=== PATIENT | female | born 1985 | race Caucasian/White ===

== ENCOUNTER 2017-10-30 13:36 | Emergency (ER) | payer OTHER ==
[2017-10-30 13:57] VITALS: BP 107/80
--- NOTE | 2017-10-30 14:57 | RAD ---
HISTORY: Right-sided rib and scapular pain COMPARISONS: February 10, 2017 VIEWS: 4, Frontal internal rotation, external rotation, outlet, and axillary views of the right shoulder FINDINGS: BONE DENSITY: Normal. BONES: There is no displaced fracture. JOINTS: There is no arthropathy. ALIGNMENT: There is no dislocation. SOFT TISSUES: Unremarkable. OTHER FINDINGS: None. IMPRESSION: NO ACUTE OSSEOUS INJURY. IF SYMPTOMS PERSIST, RECOMMEND REPEAT IMAGING.
--- NOTE | 2017-10-30 14:57 | RAD ---
HISTORY: Right-sided rib and scapular pain COMPARISONS: Chest x-ray dated December 30, 2014 VIEWS: 8, Frontal view of the chest with frontal and oblique views of the right hemithorax. FINDINGS: There is no displaced rib fracture or pneumothorax. The visualized lungs are clear. IMPRESSION: NO DISPLACED RIB FRACTURE OR PNEUMOTHORAX
--- NOTE | 2017-10-30 16:04 | UC ---
Shoulder Pain HPI - HPI Summary HPI Summary: PATIENT WITH KNOWN RIGHT ROTATOR CUFF TENDINOPATHY AND A LONG-STANDING HISTORY OF WHAT SOUNDS LIKE RECURRENT RIGHT SHOULDER SUBLUXATION PRESENTS WITH WORSENING PAIN IN HER RIGHT SHOULDER AND RIB CAGE. SHE DENIES ANY TRAUMA BUT STATES THAT SINCE LAST NIGHT AFTER DOING THE LAUNDRY HER PAIN IS WORSE THAN NORMAL. SHE REPORTS THAT SHE HAS BEEN SEEN BY ORTHOPEDICS FOR THIS ISSUE ABOUT 2 YEARS AGO AND WAS ADVISED TO DO PHYSICAL THERAPY TO HELP STRENGTHEN THE MUSCLES AND LIGAMENTS THAT SUPPORT THE SHOULDER BUT SHE HAS NOT DONE THIS. - History of Current Complaint Chief Complaint: UCUpperExtremity Stated Complaint: SHOULDER PAIN Time Seen by Provider: 10/30/17 14:42 Hx Obtained From: Patient Hx Last Menstrual Period: 10/09/17 Onset/Duration: Gradual Onset, Still Present Timing: Constant Severity Initially: Moderate Severity Currently: Moderate Location Of Pain: Is Discrete @ Pain Intensity: 5 Pain Scale Used: 0-10 Numeric Character: Sharp, Aching Aggravating Factor(s): Movement Alleviating Factor(s): Rest Associated Signs And Symptoms: Positive: Negative Related History: Dominant Hand Right - Allergies/Home Medications Allergies/Adverse Reactions: Allergies Allergy/AdvReac Type Severity Reaction Status Date / Time No Known Allergies Allergy Verified 05/20/16 17:03 PMH/Surg Hx/FS Hx/Imm Hx Other GI/ History: ALCOHOLIC HEPATITIS - Surgical History Surgical History: None - Family History Known Family History: Positive: None Negative: Cardiac Disease, Diabetes - Social History Alcohol Use: Daily Alcohol Amount: Pt has had no alcohol since incarceration Substance Use Type: None Substance Use Comment - Amount & Last Used: Drank 6 beers on 05/18/16 prior to arrest Smoking Status (MU): Current Every Day Smoker Type: Cigarettes Amount Used/How Often: 3-4 CIG/DAY Household Exposure Type: Cigarettes - Immunization History Most Recent Influenza Vaccination: unknown Most Recent Tetanus Shot: 2016 Most Recent Pneumonia Vaccination: never Review of Systems Constitutional: Negative Skin: Negative Respiratory: Negative Cardiovascular: Negative Gastrointestinal: Negative Musculoskeletal: Arthralgia, Myalgia All Other Systems Reviewed And Are Negative: Yes Physical Exam Triage Information Reviewed: Yes Appearance: Well-Appearing, No Pain Distress, Well-Nourished Vital Signs: Initial Vital Signs Temp 96.7 F 10/30/17 13:54 Pulse 83 10/30/17 13:54 Resp 15 10/30/17 13:54 BP 107/80 10/30/17 13:54 Pulse Ox 100 10/30/17 13:54 Vital Signs Reviewed: Yes Eyes: Positive: Conjunctiva Clear ENT: Positive: Hearing grossly normal Neck: Positive: Supple Respiratory: Positive: No respiratory distress, No accessory muscle use Cardiovascular: Positive: Pulses Normal Abdomen Description: Positive: Soft Musculoskeletal: Positive: ROM Intact, No Edema, Other: - NEG CHATMAN, POS EMPTY CAN. MILDLY TENDER PROXIMAL RIB CAGE MID AXILLARY LINE Neurological: Positive: Alert Psychological: Positive: Age Appropriate Behavior Skin: Negative: rashes Diagnostics - Radiology RIGHT SHOULDER/RIB XRAYS Xray Interpretation: No Acute Changes Radiology Interpretation Completed By: Radiologist Shoulder Course/Dx - Differential Dx/Diagnosis Provider Diagnoses: RIGHT SHOULDER PAIN/JOINT LAXITY Discharge - Sign-Out/Discharge Documenting (check all that apply): Discharge/Admit/Transfer - Discharge Plan Condition: Stable Disposition: HOME Patient Education Materials: Shoulder Separation Exercises (GEN), Shoulder Dislocation (ED) Referrals: Rebecca Ferreira MD [Primary Care Provider] - If Needed Blade Amezcua MD [Medical Doctor] - 1 Week Additional Instructions: USE THE SLING YOU HAVE AT HOME FOR SUPPORT AND STABILITY. GET ESTABLISHED WITH PT CANDACE. CALL [facility]TH[facility] FOR AN APPT TO DISCUSS TREATMENT OPTIONS FOR YOUR SHOULDER LAXITY. - Billing Disposition and Condition Condition: STABLE Disposition: HOME
== END 2017-10-30 15:55 | disposition home or self-care (01) ==
LOC: UCEAST 13:36
DX: M25.511 Pain in right shoulder (principal); M25.211 Flail joint, right shoulder; F17.210 Nicotine dependence, cigarettes, uncomplicated
CPT/HCPCS: 84702; 99211; G0463

== ENCOUNTER 2018-03-17 01:52 | Emergency (ER) | payer OTHER ==
--- NOTE | 2018-03-17 02:41 | ED ---
Neurological HPI - History of Current Complaint Chief Complaint: EDGeneral Stated Complaint: POSSIBLE SEIZURES Hx Last Menstrual Period: 10/09/17 Pain Intensity: 0 - Additional Pertinent History Primary Care Physician: KITTY - Allergy/Home Medications Allergies/Adverse Reactions: Allergies Allergy/AdvReac Type Severity Reaction Status Date / Time No Known Allergies Allergy Verified 03/17/18 01:59 PMH/Surg Hx/FS Hx/Imm Hx Endocrine/Hematology History: Denies: Hx Diabetes, Hx Thyroid Disease Cardiovascular History: Denies: Hx Hypertension, Other Cardiovascular Problems/Disorders Respiratory History: Denies: Hx Asthma, Hx Chronic Obstructive Pulmonary Disease (COPD) GI History: Reports: Hx Jaundice, Other GI Disorders - alcoholic liver disease Denies: Hx Ulcer Sensory History: Reports: Hx Contacts or Glasses Opthamlomology History: Reports: Hx Contacts or Glasses Neurological History: Reports: Hx Seizures Psychiatric History: Reports: Hx Anxiety, Hx Depression, Hx Substance Abuse - alcohol abuse since she was teenager Denies: Hx Eating Disorder, Hx of Violent Episodes Against Others - Immunization History Date of Tetanus Vaccine: Unknown Date of Influenza Vaccine: UNKNOWN Infectious Disease History: No Infectious Disease History: Denies: Hx Clostridium Difficile, Hx Hepatitis, Hx Human Immunodeficiency Virus (HIV), Hx of Known/Suspected MRSA, Hx Shingles, Hx Tuberculosis, Hx Known/ Suspected VRSA, History Other Infectious Disease, Traveled Outside the [place] in Last 30 Days - Family History Known Family History: Positive: None Negative: Cardiac Disease, Diabetes - Social History Alcohol Use: Daily Alcohol Amount: Pt has had no alcohol since incarceration Hx Substance Use: No Substance Use Type: Reports: None Substance Use Comment - Amount & Last Used: Drank 6 beers on 05/18/16 prior to arrest Hx Tobacco Use: Yes Smoking Status (MU): Current Every Day Smoker Type: Cigarettes Amount Used/How Often: 3-4 CIG/DAY Physical Exam Vital Signs On Initial Exam: Initial Vitals Temp Pulse Resp BP Pulse Ox 97.4 F 123 16 144/88 97 03/17/18 01:55 03/17/18 01:55 03/17/18 01:55 03/17/18 01:55 03/17/18 01:55 Diagnostics - Vital Signs Vital Signs Temp Pulse Resp BP Pulse Ox 03/17/18 01:55 97.4 F 123 16 144/88 97 - Laboratory Lab Statement: Any lab studies that have been ordered have been reviewed, and results considered in the medical decision making process. Discharge - Discharge Plan Referrals: Rebecca Ferreira MD [Primary Care Provider] - - Attestation Statements Document Initiated by Scribe: Yes
[2018-03-17] MEDS ORDERED: levETIRAcetam IV* 1,000 MG in NS 0.9% 100 ML* 100 ML IVPB ONE (02:42)
[2018-03-17] MEDS ORDERED: LORazepam INJ* 2 MG/ML 1 ML VIAL IV ONE (02:42)
[2018-03-17] MEDS ORDERED: NS 0.9% 1000 ML* 1,000 ML IV ONE (02:42)
[2018-03-17] MEDS ORDERED: Thiamine IV* 100 MG, Folic Acid IV* 1 MG, Multiple Vitamin IV ADULT* 10 ML in NS 0.9% 1... IV ONE (02:43)
[2018-03-17] MEDS ORDERED: Thiamine IV* 100 MG/ML 2 ML VIAL ONE (03:04)
--- NOTE | 2018-03-17 03:11 | ED ---
Altered Mental Status - HPI Summary HPI Summary: Level 5 caveat: Unable to obtain a complete HPI due to AMS The pt is a 32 y/o female is brought in by the [place] [employer] to [facility] c/o a suspected seizure at 01:30 today. The officer states he brought her to the station at approximately 0130 tonight and was informed of the seizure. Pt reports not taking her seizure medications tonight but cannot recall names of medications. She was ambulatory at the scene. Pt is under pollice custody - History Of Current Complaint Chief Complaint: EDGeneral Stated Complaint: POSSIBLE SEIZURES Time Seen by Provider: 03/17/18 02:40 Hx Obtained From: Patient, Other: - Accompanying police aide Hx From Patient Unobtainable Due To: Altered Mental Status Hx Last Menstrual Period: 10/09/17 Onset/Duration: Unknown Aggravating Factor(s): Unknown - Allergies/Home Medications Allergies/Adverse Reactions: Allergies Allergy/AdvReac Type Severity Reaction Status Date / Time No Known Allergies Allergy Verified 03/17/18 01:59 PMH/Surg Hx/FS Hx/Imm Hx Previously Healthy: No Endocrine/Hematology History: Denies: Hx Diabetes, Hx Thyroid Disease Cardiovascular History: Denies: Hx Hypertension, Other Cardiovascular Problems/Disorders Respiratory History: Denies: Hx Asthma, Hx Chronic Obstructive Pulmonary Disease (COPD) GI History: Reports: Hx Jaundice, Other GI Disorders - alcoholic liver disease Denies: Hx Ulcer Sensory History: Reports: Hx Contacts or Glasses Opthamlomology History: Reports: Hx Contacts or Glasses Neurological History: Reports: Hx Seizures Psychiatric History: Reports: Hx Anxiety, Hx Depression, Hx Substance Abuse - alcohol abuse since she was teenager Denies: Hx Eating Disorder, Hx of Violent Episodes Against Others - Immunization History Date of Tetanus Vaccine: Unknown Date of Influenza Vaccine: UNKNOWN Infectious Disease History: No Infectious Disease History: Denies: Hx Clostridium Difficile, Hx Hepatitis, Hx Human Immunodeficiency Virus (HIV), Hx of Known/Suspected MRSA, Hx Shingles, Hx Tuberculosis, Hx Known/ Suspected VRSA, History Other Infectious Disease, Traveled Outside the [place] in Last 30 Days - Family History Known Family History: Positive: None Negative: Cardiac Disease, Diabetes - Social History Alcohol Use: Daily Alcohol Amount: Pt has had no alcohol since incarceration Hx Substance Use: No Substance Use Type: Reports: None Substance Use Comment - Amount & Last Used: Drank 6 beers on 05/18/16 prior to arrest Hx Tobacco Use: Yes Smoking Status (MU): Current Every Day Smoker Type: Cigarettes Amount Used/How Often: 3-4 CIG/DAY - Additional Comments History Additional Comments: Level 5 caveat: Unable to obtain a complete PMHx and PSHx due to AMS Review of Systems - ROS Summary Review of Systems Summary: Level 5 caveat: Unable to obtain a complete ROS due to AMS Neurological: Other - Positive: suspected seizure All Other Systems Reviewed And Are Negative: No Physical Exam - Summary Physical Exam Summary: Level 5 caveat: Unable to obtain a complete PE due to AMS VITAL SIGNS: Reviewed. GENERAL: Patient is a well-developed and nourished female who is lying comfortable in the stretcher. Initially the pt was unresponsive to verbal stimuli. However after mild pain stimuli , she woke up and was able to engage verbally. Her breath smells of ETOH. Patient is not in any acute respiratory distress. HEAD AND FACE: No signs of trauma. No ecchymosis, hematomas or skull depressions. No sinus tenderness. EYES: PERRLA, EOMI x 2, No injected conjunctiva, no nystagmus. EARS: Hearing grossly intact. Ear canals and tympanic membranes are within normal limits. MOUTH: Oropharynx within normal limits. NECK: Supple, trachea is midline, no adenopathy, no JVD, no carotid bruit, no c- spine tenderness, neck with full ROM. CHEST: Symmetric, no tenderness at palpation LUNGS: Clear to auscultation bilaterally. No wheezing or crackles. CVS: Tachycardic , S1 and S2 present, no murmurs or gallops appreciated. ABDOMEN: Soft, non-tender. No signs of distention. No rebound no guarding, and no masses palpated. Bowel sounds are normal. EXTREMITIES: FROM in all major joints, no edema, no cyanosis or clubbing. NEURO: Alert and oriented x 3. No acute neurological deficits. Speech is normal and follows commands. SKIN: Dry and warm Triage Information Reviewed: Yes Vital Signs On Initial Exam: Initial Vitals Temp Pulse Resp BP Pulse Ox 97.4 F 123 16 144/88 97 03/17/18 01:55 03/17/18 01:55 03/17/18 01:55 03/17/18 01:55 03/17/18 01:55 Vital Signs Reviewed: Yes Completion Of Physical Exam Limited Due To: Altered Mental Status Diagnostics - Vital Signs Vital Signs Temp Pulse Resp BP Pulse Ox 03/17/18 01:55 97.4 F 123 16 144/88 97 - Laboratory Result Diagrams: 03/17/18 02:54 03/17/18 02:54 Lab Statement: Any lab studies that have been ordered have been reviewed, and results considered in the medical decision making process. Altered Mental Statu Course/Dx - Course Course Of Treatment: A 32 year-old F presents to the ED with a CC of a suspected seizure at 01:30 today. The accompanying police aide states he brought her to the station at approximately 0130 tonight and was informed of the seizure. Pt reports not taking her seizure medications tonight but cannot recall names of medications. She was ambulatory at the scene. Initially the pt was unresponsive to verbal stimuli. However after mild pain stimuli, she woke up and was able to engage verbally. A physical exam revealed tachycardia and EtOH in the breath. In the ED course, pt was given Thiamine 100mg IV, N.s 0.9% 1000 ml, Levetiracet 1000mg in 100ml N.s 0.9% and Lorazepam 1mg IV which improved the symptoms. Patient will be discharged with a final Dx of EtOH intoxication and seizure. The pt is under police custody. Pt is agreeable with this plan. Allergies noted. - Diagnoses Provider Diagnoses: Alcohol intoxication, Seizure Discharge - Sign-Out/Discharge Documenting (check all that apply): Patient Departure - DC - Discharge Plan Condition: Stable Disposition: LAW ENFORCEMENT/COURT Patient Education Materials: Nonepileptic Seizures (ED), Alcohol Intoxication ( ED) Referrals: Rebecca Ferreira MD [Primary Care Provider] - 2 Days Additional Instructions: RETURN TO THE EMERGENCY DEPARTMENT FOR CHANGING OR WORSENING SYMPTOMS. FOLLOW UP WITH PCP IN 1-2 DAYS. - Attestation Statements Document Initiated by Scribe: Yes Documenting Scribe: Suzy Perez Provider For Whom Scribe is Documenting (Include Credential): Terra Kruse MD Scribe Attestation: Suzy Bender, scribed for Terra Kruse MD on 03/17/18 at 0441.
[2018-03-17 03:15] LABS: INR 0.99 (0.77-1.02)
[2018-03-17 03:36] LABS: ABS Basophils 0 10^3/ul (0-0.2); ABS Eosinophils 0 10^3/ul (0-0.6); ABS Lymphocytes 0.6 10^3/ul (1.0-4.8); ABS Monocytes 0.3 10^3/ul (0-0.8); ABS Neutrophils 1.4 10^3/ul (1.5-7.7); ABS Nucleated RBC 0 10^3/ul; Eosinophil % 0 % (0-6); Hematocrit 42 % (35-47); Hemoglobin 14.1 g/dl (12.0-16.0); Lymphocyte % 27.8 % (25-47); Mean Corpuscular HGB Conc 34 g/dl (31-36); Mean Corpuscular Hemoglobin 31 pg (27-31); Mean Corpuscular Volume 93 fL (80-97); Nucleated Red Blood Cells % 0; Platelet Count 41 10^3/ul (150-450); Red Blood Count 4.53 10^6/ul (4.00-5.40); Red Cell Distribution Width 16 % (10.5-15); White Blood Count 2.3 10^3/ul (3.5-10.8)
[2018-03-17 05:22] VITALS: BP 97/63
== END 2018-03-17 05:25 ==
LOC: ED 01:52
DX: F10.129 Alcohol abuse with intoxication, unspecified (principal); R56.9 Unspecified convulsions; R41.82 Altered mental status, unspecified; F17.210 Nicotine dependence, cigarettes, uncomplicated
CPT/HCPCS: 36415; 80053; 80320; 82550; 83605; 83735; 84702; 85025; 85610; 85730; 96365; 96366; 96375; 99284; G0480; J2060; J3411

== ENCOUNTER 2018-03-17 16:38 | Inpatient (IN) | payer OTHER ==
[2018-03-17] MEDS ORDERED: Thiamine IV* 100 MG, Folic Acid IV* 1 MG, Multiple Vitamin IV ADULT* 10 ML in NS 0.9% 1... IV ONE (17:57)
[2018-03-17 18:44] LABS: ABS Basophils 0 10^3/ul (0-0.2); ABS Eosinophils 0 10^3/ul (0-0.6); ABS Lymphocytes 0.6 10^3/ul (1.0-4.8); ABS Monocytes 0.3 10^3/ul (0-0.8); ABS Neutrophils 1.1 10^3/ul (1.5-7.7); ABS Nucleated RBC 0 10^3/ul; Eosinophil % 0.3 % (0-6); Hematocrit 38 % (35-47); Hemoglobin 12.6 g/dl (12.0-16.0); Lymphocyte % 28.4 % (25-47); Mean Corpuscular HGB Conc 34 g/dl (31-36); Mean Corpuscular Hemoglobin 31 pg (27-31); Mean Corpuscular Volume 93 fL (80-97); Mean Platelet Volume 9.7 um3 (7.4-10.4); Nucleated Red Blood Cells % 0.4; Platelet Count 35 10^3/ul (150-450); Red Blood Count 4.04 10^6/ul (4.00-5.40); Red Cell Distribution Width 16 % (10.5-15)
[2018-03-17] MEDS ORDERED: LORazepam INJ* 2 MG/ML 1 ML VIAL IV PUSH ONE ×2 (18:53→23:05)
[2018-03-17 19:01] LABS: EGFR Non-African American 138.9 (>60)
--- NOTE | 2018-03-17 19:20 | ED ---
Substance Abuse/Use - HPI Summary HPI Summary: Pt. is a 32 y.o female who presents to the ER from the [facility] for evaluation of possible ETOH withdrawal. Pt. was brought into the ER last night by PD for seizure. She reportedly has a seizure history as well as alcoholism. Pt. received ativan and keppra and was dc to shelter. Pt. was brought back to ED by executive vice president and chief financial officer for withdrawal sxs. History is limited due to pt. being confused and noncooperative for exam. Pt. c/o tremors. She states she drinks "a lot" every day. She states she has gone through alcohol withdrawal and withdrawal seizure in the past. Symptoms are moderate in severity. No current modifying factors. - History Of Current Complaint Chief Complaint: EDDetoxRequest Stated Complaint: WITHDRAWL Time Seen by Provider: 03/17/18 17:33 Hx Obtained From: Patient, Other: - environmental compliance officer Hx Last Menstrual Period: 10/09/17 - Allergies/Home Medications Allergies/Adverse Reactions: Allergies Allergy/AdvReac Type Severity Reaction Status Date / Time No Known Allergies Allergy Verified 03/17/18 01:59 PMH/Surg Hx/FS Hx/Imm Hx Previously Healthy: Yes Endocrine/Hematology History: Denies: Hx Diabetes, Hx Thyroid Disease Cardiovascular History: Denies: Hx Hypertension, Other Cardiovascular Problems/Disorders Respiratory History: Denies: Hx Asthma, Hx Chronic Obstructive Pulmonary Disease (COPD) GI History: Reports: Hx Jaundice, Other GI Disorders - alcoholic liver disease Denies: Hx Ulcer Sensory History: Reports: Hx Contacts or Glasses Opthamlomology History: Reports: Hx Contacts or Glasses Neurological History: Reports: Hx Seizures Psychiatric History: Reports: Hx Anxiety, Hx Depression, Hx Substance Abuse - alcohol abuse since she was teenager Denies: Hx Eating Disorder, Hx of Violent Episodes Against Others - Immunization History Date of Tetanus Vaccine: Unknown Date of Influenza Vaccine: UNKNOWN Infectious Disease History: No Infectious Disease History: Denies: Hx Clostridium Difficile, Hx Hepatitis, Hx Human Immunodeficiency Virus (HIV), Hx of Known/Suspected MRSA, Hx Shingles, Hx Tuberculosis, Hx Known/ Suspected VRSA, History Other Infectious Disease, Traveled Outside the [place] in Last 30 Days - Family History Known Family History: Positive: None Negative: Cardiac Disease, Diabetes - Social History Occupation: Unemployed Lives: Dormitory/Roommates - shelter Alcohol Use: Daily Alcohol [facility] Hx Substance Use: No Substance Use Type: Reports: None Substance Use Comment - Amount & Last Used: Drank 6 beers on 05/18/16 prior to arrest Hx Tobacco Use: Yes Smoking Status (MU): Current Every Day Smoker Type: Cigarettes Amount Used/How Often: 3-4 CIG/DAY Review of Systems Constitutional: Negative Cardiovascular: Negative Respiratory: Negative Gastrointestinal: Negative Neurological: Other - tremor Positive: Anxious All Other Systems Reviewed And Are Negative: Yes Physical Exam Triage Information Reviewed: Yes Vital Signs On Initial Exam: Initial Vitals Pulse Resp BP Pulse Ox 93 19 115/74 97 03/17/18 16:46 03/17/18 16:46 03/17/18 16:46 03/17/18 16:46 Vital Signs Reviewed: Yes Completion Of Physical Exam Limited Due To: Altered Mental Status Appearance: Positive: Pain Distress - Pt lying in bed with eyes closed. Follows commands. environmental compliance officer present. Skin: Positive: Warm, Dry Head/Face: Positive: Temporal Artery Tenderness Eyes: Positive: Normal, EOMI, ENEDELIA Neck: Positive: Supple Respiratory/Lung Sounds: Positive: Clear to Auscultation, Breath Sounds Present Cardiovascular: Positive: Normal, Tachycardia Abdomen Description: Positive: Nontender, No Organomegaly Musculoskeletal: Positive: Normal, Strength/ROM Intact. Negative: Edema Left, Edema Right Neurological: Positive: Other - Oriented to place but not time. Psychiatric: Positive: Anxious - Bobby Coma Scale Best Eye Response: 4 - Spontaneous Best Motor Response: 6 - Obeys Commands Best Verbal Response: 4 - Confused Coma Scale Total: 14 Diagnostics - Vital Signs Vital Signs Temp Pulse Resp BP Pulse Ox 03/17/18 19:00 105 15 99 03/17/18 18:46 90 27 110/83 97 03/17/18 18:16 96 15 113/78 99 03/17/18 18:00 89 15 98 03/17/18 17:46 16 117/74 03/17/18 17:16 101 19 110/77 98 03/17/18 17:00 92 21 98 03/17/18 16:47 99.2 F 100 21 115/74 98 03/17/18 16:46 93 19 115/74 97 - Laboratory Lab Results: Lab Results 03/17/18 03/17/18 Range/Units 18:28 18:28 WBC 2.0 L (3.5-10.8) 10^3/ul RBC 4.04 (4.00-5.40) 10^6/ul Hgb 12.6 (12.0-16.0) g/dl Hct 38 (35-47) % MCV 93 (80-97) fL MCH 31 (27-31) pg MCHC 34 (31-36) g/dl RDW 16 H (10.5-15) % Plt Count 35 L (150-450) 10^3/ul MPV 9.7 (7.4-10.4) um3 Neut % (Auto) 56.3 (38-83) % Lymph % (Auto) 28.4 (25-47) % [place] % (Auto) 14.1 H (0-7) % Eos % (Auto) 0.3 (0-6) % Baso % (Auto) 0.9 (0-2) % Absolute Neuts (auto) 1.1 L (1.5-7.7) 10^3/ul Absolute Lymphs (auto) 0.6 L (1.0-4.8) 10^3/ul Absolute Monos (auto) 0.3 (0-0.8) 10^3/ul Absolute Eos (auto) 0 (0-0.6) 10^3/ul Absolute Basos (auto) 0 (0-0.2) 10^3/ul Absolute Nucleated RBC 0 10^3/ul Nucleated RBC % 0.4 Sodium 136 (135-145) mmol/L Potassium 3.8 (3.5-5.0) mmol/L Chloride 106 (101-111) mmol/L Carbon Dioxide 24 (22-32) mmol/L Anion Gap 6 (2-11) mmol/L BUN 5 L (6-24) mg/dL Creatinine 0.51 (0.51-0.95) mg/dL Est GFR ( Amer) 168.0 (>60) Est GFR (Non-Af Amer) 138.9 (>60) BUN/Creatinine Ratio 9.8 (8-20) Glucose 97 (70-100) mg/dL Calcium 8.1 L (8.6-10.3) mg/dL Magnesium 1.6 L (1.9-2.7) mg/dL Total Bilirubin 1.00 (0.2-1.0) mg/dL AST 151 H (13-39) U/L ALT 97 H (7-52) U/L Alkaline Phosphatase 74 (34-104) U/L Total Protein 6.2 L (6.4-8.9) g/dL Albumin 3.7 (3.2-5.2) g/dL Globulin 2.5 (2-4) g/dL Albumin/Globulin Ratio 1.5 (1-3) Lipase 55 (11.0-82.0) U/L Beta HCG, Quant < 0.60 mIU/mL Serum Alcohol Pending Result Diagrams: 03/17/18 18:28 03/17/18 18:28 Lab Statement: Any lab studies that have been ordered have been reviewed, and results considered in the medical decision making process. Course/Dx - Course Course Of Treatment: Pt. presenting for ETOH withdrawal. She has a hx of withdrawal seizures. Afebrile. Mildly tachycardic. On initial exam pt. has obvious tremors, nausea, h/a, confusion, and tachy. Labs ordered. Banana bag and ativan ordered. CBC shows WBC of 2 and platelet count of 35, have been low in past. Given pt.'s confusion and low platelet count, CT brain ordered to r/o bleed. CT scan is negative per radiology. CMP shows ca of 8.1, mag 1.6, mildly elevated LFTs. Will admit pt. for alcohol withdrawal. I spoke with hospitalist, Dr. Chapman, and pt. has been accepted to his service. - Diagnoses Differential Diagnosis/HQI/PQRI: Positive: Alcohol Abuse, Alcohol Withdrawal, Anxiety, Drug Withdrawal, Metabolic Disorder Provider Diagnoses: Alcohol withdrawal Discharge - Sign-Out/Discharge Documenting (check all that apply): Patient Departure - Discharge Plan Condition: Stable Disposition: ADMITTED TO [facility] - Billing Disposition and Condition Condition: STABLE Disposition: Admitted to [facility]
[2018-03-17] MEDS ORDERED: Folic Acid IV* 50 MG/10 ML VIAL ONE (19:23)
[2018-03-17] MEDS ORDERED: Thiamine IV* 100 MG/ML 2 ML VIAL ONE (19:23)
[2018-03-17 20:59] LABS: INR 1.09 (0.77-1.02)
[2018-03-17] MEDS ORDERED: Acetaminophen TAB* 325 MG PO ONE (21:01)
[2018-03-17] MEDS ORDERED: Ondansetron ODT TAB* 4 MG PO ONE (21:50)
--- NOTE | 2018-03-17 21:54 | RAD ---
EXAM: CT Head Without Intravenous Contrast CLINICAL HISTORY: 32 years old, female; Signs and symptoms; Altered mental status/memory loss; Confusion or disorientation TECHNIQUE: Axial computed tomography images of the head/brain without intravenous contrast. All CT scans at this facility use at least one of these dose optimization techniques: automated exposure control; mA and/or kV adjustment per patient size (includes targeted exams where dose is matched to clinical indication); or iterative reconstruction. COMPARISON: BRAIN WO CT BRAIN WO 07/30/2014 9:29 AM FINDINGS: Brain: No intracranial hemorrhage or mass effect. No significant white matter disease. Ventricles: Unremarkable. No ventriculomegaly. Bones/joints: Unremarkable. No acute fracture. Soft tissues: Unremarkable. Sinuses: Paranasal sinuses are normal. Mastoid air cells: Unremarkable as visualized. No mastoid effusion. IMPRESSION: No acute intracranial abnormality. No interval change. To contact [facility] with a general question: [facility] - [phone] For direct physician to physician contact: Physician Hotline - [phone] [facility] ([facility] ID #[id number])
[2018-03-17] MEDS ORDERED: NS 0.9% 1000 ML* 1,000 ML IV ONE (23:05)
[2018-03-17] MEDS ORDERED: Thiamine IV* 100 MG/ML 2 ML VIAL IM ONE (23:18)
[2018-03-18] MEDS ORDERED: LORazepam TAB(*) 1 MG ONE (01:10)
[2018-03-18] MEDS ORDERED: Magnesium Sulfate 2 GM IV* 2 GM/50 ML BAG ONE (01:10)
[2018-03-18] MEDS: LORazepam TAB(*) 1 MG PO SCH ×8 (01:18→23:33)
[2018-03-18] MEDS: Magnesium Sulfate 2 GM IV* 2 GM/50 ML BAG IVPB SCH ×2 (01:18→05:40)
[2018-03-18 01:52] LABS: Urine Appearance Clear; Urine Blood 1+ (Negative); Urine Color Yellow; Urine Ketones Negative (Negative); Urine Protein Negative (Negative); Urine Red Blood Cell Trace(0-2/hpf) (Absent); Urine Specific Gravity 1.008 (1.010-1.030); Urine Urobilinogen Negative (Negative); Urine White Blood Cell Trace(0-5/hpf) (Absent)
[2018-03-18] MEDS ORDERED: Thiamine IV* 100 MG/ML 2 ML VIAL IM ONE (02:00)
[2018-03-18] MEDS: Acetaminophen TAB* 325 MG PO PRN ×2 (05:39→17:29)
[2018-03-18 06:37] LABS: EGFR Non-African American 145.4 (>60)
[2018-03-18] MEDS: Multivitamins/Minerals TAB PO SCH (07:57)
[2018-03-18] MEDS: Folic Acid TAB* 1 MG PO SCH (07:57)
[2018-03-18] MEDS: Thiamine TAB* 100 MG TAB PO SCH (07:57)
[2018-03-18] MEDS: KCL 20 MEQ/100 ML IVPREMIX* 20 MEQ/100 ML BAG IV SCH ×2 (10:46→13:25)
--- NOTE | 2018-03-18 15:35 | PN ---
Subjective Date of Service: 03/18/18 Interval History: Patient appears tired resting in bed. awake to verbal stimuli, patient reports generalized body aches. Denies chest pain or shortness of breath. Denies abd pain. reports nausea. Patient reports that she want help for her alcohol abuse. Patient is currently in custody of the [facility] department. patient c/o tremor. Family History: Unchanged from Admission Social History: Unchanged from Admission Past Medical History: Unchanged from Admission Objective Active Medications: Acetaminophen (Tylenol Tab*) 650 mg PO Q4H PRN PRN Reason: PAIN Last Admin: 03/18/18 05:39 Dose: 650 mg Folic Acid (Folvite Tab*) 1 mg PO DAILY [facility] Last Admin: 03/18/18 07:57 Dose: 1 mg Lorazepam (Ativan Tab(*)) 2 mg PO Q8H [facility]; Taper Stop: 03/20/18 19:44 Last Admin: 03/18/18 07:55 Dose: 2 mg Lorazepam (Ativan Tab(*)) 0 - [address] [facility] PROTOCOL [facility]; Protocol Last Admin: 03/18/18 05:39 Dose: 2 mg Multivitamins/Minerals (Theragran/Minerals Tab*) 1 tab PO DAILY [facility] Last Admin: 03/18/18 07:57 Dose: 1 tab Thiamine HCl (Vitamin B-1 Tab*) 100 mg PO DAILY [facility] Last Admin: 03/18/18 07:57 Dose: 100 mg Vital Signs - 8 hr 03/18/18 03/18/18 03/18/18 07:39 07:55 08:00 Temperature Pulse Rate Respiratory 16 16 16 Rate Blood Pressure (mmHg) O2 Sat by Pulse Oximetry 03/18/18 03/18/18 03/18/18 09:04 11:08 12:59 Temperature 98.7 F 98.9 F 98.4 F Pulse Rate 84 83 83 Respiratory 18 19 21 Rate Blood Pressure 109/71 118/81 98/63 (mmHg) O2 Sat by Pulse 100 99 99 Oximetry 03/18/18 13:00 Temperature Pulse Rate Respiratory 21 Rate Blood Pressure (mmHg) O2 Sat by Pulse Oximetry Oxygen Devices in Use Now: None Appearance: appears fatigued, awake to verbal oriented x3 , patient with upper ext tremors Eyes: No Scleral Icterus Ears/Nose/Mouth/Throat: Clear Oropharnyx, Mucous Membranes Moist Neck: NL Appearance and Movements; NL JVP, Trachea Midline Respiratory: Symmetrical Chest Expansion and Respiratory Effort, Clear to Auscultation Cardiovascular: NL Sounds; No Murmurs; No JVD, No Edema Abdominal: NL Sounds; No Tenderness; No Distention Extremities: No Clubbing, Cyanosis Skin: No Rash or Ulcers Neurological: Alert and Oriented x 3 Nutrition: Taking PO's Result Diagrams: 03/17/18 18:28 03/18/18 06:03 Additional Lab and Data: Lab Results 03/17/18 03/17/18 Range/Units 18:28 18:28 WBC 2.0 L (3.5-10.8) 10^3/ul RBC 4.04 (4.00-5.40) 10^6/ul Hgb 12.6 (12.0-16.0) g/dl Hct 38 (35-47) % MCV 93 (80-97) fL MCH 31 (27-31) pg MCHC 34 (31-36) g/dl RDW 16 H (10.5-15) % Plt Count 35 L (150-450) 10^3/ul MPV 9.7 (7.4-10.4) um3 Neut % (Auto) 56.3 (38-83) % Lymph % (Auto) 28.4 (25-47) % Day % (Auto) 14.1 H (0-7) % Eos % (Auto) 0.3 (0-6) % Baso % (Auto) 0.9 (0-2) % Absolute Neuts (auto) 1.1 L (1.5-7.7) 10^3/ul Absolute Lymphs (auto) 0.6 L (1.0-4.8) 10^3/ul Absolute Monos (auto) 0.3 (0-0.8) 10^3/ul Absolute Eos (auto) 0 (0-0.6) 10^3/ul Absolute Basos (auto) 0 (0-0.2) 10^3/ul Absolute Nucleated RBC 0 10^3/ul Nucleated RBC % 0.4 Sodium 136 (135-145) mmol/L Potassium 3.8 (3.5-5.0) mmol/L Chloride 106 (101-111) mmol/L Carbon Dioxide 24 (22-32) mmol/L Anion Gap 6 (2-11) mmol/L BUN 5 L (6-24) mg/dL Creatinine 0.51 (0.51-0.95) mg/dL Est GFR ( Amer) 168.0 (>60) Est GFR (Non-Af Amer) 138.9 (>60) BUN/Creatinine Ratio 9.8 (8-20) Glucose 97 (70-100) mg/dL Calcium 8.1 L (8.6-10.3) mg/dL Magnesium 1.6 L (1.9-2.7) mg/dL Total Bilirubin 1.00 (0.2-1.0) mg/dL AST 151 H (13-39) U/L ALT 97 H (7-52) U/L Alkaline Phosphatase 74 (34-104) U/L Total Protein 6.2 L (6.4-8.9) g/dL Albumin 3.7 (3.2-5.2) g/dL Globulin 2.5 (2-4) g/dL Albumin/Globulin Ratio 1.5 (1-3) Lipase 55 (11.0-82.0) U/L Beta HCG, Quant < 0.60 mIU/mL Serum Alcohol Pending Assess/Plan/Problems-Billing Assessment: Ms. Huynh is a 32 y.o female that was brought to the ER by the electric motor winders assembler department for evaluation of withdrawal symptoms. She has significant history of ETOH of abuse. - Patient Problems (1) Alcoholism Current Visit: No Status: Chronic Priority: High Code(s): F10.20 - ALCOHOL DEPENDENCE, UNCOMPLICATED SNOMED Code(s): 8185287 Comment: - Continue [place] protocol - Continue scheduled ativan for Seizure prevention- with hold for sedation - will continue thiamine, folate, MV (2) Hypokalemia Current Visit: Yes Status: Acute Code(s): E87.6 - HYPOKALEMIA SNOMED Code( s): 53623224 Comment: Potassium level 3.2 will give 40 MEQ KCL IV today and repeat level in the AM (3) DVT prophylaxis Current Visit: No Status: Acute Code(s): QXM8042 - SNOMED Code(s): 738334692 Comment: ambulation (4) Full code status Current Visit: No Status: Acute Code(s): Z78.9 - OTHER SPECIFIED HEALTH STATUS SNOMED Code(s): 596401384 Status and Disposition: inpatient
--- NOTE | 2018-03-18 16:24 | HP ---
CC: Dr. Rebecca Ferreira HISTORY AND PHYSICAL: DATE OF ADMISSION: 03/17/18 CHIEF COMPLAINT: Detox. HISTORY OF PRESENT ILLNESS: Ms. Huynh is a 32-year-old woman who is in the custody of the [facility] since about 10 p.m., about 24 hours prior to admission. The patient was brought to this emergency room in the early hours of this morning due to concern about seizures, withdrawal from alcohol. The patient has a reported history of seizure disorder and was not taking her seizure medicines. The patient was given intravenous Keppra and lorazepam and discharged back to the custody of the [facility]. Later on this afternoon at the senior living, the patient was assessed by the nurse practitioner there and felt that she was having severe withdrawal syndrome from alcohol and was referred back to the emergency department. The patient cannot give any history at this time. Source of history includes the old chart and correction lieutenant. In review of the chart shows that she was admitted to this hospital in May of 2016. During that hospitalization, it was clearly reported that she has a history of delirium tremens and seizures due to the alcohol withdrawal as well as possible seizure disorder separately. However, an EEG at that time was negative. PAST MEDICAL HISTORY: Includes alcohol abuse and seizure disorder. PAST SURGICAL HISTORY: Unknown. MEDICATIONS ON ADMISSION: Medication list obtained in 2016 shows: 1. Keppra 750 mg twice a day. 2. Clonidine 0.1 mg p.o. t.i.d. 3. Multivitamins and minerals. It is unclear what the patient has been taking for the last several days and I do not have any records from the senior living to see what medications they are trying to give her there. ALLERGIES: None. FAMILY HISTORY: Family history from her previous chart shows a great aunt with pancreatic cancer. SOCIAL HISTORY: She is incarcerated. She is unmarried. She has 2 children that the correction lieutenant knows of. She smoked in the past, drinks alcohol heavily up until about 24 hours prior to admission and unknown drug use. REVIEW OF SYSTEMS: The patient is unable to participate in a review of systems. PHYSICAL EXAMINATION GENERAL: She is a middle-aged woman, lying in bed, tremulous all over, not answering questions. She has sweat on her brows and upper lip. VITAL SIGNS: Temperature is 37.3, pulse 86, respirations 21, blood pressure is 114/81, oxygen saturation 98%. HEENT: Oropharynx, no lesions. NECK: No JVD, no carotid bruits, no thyromegaly. LUNGS: Clear to auscultation and percussion. HEART: Regular rate and rhythm. No murmurs or gallops. ABDOMEN: Soft, nontender. Positive bowel sounds. No masses. EXTREMITIES: No peripheral edema. NEUROLOGIC: She is tremulous in her whole body. She opens eyes to voice and to painful stimuli. She withdraws sluggishly to pain. She is not following commands. She does not cooperate with the full neuro exam. She does have intact gag reflex. SKIN: Notable for bruises all over her body on the bony prominences. No open areas. DIAGNOSTIC STUDIES/LAB DATA: Sodium 136, potassium 3.8, chloride 106, bicarb 24, BUN 5, creatinine 0.51, glucose is 97, calcium 8.1, magnesium 1.6. AST 151 , ALT 97. Lipase 55. HCG is negative. White count 2.0, hemoglobin 12.6, hematocrit 38%, platelets are 35. INR 1.09. Alcohol less than 10. Alcohol level on admission earlier today in the emergency room was 255. EKG: Normal sinus rhythm, normal axis, no ischemic, ST or T-wave changes. Head CT was negative for infarct or bleed. ASSESSMENT AND PLAN: A 32-year-old woman presenting with alcohol withdrawal and possible seizures versus non-epileptic seizures. The patient will be admitted and placed on the [facility] protocol for the seizures. At this time, I do not think she is having status epilepticus as she does open her eyes to some stimuli and does localize pain to some extent. The patient will be detoxed with Ativan and offered rehabilitation services at the end of her stay. The patient also has likely cirrhosis given her low platelets and low white count and elevated liver enzymes. The patient will have an ultrasound of her liver while she is in the hospital to assess this further. Cessation of alcohol will be primary achievement. The patient has low magnesium due to alcohol abuse and poor nutrition. This is going to be supplemented intravenously, which may reduce her risk of arrhythmias. The patient's code status is full. DVT prophylaxis will be with sequential compression devices until she is ambulatory. [id number]/[facility] #: [id number] [facility]
[2018-03-18] MEDS: levETIRAcetam TAB* 500 MG PO SCH (21:50)
[2018-03-19] MEDS: LORazepam TAB(*) 1 MG PO SCH ×5 (01:53→15:33)
[2018-03-19] MEDS: Omeprazole CAP* 20 MG PO SCH (07:46)
[2018-03-19] MEDS: levETIRAcetam TAB* 500 MG PO SCH ×2 (07:47→21:23)
[2018-03-19] MEDS: Multivitamins/Minerals TAB PO SCH (07:47)
[2018-03-19] MEDS: Thiamine TAB* 100 MG TAB PO SCH (07:49)
[2018-03-19] MEDS: Folic Acid TAB* 1 MG PO SCH (07:49)
[2018-03-19] MEDS: Acetaminophen TAB* 325 MG PO PRN (07:58)
[2018-03-19] MEDS ORDERED: LORazepam TAB(*) 1 MG PO SCH (16:46)
--- NOTE | 2018-03-19 16:53 | PN ---
Subjective Date of Service: 03/19/18 Interval History: awake to verbal, denies any complaints. c/o hot and cold sweats. denies chest pain or shortness of breath. no seizures reported overnight. Family History: Unchanged from Admission Social History: Unchanged from Admission Past Medical History: Unchanged from Admission Objective Active Medications: Acetaminophen (Tylenol Tab*) 650 mg PO Q4H PRN PRN Reason: PAIN Last Admin: 03/19/18 07:58 Dose: 650 mg Folic Acid (Folvite Tab*) 1 mg PO DAILY [facility] Last Admin: 03/19/18 07:49 Dose: 1 mg Levetiracetam (Keppra Tab*) 750 mg PO BID [facility] Last Admin: 03/19/18 07:47 Dose: 750 mg Lorazepam (Ativan Tab(*)) 0 - 6 mg PO .PER [facility] PROTOCOL [facility]; Protocol Last Admin: 03/19/18 11:14 Dose: 4 mg Lorazepam (Ativan Tab(*)) 2 mg PO Q12H [facility]; Taper Stop: 03/20/18 19:44 Multivitamins/Minerals (Theragran/Minerals Tab*) 1 tab PO DAILY [facility] Last Admin: 03/19/18 07:47 Dose: 1 tab Omeprazole (Prilosec Cap*) 20 mg PO DAILY [facility] Last Admin: 03/19/18 07:46 Dose: 20 mg Thiamine HCl (Vitamin B-1 Tab*) 100 mg PO DAILY [facility] Last Admin: 03/19/18 07:49 Dose: 100 mg Vital Signs - 8 hr 03/19/18 03/19/18 03/19/18 08:58 09:00 11:00 Temperature 98.5 F 98.3 F Pulse Rate 91 109 Respiratory 15 15 16 Rate Blood Pressure 99/65 97/60 (mmHg) O2 Sat by Pulse 100 100 Oximetry 03/19/18 03/19/18 03/19/18 11:14 13:00 13:13 Temperature 98.7 F Pulse Rate 96 Respiratory 16 17 17 Rate Blood Pressure 101/56 (mmHg) O2 Sat by Pulse 100 Oximetry 03/19/18 03/19/18 14:53 15:00 Temperature 98.0 F Pulse Rate 91 Respiratory 16 16 Rate Blood Pressure 103/62 (mmHg) O2 Sat by Pulse 99 Oximetry Oxygen Devices in Use Now: None Appearance: appears sedated, awake to verbal, no acute distress Eyes: No Scleral Icterus Ears/Nose/Mouth/Throat: Clear Oropharnyx, Mucous Membranes Moist Neck: NL Appearance and Movements; NL JVP, Trachea Midline Respiratory: Symmetrical Chest Expansion and Respiratory Effort, Clear to Auscultation Cardiovascular: NL Sounds; No Murmurs; No JVD, No Edema Abdominal: NL Sounds; No Tenderness; No Distention Extremities: No Edema, No Clubbing, Cyanosis Skin: No Rash or Ulcers Neurological: Alert and Oriented x 3 Nutrition: Taking PO's Result Diagrams: 03/17/18 18:28 03/19/18 17:25 Additional Lab and Data: Lab Results 03/17/18 03/17/18 Range/Units 18:28 18:28 WBC 2.0 L (3.5-10.8) 10^3/ul RBC 4.04 (4.00-5.40) 10^6/ul Hgb 12.6 (12.0-16.0) g/dl Hct 38 (35-47) % MCV 93 (80-97) fL MCH 31 (27-31) pg MCHC 34 (31-36) g/dl RDW 16 H (10.5-15) % Plt Count 35 L (150-450) 10^3/ul MPV 9.7 (7.4-10.4) um3 Neut % (Auto) 56.3 (38-83) % Lymph % (Auto) 28.4 (25-47) % [place] % (Auto) 14.1 H (0-7) % Eos % (Auto) 0.3 (0-6) % Baso % (Auto) 0.9 (0-2) % Absolute Neuts (auto) 1.1 L (1.5-7.7) 10^3/ul Absolute Lymphs (auto) 0.6 L (1.0-4.8) 10^3/ul Absolute Monos (auto) 0.3 (0-0.8) 10^3/ul Absolute Eos (auto) 0 (0-0.6) 10^3/ul Absolute Basos (auto) 0 (0-0.2) 10^3/ul Absolute Nucleated RBC 0 10^3/ul Nucleated RBC % 0.4 Sodium 136 (135-145) mmol/L Potassium 3.8 (3.5-5.0) mmol/L Chloride 106 (101-111) mmol/L Carbon Dioxide 24 (22-32) mmol/L Anion Gap 6 (2-11) mmol/L BUN 5 L (6-24) mg/dL Creatinine 0.51 (0.51-0.95) mg/dL Est GFR ( Amer) 168.0 (>60) Est GFR (Non-Af Amer) 138.9 (>60) BUN/Creatinine Ratio 9.8 (8-20) Glucose 97 (70-100) mg/dL Calcium 8.1 L (8.6-10.3) mg/dL Magnesium 1.6 L (1.9-2.7) mg/dL Total Bilirubin 1.00 (0.2-1.0) mg/dL AST 151 H (13-39) U/L ALT 97 H (7-52) U/L Alkaline Phosphatase 74 (34-104) U/L Total Protein 6.2 L (6.4-8.9) g/dL Albumin 3.7 (3.2-5.2) g/dL Globulin 2.5 (2-4) g/dL Albumin/Globulin Ratio 1.5 (1-3) Lipase 55 (11.0-82.0) U/L Beta HCG, Quant < 0.60 mIU/mL Serum Alcohol Pending Microbiology and Other Data: Microbiology 03/18/18 01:35 Urine Culture - Preliminary Urine Escherichia Coli Assess/Plan/Problems-Billing Assessment: Ms. Huynh is a 32 y.o female that was brought to the ER by the analytics consultant department for evaluation of withdrawal symptoms. She has significant history of ETOH of abuse. - Patient Problems (1) Alcoholism Current Visit: No Status: Chronic Priority: High Code(s): F10.20 - ALCOHOL DEPENDENCE, UNCOMPLICATED SNOMED Code(s): 0098377 Comment: - Continue WAM protocol- continues to score between 2-11- continue prn ativan - will stop scheduled ativan for Seizure prevention d/t sedation - will continue thiamine, folate, MV (2) Hypokalemia Current Visit: Yes Status: Acute Code(s): E87.6 - HYPOKALEMIA SNOMED Code( s): 88854025 Comment: Potassium level 4.1 today (3) Seizure Current Visit: No Status: Acute Priority: High Comment: - will continue on keppra for now as the patient did have reported seizure in 2016 and was taking keppra 750 mg BID and most recently had it filled 01/2018 (4) Thrombocytopenia Current Visit: No Status: Acute Priority: High Onset Date: 07/29/14 Code (s): D69.6 - THROMBOCYTOPENIA, UNSPECIFIED SNOMED Code(s): 421348581 Comment: Likely due to ETOH - plt count 35 today - will continue to monitor - may need to consider heme/onc consult if continues to trend down - no asa or heparin d/t plt count (5) Elevated liver function tests Current Visit: Yes Status: Acute Code(s): R94.5 - ABNORMAL RESULTS OF LIVER FUNCTION STUDIES SNOMED Code(s): 065103670 Comment: will get liver ultrasound suspect this is likely r/t cirrhosis of the liver as the patient has chronic alcohol abuse (6) DVT prophylaxis Current Visit: No Status: Acute Code(s): FTD0321 - SNOMED Code(s): 698024701 Comment: ambulation / scd's NO heparin d/t plt count of 35 (7) Full code status Current Visit: No Status: Acute Code(s): Z78.9 - OTHER SPECIFIED HEALTH STATUS SNOMED Code(s): 304881699 Status and Disposition: inpatient
[2018-03-19 17:47] LABS: EGFR Non-African American 138.9 (>60)
--- NOTE | 2018-03-19 23:38 | RAD ---
EXAM: US Abdomen Limited, Right Upper Quadrant CLINICAL HISTORY: 32 years old, female; Abnormal findings; Abnormal lab test; Elevated liver enzymes; Additional info: ETOH abuse elevated liver functions TECHNIQUE: Real-time ultrasound of the right upper quadrant with image documentation. COMPARISON: ABD [facility] US ABDOMEN LIMITED 11/02/2013 8:23 AM FINDINGS: Liver: Diffusely hyperechoic liver parenchyma with reduced sonographic penetration. Borderline enlarged measuring 18 cm. Normal hepato-pedal portal vein flow. No intrahepatic bile duct dilation. Gallbladder: No gallstones, wall thickening, pericholecystic fluid, or sonographic Villareal's sign. Common bile duct: CBD measures 0.4 cm. Pancreas: Pancreatic head through proximal tail are well visualized showing no focal lesions or main ductal dilation. Distal tail is shadowed by overlying bowel gas. Right kidney: Right kidney measures 11.5 x 6.0 x 4.3 cm (155 cc). No solid cortical lesions, calculi, or pelvocaliectasis. Aorta: Non-atherosclerotic normal caliber aorta measuring 1.2 cm proximally. Inferior vena cava: Patent IVC. IMPRESSION: Hepatic steatosis and borderline hepatomegaly. No evidence of cirrhosis. To contact [employer] with a general question: Operations Center - [phone] For direct physician to physician contact: Physician Hotline - [phone] [facility] ([facility] Facility ID #[id number])
[2018-03-20] MEDS: Acetaminophen TAB* 325 MG PO PRN ×3 (00:13→20:34)
[2018-03-20] MEDS: LORazepam TAB(*) 1 MG PO SCH ×4 (03:29→21:46)
[2018-03-20 06:48] LABS: ABS Basophils 0 10^3/ul (0-0.2); ABS Eosinophils 0 10^3/ul (0-0.6); ABS Lymphocytes 1.1 10^3/ul (1.0-4.8); ABS Monocytes 0.4 10^3/ul (0-0.8); ABS Nucleated RBC 0 10^3/ul; Eosinophil % 1.3 % (0-6); Hematocrit 39 % (35-47); Hemoglobin 13.1 g/dl (12.0-16.0); Lymphocyte % 30.4 % (25-47); Mean Corpuscular HGB Conc 33 g/dl (31-36); Mean Corpuscular Hemoglobin 32 pg (27-31); Mean Corpuscular Volume 95 fL (80-97); Mean Platelet Volume 10.8 um3 (7.4-10.4); Nucleated Red Blood Cells % 0.1; Platelet Count 37 10^3/ul (150-450); Red Blood Count 4.14 10^6/ul (4.00-5.40); Red Cell Distribution Width 16 % (10.5-15); White Blood Count 3.6 10^3/ul (3.5-10.8)
[2018-03-20 07:08] LABS: EGFR Non-African American 101.4 (>60)
[2018-03-20] MEDS: Omeprazole CAP* 20 MG PO SCH (09:52)
[2018-03-20] MEDS: levETIRAcetam TAB* 500 MG PO SCH ×2 (09:52→20:34)
[2018-03-20] MEDS: Thiamine TAB* 100 MG TAB PO SCH (09:52)
[2018-03-20] MEDS: Folic Acid TAB* 1 MG PO SCH (09:52)
[2018-03-20] MEDS: Multivitamins/Minerals TAB PO SCH (09:53)
--- NOTE | 2018-03-20 10:10 | PN ---
Subjective Date of Service: 03/20/18 Interval History: Ms. Huynh reports feeling "okay" this morning. She reports generalized pain which she describes as aching. She reports mild tremors and some hallucinations which she is not able to describe. No longer having nightmares. Has been [place] to [place] [facility] but has not been ambulating d/t weakness. Reports decreased appetite. Nursing reports she has been difficult to arouse, though she is awake and moderately conversational on exam. hazard mitigation officer is at bedside. Family History: Unchanged from Admission Social History: Unchanged from Admission Past Medical History: Unchanged from Admission Objective Active Medications: Acetaminophen (Tylenol Tab*) 650 mg PO Q4H PRN Folic Acid (Folvite Tab*) 1 mg PO DAILY [facility] Levetiracetam (Keppra Tab*) 750 mg PO BID [facility] Lorazepam (Ativan Tab(*)) 0 - 6 mg PO .PER [facility] PROTOCOL [facility]; Protocol Multivitamins/Minerals (Theragran/Minerals Tab*) 1 tab PO DAILY [facility] Omeprazole (Prilosec Cap*) 20 mg PO DAILY [facility] Thiamine HCl (Vitamin B-1 Tab*) 100 mg PO DAILY [facility] Vital Signs - 8 hr 03/20/18 03/20/18 03/20/18 03:11 03:29 05:03 Temperature 98.9 F 97.9 F Pulse Rate 93 110 Respiratory 22 16 20 Rate Blood Pressure 114/73 113/73 (mmHg) O2 Sat by Pulse 100 100 Oximetry 03/20/18 03/20/18 03/20/18 05:17 06:05 07:00 Temperature 97.2 F Pulse Rate 110 Respiratory 20 15 16 Rate Blood Pressure 118/85 (mmHg) O2 Sat by Pulse 99 Oximetry 03/20/18 03/20/18 03/20/18 07:31 08:59 09:00 Temperature 97.8 F 97.7 F Pulse Rate 84 92 Respiratory 16 18 16 Rate Blood Pressure 101/58 102/62 (mmHg) O2 Sat by Pulse 100 99 Oximetry Oxygen Devices in Use Now: None Appearance: Middle-aged female laying in bed in no acute distress. Somber. Eyes: No Scleral Icterus, PERRLA Ears/Nose/Mouth/Throat: NL Teeth, Lips, Gums, Mucous Membranes Moist Neck: NL Appearance and Movements; NL JVP, Trachea Midline Respiratory: Symmetrical Chest Expansion and Respiratory Effort, Clear to Auscultation Cardiovascular: NL Sounds; No Murmurs; No JVD, RRR, No Edema Abdominal: No Hepatosplenomegaly, - - Nondistended, bowel sounds normoactive, tenderness to palpation of RUQ and RLQ Extremities: No Edema Skin: No Rash or Ulcers Neurological: Alert and Oriented x 3 Lines/Tubes/Other Access: Clean, Dry and Intact Peripheral IV Result Diagrams: 03/20/18 06:31 03/20/18 06:31 Assess/Plan/Problems-Billing Assessment: Ms. Huynh is a 32 y.o female that was brought to the ER by the explosion welder department for evaluation of withdrawal symptoms. She has significant history of ETOH of abuse. - Patient Problems (1) Alcoholism Current Visit: Yes Status: Acute Priority: High Code(s): F10.20 - ALCOHOL DEPENDENCE, UNCOMPLICATED SNOMED Code(s): 7447680 Comment: - Continue decreased WAM protocol - Continue thiamine, folate, MV (2) Elevated liver function tests Current Visit: Yes Status: Acute Priority: High Code(s): R94.5 - ABNORMAL RESULTS OF LIVER FUNCTION STUDIES SNOMED Code(s): 876226386 Comment: - Likely 2/2 alcohol abuse - Liver US shows hepatic steatosis and hepatomegaly, but no cirrhosis - Check acetaminphen level and hepatitis panel (3) Thrombocytopenia Current Visit: Yes Status: Acute Priority: High Onset Date: 07/29/14 Code(s): D69.6 - THROMBOCYTOPENIA, UNSPECIFIED SNOMED Code(s): 936608461 Comment: - Likely 2/2 to ETOH abuse - Stable, will continue to monitor - May need to consider hematology consult if trending down (4) Seizure Current Visit: Yes Status: Chronic Priority: High Comment: - Reported seizure in 2016 - Continue keppra 750 mg BID (5) Full code status Current Visit: Yes Status: Acute Priority: High Code(s): Z78.9 - OTHER SPECIFIED HEALTH STATUS SNOMED Code(s): 204657179 (6) DVT prophylaxis Current Visit: Yes Status: Acute Priority: High Code(s): ZPV7842 - SNOMED Code(s): 782804666 Comment: - No heparin d/t thrombocytopenia - SCDs and encourage ambulation Status and Disposition: Inpatient for alcohol withdrawal. Possible d/c in the AM.
[2018-03-21] MEDS: Acetaminophen TAB* 325 MG PO PRN ×2 (03:40→10:00)
[2018-03-21] MEDS: LORazepam TAB(*) 1 MG PO SCH (03:40)
[2018-03-21 05:55] LABS: ABS Basophils 0 10^3/ul (0-0.2); ABS Eosinophils 0 10^3/ul (0-0.6); ABS Lymphocytes 0.9 10^3/ul (1.0-4.8); ABS Monocytes 0.5 10^3/ul (0-0.8); ABS Neutrophils 2.2 10^3/ul (1.5-7.7); ABS Nucleated RBC 0 10^3/ul; Eosinophil % 1.1 % (0-6); Hematocrit 40 % (35-47); Hemoglobin 13.2 g/dl (12.0-16.0); Mean Corpuscular HGB Conc 33 g/dl (31-36); Mean Corpuscular Hemoglobin 32 pg (27-31); Mean Corpuscular Volume 96 fL (80-97); Mean Platelet Volume 10.6 um3 (7.4-10.4); Nucleated Red Blood Cells % 0; Platelet Count 48 10^3/ul (150-450); Red Blood Count 4.16 10^6/ul (4.00-5.40); Red Cell Distribution Width 16 % (10.5-15); White Blood Count 3.7 10^3/ul (3.5-10.8)
[2018-03-21 06:05] LABS: EGFR Non-African American 132.9 (>60)
[2018-03-21] MEDS: levETIRAcetam TAB* 500 MG PO SCH (08:52)
[2018-03-21] MEDS: Omeprazole CAP* 20 MG PO SCH (08:52)
[2018-03-21] MEDS: Multivitamins/Minerals TAB PO SCH (08:53)
[2018-03-21] MEDS: Folic Acid TAB* 1 MG PO SCH (08:53)
[2018-03-21] MEDS: Thiamine TAB* 100 MG TAB PO SCH (08:53)
[2018-03-21] MEDS: hydrOXYzine HCL TAB* 25 MG PO PRN ×2 (10:01→15:36)
[2018-03-21 11:53] VITALS: BP 96/62
--- NOTE | 2018-03-22 04:04 | DS ---
CC: Dr. Rebecca Ferreira * DISCHARGE SUMMARY: DATE OF ADMISSION: 03/18/18 DATE OF DISCHARGE: 03/21/18 PRIMARY CARE PROVIDER: Dr. Rebecca Ferreira. ATTENDING PHYSICIAN: Dr. Kinjal Patino * (dictated by Karyn Jeter NP). PRIMARY DIAGNOSES: 1. Alcohol withdrawal. 2. Elevated liver function tests. 3. Thrombocytopenia. SECONDARY DIAGNOSES: 1. Seizures. 2. Alcohol abuse. STUDIES WHILE IN THE HOSPITAL: 1. Brain CT on 03/17/18 reads as no acute intracranial abnormalities, no interval change. 2. Liver ultrasound on 03/19/18 reads as hepatic steatosis and borderline hepatomegaly, no evidence of cirrhosis. DISCHARGE MEDICATIONS: New Medications: None. Continued home medications: 1. Keppra 750 mg p.o. b.i.d. 2. Omeprazole 20 mg p.o. daily. 3. Folic acid 1 mg p.o. daily. 4. Multivitamin 1 tab daily. 5. Thiamine 100 mg p.o. daily. HISTORY OF PRESENT ILLNESS AND HOSPITAL COURSE: Ms. Huynh is a 32-year-old female with past medical history of alcohol abuse and seizure disorder, who presented to the emergency room on 03/17/18 with concern for possible seizure activity and alcohol withdrawal. Please see the history and physical by Dr. Chuck Chapman for complete for complete summary of the events leading up to his hospitalization; but in short, the patient has been incarcerated at the [facility]. She was noted by the nurse practitioner there to be having withdrawal symptoms and there was a concern about seizure activity. The patient had been off of her Keppra for an unknown length of time. The patient was not able to give any history at the time of admission. It is noted that the patient was hospitalized here in 2016 for alcohol withdrawal. While in the emergency room, the patient was noted to have low white blood count of 2 and low platelet count of 35. Additionally, her AST and ALT were elevated at 151 and 97 respectively. Her toxicology screen was unremarkable. She was placed on a WAM protocol here in the hospital where she received lorazepam for withdrawal symptoms up until the night prior to discharge. She was on thiamine , folic and multivitamin for Wernicke's prophylaxis. Because of her elevated LFTs and thrombocytopenia, a liver ultrasound was done, which was remarkable for hepatic steatosis. Liver enzymes trended down and as of 03/20/18 AST was 82 , ALT 73. Her thrombocytopenia is also attributable to alcohol abuse and hepatic steatosis. As of the day of discharge, the platelet count increased to 48, and there were no bleeding concerns during this hospitalization. It is unclear if she actually had a seizure prior to admission, although there is no seizure activity while here in the hospital. She has been maintained on her usual dose of Keppra. Last known seizure was in 2015. Keppra level was pending as of the time of this dictation. As of the day of discharge, the patient is not displaying any further withdrawal symptoms. She did complain of anxiety this morning for which she was given 1 dose of hydroxyzine 25 mg, which she responded to well. She was noted to be weak at the time of discharge and is requiring some degree of assistance with ambulation. Acute hepatitis panel was negative. Ms. Huynh is stable for discharge back to [facility] today. Vital signs are as follows: Temp 98.6, heart rate 81, respiratory rate 16, oxygen saturation 100% on room air, blood pressure 96/62. DISCHARGE PLAN: Ms. Huynh will be discharged back to the group home in police custody. Activity will be as tolerated. Diet will be regular as tolerated. I have not started her on any new medications, although I am recommending that the psychiatrist at the group home consider placing the patient on a p.r.n. dose of hydroxyzine as she responded well to that while here in the hospital. She should follow up with her PCP or see a nurse practitioner at the group home. I have recommended that she abstain from alcohol. The patient has been instructed to return to the emergency room or nearest hospital for any worsening or symptoms, shortness of breath, lightheadedness, dizziness, chest discomfort, high fevers, chills, night sweats, loss of consciousness, or any other worrisome signs or symptoms. This is a summarized report of a complex medical history and hospital stay. For further details, please see the entire medical record. TIME SPENT: Approximately 45 minutes were spent on this discharge, greater than half of that time was spent [id number] with the patient discussing discharge plans and instructions. KARYN JETER PH[employer] GRAPH[employer] LIBRARIAN [id number]/[facility] #: [id number] [facility]ALS[facility]
== END 2018-03-21 16:15 | DRG 775 ==
LOC: ED 16:38 → MED 23:15
PROVIDERS: ADMIT Internal Medicine; ATTEND Internal Medicine
DX: F10.239 Alcohol dependence with withdrawal, unspecified (principal); G40.909 Epilepsy, unspecified, not intractable, without status epilepticus; K70.9 Alcoholic liver disease, unspecified; F41.9 Anxiety disorder, unspecified; F32.9 Major depressive disorder, single episode, unspecified; F17.210 Nicotine dependence, cigarettes, uncomplicated; R40.2142 Coma scale, eyes open, spontaneous, at arrival to emergency department; R40.2362 Coma scale, best motor response, obeys commands, at arrival to emergency department; R40.2242 Coma scale, best verbal response, confused conversation, at arrival to emergency department; Y90.8 Blood alcohol level of 240 mg/100 ml or more; D69.6 Thrombocytopenia, unspecified; K76.0 Fatty (change of) liver, not elsewhere classified; R16.0 Hepatomegaly, not elsewhere classified; E87.6 Hypokalemia; Z80.0 Family history of malignant neoplasm of digestive organs
CPT/HCPCS: 36415; 70450; 76705; 80048; 80053; 80074; 80177; 80307; 80320; 80329; 81003; 81015; 83690; 83735; 84702; 85025; 85610; 87077; 87086; 87186; 93005; 99284; A9270-GY; G0480; J2060; J3411; J3475; J3480

== ENCOUNTER 2019-08-17 15:07 | Emergency (ER) | payer OTHER ==
--- OUTSIDE RECORDS SUMMARY | 2019-08-17 15:31 | XMS REPORT | Continuity of Care Document ---
:1985 External Reference #:[id number] Author Name Gay CrowbhartMATT Address [address] [address] Care Team Providers Name Role Phone Key Meyers M.D. - Family Care Team Information Cleat Feeder [facility] - Diagnostic Care Team Information Cleat Feeder [phone] [facility] - Care Team Information Cleat Feeder [phone] Gastroenterology Sophie Miller MD - Dermatology Care Team Information Cleat Feeder [phone] Jenny Gerber OD - Green Prize Packer Care Team Information Cleat Feeder [phone] Rebecca Ferreira M.D. - Family Medicine Care Team Information Cleat Feeder Unavailable Brandon Osman - Gastroenterology Care Team Information Cleat Feeder [phone] strap folding machine operator - Obstetrics & Gynecology Care Team Information Cleat Feeder [phone] [facility] [place] [facility] - Emergency Care Care Team Information Cleat Feeder [phone] Problems Active Problems Provider Date Alcoholic cirrhosis Jeremias Vega M.D. Onset: 12/10/2013 Chronic obstructive lung disease Marvin Real Onset: 07/01/2015 Localization-related epilepsy Rebecca Ferreira M.D. Onset: 07/03/2015 Alcohol dependence Rebecca Ferreira M.D. Onset: 03/17/2016 Anxiety state Rebecca Ferreira M.D. Onset: 08/04/2016 Social History Type Date Description Comments Sex Unknown Tobacco Use Start: Unknown Light tobacco smoker (10 or 2 cig a day fewer cigarettes/day) ETOH Use Alcoholism ETOH Use Has consumed alcohol in the since 05/2016 past Recreational Drug Use Denies Drug Use Tobacco Use Start: Unknown Patient is a current smoker, smokes every day Smoking Status Reviewed: 05/07/19 Patient is a current smoker, smokes every day Allergies, Adverse Reactions, Alerts Description No Known Drug Allergies Medications Active Medications SIG Qnty Indications Ordering Date Provider Sertraline HCL 1 by mouth every 90tabs F41.9 Gay 07/03/2019 25mg day Annmarie, ASSESSMENT DIRECTOR Tablets B2 4 by mouth daily 120tabs R51 Gay 06/19/2019 100mg Tablets Annmarie, ASSESSMENT DIRECTOR Magnesium Gluconate 1 by mouth three 90tabs R51 Gay 06/19/2019 times a day Annmarie, ASSESSMENT DIRECTOR 250mg Tablets Naproxen 1 by mouth twice 60tabs R51 Gay 06/19/2019 500mg Tablets a day with food Annmarie, ASSESSMENT DIRECTOR Fluoxetine HCL 1 by mouth every 90caps F41.9 Gay 04/20/2019 40mg day Annmarie, ASSESSMENT DIRECTOR Capsules Miralax 17 grams every 24units Gay 04/20/2019 3350NF Packet day with large Annmarie, ASSESSMENT DIRECTOR glass water Trazodone HCL 2 by mouth every 60tabs Gay 04/20/2019 100mg night at bedtime Annmarie, ASSESSMENT DIRECTOR Tablets Multi +Dha 1 by mouth every 90caps Gay 04/20/2019 day Annmarie, ASSESSMENT DIRECTOR 27-0.8-250mg Capsules Levetiracetam take one tablet 90tabs Gay 11/23/2016 750mg by mouth daily Annmarie, ASSESSMENT DIRECTOR Tablets Ibuprofen Take One Tablet 100tabs Gay 10/01/2014 400mg Tablets By Mouth Four Annmarie, ASSESSMENT DIRECTOR Times A Day as Needed For Menstrual Cramps Maximum Daily Dose = 4 Depakote 2 by mouth bid 180tabs Gay 500mg Tablets Annmarie, ASSESSMENT DIRECTOR DR Lee on Im injection Unknown 380mg once a Suspension Rec month/administere d at Cars History Medications Buspirone HCL take 1 tablet 180tabs F41.9 Gay 05/18/2019 - 10mg by mouth twice Annmarie, ASSESSMENT DIRECTOR 07/03/2019 Tablets a day Buspirone HCL take one tablet 60tabs F41.9 Vani Purcell 05/07/2019 - 5mg by mouth twice ROCKY Bentley 05/18/2019 Tablets a day as needed for anxiety Tessalon Perles 1-2 tab by 60caps Rebecca Ferreira 04/26/2019 - 100mg mouth every 6 M.D. 05/18/2019 Capsules hours as needed Fluticasone 1 puff each 16units Rebecca Ferreira 04/26/2019 - Propionate nostril twice a M.D. 05/18/2019 50mcg/Act day Suspension Guaifenesin ER 1 by mouth 30tabs J01.90 Vani Purcell 04/24/2019 - 1200mg twice a day ROCKY Bentley 04/26/2019 Tablets ER 12HR Medications Administered in Office Medication SIG Qnty Indications Ordering Provider Date Injection Subcutaneous Or Rebecca Ferreira M.D. 01/19/2018 Intramuscular Injection Injection Subcutaneous Or Rebecca Ferreira M.D. 10/19/2017 Intramuscular Injection Injection Medroxyprogesterone MATT Vides 07/22/2017 Acetate 1 ML (Depo-Provera) Injection Injection Subcutaneous Or MATT Vides 07/22/2017 Intramuscular Injection Injection Medroxyprogesterone Rebecca Ferreira M.D. 05/04/2017 Acetate 1 ML (Depo-Provera) Injection Injection Subcutaneous Or Rebecca Ferreira M.D. 05/04/2017 Intramuscular Injection Injection Medroxyprogesterone Rebecca Ferreira M.D. 02/03/2017 Acetate 1 ML (Depo-Provera) Injection Injection Subcutaneous Or Rebecca Ferreira M.D. 02/03/2017 Intramuscular Injection Injection Medroxyprogesterone Rebecca Ferreira M.D. 11/02/2016 Acetate 1 ML (Depo-Provera) Injection Injection Subcutaneous Or Rebecca Ferreira M.D. 11/02/2016 Intramuscular Injection Immunizations CPT Code Status Date Vaccine Lot # [id number] Given 02/08/1997 Hepatitis B Immunization, High Risk Pediatric Vital Signs Date Vital Result Comment 07/03/2019 3:03pm BP Systolic 110 mmHg BP Diastolic 80 mmHg Heart Rate 115 /min Body Temperature 97.7 F Respiratory Rate 16 /min 06/19/2019 12:15pm BP Systolic 116 mmHg BP Diastolic 64 mmHg Heart Rate 80 /min Body Temperature 97.9 F Respiratory Rate 16 /min Results Test Acquired Date Facility Test Result H/L Range Note Laboratory test 06/19/2019 [facility]) Vitamin B-12 660 pg/mL 230-1050 finding CBC Electronic 06/19/2019 [facility]ma) WBC 9.0 4.0-10.0 Fma x10^3/UL RBC 3.98 x10^6/UL 3.93-6.00 HGB 12.7 g/dL 12.0-17.0 HCT 38 % 35-50 MCV 95.2 fL High 80.0-95.0 MCH 31.9 pg 25.6-32.2 MCHC 33.5 g/dL 32.2-36.0 RDW-CV 13.3 % 11.6-14.4 PLT 133 x10^3/UL Low 163-400 MPV 11.4 fL 9.4-12.4 Kendy# 6.03 x10^3/UL 1.56-6.13 Lymph# 2.14 x10^3/UL 1.18-3.74 Dickson# 0.57 x10^3/UL 0.24-0.82 Eos # 0.2 x10^3/UL 0.0-0.5 Baso # 0.02 x10^3/UL 0.01-0.08 Kendy% 67.3 % 34.0-70.0 Lymph % 23.8 % 20.0-52.0 Dickson% 6.3 % 5.0-12.0 Eos% 2.3 % 0.7-7.0 Baso% 0.2 % 0.1-1.2 Laboratory test finding 06/19/2019 [facility] , Serum negative (607)- - Urine (Fma) 04/24/2019 [facility] medicine SP Grav 1.015 (607)- - Urine, (Fma/CMC/CTX) Negative Procedures Date Code Description Status 04/20/2019 97811 Brief Emotional/Behav Assessment W/ Scoring Doc Per Completed Standard Inst Medical Devices Description No Information Available Encounters Type Date Location Provider Dx Diagnosis Office Visit 06/19/2019 Main Office Gay Anguiano, F41.9 Anxiety disorder, 12:00p ASSESSMENT DIRECTOR unspecified F42.2 Mixed obsessional thoughts and acts R51 Headache F10.21 Alcohol dependence, in remission R43.0 Anosmia N92.6 Irregular menstruation, unspecified Office Visit 05/18/2019 10:30a Main Office Gay F41.9 Anxiety disorder, Annmarie, ASSESSMENT DIRECTOR unspecified F10.21 Alcohol dependence, in remission F42.2 Mixed obsessional thoughts and acts Office Visit 05/07/2019 2:30p Main Office Vani Purcell F41.9 Anxiety disorder, Bentley, AGRICULTURAL MECHANIC unspecified Office Visit 04/24/2019 3:30p Main Office Vani Jazzy N92.6 Irregular Bentley, AGRICULTURAL MECHANIC menstruation, unspecified R11.0 Nausea J01.90 Acute sinusitis, unspecified Office Visit 04/20/2019 10:30a Main Office Gay F10.21 Alcohol Annmarie, ASSESSMENT DIRECTOR dependence, in remission G40.A09 Absence epileptic syndrome, not intractable, w/o stat epi F34.1 Dysthymic disorder Assessments Date Code Description Provider 07/03/2019 F41.9 Anxiety disorder, unspecified Gay Annmarie, [facility] 07/03/2019 F42.2 Mixed obsessional thoughts and acts Gay Annmarie, [facility] 07/03/2019 F34.1 Dysthymic disorder Gay Annmarie, [facility] 07/03/2019 F10.21 Alcohol dependence, in remission Gay Annmarie, [facility] 06/19/2019 F41.9 Anxiety disorder, unspecified Gay Annmarie, [facility] 06/19/2019 F42.2 Mixed obsessional thoughts and acts Gay Annmarie, [facility] 06/19/2019 R51 Headache Gay Annmarie, [facility] 06/19/2019 F10.21 Alcohol dependence, in remission Gay Annmarie, [facility] 06/19/2019 R43.0 Anosmia Gay Annmarie, [facility] 06/19/2019 N92.6 Irregular menstruation, unspecified Gay Annmarie, [facility] 05/18/2019 F41.9 Anxiety disorder, unspecified Gay Annmarie, ASSESSMENT DIRECTOR 05/18/2019 F10.21 Alcohol dependence, in remission Gay Annmarie, [facility] 05/18/2019 F42.2 Mixed obsessional thoughts and acts Gay Annmarie, ASSESSMENT DIRECTOR 05/07/2019 F41.9 Anxiety disorder, unspecified Vani Bentley, AGRICULTURAL MECHANIC 04/24/2019 N92.6 Irregular menstruation, unspecified Vani Bentley, AGRICULTURAL MECHANIC 04/24/2019 R11.0 Nausea Vani Bentley, AGRICULTURAL MECHANIC 04/24/2019 J01.90 Acute sinusitis, unspecified Vani Bentley, AGRICULTURAL MECHANIC 04/20/2019 F10.21 Alcohol dependence, in remission MATT Campuzano 04/20/2019 G40.A09 Absence epileptic syndrome, not MATT Campuzano intractable, without status epilepticus 04/20/2019 F34.1 Dysthymic disorder MATT Campuzano Plan of Treatment Future Appointment(s):08/30/2019 10:20 am - Rebecca Ferreira M.D. at [id number] - MATT CampuzanoF41.9 Anxiety disorder, unspecifiedNew Medication:Sertraline HCL 25 mg - 1 by mouth every dayComments:medication adjustment [id number] Mixed obsessional thoughts and actsF34.1 Dysthymic disorderFollow up:4-6 bkcajX71.21 Alcohol dependence, in remission Functional Status Description No Information Available Mental Status Description No Information Available Referrals Refer to Reason for Referral Status Appt Date [facility] consult and treat-irreg menstruation jw Created [address] [facility] [id number] [phone]
[2019-08-17 16:55] LABS: INR 1.29 (0.82-1.09)
[2019-08-17 16:57] LABS: ABS Lymphocytes 1.3 10^3/ul (1.0-4.8); ABS Monocytes 0.6 10^3/ul (0-0.8); ABS Neutrophils 4.6 10^3/ul (1.5-7.7); Eosinophil % 0.4 %; Hematocrit 37 % (35-47); Hemoglobin 12.9 g/dL (12.0-16.0); Mean Corpuscular HGB Conc 35 g/dL (31-36); Mean Corpuscular Hemoglobin 31 pg (27-31); Mean Corpuscular Volume 90 fL (80-97); Mean Platelet Volume 10.8 fL (7.4-10.4); Platelet Count 89 10^3/uL (150-450); Red Blood Count 4.16 10^6 /uL (3.70-4.87); Red Cell Distribution Width 13 % (10-15); White Blood Count 6.6 10^3/uL (3.5-10.8)
[2019-08-17 17:04] LABS: ALT 9 U/L (7-52); AST 16 U/L (13-39); Albumin 4.4 g/dL (3.2-5.2); Albumin/Globulin Ratio 1.7 (1-3); Alkaline Phosphatase 45 U/L (34-104); Anion Gap 10 mmol/L (2-11); BUN/Creatinine Ratio 11.6 (8-20); Blood Urea Nitrogen 8 mg/dL (6-24); CO2 Carbon Dioxide 16 mmol/L (22-32); Calcium 8.8 mg/dL (8.6-10.3); Chloride 111 mmol/L (101-111); EGFR African American 117.2 (>60); EGFR Non-African American 96.8 (>60); Globulin 2.6 g/dL (2-4); Glucose 93 mg/dL (70-100); Magnesium 1.8 mg/dL (1.9-2.7); Potassium 3.3 mmol/L (3.5-5.0); Sodium 137 mmol/L (135-145)
--- NOTE | 2019-08-17 17:50 | ED ---
Psychiatric Complaint - HPI Summary HPI Summary: 34 year old female with a significant past medical history of epilepsy presents to the emergency department today complaining of episodes of rapid heart rate, rash, disorganized thoughts with associated memory loss and confusion which lasted approximately 15-45 minutes. Patient states she isn't having these episodes for the last month which include visual hallucination of bugs and stop signs. Patient states she keeps trying to explain to people that they need to "press the button by the stop sign" however she does not know why. Patient states she is also been seeing"water bugs on my son's hands that don't exist" patient denies past personal history or family history of psychosis or mental health disorders. Patient denies recent recreational drug use or alcohol use. Patient states she has been taking her Keppra as prescribed with no infarction. Patient is otherwise well and denies any symptoms at this time including fever , chest pain, abdominal pain, cough, nausea, vomiting diarrhea, rash. Patient believes she has not had an epileptic episode recently. Patient denies suicidal or homicidal ideation - History Of Current Complaint Chief Complaint: EDSeizure Time Seen by Provider: 08/17/19 16:31 Hx Obtained From: Patient Hx Last Menstrual Period: 10/09/17 Onset/Duration: Gradual Onset Timing: Constant Severity Initially: Moderate Severity Currently: Moderate Character: Anxious, Lethargic Aggravating Factor(s): Recent Stress Associated Signs And Symptoms: Positive: Hallucinating, Paranoid Behavior, Sleep Disturbance Has Suicidal: Denies: Thoughts Has Homicidal: Denies: Thoughts - Allergies/Home Medications Allergies/Adverse Reactions: Allergies Allergy/AdvReac Type Severity Reaction Status Date / Time No Known Allergies Allergy Verified 08/17/19 15:24 Home Medications: Home Medications Divalproex DR TAB(*) [Depakote DR(*)] 1,000 mg PO DAILY 08/17/19 [History Confirmed 08/17/19] Fluoxetine (Nf) Cap [Fluoxetine HCl] 40 mg PO DAILY 08/17/19 [History Confirmed 08/17/19] Magnesium Gluconate 250 mg PO TID 08/17/19 [History Confirmed 08/17/19] Pantoprazole TAB * [Protonix TAB*] 40 mg PO DAILY 08/17/19 [History Confirmed ] Vit 93/Iron Fum/Folic [ Formula A-Free] 1 tab PO DAILY [History Confirmed 08/17/19] busPIRone TAB* [Buspar TAB*] 10 mg PO BID 08/17/19 [History Confirmed 08/17/19] guaiFENesin [Mucus ER] 600 mg PO Q12HR PRN 08/17/19 [History Confirmed 08/17/19] PMH/Surg Hx/FS Hx/Imm Hx Endocrine/Hematology History: Denies: Hx Diabetes, Hx Thyroid Disease Cardiovascular History: Denies: Hx Hypertension, Other Cardiovascular Problems/Disorders Respiratory History: Denies: Hx Asthma, Hx Chronic Obstructive Pulmonary Disease (COPD) GI History: Reports: Hx Jaundice, Other GI Disorders - alcoholic liver disease Denies: Hx Ulcer Sensory History: Denies: Hx Contacts or Glasses, Hx Hearing Aid Opthamlomology History: Denies: Hx Contacts or Glasses Neurological History: Reports: Hx Seizures Psychiatric History: Reports: Hx Anxiety, Hx Depression, Hx Substance Abuse - alcohol abuse since she was teenager Denies: Hx Eating Disorder, Hx of Violent Episodes Against Others - Immunization History Date of Tetanus Vaccine: Unknown Date of Influenza Vaccine: UNKNOWN Infectious Disease History: No Infectious Disease History: Denies: Hx Clostridium Difficile, Hx Hepatitis, Hx Human Immunodeficiency Virus (HIV), Hx of Known/Suspected MRSA, Hx Shingles, Hx Tuberculosis, Hx Known/ Suspected VRSA, History Other Infectious Disease, Traveled Outside the [place] in Last 30 Days - Family History Known Family History: Positive: None Negative: Cardiac Disease, Diabetes - Social History Alcohol Use: Daily Alcohol Amount: pt into [facility] custodial around 199903/16/2018 Hx Substance Use: No Substance Use Type: Reports: None Substance Use Comment - Amount & Last Used: Drank 6 beers on 05/18/16 prior to arrest Hx Tobacco Use: Yes Smoking Status (MU): Current Every Day Smoker Type: Cigarettes Amount Used/How Often: 3-4 CIG/DAY Review of Systems Positive: Fatigue. Negative: Fever, Chills Eyes: Negative ENT: Negative Cardiovascular: Negative Respiratory: Negative Gastrointestinal: Negative Genitourinary: Negative Musculoskeletal: Negative Skin: Negative Neurological/Mental Status: Negative Positive: Anxious All Other Systems Reviewed And Are Negative: Yes Physical Exam Triage Information Reviewed: Yes Vital Signs On Initial Exam: Initial Vitals Temp Pulse Resp BP Pulse Ox 98.2 F 81 16 119/89 100 08/17/19 15:18 08/17/19 15:18 08/17/19 15:18 08/17/19 15:18 08/17/19 15:18 Vital Signs Reviewed: Yes Appearance: Positive: Well-Appearing, No Pain Distress, Well-Nourished Skin: Positive: Warm, Skin Color Reflects Adequate Perfusion Eyes: Positive: EOMI, ENEDELIA ENT: Positive: Hearing grossly normal Respiratory/Lung Sounds: Positive: Clear to Auscultation, Breath Sounds Present Cardiovascular: Positive: RRR, S1, S2 Abdomen Description: Positive: Nontender, Soft Bowel Sounds: Positive: Present Musculoskeletal: Positive: Strength/ROM Intact Neurological: Positive: Sensory/Motor Intact, Alert, Oriented to Person Place, Time, Normal Gait, Facial Symmetry, Speech Normal Psychiatric: Positive: Anxious, Other - Patient or eye contact and is quite disorganized in conversation and endorses hallucinations. AVPU Assessment: Alert Procedures - Sedation Patient Received Moderate/Deep Sedation with Procedure: No Diagnostics - Vital Signs Vital Signs Temp Pulse Resp BP Pulse Ox 08/17/19 15:18 98.2 F 81 16 119/89 100 - Laboratory Lab Results: Lab Results 08/17/19 08/17/19 08/17/19 Range/Units 16:41 16:41 16:41 WBC 6.6 (3.5-10.8) 10^3/uL RBC 4.16 (3.70-4.87) 10^6 /uL Hgb 12.9 (12.0-16.0) g/dL Hct 37 (35-47) % MCV 90 (80-97) fL MCH 31 (27-31) pg MCHC 35 (31-36) g/dL RDW 13 (10-15) % Plt Count 89 L (150-450) 10^3/uL MPV 10.8 H (7.4-10.4) fL Neut % (Auto) 70.5 % Lymph % (Auto) 20.0 % Lipscomb % (Auto) 8.7 % Eos % (Auto) 0.4 % Baso % (Auto) 0.4 % Absolute Neuts (auto) 4.6 (1.5-7.7) 10^3/ul Absolute Lymphs (auto) 1.3 (1.0-4.8) 10^3/ul Absolute Monos (auto) 0.6 (0-0.8) 10^3/ul Absolute Eos (auto) 0.0 (0-0.6) 10^3/ul Absolute Basos (auto) 0.0 (0-0.2) 10^3/ul Absolute Nucleated RBC 0.0 10^3/ul Nucleated RBC % 0.0 INR (Anticoag Therapy) 1.29 H (0.82-1.09) Sodium 137 (135-145) mmol/L Potassium 3.3 L (3.5-5.0) mmol/L Chloride 111 (101-111) mmol/L Carbon Dioxide 16 L (22-32) mmol/L Anion Gap 10 (2-11) mmol/L BUN 8 (6-24) mg/dL Creatinine 0.69 (0.51-0.95) mg/dL Est GFR ( Amer) 117.2 (>60) Est GFR (Non-Af Amer) 96.8 (>60) BUN/Creatinine Ratio 11.6 (8-20) Glucose 93 (70-100) mg/dL Lactic Acid (0.5-2.0) mmol/L Calcium 8.8 (8.6-10.3) mg/dL Magnesium 1.8 L (1.9-2.7) mg/dL Total Bilirubin 0.50 (0.2-1.0) mg/dL AST 16 (13-39) U/L ALT 9 (7-52) U/L Alkaline Phosphatase 45 (34-104) U/L Total Protein 7.0 (6.4-8.9) g/dL Albumin 4.4 (3.2-5.2) g/dL Globulin 2.6 (2-4) g/dL Albumin/Globulin Ratio 1.7 (1-3) 08/17/19 Range/Units 16:41 WBC (3.5-10.8) 10^3/uL RBC (3.70-4.87) 10^6 /uL Hgb (12.0-16.0) g/dL Hct (35-47) % MCV (80-97) fL MCH (27-31) pg MCHC (31-36) g/dL RDW (10-15) % Plt Count (150-450) 10^3/uL MPV (7.4-10.4) fL Neut % (Auto) % Lymph % (Auto) % Lipscomb % (Auto) % Eos % (Auto) % Baso % (Auto) % Absolute Neuts (auto) (1.5-7.7) 10^3/ul Absolute Lymphs (auto) (1.0-4.8) 10^3/ul Absolute Monos (auto) (0-0.8) 10^3/ul Absolute Eos (auto) (0-0.6) 10^3/ul Absolute Basos (auto) (0-0.2) 10^3/ul Absolute Nucleated RBC 10^3/ul Nucleated RBC % INR (Anticoag Therapy) (0.82-1.09) Sodium (135-145) mmol/L Potassium (3.5-5.0) mmol/L Chloride (101-111) mmol/L Carbon Dioxide (22-32) mmol/L Anion Gap (2-11) mmol/L BUN (6-24) mg/dL Creatinine (0.51-0.95) mg/dL Est GFR ( Amer) (>60) Est GFR (Non-Af Amer) (>60) BUN/Creatinine Ratio (8-20) Glucose (70-100) mg/dL Lactic Acid 0.8 (0.5-2.0) mmol/L Calcium (8.6-10.3) mg/dL Magnesium (1.9-2.7) mg/dL Total Bilirubin (0.2-1.0) mg/dL AST (13-39) U/L ALT (7-52) U/L Alkaline Phosphatase (34-104) U/L Total Protein (6.4-8.9) g/dL Albumin (3.2-5.2) g/dL Globulin (2-4) g/dL Albumin/Globulin Ratio (1-3) Result Diagrams: 08/17/19 16:41 08/17/19 16:41 Lab Statement: Any lab studies that have been ordered have been reviewed, and results considered in the medical decision making process. Course/Dx - Course Course Of Treatment: Patient was evaluated in the emergency department today for possible psychosis. Vitals noted and stable. EKG was done promptly which shows no evidence of STEMI. Sinus rhythm at a rate of 71 bpm. There are no T- wave inversions or suggestions of ischemia. Normal MI, QT interval. Normal axis. Laboratory studies returned with no significant abnormalities with no leukocytosis, anemia, electrolyte disturbance. Lactic acid within normal limits at 0.8. There is no evidence of epileptic episode recently. Patient was medically cleared and psychiatric services were consulted due to the patient 's hallucinations and disorganized thought. Psychiatrist, Dr. Rees did not believe the patient was suffering from acute psychosis. Patient had no evidence of acute medical problem requiring intervention at this time. Patient discharged with outpatient follow-up. - Differential Dx/Clinical Impression Differential Diagnosis/HQI/PQRI: Positive: Acute Psychosis, Anxiety, Bipolar Disorder, Drug Overdose/Intentional, Drug Overdose/Unintentional, Schizophrenia Provider Diagnosis: Fatigue Discharge ED - Sign-Out/Discharge Documenting (check all that apply): Patient Departure - Discharge Plan Condition: Stable Disposition: HOME Patient Education Materials: Fatigue (ED) Referrals: Rebecca Ferreira MD [Primary Care Provider] - 3 Days Additional Instructions: Per completion of a mental health evaluation, you are cleared for release and do not require inpatient psychiatric hospitalization at this time. Please go to nearest emergency room or call 911 if safety concerns arise or condition worsens. Important Phone Numbers: [facility] ph:[phone] Suicide Prevention and Crisis Services ph:[phone] National Suicide Prevention Lifeline ph:[phone] ([id number]) [facility] ph:[phone] Alcoholics Anonymous ph:[phone] [facility] ph:[phone] [place] [employer] ph:[phone] RECOMMENDATIONS: Continue treatment with [facility]. Contact [facility] Tuesday morning ([phone]. There appeared to be no medical problems requiring intervention at this time. Please return to the emergency department immediately if you develop any new or worsening symptoms including seizure. - Billing Disposition and Condition Condition: STABLE Disposition: Home
[2019-08-17 19:27] LABS: Alcohol < 10 mg/dL (<10)
[2019-08-17 21:57] LABS: Urine Appearance Clear; Urine Bilirubin Negative (Negative); Urine Blood Negative (Negative); Urine Color Yellow; Urine Glucose Negative (Negative); Urine Ketones Negative (Negative); Urine Nitrite Negative (Negative); Urine Protein Negative (Negative); Urine Specific Gravity 1.019 (1.010-1.030); Urine Urobilinogen Negative (Negative)
[2019-08-17 22:09] LABS: Urine Benzodiazepine Screen None Detected (None Detect); Urine Opiates Screen None Detected (None Detect)
[2019-08-17 22:54] VITALS: BP 98/59
== END 2019-08-17 22:53 | disposition home or self-care (01) ==
LOC: ED 15:07
DX: R53.83 Other fatigue (principal); R44.3 Hallucinations, unspecified; F60.0 Paranoid personality disorder; G47.9 Sleep disorder, unspecified; R41.9 Unspecified symptoms and signs involving cognitive functions and awareness; F17.210 Nicotine dependence, cigarettes, uncomplicated
CPT/HCPCS: 36415; 80053; 80307; 80320; 81003; 83605; 83735; 85025; 85610; 93005; 99284; G0480

== ENCOUNTER 2020-06-02 12:24 | Inpatient (IN) ==
[2020-06-02] MEDS ORDERED: Naloxone 4 mg VIAL 0.4 MG/ML 10 ml VIAL (4 mg) ONE (12:29)
[2020-06-02] MEDS ORDERED: NS 0.9% 1000 ml BAG 1,000 ML IV.FLUID IV ONE (12:40)
[2020-06-02] MEDS ORDERED: Naloxone 0.4 mg VIAL 0.4 mg/ml 1 ml VIAL IV PUSH ONE (12:55)
[2020-06-02 13:00] LABS: ABS Lymphocytes 0.6 10^3/ul (1.0-4.8); ABS Monocytes 1.3 10^3/ul (0-0.8); ABS Neutrophils 17.2 10^3/ul (1.5-7.7); Eosinophil % 0.1 %; Hematocrit 38 % (35-47); Hemoglobin 12.8 g/dL (12.0-16.0); Lymphocyte % 2.9 %; Mean Corpuscular HGB Conc 33 g/dL (31-36); Mean Corpuscular Hemoglobin 32 pg (27-31); Mean Corpuscular Volume 96 fL (80-97); Mean Platelet Volume 9.6 fL (7.4-10.4); Platelet Count 224 10^3/uL (150-450); Red Blood Count 4.02 10^6 /uL (3.70-4.87); Red Cell Distribution Width 16 % (10-15); White Blood Count 19.1 10^3/uL (3.5-10.8)
[2020-06-02 13:14] LABS: ALT 12 U/L (7-52); AST 48 U/L (13-39); Albumin 3.7 g/dL (3.2-5.2); Albumin/Globulin Ratio 1.2 (1-3); Alkaline Phosphatase 112 U/L (34-104); BUN/Creatinine Ratio 17.9 (8-20); Blood Urea Nitrogen 10 mg/dL (6-24); Calcium 8.2 mg/dL (8.6-10.3); Chloride 107 mmol/L (101-111); EGFR African American 149.1 (>60); EGFR Non-African American 123.2 (>60); Globulin 3.2 g/dL (2-4); Glucose 72 mg/dL (70-100); Potassium 3.7 mmol/L (3.5-5.0); Sodium 127 mmol/L (135-145); Total Protein 6.9 g/dL (6.4-8.9)
[2020-06-02] MEDS ORDERED: Dexamethasone IV 4 MG/ML VIAL 1 ml VIAL IV SLOW PU ONE (13:20)
[2020-06-02] MEDS ORDERED: Azithromycin 500 mg/250 ml NS 500 MG/250 ML BAG IVPB ONE (13:20)
[2020-06-02] MEDS ORDERED: cefTRIAXone 1 gm/50 mL NS BAG 1 GM/50 ML BAG IV ONE (13:20)
[2020-06-02 13:29] LABS: CO2 Carbon Dioxide < 7 mmol/L (22-32); Troponin I 0.03 ng/mL (<0.03)
[2020-06-02 13:33] LABS: Influenza A Molecular Negative (Negative); Influenza B Molecular Negative (Negative)
[2020-06-02] MEDS ORDERED: Iohexol 350 (CONTRAST) 500 ML MDV IV ONE (13:42)
[2020-06-02] MEDS ORDERED: Iodixanol (CONTRAST) 320 MG/ML 100 ML SDV IV ONE (13:45)
[2020-06-02] MEDS ORDERED: DOXYcycline 100 MG in NS 0.9% 250 ml 250 ML IVPB ONE ×2 (13:59→14:04)
[2020-06-02] MEDS ORDERED: Lactated Ringers 1000 ml BAG 1,000 ML IV ONE (14:05)
[2020-06-02] MEDS ORDERED: cefTRIAXone 1 gm/50 mL NS BAG 1 GM/50 ML BAG IVPB SCH (14:27)
[2020-06-02] MEDS ORDERED: Sodium Bicarbonate 8.4% SYR 50 ml SYRINGE ONE ×2 (16:19→17:53)
[2020-06-02] MEDS ORDERED: Sodium Bicarbonate 8.4% SYR 50 ml SYRINGE IV ONE (16:53)
[2020-06-02] MEDS: Enoxaparin 40 MG/0.4 ML SYR SUBCUT SCH ×2 (17:03→17:53)
[2020-06-02] MEDS ORDERED: Thiamine 100 MG/ML 2 ml VIAL 100 MG, Folic Acid 1 MG, Multiple Vitamin IV ADULT 10 ML i... IV ONE (18:00)
[2020-06-02] MEDS ORDERED: Sodium Bicarb 8.4% Vial 50 ML 100 MEQ in D5W 1000 ml BAG 1,000 ML IV SCH (18:00)
[2020-06-02 18:06] LABS: Urine Appearance Clear; Urine Bilirubin Negative (Negative); Urine Blood Negative (Negative); Urine Color Colorless; Urine Glucose Negative (Negative); Urine Ketones Trace (Negative); Urine Nitrite Negative (Negative); Urine Protein Negative (Negative); Urine Specific Gravity 1.016 (1.010-1.030); Urine Urobilinogen Negative (Negative)
[2020-06-02] MEDS: KCL 10 MEQ/50 ML IVPREMIX 10 MEQ/50 ML BAG IV SCH ×2 (18:20→22:00)
[2020-06-02 18:29] LABS: Urine Potassium Concentration 34.2 mmol/L
[2020-06-02 19:16] LABS: Urine Benzodiazepine Screen None Detected (None Detect); Urine Cannabinoids Screen None Detected (None Detect); Urine Opiates Screen None Detected (None Detect)
[2020-06-02] MEDS ORDERED: Sodium Bicarbonate 8.4% VIAL 1 MEQ/ML 50 ml VIAL (50 meq) ONE (19:21)
[2020-06-02] MEDS: Sodium Bicarbonate 8.4% IV 150 MEQ in D5W 1000 ML BAG 850 ML IV SCH (20:02)
[2020-06-02] MEDS ORDERED: Lorazepam PYXIS KEY ONE (20:53)
[2020-06-02] MEDS ORDERED: LORazepam 2 mg VIAL 1 ml ONE (20:54)
[2020-06-02] MEDS ORDERED: LORazepam 2 mg VIAL 1 ml IV PUSH ONE (20:55)
[2020-06-02] MEDS ORDERED: Lorazepam PYXIS KEY PRN (20:55)
[2020-06-02] MEDS ORDERED: Heparin 5000 UNITS/ML 1 mL VIAL SUBCUT SCH (21:00)
[2020-06-02] MEDS ORDERED: Vancomycin 1,250 MG in NS 0.9% 250 ml 250 ML IVPB ONE (22:00)
[2020-06-02] MEDS ORDERED: Succinylcholine 200 mg VIAL 20 mg/ml 10 ml VIAL (200 mg) ONE (22:38)
[2020-06-02] MEDS ORDERED: Rocuronium 50 mg VIAL 10 mg/ml 5 ml VIAL (50 mg) ONE (22:38)
[2020-06-02 22:44] LABS: BUN/Creatinine Ratio 19.5 (8-20); EGFR African American 213.6 (>60); EGFR Non-African American 176.5 (>60); Magnesium 1.6 mg/dL (1.9-2.7); Phosphorus 1.3 mg/dL (2.5-5.0)
[2020-06-02 22:46] LABS: Potassium 2.7 mmol/L (3.5-5.0)
[2020-06-02] MEDS ORDERED: KCL 20 MEQ/100 ML IVPREMIX 20 MEQ/100 ML BAG ONE (22:49)
[2020-06-02] MEDS ORDERED: Etomidate 40 mg/20 ml (2 MG/ML) 20 ml VIAL (40 mg) ONE (22:52)
[2020-06-02] MEDS ORDERED: Midazolam 10 mg/10 ml VIAL 1 mg/ml 10 ml VIAL (10 mg) ONE (22:52)
[2020-06-02] MEDS ORDERED: Midazolam 50 MG VIAL IV DRIP 50 ML IV SCH (23:00)
[2020-06-02] MEDS ORDERED: Potassium Phosphate IV 15 MMOLE in NS 0.9% 250 ml 250 ML IVPB ONE (23:07)
[2020-06-02] MEDS: KCL 20 MEQ/100 ML IVPREMIX 20 MEQ/100 ML BAG IV SCH (23:27)
[2020-06-02] MEDS: Cefepime 1 GM in Dextrose 1 GM/50 ML BAG IV SCH (23:30)
[2020-06-02] MEDS ORDERED: fentaNYL INFUSION 50 MCG/ML 2,500 MCG/50 ML BAG IV SCH (23:45)
[2020-06-02] MEDS ORDERED: fentaNYL 100 mcg/2 ml 50 MCG/ML VIAL IV SLOW PU ONE (23:46)
[2020-06-02] MEDS ORDERED: fentaNYL 100 mcg/2 ml 50 MCG/ML VIAL ONE (23:46)
[2020-06-03] MEDS ORDERED: Magnesium Sulfate IV 3 GM in NS 0.9% 100 ml BAG 100 ML IVPB ONE (00:30)
[2020-06-03] MEDS: KCL 20 MEQ/100 ML IVPREMIX 20 MEQ/100 ML BAG IV SCH ×7 (01:25→21:48)
[2020-06-03] MEDS: Pantoprazole VIAL 40 MG VIAL IV SCH ×2 (02:39→23:58)
[2020-06-03] MEDS: Lactulose 30 ml UDC NG TUBE SCH ×4 (02:39→19:28)
[2020-06-03] MEDS: Chlorhexidine MOUTHWASH 0.12% 15 ML UDC TOPICAL SCH ×7 (02:39→23:54)
[2020-06-03] MEDS: Midazolam 50 MG VIAL IV DRIP 50 ML IV SCH ×4 (02:55→22:09)
[2020-06-03] MEDS ORDERED: cefTRIAXone 1 gm/50 mL NS BAG 1 GM/50 ML BAG IVPB SCH (03:00)
[2020-06-03 03:04] LABS: BUN/Creatinine Ratio 18.9 (8-20); Calcium 6.9 mg/dL (8.6-10.3); EGFR African American 240.5 (>60); EGFR Non-African American 198.7 (>60); Potassium 3.4 mmol/L (3.5-5.0)
[2020-06-03] MEDS: Norepinephrine 16MCG/ML IVPREMIX 4,000 MCG/250 ML BAG IV SCH ×2 (03:19→22:08)
[2020-06-03] MEDS: Cefepime 1 GM in Dextrose 1 GM/50 ML BAG IV SCH ×3 (05:12→23:49)
[2020-06-03] MEDS ORDERED: KCL 20 MEQ/100 ML IVPREMIX 20 MEQ/100 ML BAG IV ONE ×2 (05:51→23:30)
[2020-06-03 05:54] LABS: Hematocrit 33 % (35-47); Hemoglobin 10.8 g/dL (12.0-16.0); Mean Corpuscular HGB Conc 33 g/dL (31-36); Mean Corpuscular Hemoglobin 31 pg (27-31); Mean Corpuscular Volume 95 fL (80-97); Mean Platelet Volume 9.8 fL (7.4-10.4); Platelet Count 197 10^3/uL (150-450); Red Blood Count 3.43 10^6 /uL (3.70-4.87); Red Cell Distribution Width 16 % (10-15); White Blood Count 24.9 10^3/uL (3.5-10.8)
[2020-06-03 06:12] LABS: Albumin 2.6 g/dL (3.2-5.2); Albumin/Globulin Ratio 1.1 (1-3); BUN/Creatinine Ratio 19.5 (8-20); Calcium 6.9 mg/dL (8.6-10.3); EGFR African American 213.6 (>60); EGFR Non-African American 176.5 (>60); Globulin 2.3 g/dL (2-4); Magnesium 2.5 mg/dL (1.9-2.7); Phosphorus 1.4 mg/dL (2.5-5.0); Total Bilirubin 0.2 mg/dL (0.2-1.0); Total Protein 4.9 g/dL (6.4-8.9)
[2020-06-03] MEDS: DOXYcycline 100 MG in NS 0.9% 250 ml 250 ML IVPB SCH ×2 (06:12→18:06)
[2020-06-03 06:24] LABS: ABS Basophils 0.1 10^3/ul (0-0.2); ABS Lymphocytes 0.6 10^3/ul (1.0-4.8); ABS Neutrophils 23.2 10^3/ul (1.5-7.7); Lymphocyte % 2.5 %
[2020-06-03] MEDS ORDERED: Vancomycin 750 MG in NS 0.9% 250 ML IVPB SCH (08:00)
[2020-06-03] MEDS ORDERED: Potassium Phosphate IV 15 MMOLE in NS 0.9% 250 ml 250 ML IVPB ONE (08:35)
[2020-06-03] MEDS: Thiamine 100 MG/ML 2 ml VIAL 250 MG in NS 0.9% 100 ml BAG 100 ML IV SCH (08:51)
[2020-06-03] MEDS: Sodium Bicarbonate 8.4% IV 150 MEQ in D5W 1000 ML BAG 850 ML IV SCH (10:06)
[2020-06-03 10:46] LABS: BUN/Creatinine Ratio 19.5 (8-20); Calcium 6.8 mg/dL (8.6-10.3); EGFR African American 213.6 (>60); EGFR Non-African American 176.5 (>60)
[2020-06-03 10:49] LABS: Potassium 2.7 mmol/L (3.5-5.0)
[2020-06-03] MEDS ORDERED: Magnesium Sulfate 2 gm BAG 2 GM/50 ML BAG IVPB ONE (10:51)
[2020-06-03] MEDS: Sodium Bicarb 8.4% Vial 50 ML 150 MEQ in D5W 1000 ml BAG 850 ML IV SCH (11:05)
[2020-06-03 16:25] LABS: BUN/Creatinine Ratio 18.9 (8-20); Calcium 7.2 mg/dL (8.6-10.3); EGFR African American 240.5 (>60); EGFR Non-African American 198.7 (>60); Potassium 3.5 mmol/L (3.5-5.0)
[2020-06-03] MEDS: Enoxaparin 40 MG/0.4 ML SYR SUBCUT SCH (18:05)
[2020-06-03 18:57] LABS: BUN/Creatinine Ratio 19.4 (8-20); Calcium 7.2 mg/dL (8.6-10.3); EGFR African American 248.2 (>60); EGFR Non-African American 205.1 (>60); Potassium 3.6 mmol/L (3.5-5.0)
[2020-06-03 22:19] LABS: BUN/Creatinine Ratio 17.6 (8-20); EGFR African American 265.1 (>60); EGFR Non-African American 219.1 (>60); Potassium 3.7 mmol/L (3.5-5.0)
[2020-06-03] MEDS ORDERED: Potassium Chloride LIQUID 20 MEQ/15 ML LIQUID PO ONE (23:00)
[2020-06-04] MEDS: Sodium Bicarb 8.4% Vial 50 ML 150 MEQ in D5W 1000 ml BAG 850 ML IV SCH ×2 (00:31→06:30)
[2020-06-04 01:56] LABS: BUN/Creatinine Ratio 17.6 (8-20); Calcium 7.1 mg/dL (8.6-10.3); EGFR African American 265.1 (>60); EGFR Non-African American 219.1 (>60); Potassium 4.3 mmol/L (3.5-5.0)
[2020-06-04] MEDS: fentaNYL INFUSION 50 MCG/ML 2,500 MCG/50 ML BAG IV SCH (02:32)
[2020-06-04] MEDS: Midazolam 50 MG VIAL IV DRIP 50 ML IV SCH ×4 (03:13→19:16)
[2020-06-04] MEDS: Chlorhexidine MOUTHWASH 0.12% 15 ML UDC TOPICAL SCH ×5 (03:47→20:58)
[2020-06-04] MEDS: Norepinephrine 16MCG/ML IVPREMIX 4,000 MCG/250 ML BAG IV SCH ×3 (03:48→15:00)
[2020-06-04 04:29] LABS: ABS Eosinophils 0.2 10^3/ul (0-0.6); ABS Lymphocytes 1.1 10^3/ul (1.0-4.8); ABS Monocytes 0.8 10^3/ul (0-0.8); ABS Neutrophils 19.3 10^3/ul (1.5-7.7); Hematocrit 30 % (35-47); Mean Corpuscular HGB Conc 33 g/dL (31-36); Mean Corpuscular Hemoglobin 31 pg (27-31); Mean Corpuscular Volume 94 fL (80-97); Mean Platelet Volume 9.7 fL (7.4-10.4); Platelet Count 122 10^3/uL (150-450); Red Blood Count 3.19 10^6 /uL (3.70-4.87); Red Cell Distribution Width 16 % (10-15); White Blood Count 21.4 10^3/uL (3.5-10.8)
[2020-06-04 04:49] LABS: BUN/Creatinine Ratio 17.6 (8-20); Blood Urea Nitrogen 6 mg/dL (6-24); CO2 Carbon Dioxide 18 mmol/L (22-32); Calcium 7.2 mg/dL (8.6-10.3); EGFR African American 265.1 (>60); EGFR Non-African American 219.1 (>60); Glucose 118 mg/dL (70-100); Magnesium 1.7 mg/dL (1.9-2.7); Potassium 4.3 mmol/L (3.5-5.0); Sodium 139 mmol/L (135-145)
[2020-06-04 04:51] LABS: Anion Gap 3 mmol/L (2-11); Chloride 118 mmol/L (101-111)
[2020-06-04 04:52] LABS: Phosphorus < 1.0 mg/dL (2.5-5.0)
[2020-06-04] MEDS ORDERED: Magnesium Sulfate 2 gm BAG 2 GM/50 ML BAG IVPB ONE (05:03)
[2020-06-04] MEDS ORDERED: Potassium Phosphate IV 15 MMOLE in NS 0.9% 250 ml 250 ML IVPB ONE ×2 (05:03→17:30)
[2020-06-04] MEDS: Cefepime 1 GM in Dextrose 1 GM/50 ML BAG IV SCH ×3 (06:32→22:44)
[2020-06-04] MEDS: DOXYcycline 100 MG in NS 0.9% 250 ml 250 ML IVPB SCH ×2 (06:33→17:49)
[2020-06-04] MEDS ORDERED: Vancomycin Trough Check NOTE FOLLOW UP ONE (07:30)
[2020-06-04] MEDS ORDERED: Rocuronium 50 mg VIAL 10 mg/ml 5 ml VIAL (50 mg) ONE (08:54)
[2020-06-04] MEDS ORDERED: fentaNYL 100 mcg/2 ml 50 MCG/ML VIAL ONE (08:58)
[2020-06-04] MEDS: fentaNYL 100 mcg/2 ml 50 MCG/ML VIAL IV SLOW PU PRN (09:00)
[2020-06-04] MEDS ORDERED: Rocuronium 50 mg VIAL 10 mg/ml 5 ml VIAL (50 mg) IV ONE (09:04)
[2020-06-04] MEDS: Sodium Bicarb 650 mg (ANTACID) TAB PO SCH ×4 (09:04→18:05)
[2020-06-04] MEDS: Thiamine 100 MG/ML 2 ml VIAL 250 MG in NS 0.9% 100 ml BAG 100 ML IV SCH (09:17)
[2020-06-04 10:30] LABS: BUN/Creatinine Ratio 16.7 (8-20); Calcium 7.2 mg/dL (8.6-10.3); EGFR African American 306.3 (>60); EGFR Non-African American 253.2 (>60); Potassium 3.7 mmol/L (3.5-5.0)
[2020-06-04] MEDS: Cisatracurium 100 MG in NS 0.9% 250 ml 200 ML IV SCH ×3 (12:20→18:58)
[2020-06-04] MEDS ORDERED: Acetylcysteine INH SOL (RT) 200 MG/ML 4 ML VIAL INH ONE (12:55)
[2020-06-04] MEDS ORDERED: Furosemide 20 mg/2 ml IV VIAL IV ONE (14:24)
[2020-06-04] MEDS ORDERED: Hydrocortisone INJ 250 MG VIAL IV ONE (14:30)
[2020-06-04 15:47] LABS: Adenovirus Negative (Negative); Bordetella parapertussis Negative (Negative); Bordetella pertussis Negative (Negative); Chlamydophila pneumoniae Negative (Negative); Coronavirus 229E Negative (Negative); Coronavirus HKU1 Negative (Negative); Coronavirus NL63 Negative (Negative); Coronavirus OC43 Negative (Negative); Human Metapneumovirus Negative (Negative); Human Rhinovirus/ Enterovirus Negative (Negative); Influenza A Negative (Negative); Influenza B Negative (Negative); Mycoplasmoides pneumoniae Negative (Negative); Parainfluenza Virus 1 Negative (Negative); Parainfluenza Virus 2 Negative (Negative); Parainfluenza Virus 3 Negative (Negative); Parainfluenza Virus 4 Negative (Negative); Respiratory Syncytial Virus Negative (Negative); Specimen Source NASOPHARYNGEAL SWAB
[2020-06-04 16:42] LABS: BUN/Creatinine Ratio 19.4 (8-20); Calcium 7.2 mg/dL (8.6-10.3); EGFR Non-African American 243.8 (>60); Phosphorus 1.5 mg/dL (2.5-5.0); Potassium 3.1 mmol/L (3.5-5.0)
[2020-06-04] MEDS ORDERED: KCL 20 MEQ/100 ML IVPREMIX 20 MEQ/100 ML BAG IV ONE (17:18)
[2020-06-04] MEDS ORDERED: Potassium Chloride LIQUID 20 MEQ/15 ML LIQUID PO ONE (17:18)
[2020-06-04] MEDS: Enoxaparin 40 MG/0.4 ML SYR SUBCUT SCH (18:05)
[2020-06-04 22:31] LABS: Blood Urea Nitrogen 8 mg/dL (6-24); CO2 Carbon Dioxide 21 mmol/L (22-32); Calcium 7.2 mg/dL (8.6-10.3); EGFR African American 306.3 (>60); EGFR Non-African American 253.2 (>60); Glucose 118 mg/dL (70-100); Magnesium 1.6 mg/dL (1.9-2.7); Phosphorus 2.7 mg/dL (2.5-5.0); Potassium 4.6 mmol/L (3.5-5.0); Sodium 139 mmol/L (135-145)
[2020-06-04 22:36] LABS: Anion Gap 4 mmol/L (2-11); Chloride 114 mmol/L (101-111)
[2020-06-04] MEDS: Hydrocortisone INJ 100 MG/2ML 2 ML VIAL IV SCH (22:44)
[2020-06-05] MEDS ORDERED: Magnesium Sulfate IV 3 GM in NS 0.9% 100 ml BAG 100 ML IVPB ONE (00:40)
[2020-06-05] MEDS: Chlorhexidine MOUTHWASH 0.12% 15 ML UDC TOPICAL SCH ×7 (00:53→23:53)
[2020-06-05] MEDS: Pantoprazole VIAL 40 MG VIAL IV SCH ×2 (00:53→23:53)
[2020-06-05] MEDS: Sodium Bicarb 650 mg (ANTACID) TAB PO SCH ×5 (00:53→23:53)
[2020-06-05] MEDS: Artificial Tear OPHTH.OINT 3.5 GM BOTH EYES PRN ×3 (04:55→22:17)
[2020-06-05 05:02] LABS: ALT 8 U/L (7-52); AST 31 U/L (13-39); Albumin 2.3 g/dL (3.2-5.2); Albumin/Globulin Ratio 1.2 (1-3); Alkaline Phosphatase 121 U/L (34-104); Blood Urea Nitrogen 9 mg/dL (6-24); CO2 Carbon Dioxide 20 mmol/L (22-32); Calcium 7.2 mg/dL (8.6-10.3); EGFR African American 306.3 (>60); EGFR Non-African American 253.2 (>60); Globulin 1.9 g/dL (2-4); Glucose 112 mg/dL (70-100); Magnesium 2.5 mg/dL (1.9-2.7); Phosphorus 2.6 mg/dL (2.5-5.0); Potassium 4.3 mmol/L (3.5-5.0); Sodium 140 mmol/L (135-145); Total Protein 4.2 g/dL (6.4-8.9)
[2020-06-05 05:03] LABS: Anion Gap 5 mmol/L (2-11); Chloride 115 mmol/L (101-111)
[2020-06-05 05:04] LABS: ABS Lymphocytes 0.4 10^3/ul (1.0-4.8); ABS Monocytes 0.2 10^3/ul (0-0.8); ABS Neutrophils 6.2 10^3/ul (1.5-7.7); Eosinophil % 0.1 %; Hematocrit 29 % (35-47); Hemoglobin 9.8 g/dL (12.0-16.0); Lymphocyte % 5.5 %; Mean Corpuscular HGB Conc 34 g/dL (31-36); Mean Corpuscular Hemoglobin 32 pg (27-31); Mean Corpuscular Volume 95 fL (80-97); Red Blood Count 3.08 10^6 /uL (3.70-4.87); Red Cell Distribution Width 16 % (10-15); White Blood Count 6.8 10^3/uL (3.5-10.8)
[2020-06-05] MEDS: Cefepime 1 GM in Dextrose 1 GM/50 ML BAG IV SCH ×3 (05:32→21:56)
[2020-06-05] MEDS: DOXYcycline 100 MG in NS 0.9% 250 ml 250 ML IVPB SCH ×2 (05:33→17:45)
[2020-06-05] MEDS: Hydrocortisone INJ 100 MG/2ML 2 ML VIAL IV SCH ×3 (05:35→21:56)
[2020-06-05 05:36] LABS: Platelet Count 51 10^3/uL (150-450)
[2020-06-05] MEDS: Cisatracurium 100 MG in NS 0.9% 250 ml 200 ML IV SCH ×4 (05:48→22:27)
[2020-06-05] MEDS: Midazolam 50 MG VIAL IV DRIP 50 ML IV SCH ×3 (07:00→18:53)
[2020-06-05] MEDS ORDERED: Furosemide 20 mg/2 ml IV VIAL IV ONE (07:49)
[2020-06-05] MEDS ORDERED: Furosemide 20 mg/2 ml IV VIAL IV SLOW PU ONE (07:51)
[2020-06-05] MEDS: diPHENhydraMINE IV 50 MG/ML 1 ml VIAL (BENADRYL) IV SCH ×2 (08:53→17:43)
[2020-06-05 08:55] LABS: ABS Lymphocytes 0.4 10^3/ul (1.0-4.8); ABS Monocytes 0.4 10^3/ul (0-0.8); ABS Neutrophils 8.6 10^3/ul (1.5-7.7); Hematocrit 28 % (35-47); Hemoglobin 9.4 g/dL (12.0-16.0); Lymphocyte % 4.2 %; Mean Corpuscular HGB Conc 34 g/dL (31-36); Mean Corpuscular Hemoglobin 32 pg (27-31); Mean Corpuscular Volume 94 fL (80-97); Mean Platelet Volume 9.8 fL (7.4-10.4); Platelet Count 47 10^3/uL (150-450); Red Blood Count 2.99 10^6 /uL (3.70-4.87); Red Cell Distribution Width 16 % (10-15); White Blood Count 9.5 10^3/uL (3.5-10.8)
[2020-06-05 09:02] LABS: Activated Partial Thrombo Time 33.4 seconds (26.0-38.0); Fibrinogen 271.9 mg/dL (110.8-404.3); INR 1.56 (0.82-1.09)
[2020-06-05] MEDS: fentaNYL INFUSION 50 MCG/ML 2,500 MCG/50 ML BAG IV SCH (14:32)
[2020-06-05 20:34] LABS: BUN/Creatinine Ratio 36.6 (8-20); Calcium 7.3 mg/dL (8.6-10.3); EGFR African American 213.6 (>60); EGFR Non-African American 176.5 (>60); Phosphorus 2.9 mg/dL (2.5-5.0); Potassium 3.8 mmol/L (3.5-5.0)
[2020-06-06] MEDS: Midazolam 50 MG VIAL IV DRIP 50 ML IV SCH ×4 (00:30→23:04)
[2020-06-06] MEDS: diPHENhydraMINE IV 50 MG/ML 1 ml VIAL (BENADRYL) IV SCH ×3 (01:47→16:05)
[2020-06-06] MEDS: Cisatracurium 100 MG in NS 0.9% 250 ml 200 ML IV SCH ×2 (04:00→09:36)
[2020-06-06] MEDS: Chlorhexidine MOUTHWASH 0.12% 15 ML UDC TOPICAL SCH ×6 (04:49→23:36)
[2020-06-06 05:05] LABS: ABS Lymphocytes 0.6 10^3/ul (1.0-4.8); ABS Monocytes 0.5 10^3/ul (0-0.8); Hematocrit 28 % (35-47); Hemoglobin 9.3 g/dL (12.0-16.0); Lymphocyte % 9.8 %; Mean Corpuscular HGB Conc 34 g/dL (31-36); Mean Corpuscular Hemoglobin 32 pg (27-31); Mean Corpuscular Volume 94 fL (80-97); Mean Platelet Volume 10.2 fL (7.4-10.4); Platelet Count 39 10^3/uL (150-450); Red Blood Count 2.94 10^6 /uL (3.70-4.87); Red Cell Distribution Width 16 % (10-15); White Blood Count 6.1 10^3/uL (3.5-10.8)
[2020-06-06] MEDS: Artificial Tear OPHTH.OINT 3.5 GM BOTH EYES PRN ×2 (05:11→21:35)
[2020-06-06 05:21] LABS: ALT 9 U/L (7-52); AST 29 U/L (13-39); Albumin 2.4 g/dL (3.2-5.2); Albumin/Globulin Ratio 1.1 (1-3); Alkaline Phosphatase 105 U/L (34-104); BUN/Creatinine Ratio 43.2 (8-20); Blood Urea Nitrogen 16 mg/dL (6-24); CO2 Carbon Dioxide 22 mmol/L (22-32); Calcium 7.4 mg/dL (8.6-10.3); EGFR African American 240.5 (>60); EGFR Non-African American 198.7 (>60); Globulin 2.2 g/dL (2-4); Glucose 111 mg/dL (70-100); Potassium 3.9 mmol/L (3.5-5.0); Sodium 141 mmol/L (135-145); Total Protein 4.6 g/dL (6.4-8.9)
[2020-06-06 05:22] LABS: Anion Gap 6 mmol/L (2-11); Chloride 113 mmol/L (101-111)
[2020-06-06] MEDS: DOXYcycline 100 MG in NS 0.9% 250 ml 250 ML IVPB SCH ×2 (06:09→17:28)
[2020-06-06] MEDS: Cefepime 1 GM in Dextrose 1 GM/50 ML BAG IV SCH ×3 (06:09→21:15)
[2020-06-06] MEDS: Hydrocortisone INJ 100 MG/2ML 2 ML VIAL IV SCH ×3 (06:09→21:17)
[2020-06-06] MEDS: Sodium Bicarb 650 mg (ANTACID) TAB PO SCH ×4 (06:09→23:36)
[2020-06-06] MEDS ORDERED: KCL 20 MEQ/100 ML IVPREMIX 0 MEQ/0 ML BAG ONE (07:57)
[2020-06-06] MEDS ORDERED: Furosemide 20 mg/2 ml IV VIAL IV ONE ×2 (08:06→14:46)
[2020-06-06] MEDS: fentaNYL INFUSION 50 MCG/ML 2,500 MCG/50 ML BAG IV SCH (23:04)
[2020-06-06] MEDS: Pantoprazole VIAL 40 MG VIAL IV SCH (23:36)
[2020-06-07] MEDS: diPHENhydraMINE IV 50 MG/ML 1 ml VIAL (BENADRYL) IV SCH (00:11)
[2020-06-07] MEDS: Midazolam 50 MG VIAL IV DRIP 50 ML IV SCH ×4 (04:13→19:39)
[2020-06-07] MEDS: Chlorhexidine MOUTHWASH 0.12% 15 ML UDC TOPICAL SCH ×6 (04:50→23:41)
[2020-06-07] MEDS: Artificial Tear OPHTH.OINT 3.5 GM BOTH EYES PRN ×2 (04:58→21:57)
[2020-06-07] MEDS: Hydrocortisone INJ 100 MG/2ML 2 ML VIAL IV SCH ×3 (05:02→21:18)
[2020-06-07] MEDS: Cefepime 1 GM in Dextrose 1 GM/50 ML BAG IV SCH ×3 (05:02→21:18)
[2020-06-07] MEDS: Sodium Bicarb 650 mg (ANTACID) TAB PO SCH ×3 (05:02→18:09)
[2020-06-07] MEDS: DOXYcycline 100 MG in NS 0.9% 250 ml 250 ML IVPB SCH ×2 (05:02→18:09)
[2020-06-07 05:19] LABS: ABS Lymphocytes 0.6 10^3/ul (1.0-4.8); ABS Monocytes 0.9 10^3/ul (0-0.8); ABS Neutrophils 4.1 10^3/ul (1.5-7.7); Eosinophil % 0.1 %; Hematocrit 29 % (35-47); Hemoglobin 9.4 g/dL (12.0-16.0); Lymphocyte % 11.5 %; Mean Corpuscular HGB Conc 33 g/dL (31-36); Mean Corpuscular Hemoglobin 31 pg (27-31); Mean Corpuscular Volume 96 fL (80-97); Mean Platelet Volume 9.3 fL (7.4-10.4); Platelet Count 53 10^3/uL (150-450); Red Blood Count 3.02 10^6 /uL (3.70-4.87); Red Cell Distribution Width 16 % (10-15); White Blood Count 5.6 10^3/uL (3.5-10.8)
[2020-06-07 05:22] LABS: Albumin 2.3 g/dL (3.2-5.2); BUN/Creatinine Ratio 60.5 (8-20); Calcium 7.3 mg/dL (8.6-10.3); EGFR African American 233.2 (>60); EGFR Non-African American 192.7 (>60); Globulin 2.2 g/dL (2-4); Magnesium 1.9 mg/dL (1.9-2.7); Phosphorus 3.2 mg/dL (2.5-5.0); Potassium 3.5 mmol/L (3.5-5.0); Total Bilirubin 0.3 mg/dL (0.2-1.0); Total Protein 4.5 g/dL (6.4-8.9)
[2020-06-07] MEDS: KCL 20 MEQ/100 ML IVPREMIX 20 MEQ/100 ML BAG IV SCH ×6 (08:18→18:09)
[2020-06-07] MEDS ORDERED: Bumetanide IV 0.25 MG/ML 4 ml VIAL (1 mg) SLOW PUSH SCH (09:00)
[2020-06-07] MEDS ORDERED: Senna TAB 8.6 mg TAB PO PRN (09:32)
[2020-06-07] MEDS ORDERED: Polyethylene Glycol 3350 17 GM PACKET PO PRN (09:32)
[2020-06-07] MEDS ORDERED: Furosemide 20 mg/2 ml IV VIAL ONE (09:54)
[2020-06-07] MEDS: Furosemide 100 mg/10 ml IV 100 MG in NS 0.9% 100 ml BAG 90 ML IV SCH ×2 (09:55→18:16)
[2020-06-07] MEDS: fentaNYL 100 mcg/2 ml 50 MCG/ML VIAL IV SLOW PU PRN ×2 (11:42→21:04)
[2020-06-07] MEDS: [UNRECOGNIZED DRUG - OTHER] PO SCH ×2 (11:50→21:18)
[2020-06-07] MEDS ORDERED: Potassium Chlor 20 meq TAB.ER PO ONE (12:00)
[2020-06-07] MEDS: Senna TAB 8.6 mg TAB PO SCH (12:11)
[2020-06-07] MEDS ORDERED: fentaNYL INFUSION 50 MCG/ML 2,500 MCG/50 ML BAG IV SCH ×2 (13:19→23:03)
[2020-06-07 15:41] LABS: Calcium 7.4 mg/dL (8.6-10.3); EGFR African American 248.2 (>60); EGFR Non-African American 205.1 (>60)
[2020-06-07 15:44] LABS: Potassium 2.7 mmol/L (3.5-5.0)
[2020-06-07] MEDS ORDERED: Lorazepam PYXIS KEY PRN (15:44)
[2020-06-07] MEDS ORDERED: Potassium Chloride LIQUID 20 MEQ/15 ML LIQUID PO ONE (15:47)
[2020-06-07] MEDS ORDERED: Lorazepam PYXIS KEY ONE (15:48)
[2020-06-07] MEDS ORDERED: LORazepam 2 mg VIAL 1 ml ONE (15:48)
[2020-06-07] MEDS: LORazepam 2 mg VIAL 1 ml IV PUSH PRN ×2 (15:51→23:49)
[2020-06-07] MEDS ORDERED: KCL 20 MEQ/100 ML IVPREMIX 20 MEQ/100 ML BAG ONE (15:57)
[2020-06-07] MEDS ORDERED: KCL 20 MEQ/100 ML IVPREMIX 20 MEQ/100 ML BAG IV SCH (16:00)
[2020-06-07] MEDS ORDERED: Atropine 0.1 MG/ML 10 ml SYR (1 mg) IV PUSH PRN (21:32)
[2020-06-07 22:21] LABS: Calcium 7.6 mg/dL (8.6-10.3); Potassium 3.8 mmol/L (3.5-5.0)
[2020-06-07 22:27] LABS: BUN/Creatinine Ratio 54.3 (8-20); EGFR African American 256.4 (>60); EGFR Non-African American 211.9 (>60)
[2020-06-07] MEDS: Pantoprazole VIAL 40 MG VIAL IV SCH (23:41)
[2020-06-08] MEDS: Midazolam 50 MG VIAL IV DRIP 50 ML IV SCH ×4 (01:09→22:03)
[2020-06-08] MEDS: Chlorhexidine MOUTHWASH 0.12% 15 ML UDC TOPICAL SCH ×6 (04:03→23:43)
[2020-06-08] MEDS: Artificial Tear OPHTH.OINT 3.5 GM BOTH EYES PRN (04:08)
[2020-06-08 04:17] LABS: ABS Lymphocytes 0.7 10^3/ul (1.0-4.8); ABS Monocytes 0.5 10^3/ul (0-0.8); ABS Neutrophils 2.4 10^3/ul (1.5-7.7); Eosinophil % 0.4 %; Hematocrit 29 % (35-47); Hemoglobin 9.3 g/dL (12.0-16.0); Lymphocyte % 19.6 %; Mean Corpuscular HGB Conc 32 g/dL (31-36); Mean Corpuscular Hemoglobin 31 pg (27-31); Mean Corpuscular Volume 97 fL (80-97); Mean Platelet Volume 9.2 fL (7.4-10.4); Nucleated Red Blood Cells % 0.1; Platelet Count 83 10^3/uL (150-450); Red Blood Count 2.95 10^6 /uL (3.70-4.87); Red Cell Distribution Width 16 % (10-15); White Blood Count 3.7 10^3/uL (3.5-10.8)
[2020-06-08 04:27] LABS: Albumin 2.3 g/dL (3.2-5.2); BUN/Creatinine Ratio 65.6 (8-20); Calcium 7.6 mg/dL (8.6-10.3); EGFR African American 284.3 (>60); Globulin 2.2 g/dL (2-4); Magnesium 1.8 mg/dL (1.9-2.7); Phosphorus 2.9 mg/dL (2.5-5.0); Potassium 3.8 mmol/L (3.5-5.0); Total Bilirubin 0.3 mg/dL (0.2-1.0); Total Protein 4.5 g/dL (6.4-8.9)
[2020-06-08] MEDS ORDERED: Norepinephrine 16MCG/ML IVPRE 4,000 MCG/250 ML BAG IV ONE (04:35)
[2020-06-08] MEDS: DOXYcycline 100 MG in NS 0.9% 250 ml 250 ML IVPB SCH ×2 (05:12→18:24)
[2020-06-08] MEDS: Cefepime 1 GM in Dextrose 1 GM/50 ML BAG IV SCH ×3 (05:12→22:08)
[2020-06-08] MEDS: fentaNYL 100 mcg/2 ml 50 MCG/ML VIAL IV SLOW PU PRN (06:46)
[2020-06-08] MEDS ORDERED: Magnesium Sulfate 2 gm BAG 2 GM/50 ML BAG IVPB ONE (07:47)
[2020-06-08] MEDS: LORazepam 2 mg VIAL 1 ml IV PUSH PRN ×3 (08:00→23:44)
[2020-06-08] MEDS: Hydrocortisone INJ 100 MG/2ML 2 ML VIAL IV SCH ×2 (08:27→20:19)
[2020-06-08] MEDS: [UNRECOGNIZED DRUG - OTHER] PO SCH ×2 (08:27→20:48)
[2020-06-08] MEDS ORDERED: Furosemide 20 mg/2 ml IV VIAL IV ONE (09:43)
[2020-06-08] MEDS ORDERED: Potassium Chloride LIQUID 20 MEQ/15 ML LIQUID PO ONE ×2 (09:44→19:19)
[2020-06-08] MEDS ORDERED: diPHENhydraMINE IV 50 MG/ML 1 ml VIAL (BENADRYL) IV ONE (19:46)
[2020-06-08] MEDS: Senna TAB 8.6 mg TAB PO SCH (20:41)
[2020-06-08] MEDS: Pantoprazole VIAL 40 MG VIAL IV SCH (23:43)
[2020-06-09] MEDS: fentaNYL 100 mcg/2 ml 50 MCG/ML VIAL IV SLOW PU PRN (02:59)
[2020-06-09] MEDS: Midazolam 50 MG VIAL IV DRIP 50 ML IV SCH ×3 (03:41→17:21)
[2020-06-09] MEDS ORDERED: Propofol 10 mg/ml 100 ML BTL 100 ML ONE (04:00)
[2020-06-09] MEDS: Propofol 10 mg/ml 100 ML BTL 100 ML IV SCH (04:10)
[2020-06-09] MEDS: Chlorhexidine MOUTHWASH 0.12% 15 ML UDC TOPICAL SCH ×5 (04:13→21:08)
[2020-06-09 04:53] LABS: ABS Lymphocytes 1.2 10^3/ul (1.0-4.8); ABS Neutrophils 4.2 10^3/ul (1.5-7.7); Eosinophil % 0.6 %; Hematocrit 31 % (35-47); Hemoglobin 10.3 g/dL (12.0-16.0); Lymphocyte % 18.8 %; Mean Corpuscular HGB Conc 33 g/dL (31-36); Mean Corpuscular Hemoglobin 32 pg (27-31); Mean Corpuscular Volume 96 fL (80-97); Mean Platelet Volume 9.3 fL (7.4-10.4); Nucleated Red Blood Cells % 0.1; Platelet Count 143 10^3/uL (150-450); Red Blood Count 3.22 10^6 /uL (3.70-4.87); Red Cell Distribution Width 15 % (10-15); White Blood Count 6.5 10^3/uL (3.5-10.8)
[2020-06-09 05:04] LABS: Albumin 2.7 g/dL (3.2-5.2); Albumin/Globulin Ratio 1.3 (1-3); BUN/Creatinine Ratio 35.5 (8-20); Calcium 7.6 mg/dL (8.6-10.3); EGFR Non-African American 243.8 (>60); Globulin 2.1 g/dL (2-4); Magnesium 1.9 mg/dL (1.9-2.7); Phosphorus 2.2 mg/dL (2.5-5.0); Potassium 2.8 mmol/L (3.5-5.0); Total Bilirubin 0.4 mg/dL (0.2-1.0); Total Protein 4.8 g/dL (6.4-8.9)
[2020-06-09] MEDS: DOXYcycline 100 MG in NS 0.9% 250 ml 250 ML IVPB SCH ×2 (06:07→18:33)
[2020-06-09] MEDS: Cefepime 1 GM in Dextrose 1 GM/50 ML BAG IV SCH ×3 (06:08→22:24)
[2020-06-09] MEDS: Potassium Chloride LIQUID 20 MEQ/15 ML LIQUID PO SCH ×2 (06:10→11:12)
[2020-06-09] MEDS: Sodium Bicarb 650 mg (ANTACID) TAB PO SCH ×3 (06:10→18:34)
[2020-06-09] MEDS: Hydrocortisone INJ 100 MG/2ML 2 ML VIAL IV SCH (08:33)
[2020-06-09] MEDS: [UNRECOGNIZED DRUG - OTHER] PO SCH ×2 (08:33→20:57)
[2020-06-09] MEDS: fentaNYL INFUSION 50 MCG/ML 2,500 MCG/50 ML BAG IV SCH (10:21)
[2020-06-09] MEDS ORDERED: Magnesium Sulfate 2 gm BAG 2 GM/50 ML BAG IVPB ONE (17:41)
[2020-06-09] MEDS: KCL 20 MEQ/100 ML IVPREMIX 20 MEQ/100 ML BAG IV SCH ×2 (19:50→22:22)
[2020-06-09] MEDS: Senna TAB 8.6 mg TAB PO SCH (20:57)
[2020-06-09] MEDS: LORazepam 2 mg VIAL 1 ml IV PUSH PRN (21:38)
[2020-06-10] MEDS: Pantoprazole VIAL 40 MG VIAL IV SCH ×2 (00:15→23:50)
[2020-06-10] MEDS: Chlorhexidine MOUTHWASH 0.12% 15 ML UDC TOPICAL SCH ×5 (00:15→16:06)
[2020-06-10] MEDS: Sodium Bicarb 650 mg (ANTACID) TAB PO SCH ×4 (00:15→16:38)
[2020-06-10] MEDS: KCL 20 MEQ/100 ML IVPREMIX 20 MEQ/100 ML BAG IV SCH (00:37)
[2020-06-10] MEDS: Propofol 10 mg/ml 100 ML BTL 100 ML IV SCH ×2 (02:19→07:17)
[2020-06-10] MEDS: fentaNYL INFUSION 50 MCG/ML 2,500 MCG/50 ML BAG IV SCH (02:44)
[2020-06-10] MEDS: Cefepime 1 GM in Dextrose 1 GM/50 ML BAG IV SCH ×3 (05:28→22:34)
[2020-06-10] MEDS: LORazepam 2 mg VIAL 1 ml IV PUSH PRN (06:13)
[2020-06-10] MEDS: DOXYcycline 100 MG in NS 0.9% 250 ml 250 ML IVPB SCH ×2 (06:17→17:05)
[2020-06-10 07:14] LABS: BUN/Creatinine Ratio 25.7 (8-20); Calcium 7.5 mg/dL (8.6-10.3); EGFR African American 256.4 (>60); EGFR Non-African American 211.9 (>60); Magnesium 2.4 mg/dL (1.9-2.7); Phosphorus 4.3 mg/dL (2.5-5.0); Potassium 3.7 mmol/L (3.5-5.0)
[2020-06-10] MEDS: [UNRECOGNIZED DRUG - OTHER] PO SCH (07:16)
[2020-06-10] MEDS ORDERED: KCL 20 MEQ/100 ML IVPREMIX 20 MEQ/100 ML BAG IV ONE (08:47)
[2020-06-10 10:36] LABS: Procalcitonin, S 5.2 ng/mL (<=0.15)
[2020-06-10 11:36] LABS: Myeloperoxidase Antibody <0.2 U; Proteinase 3 <0.2 U
[2020-06-10] MEDS ORDERED: CMCS:Methylnaltrexone SQ (NF) 12 MG/0.6 ML VIAL SUBCUT ONE (13:00)
[2020-06-10 20:42] LABS: HIT ELISA < 0.075 OD (<0.400)
[2020-06-10] MEDS: Heparin 5000 UNITS/ML 1 mL VIAL SUBCUT SCH (22:43)
[2020-06-10] MEDS: Senna TAB 8.6 mg TAB PO SCH (22:47)
[2020-06-11] MEDS: Sodium Bicarb 650 mg (ANTACID) TAB PO SCH ×5 (00:47→23:54)
[2020-06-11 05:08] LABS: BUN/Creatinine Ratio 17.1 (8-20); Calcium 7.4 mg/dL (8.6-10.3); EGFR African American 256.4 (>60); EGFR Non-African American 211.9 (>60); Magnesium 1.9 mg/dL (1.9-2.7); Phosphorus 4.2 mg/dL (2.5-5.0); Potassium 3.4 mmol/L (3.5-5.0)
[2020-06-11] MEDS ORDERED: NS 0.9% 250 ml 250 ML ONE (05:38)
[2020-06-11] MEDS: DOXYcycline 100 MG in NS 0.9% 250 ml 250 ML IVPB SCH (05:45)
[2020-06-11] MEDS: Cefepime 1 GM in Dextrose 1 GM/50 ML BAG IV SCH (05:45)
[2020-06-11] MEDS ORDERED: Magnesium Sulfate 2 gm BAG 2 GM/50 ML BAG IVPB ONE (07:40)
[2020-06-11] MEDS: KCL 20 MEQ/100 ML IVPREMIX 20 MEQ/100 ML BAG IV SCH ×2 (08:37→10:50)
[2020-06-11 08:38] LABS: Hematocrit 30 % (35-47); Hemoglobin 9.7 g/dL (12.0-16.0); Mean Corpuscular HGB Conc 33 g/dL (31-36); Mean Corpuscular Hemoglobin 32 pg (27-31); Mean Corpuscular Volume 97 fL (80-97); Mean Platelet Volume 8.7 fL (7.4-10.4); Platelet Count 202 10^3/uL (150-450); Red Blood Count 3.05 10^6 /uL (3.70-4.87); Red Cell Distribution Width 16 % (10-15); White Blood Count 7.5 10^3/uL (3.5-10.8)
[2020-06-11] MEDS: Heparin 5000 UNITS/ML 1 mL VIAL SUBCUT SCH ×2 (10:54→21:30)
[2020-06-11] MEDS: Senna TAB 8.6 mg TAB PO SCH ×2 (10:58→21:31)
[2020-06-11] MEDS: Polyethylene Glycol 3350 17 GM PACKET PO SCH (11:11)
[2020-06-11] MEDS: Pantoprazole VIAL 40 MG VIAL IV SCH (23:53)
[2020-06-12] MEDS ORDERED: LORazepam 2 mg VIAL 1 ml IV PUSH PRN (01:07)
[2020-06-12] MEDS: Sodium Bicarb 650 mg (ANTACID) TAB PO SCH ×2 (05:42→13:59)
[2020-06-12 06:18] LABS: BUN/Creatinine Ratio 21.2 (8-20); Calcium 7.8 mg/dL (8.6-10.3); EGFR African American 274.4 (>60); EGFR Non-African American 226.8 (>60); Potassium 3.8 mmol/L (3.5-5.0)
[2020-06-12] MEDS ORDERED: Multivitamins/Minerals TAB PO SCH (09:00)
[2020-06-12] MEDS ORDERED: Potassium Chloride LIQUID 20 MEQ/15 ML LIQUID PO ONE (09:08)
[2020-06-12] MEDS: Heparin 5000 UNITS/ML 1 mL VIAL SUBCUT SCH (10:08)
[2020-06-12] MEDS: Polyethylene Glycol 3350 17 GM PACKET PO SCH (10:09)
[2020-06-12] MEDS: Magnesium Hydroxide LIQ 30 ML UDC PO SCH ×2 (10:09→13:56)
[2020-06-12] MEDS: Senna TAB 8.6 mg TAB PO SCH (10:09)
[2020-06-12 11:06] VITALS: BP 125/83
== END 2020-06-12 14:50 | disposition home or self-care (01) | DRG 720 ==
LOC: ED 12:24 → ICU 14:42
PROVIDERS: ADMIT Pediatrics; ATTEND Internal Medicine

== ENCOUNTER 2020-08-07 20:01 | Inpatient (IN) ==
[2020-08-07] MEDS ORDERED: NS 0.9% 1000 ml BAG 2,000 ML IV ONE (20:14)
[2020-08-07] MEDS ORDERED: Lorazepam PYXIS KEY PRN (20:14)
[2020-08-07] MEDS ORDERED: LORazepam 2 mg VIAL 1 ml IV PUSH ONE (20:14)
[2020-08-07] MEDS ORDERED: Thiamine 100 MG/ML 2 ml VIAL (200 mg) IM ONE (20:16)
[2020-08-07 20:59] LABS: Alcohol, S < 10 mg/dL (<10)
[2020-08-07 21:05] LABS: ALT 76 U/L (7-52); AST 232 U/L (13-39); Albumin 3.8 g/dL (3.2-5.2); Albumin/Globulin Ratio 1.3 (1-3); Alkaline Phosphatase 205 U/L (34-104); Anion Gap 13 mmol/L (2-11); BUN/Creatinine Ratio 5.5 (8-20); Blood Urea Nitrogen 3 mg/dL (6-24); CO2 Carbon Dioxide 24 mmol/L (22-32); Calcium 8.8 mg/dL (8.6-10.3); Chloride 98 mmol/L (101-111); Creatine Kinase 131 U/L (10-223); EGFR African American 151.3 (>60); EGFR Non-African American 125.1 (>60); Globulin 2.9 g/dL (2-4); Glucose 186 mg/dL (70-100); Magnesium 1.5 mg/dL (1.9-2.7); Potassium 3.7 mmol/L (3.5-5.0); Sodium 135 mmol/L (135-145); Total Protein 6.7 g/dL (6.4-8.9)
[2020-08-07 21:09] LABS: INR 1.07 (0.82-1.09)
[2020-08-07] MEDS ORDERED: Magnesium Sulfate 2 gm BAG 2 GM/50 ML BAG IVPB ONE (21:12)
[2020-08-07 21:36] LABS: Hematocrit 41 % (35-47); Hemoglobin 13.3 g/dL (12.0-16.0); Mean Corpuscular HGB Conc 33 g/dL (31-36); Mean Corpuscular Hemoglobin 32 pg (27-31); Mean Corpuscular Volume 98 fL (80-97); Red Blood Count 4.15 10^6 /uL (3.70-4.87); Red Cell Distribution Width 14 % (10-15); White Blood Count 2.9 10^3/uL (3.5-10.8)
[2020-08-07 21:52] LABS: ABS Lymphocytes 0.3 10^3/ul (1.0-4.8); ABS Monocytes 0.3 10^3/ul (0-0.8); ABS Neutrophils 2.3 10^3/ul (1.5-7.7); Eosinophil % 0.1 %
[2020-08-07 21:55] LABS: Mean Platelet Volume 9.3 fL (7.4-10.4); Platelet Count 18 10^3/uL (150-450)
[2020-08-07 22:11] LABS: Troponin I 0.01 ng/mL (<0.03)
[2020-08-07 22:13] LABS: Activated Partial Thrombo Time 31.1 seconds (26.0-38.0)
[2020-08-07 22:15] LABS: HCG Pregnancy < 0.60 mIU/mL
[2020-08-07 22:24] LABS: Lipase 111 U/L (11.0-82.0)
[2020-08-07] MEDS ORDERED: NS 0.9% 1000 ml BAG 1,000 ML IV SCH (23:00)
[2020-08-07] MEDS ORDERED: LORazepam 2 mg VIAL 1 ml IV PUSH SCH (23:00)
[2020-08-07 23:19] LABS: Urine Appearance Cloudy; Urine Bilirubin Negative (Negative); Urine Blood 1+ (Negative); Urine Color Yellow; Urine Glucose Negative (Negative); Urine Ketones Negative (Negative); Urine Nitrite Negative (Negative); Urine Protein Negative (Negative); Urine Specific Gravity 1.003 (1.010-1.030); Urine Urobilinogen Negative (Negative)
[2020-08-07 23:21] LABS: Urine Bacteria Absent (Absent); Urine Red Blood Cell Trace(0-2/hpf) (Absent); Urine Squamous Epithelial Cell Present (Absent); Urine White Blood Cell Absent (Absent)
[2020-08-08] MEDS ORDERED: NS 0.9% 1000 ml BAG 1,000 ML IV SCH (01:34)
[2020-08-08 02:56] LABS: Troponin I 0.03 ng/mL (<0.03)
[2020-08-08 06:32] LABS: INR 1.13 (0.82-1.09)
[2020-08-08 06:34] LABS: ABS Lymphocytes 0.8 10^3/ul (1.0-4.8); ABS Monocytes 0.3 10^3/ul (0-0.8); ABS Neutrophils 1.6 10^3/ul (1.5-7.7); Eosinophil % 0.5 %; Hematocrit 33 % (35-47); Hemoglobin 10.9 g/dL (12.0-16.0); Lymphocyte % 28.4 %; Mean Corpuscular HGB Conc 34 g/dL (31-36); Mean Corpuscular Hemoglobin 33 pg (27-31); Mean Corpuscular Volume 98 fL (80-97); Mean Platelet Volume 9.3 fL (7.4-10.4); Nucleated Red Blood Cells % 0.1; Platelet Count 12 10^3/uL (150-450); Red Blood Count 3.33 10^6 /uL (3.70-4.87); Red Cell Distribution Width 15 % (10-15); White Blood Count 2.7 10^3/uL (3.5-10.8)
[2020-08-08 06:50] LABS: Albumin 3.1 g/dL (3.2-5.2); Albumin/Globulin Ratio 1.3 (1-3); BUN/Creatinine Ratio 7.8 (8-20); Calcium 7.6 mg/dL (8.6-10.3); EGFR African American 165.1 (>60); EGFR Non-African American 136.5 (>60); Globulin 2.3 g/dL (2-4); Potassium 2.9 mmol/L (3.5-5.0); Total Protein 5.4 g/dL (6.4-8.9)
[2020-08-08] MEDS: Multivitamins/Minerals TAB PO SCH (07:04)
[2020-08-08] MEDS ORDERED: Potassium Chloride LIQUID 20 MEQ/15 ML LIQUID PO ONE (08:32)
[2020-08-08] MEDS ORDERED: Potassium Chlor 20 meq TAB.ER PO ONE (09:00)
[2020-08-08] MEDS: KCL 20 MEQ/100 ML IVPREMIX 20 MEQ/100 ML BAG IV SCH ×2 (09:20→14:04)
[2020-08-09 06:39] LABS: ALT 74 U/L (7-52); AST 221 U/L (13-39); Albumin 3.3 g/dL (3.2-5.2); Albumin/Globulin Ratio 1.4 (1-3); Alkaline Phosphatase 187 U/L (34-104); Anion Gap 6 mmol/L (2-11); BUN/Creatinine Ratio 9.3 (8-20); Blood Urea Nitrogen 5 mg/dL (6-24); CO2 Carbon Dioxide 24 mmol/L (22-32); Calcium 7.9 mg/dL (8.6-10.3); Chloride 104 mmol/L (101-111); EGFR African American 154.6 (>60); EGFR Non-African American 127.7 (>60); Globulin 2.4 g/dL (2-4); Glucose 92 mg/dL (70-100); Magnesium 1.6 mg/dL (1.9-2.7); Potassium 3.7 mmol/L (3.5-5.0); Sodium 134 mmol/L (135-145); Total Protein 5.7 g/dL (6.4-8.9)
[2020-08-09 06:41] LABS: Hematocrit 34 % (35-47); Hemoglobin 11.4 g/dL (12.0-16.0); Mean Corpuscular HGB Conc 33 g/dL (31-36); Mean Corpuscular Hemoglobin 33 pg (27-31); Mean Corpuscular Volume 98 fL (80-97); Platelet Count 14 10^3/uL (150-450); Red Blood Count 3.48 10^6 /uL (3.70-4.87); Red Cell Distribution Width 14 % (10-15); White Blood Count 2.2 10^3/uL (3.5-10.8)
[2020-08-09 07:44] LABS: ABS Lymphocytes 0.9 10^3/ul (1.0-4.8); ABS Monocytes 0.2 10^3/ul (0-0.8); Eosinophil % 1.9 %; Lymphocyte % 40.1 %; Nucleated Red Blood Cells % 0.1
[2020-08-09] MEDS ORDERED: Magnesium Sulfate IV 3 GM in NS 0.9% 100 ml BAG 100 ML IVPB ONE (08:03)
[2020-08-09] MEDS: Multivitamins/Minerals TAB PO SCH (08:43)
[2020-08-09 12:58] LABS: Acetaminophen < 15 mcg/mL
[2020-08-10 06:01] VITALS: BP 128/88
== END 2020-08-10 06:40 | disposition left against medical advice (07) | DRG 770 ==
LOC: MED 20:01 → ED 20:01 → MED 08-08 01:45
PROVIDERS: ADMIT Internal Medicine; ATTEND Student in an Organized Health Care Education/Training Program

== ENCOUNTER 2020-08-29 19:36 | Inpatient (IN) ==
[2020-08-29 20:09] LABS: Urine Appearance Clear; Urine Bilirubin Negative (Negative); Urine Blood 2+ (Negative); Urine Color Straw; Urine Glucose Negative (Negative); Urine Ketones Negative (Negative); Urine Nitrite Negative (Negative); Urine Protein Negative (Negative); Urine Specific Gravity 1.001 (1.010-1.030); Urine Urobilinogen Negative (Negative)
[2020-08-29 20:17] LABS: Urine Bacteria Absent (Absent); Urine Red Blood Cell Absent (Absent); Urine White Blood Cell Absent (Absent)
[2020-08-29 20:23] LABS: Urine Benzodiazepine Screen None Detected (None Detect); Urine Cannabinoids Screen None Detected (None Detect); Urine Opiates Screen None Detected (None Detect)
[2020-08-29 20:52] LABS: ALT 143 U/L (7-52); AST 289 U/L (13-39); Albumin 3.6 g/dL (3.2-5.2); Albumin/Globulin Ratio 1.2 (1-3); Alkaline Phosphatase 162 U/L (34-104); Anion Gap 7 mmol/L (2-11); BUN/Creatinine Ratio 4.1 (8-20); Blood Urea Nitrogen 2 mg/dL (6-24); CO2 Carbon Dioxide 26 mmol/L (22-32); Calcium 7.3 mg/dL (8.6-10.3); Chloride 109 mmol/L (101-111); EGFR African American 172.9 (>60); EGFR Non-African American 142.9 (>60); Glucose 88 mg/dL (70-100); Potassium 3.4 mmol/L (3.5-5.0); Sodium 142 mmol/L (135-145); Total Protein 6.6 g/dL (6.4-8.9)
[2020-08-29 20:56] LABS: ABS Lymphocytes 0.7 10^3/ul (1.0-4.8); ABS Monocytes 0.3 10^3/ul (0-0.8); ABS Neutrophils 1.9 10^3/ul (1.5-7.7); Eosinophil % 0.7 %; Hematocrit 38 % (35-47); Hemoglobin 12.9 g/dL (12.0-16.0); Mean Corpuscular HGB Conc 34 g/dL (31-36); Mean Corpuscular Hemoglobin 33 pg (27-31); Mean Corpuscular Volume 96 fL (80-97); Mean Platelet Volume 7.3 fL (7.4-10.4); Nucleated Red Blood Cells % 0.1; Platelet Count 50 10^3/uL (150-450); Red Blood Count 3.96 10^6 /uL (3.70-4.87); Red Cell Distribution Width 14 % (10-15); White Blood Count 2.9 10^3/uL (3.5-10.8)
[2020-08-29 21:32] LABS: Acetaminophen < 15 mcg/mL; Alcohol, S 290 mg/dL (<10); Salicylate < 2.50 mg/dL (<30)
[2020-08-29 23:02] LABS: TSH Ultra Thyroid Stim Horm 1.43 mcIU/mL (0.34-5.60)
[2020-08-29] MEDS ORDERED: LORazepam 2 mg VIAL 1 ml IV PUSH ONE (23:24)
[2020-08-29] MEDS ORDERED: Lorazepam PYXIS KEY PRN (23:24)
[2020-08-29] MEDS ORDERED: Thiamine 100 MG/ML 2 ml VIAL (200 mg) IM ONE (23:28)
[2020-08-29] MEDS ORDERED: LORazepam 2 mg VIAL 1 ml IV PUSH SCH (23:45)
[2020-08-30] MEDS ORDERED: Enoxaparin 40 MG/0.4 ML SYR SUBCUT SCH
[2020-08-30] MEDS ORDERED: Lactated Ringers 1000 ml BAG 1,000 ML IV SCH (01:00)
[2020-08-30 07:20] LABS: Albumin/Globulin Ratio 1.3 (1-3); BUN/Creatinine Ratio 6.9 (8-20); Calcium 6.9 mg/dL (8.6-10.3); EGFR African American 142.3 (>60); EGFR Non-African American 117.6 (>60); Globulin 2.3 g/dL (2-4); Indirect Bilirubin 0.2 mg/dL (0.3-1.0); Total Bilirubin 0.3 mg/dL (0.2-1.0); Total Protein 5.3 g/dL (6.4-8.9)
[2020-08-30 07:24] LABS: ABS Lymphocytes 1.1 10^3/ul (1.0-4.8); ABS Monocytes 0.3 10^3/ul (0-0.8); ABS Neutrophils 1.2 10^3/ul (1.5-7.7); Eosinophil % 1.9 %; Hematocrit 32 % (35-47); Hemoglobin 10.7 g/dL (12.0-16.0); Lymphocyte % 40.8 %; Mean Corpuscular HGB Conc 33 g/dL (31-36); Mean Corpuscular Hemoglobin 32 pg (27-31); Mean Corpuscular Volume 97 fL (80-97); Mean Platelet Volume 8.3 fL (7.4-10.4); Platelet Count 44 10^3/uL (150-450); Red Blood Count 3.34 10^6 /uL (3.70-4.87); Red Cell Distribution Width 14 % (10-15); White Blood Count 2.6 10^3/uL (3.5-10.8)
[2020-08-30 07:36] LABS: Magnesium 1.3 mg/dL (1.9-2.7)
[2020-08-30] MEDS ORDERED: Potassium Chlor 20 meq TAB.ER PO ONE (07:56)
[2020-08-30] MEDS ORDERED: Magnesium Sulf 4 GM/100 ML IV 4,000 MG/100 ML BAG IVPB ONE (07:56)
[2020-08-30] MEDS ORDERED: LORazepam 2 mg VIAL 1 ml IV PUSH SCH (08:24)
[2020-08-30] MEDS: Multivitamins/Minerals TAB PO SCH (10:06)
[2020-08-30 11:49] LABS: Hepatitis B Surface Antigen Nonreactive (Nonreactive)
[2020-08-30 11:55] LABS: Hepatitis A Ab IgM Negative (Negative); Hepatitis B Core IgM Nonreactive (Nonreactive)
[2020-08-30 12:07] LABS: Hepatitis C Antibody Negative (Negative)
[2020-08-31] MEDS: Multivitamins/Minerals TAB PO SCH (08:56)
[2020-08-31] MEDS: LORazepam 2 mg VIAL 1 ml IV PUSH SCH ×2 (08:56→17:25)
[2020-08-31] MEDS ORDERED: diPHENhydraMINE 25 mg TAB PO PRN (10:03)
[2020-08-31 11:34] LABS: ABS Eosinophils 0.1 10^3/ul (0-0.6); ABS Lymphocytes 0.9 10^3/ul (1.0-4.8); ABS Monocytes 0.3 10^3/ul (0-0.8); ABS Neutrophils 1.2 10^3/ul (1.5-7.7); Eosinophil % 2.4 %; Hematocrit 32 % (35-47); Hemoglobin 10.6 g/dL (12.0-16.0); Lymphocyte % 34.9 %; Mean Corpuscular HGB Conc 33 g/dL (31-36); Mean Corpuscular Hemoglobin 32 pg (27-31); Mean Corpuscular Volume 97 fL (80-97); Mean Platelet Volume 8.9 fL (7.4-10.4); Nucleated Red Blood Cells % 0.1; Platelet Count 44 10^3/uL (150-450); Red Blood Count 3.34 10^6 /uL (3.70-4.87); Red Cell Distribution Width 14 % (10-15); White Blood Count 2.4 10^3/uL (3.5-10.8)
[2020-08-31 11:49] LABS: Albumin 2.8 g/dL (3.2-5.2); Albumin/Globulin Ratio 1.1 (1-3); BUN/Creatinine Ratio 15.2 (8-20); Calcium 8.1 mg/dL (8.6-10.3); EGFR Non-African American 153.7 (>60); Globulin 2.6 g/dL (2-4); INR 1.03 (0.82-1.09); Magnesium 1.7 mg/dL (1.9-2.7); Potassium 3.7 mmol/L (3.5-5.0); Total Bilirubin 0.3 mg/dL (0.2-1.0); Total Protein 5.4 g/dL (6.4-8.9)
[2020-08-31] MEDS ORDERED: Magnesium Sulfate IV 3 GM in NS 0.9% 100 ml BAG 100 ML IVPB ONE (12:13)
[2020-08-31] MEDS: Triamcinolone 0.5% OINT 1 TUBE TOPICAL SCH ×2 (13:51→21:27)
[2020-08-31] MEDS ORDERED: Thiamine 100 MG/ML 2 ml VIAL (200 mg) IM ONE (17:29)
[2020-09-01 07:43] LABS: ABS Eosinophils 0.1 10^3/ul (0-0.6); ABS Lymphocytes 1.1 10^3/ul (1.0-4.8); ABS Monocytes 0.4 10^3/ul (0-0.8); ABS Neutrophils 1.9 10^3/ul (1.5-7.7); Eosinophil % 2.5 %; Hematocrit 33 % (35-47); Hemoglobin 10.8 g/dL (12.0-16.0); Lymphocyte % 30.8 %; Mean Corpuscular HGB Conc 33 g/dL (31-36); Mean Corpuscular Hemoglobin 33 pg (27-31); Mean Corpuscular Volume 98 fL (80-97); Mean Platelet Volume 9.9 fL (7.4-10.4); Nucleated Red Blood Cells % 0.1; Platelet Count 50 10^3/uL (150-450); Red Blood Count 3.31 10^6 /uL (3.70-4.87); Red Cell Distribution Width 14 % (10-15); White Blood Count 3.5 10^3/uL (3.5-10.8)
[2020-09-01 07:44] LABS: BUN/Creatinine Ratio 15.7 (8-20); Calcium 7.9 mg/dL (8.6-10.3); EGFR African American 165.1 (>60); EGFR Non-African American 136.5 (>60); Magnesium 1.9 mg/dL (1.9-2.7); Potassium 3.9 mmol/L (3.5-5.0)
[2020-09-01] MEDS: Multivitamins/Minerals TAB PO SCH (08:36)
[2020-09-01] MEDS: Triamcinolone 0.5% OINT 1 TUBE TOPICAL SCH ×2 (08:38→22:03)
[2020-09-01] MEDS ORDERED: Senna TAB 8.6 mg TAB PO PRN (12:02)
[2020-09-01] MEDS: Magnesium Hydroxide LIQ 30 ML UDC PO PRN (14:11)
[2020-09-01] MEDS: Nicotine PATCH 21 MG/24 HR PATCH TRANSDERM SCH (23:05)
[2020-09-01] MEDS: Nicotine GUM 2MG FRUIT FLAVOR PO PRN (23:05)
[2020-09-02 07:06] LABS: ABS Eosinophils 0.1 10^3/ul (0-0.6); ABS Lymphocytes 1.1 10^3/ul (1.0-4.8); ABS Monocytes 0.7 10^3/ul (0-0.8); ABS Neutrophils 4.6 10^3/ul (1.5-7.7); Eosinophil % 0.8 %; Hematocrit 34 % (35-47); Hemoglobin 11.4 g/dL (12.0-16.0); Lymphocyte % 16.4 %; Mean Corpuscular HGB Conc 33 g/dL (31-36); Mean Corpuscular Hemoglobin 32 pg (27-31); Mean Corpuscular Volume 97 fL (80-97); Mean Platelet Volume 9.5 fL (7.4-10.4); Nucleated Red Blood Cells % 0.1; Platelet Count 75 10^3/uL (150-450); Red Blood Count 3.53 10^6 /uL (3.70-4.87); Red Cell Distribution Width 14 % (10-15); White Blood Count 6.4 10^3/uL (3.5-10.8)
[2020-09-02 08:33] LABS: ActiTest Interpretation significant activity; Alanine Aminotransferase (ALT) 120 U/L (7-45); Alpha-2-Macroglobulin, S 141 mg/dL (100 - 280); Bilirubin, Total, S 0.2 mg/dL (<=1.2); BioPredictive Serial Number 3316590; FibroTest Interpretation no fibrosis; Gamma Glutamyltransferase GGT 417 U/L (5 - 36)
[2020-09-02] MEDS: Multivitamins/Minerals TAB PO SCH (08:35)
[2020-09-02] MEDS: Magnesium Hydroxide LIQ 30 ML UDC PO PRN (08:36)
[2020-09-02] MEDS: Triamcinolone 0.5% OINT 1 TUBE TOPICAL SCH ×2 (08:36→20:58)
[2020-09-02] MEDS: Nicotine GUM 2MG FRUIT FLAVOR PO PRN (20:59)
[2020-09-03] MEDS: Nicotine PATCH 21 MG/24 HR PATCH TRANSDERM SCH (08:04)
[2020-09-03] MEDS: Multivitamins/Minerals TAB PO SCH (08:06)
[2020-09-03] MEDS: Triamcinolone 0.5% OINT 1 TUBE TOPICAL SCH (08:08)
[2020-09-03] MEDS: Nicotine GUM 2MG FRUIT FLAVOR PO PRN (08:11)
[2020-09-03] MEDS: Magnesium Hydroxide LIQ 30 ML UDC PO PRN (11:02)
[2020-09-03 12:12] VITALS: BP 125/84
[2020-09-03 16:49] LABS: HIV 4th Generation Nonreactive (Nonreactive)
== END 2020-09-03 12:55 | disposition home or self-care (01) | DRG 775 ==
LOC: ED 19:36 → MED 23:25
PROVIDERS: ADMIT Internal Medicine Interventional Cardiology; ATTEND Internal Medicine

== ENCOUNTER 2020-09-21 08:17 | Inpatient (IN) ==
[2020-09-21 08:50] LABS: ABS Monocytes 0.4 10^3/ul (0-0.8); ABS Neutrophils 2.1 10^3/ul (1.5-7.7); Eosinophil % 0.7 %; Hematocrit 43 % (35-47); Hemoglobin 13.9 g/dL (12.0-16.0); Lymphocyte % 27.4 %; Mean Corpuscular HGB Conc 33 g/dL (31-36); Mean Corpuscular Hemoglobin 32 pg (27-31); Mean Corpuscular Volume 97 fL (80-97); Mean Platelet Volume 7.7 fL (7.4-10.4); Platelet Count 84 10^3/uL (150-450); Red Cell Distribution Width 15 % (10-15); White Blood Count 3.5 10^3/uL (3.5-10.8)
[2020-09-21] MEDS ORDERED: NS 0.9% 1000 ml BAG 0 ML ONE (08:51)
[2020-09-21] MEDS ORDERED: Thiamine 100 MG/ML 2 ml VIAL (200 mg) ONE (08:51)
[2020-09-21] MEDS ORDERED: LORazepam 2 mg VIAL 1 ml IV PUSH ONE ×3 (08:51→21:23)
[2020-09-21] MEDS ORDERED: Lorazepam PYXIS KEY PRN ×3 (08:51→21:23)
[2020-09-21] MEDS ORDERED: Lorazepam PYXIS KEY ONE (08:59)
[2020-09-21 09:01] LABS: Albumin 4.6 g/dL (3.2-5.2); Albumin/Globulin Ratio 1.4 (1-3); BUN/Creatinine Ratio 8.3 (8-20); EGFR African American 177.1 (>60); EGFR Non-African American 146.3 (>60); Globulin 3.3 g/dL (2-4); Magnesium 2.2 mg/dL (1.9-2.7); Potassium 3.5 mmol/L (3.5-5.0); Total Bilirubin 0.4 mg/dL (0.2-1.0); Total Protein 7.9 g/dL (6.4-8.9)
[2020-09-21] MEDS ORDERED: Thiamine 100 MG/ML 2 ml VIAL 100 MG, Folic Acid IV 1 MG, Multiple Vitamin IV ADULT 10 M... IV ONE (09:30)
[2020-09-21] MEDS ORDERED: NS 0.9% 1000 ml BAG 1,000 ML IV ONE (16:04)
[2020-09-22] MEDS ORDERED: Lorazepam PYXIS KEY PRN (01:55)
[2020-09-22] MEDS ORDERED: LORazepam 2 mg VIAL 1 ml IV PUSH ONE (01:55)
[2020-09-22] MEDS: LORazepam 2 mg VIAL 1 ml IV SCH ×3 (02:03→18:24)
[2020-09-22] MEDS: LORazepam 2 mg VIAL 1 ml IV PUSH SCH ×5 (04:02→18:19)
[2020-09-22 07:10] LABS: BUN/Creatinine Ratio 7.7 (8-20); Calcium 7.7 mg/dL (8.6-10.3); EGFR African American 161.4 (>60); EGFR Non-African American 133.4 (>60); Potassium 3.2 mmol/L (3.5-5.0)
[2020-09-22 07:19] LABS: ABS Lymphocytes 0.8 10^3/ul (1.0-4.8); ABS Monocytes 0.5 10^3/ul (0-0.8); ABS Neutrophils 1.2 10^3/ul (1.5-7.7); Eosinophil % 0.6 %; Hematocrit 37 % (35-47); Hemoglobin 12.4 g/dL (12.0-16.0); Lymphocyte % 32.3 %; Mean Corpuscular HGB Conc 33 g/dL (31-36); Mean Corpuscular Hemoglobin 32 pg (27-31); Mean Corpuscular Volume 97 fL (80-97); Mean Platelet Volume 8.7 fL (7.4-10.4); Nucleated Red Blood Cells % 0.1; Platelet Count 53 10^3/uL (150-450); Red Blood Count 3.85 10^6 /uL (3.70-4.87); Red Cell Distribution Width 15 % (10-15); White Blood Count 2.5 10^3/uL (3.5-10.8)
[2020-09-22 08:14] LABS: Albumin 3.5 g/dL (3.2-5.2); Albumin/Globulin Ratio 1.4 (1-3); Globulin 2.5 g/dL (2-4); Indirect Bilirubin 0.5 mg/dL (0.3-1.0); Total Bilirubin 0.6 mg/dL (0.2-1.0)
[2020-09-22] MEDS ORDERED: Multivitamins/Minerals TAB PO SCH (09:00)
[2020-09-22] MEDS ORDERED: Potassium Chlor 20 meq TAB.ER PO ONE (09:24)
[2020-09-22 10:08] LABS: INR 1.12 (0.82-1.09)
[2020-09-22 18:09] VITALS: BP 133/93
== END 2020-09-22 19:00 | disposition left against medical advice (07) | DRG 770 ==
LOC: ED 08:17 → MED 09-22 02:30
PROVIDERS: ADMIT Internal Medicine; ATTEND Internal Medicine

== ENCOUNTER 2020-09-29 12:27 | Inpatient (IN) ==
[2020-09-29 13:03] LABS: ABS Monocytes 0.5 10^3/ul (0-0.8); ABS Neutrophils 6.5 10^3/ul (1.5-7.7); Hematocrit 44 % (35-47); Hemoglobin 14.9 g/dL (12.0-16.0); Lymphocyte % 12.7 %; Mean Corpuscular HGB Conc 34 g/dL (31-36); Mean Corpuscular Hemoglobin 32 pg (27-31); Mean Corpuscular Volume 96 fL (80-97); Mean Platelet Volume 9.2 fL (7.4-10.4); Platelet Count 98 10^3/uL (150-450); Red Cell Distribution Width 15 % (10-15)
[2020-09-29] MEDS ORDERED: Lorazepam PYXIS KEY PRN (13:11)
[2020-09-29] MEDS ORDERED: LORazepam 2 mg VIAL 1 ml IV ONE (13:11)
[2020-09-29] MEDS ORDERED: Lorazepam PYXIS KEY ONE (13:14)
[2020-09-29 13:20] LABS: HCG Pregnancy < 0.60 mIU/mL
[2020-09-29 13:21] LABS: ALT 76 U/L (7-52); Albumin 4.6 g/dL (3.2-5.2); Albumin/Globulin Ratio 1.3 (1-3); Alkaline Phosphatase 139 U/L (34-104); BUN/Creatinine Ratio 6.1 (8-20); Blood Urea Nitrogen 3 mg/dL (6-24); C Reactive Protein 16.49 mg/L (<8.01); CO2 Carbon Dioxide 26 mmol/L (22-32); Calcium 8.5 mg/dL (8.6-10.3); Chloride 97 mmol/L (101-111); EGFR African American 172.9 (>60); EGFR Non-African American 142.9 (>60); Globulin 3.6 g/dL (2-4); Glucose 113 mg/dL (70-100); Lipase 62 U/L (11.0-82.0); Sodium 134 mmol/L (135-145); Total Protein 8.2 g/dL (6.4-8.9)
[2020-09-29 13:23] LABS: Anion Gap 11 mmol/L (2-11)
[2020-09-29 13:32] LABS: Acetaminophen < 15 mcg/mL; Salicylate < 2.50 mg/dL (<30)
[2020-09-29 13:39] LABS: Alcohol, S 542 mg/dL (<10)
[2020-09-29 14:28] LABS: Magnesium 1.8 mg/dL (1.9-2.7); Potassium Redraw 3.8 mmol/L (3.5-5.0)
[2020-09-29 14:39] LABS: Urine Appearance Cloudy; Urine Bilirubin Negative (Negative); Urine Blood 2+ (Negative); Urine Color Yellow; Urine Glucose Negative (Negative); Urine Ketones Negative (Negative); Urine Nitrite Negative (Negative); Urine Protein 2+(100 mg/dL) (Negative); Urine Specific Gravity 1.003 (1.002-1.030); Urine Urobilinogen Negative (Negative)
[2020-09-29 14:43] LABS: Urine Bacteria 1+ (Absent); Urine Red Blood Cell Trace(0-2/hpf) (Absent); Urine Squamous Epithelial Cell Present (Absent); Urine White Blood Cell 2+(11-20/hpf) (Absent)
[2020-09-29] MEDS ORDERED: Thiamine 100 MG/ML 2 ml VIAL (200 mg) IM ONE (15:11)
[2020-09-29] MEDS ORDERED: NS 0.9% 1000 ml BAG 1,000 ML IV ONE (15:33)
[2020-09-29] MEDS ORDERED: NS 0.9% 1000 ml BAG 1,000 ML IV SCH (15:45)
[2020-09-29 15:50] LABS: Urine Benzodiazepine Screen None Detected (None Detect); Urine Cannabinoids Screen None Detected (None Detect); Urine Opiates Screen None Detected (None Detect)
[2020-09-29] MEDS: Multivitamins/Minerals TAB PO SCH (16:43)
[2020-09-29] MEDS: Pantoprazole VIAL 40 MG VIAL IV SCH (16:43)
[2020-09-29] MEDS ORDERED: Ondansetron 4 mg VIAL 2 MG/ML 2 ml VIAL IV PRN (20:26)
[2020-09-29] MEDS: LORazepam 2 mg VIAL 1 ml IV PUSH SCH (22:39)
[2020-09-30] MEDS: LORazepam 2 mg VIAL 1 ml IV PUSH SCH (04:27)
[2020-09-30 06:27] LABS: ABS Lymphocytes 0.8 10^3/ul (1.0-4.8); ABS Monocytes 0.5 10^3/ul (0-0.8); ABS Neutrophils 2.8 10^3/ul (1.5-7.7); Eosinophil % 0.8 %; Hematocrit 32 % (35-47); Hemoglobin 11.1 g/dL (12.0-16.0); Lymphocyte % 18.7 %; Mean Corpuscular HGB Conc 34 g/dL (31-36); Mean Corpuscular Hemoglobin 33 pg (27-31); Mean Corpuscular Volume 96 fL (80-97); Mean Platelet Volume 8.9 fL (7.4-10.4); Nucleated Red Blood Cells % 0.1; Platelet Count 49 10^3/uL (150-450); Red Blood Count 3.38 10^6 /uL (3.70-4.87); Red Cell Distribution Width 15 % (10-15); White Blood Count 4.1 10^3/uL (3.5-10.8)
[2020-09-30 06:37] LABS: INR 1.16 (0.82-1.09)
[2020-09-30 06:49] LABS: C Reactive Protein 9.56 mg/L (<8.01)
[2020-09-30 07:01] LABS: TSH Ultra Thyroid Stim Horm 6.33 mcIU/mL (0.34-5.60)
[2020-09-30] MEDS: Multivitamins/Minerals TAB PO SCH (10:38)
[2020-09-30] MEDS: Pantoprazole VIAL 40 MG VIAL IV SCH (10:40)
[2020-09-30] MEDS ORDERED: LORazepam 2 mg VIAL 1 ml IV PUSH ONE (11:22)
[2020-10-01 04:33] LABS: ABS Lymphocytes 0.4 10^3/ul (1.0-4.8); ABS Monocytes 0.3 10^3/ul (0-0.8); ABS Neutrophils 1.3 10^3/ul (1.5-7.7); Eosinophil % 0.4 %; Hematocrit 35 % (35-47); Hemoglobin 11.8 g/dL (12.0-16.0); Lymphocyte % 21.1 %; Mean Corpuscular HGB Conc 34 g/dL (31-36); Mean Corpuscular Hemoglobin 33 pg (27-31); Mean Corpuscular Volume 98 fL (80-97); Mean Platelet Volume 10.2 fL (7.4-10.4); Nucleated Red Blood Cells % 0.1; Platelet Count 37 10^3/uL (150-450); Red Blood Count 3.61 10^6 /uL (3.70-4.87); Red Cell Distribution Width 15 % (10-15); White Blood Count 2.1 10^3/uL (3.5-10.8)
[2020-10-01 04:47] LABS: Albumin 3.5 g/dL (3.2-5.2); Albumin/Globulin Ratio 1.3 (1-3); Calcium 8.6 mg/dL (8.6-10.3); EGFR Non-African American 153.7 (>60); Globulin 2.7 g/dL (2-4); Magnesium 1.7 mg/dL (1.9-2.7); Potassium 3.6 mmol/L (3.5-5.0); Total Protein 6.2 g/dL (6.4-8.9)
[2020-10-01] MEDS: Multivitamins/Minerals TAB PO SCH (08:53)
[2020-10-01 10:24] VITALS: BP 117/70
[2020-10-01] MEDS: Pantoprazole VIAL 40 MG VIAL IV SCH (12:29)
== END 2020-10-01 12:30 | disposition left against medical advice (07) | DRG 770 ==
LOC: ED 12:27 → MED 12:27
PROVIDERS: ADMIT Hospitalist; ATTEND Hospitalist

== ENCOUNTER 2020-10-02 10:46 | Inpatient (IN) ==
[2020-10-02 11:20] LABS: Hematocrit 42 % (35-47); Hemoglobin 13.8 g/dL (12.0-16.0); Mean Corpuscular HGB Conc 33 g/dL (31-36); Mean Corpuscular Hemoglobin 32 pg (27-31); Mean Corpuscular Volume 99 fL (80-97); Red Cell Distribution Width 15 % (10-15); White Blood Count 4.8 10^3/uL (3.5-10.8)
[2020-10-02 11:27] LABS: ALT 79 U/L (7-52); Albumin 4.3 g/dL (3.2-5.2); Albumin/Globulin Ratio 1.2 (1-3); Alkaline Phosphatase 164 U/L (34-104); Blood Urea Nitrogen 2 mg/dL (6-24); CO2 Carbon Dioxide 22 mmol/L (22-32); Calcium 8.9 mg/dL (8.6-10.3); Chloride 109 mmol/L (101-111); EGFR African American 142.3 (>60); EGFR Non-African American 117.6 (>60); Globulin 3.7 g/dL (2-4); Glucose 101 mg/dL (70-100); Sodium 142 mmol/L (135-145)
[2020-10-02 11:38] LABS: Anion Gap 11 mmol/L (2-11)
[2020-10-02 11:48] LABS: Alcohol, S 383 mg/dL (<10)
[2020-10-02 12:17] LABS: ABS Monocytes 0.5 10^3/ul (0-0.8); ABS Neutrophils 3.3 10^3/ul (1.5-7.7); Eosinophil % 0.2 %; Lymphocyte % 21.1 %; Mean Platelet Volume 9.3 fL (7.4-10.4); Platelet Count 69 10^3/uL (150-450)
[2020-10-02 13:03] LABS: Potassium Redraw 2.3 mmol/L (3.5-5.0)
[2020-10-02] MEDS ORDERED: Potassium Chlor 20 meq TAB.ER PO ONE ×3 (13:04→23:00)
[2020-10-02] MEDS ORDERED: LORazepam 2 mg VIAL 1 ml IV PUSH ONE (13:38)
[2020-10-02] MEDS ORDERED: Lorazepam PYXIS KEY PRN (13:38)
[2020-10-02] MEDS ORDERED: Lorazepam PYXIS KEY ONE (13:44)
[2020-10-02] MEDS ORDERED: Thiamine 100 MG/ML 2 ml VIAL (200 mg) IM ONE (13:58)
[2020-10-02] MEDS: KCL 20 MEQ/100 ML IVPREMIX 20 MEQ/100 ML BAG IV SCH ×2 (15:42→22:58)
[2020-10-03] MEDS ORDERED: Potassium Chlor 20 meq TAB.ER PO ONE (01:00)
[2020-10-03] MEDS ORDERED: Multivitamins/Minerals TAB PO SCH (09:00)
[2020-10-03 10:12] LABS: ABS Eosinophils 0.1 10^3/ul (0-0.6); ABS Lymphocytes 1.3 10^3/ul (1.0-4.8); ABS Monocytes 0.5 10^3/ul (0-0.8); ABS Neutrophils 3.6 10^3/ul (1.5-7.7); Eosinophil % 1.3 %; Hematocrit 37 % (35-47); Hemoglobin 12.1 g/dL (12.0-16.0); Lymphocyte % 23.5 %; Mean Corpuscular HGB Conc 33 g/dL (31-36); Mean Corpuscular Hemoglobin 32 pg (27-31); Mean Corpuscular Volume 98 fL (80-97); Mean Platelet Volume 9.1 fL (7.4-10.4); Nucleated Red Blood Cells % 0.1; Platelet Count 60 10^3/uL (150-450); Red Blood Count 3.75 10^6 /uL (3.70-4.87); Red Cell Distribution Width 15 % (10-15); White Blood Count 5.4 10^3/uL (3.5-10.8)
[2020-10-03 10:35] LABS: Albumin 3.3 g/dL (3.2-5.2); Albumin/Globulin Ratio 1.3 (1-3); Calcium 8.3 mg/dL (8.6-10.3); EGFR African American 165.1 (>60); EGFR Non-African American 136.5 (>60); Globulin 2.6 g/dL (2-4); Indirect Bilirubin 0.5 mg/dL (0.3-1.0); Potassium 4.4 mmol/L (3.5-5.0); Total Bilirubin 0.7 mg/dL (0.2-1.0); Total Protein 5.9 g/dL (6.4-8.9)
[2020-10-03 18:10] VITALS: BP 118/81
== END 2020-10-03 18:30 | disposition left against medical advice (07) | DRG 770 ==
LOC: ED 10:46 → MEDTELE 10:46
PROVIDERS: ADMIT Hospitalist; ATTEND Hospitalist

== ENCOUNTER 2021-02-24 00:44 | Inpatient (IN) ==
[2021-02-24] MEDS ORDERED: Ziprasidone IM 20 mg VIAL 1 ml VIAL IM ONE (00:57)
[2021-02-24] MEDS ORDERED: Lorazepam PYXIS KEY PRN ×4 (00:57→09:28)
[2021-02-24] MEDS ORDERED: LORazepam 2 mg VIAL 1 ml IV PUSH ONE ×3 (00:57→05:43)
[2021-02-24] MEDS ORDERED: Sterile Water for Inj 10 ML ONE (01:01)
[2021-02-24 05:51] LABS: Hematocrit 38 % (35-47); Mean Corpuscular HGB Conc 34 g/dL (31-36); Mean Corpuscular Hemoglobin 32 pg (27-31); Mean Corpuscular Volume 95 fL (80-97); Red Blood Count 4.05 10^6 /uL (3.70-4.87); Red Cell Distribution Width 16 % (10-15); White Blood Count 5.9 10^3/uL (3.5-10.8)
[2021-02-24 05:52] LABS: ABS Lymphocytes 0.7 10^3/ul (1.0-4.8); ABS Monocytes 0.5 10^3/ul (0-0.8); ABS Neutrophils 4.7 10^3/ul (1.5-7.7); Lymphocyte % 11.9 %; Nucleated Red Blood Cells % 0.1
[2021-02-24 06:00] LABS: ALT 114 U/L (7-52); Albumin 4.4 g/dL (3.2-5.2); Albumin/Globulin Ratio 1.3 (1-3); Alkaline Phosphatase 77 U/L (35-149); Blood Urea Nitrogen 8 mg/dL (6-24); CO2 Carbon Dioxide 27 mmol/L (22-32); Calcium 8.5 mg/dL (8.6-10.3); Chloride 82 mmol/L (101-111); EGFR African American 116.5 (>60); EGFR Non-African American 96.3 (>60); Globulin 3.5 g/dL (2-4); Glucose 99 mg/dL (70-100); Sodium 128 mmol/L (135-145); Total Protein 7.9 g/dL (6.4-8.9)
[2021-02-24 06:23] LABS: Acetaminophen < 15 mcg/mL; Alcohol, S < 13 mg/dL (<13); Mean Platelet Volume 9.8 fL (7.4-10.4); Platelet Count 30 10^3/uL (150-450); Salicylate < 2.50 mg/dL (<30)
[2021-02-24 06:34] LABS: TSH Ultra Thyroid Stim Horm 6.69 mcIU/mL (0.34-5.60)
[2021-02-24 06:41] LABS: Troponin I 0.06 ng/mL (<0.03)
[2021-02-24 06:42] LABS: Creatine Kinase 17545 U/L (10-223)
[2021-02-24 06:46] LABS: AST 280 U/L (13-39); Anion Gap 19 mmol/L (2-11); Potassium 2.7 mmol/L (3.5-5.0)
[2021-02-24] MEDS: NS 0.9% 1000 ml BAG 1,000 ML IV SCH ×2 (06:54→10:46)
[2021-02-24] MEDS ORDERED: Lactated Ringers 1000 ml BAG 1,000 ML IV ONE (07:01)
[2021-02-24] MEDS ORDERED: Thiamine 100 MG/ML 2 ml VIAL 100 MG, Folic Acid IV 1 MG, Multiple Vitamin IV ADULT 10 M... IV ONE (07:02)
[2021-02-24] MEDS ORDERED: Thiamine 100 MG/ML 2 ml VIAL (200 mg) IM ONE (07:20)
[2021-02-24 07:27] LABS: Magnesium 2.1 mg/dL (1.9-2.7)
[2021-02-24] MEDS ORDERED: Potassium Chloride LIQUID 20 MEQ/15 ML LIQUID PO ONE (08:11)
[2021-02-24 10:01] LABS: Rapid COVID-19 Molecular Undetected (Undetected)
[2021-02-24] MEDS: Multivitamins/Minerals TAB PO SCH ×2 (10:20→10:23)
[2021-02-24] MEDS: KCL 20 MEQ/100 ML IVPREMIX 20 MEQ/100 ML BAG IV SCH ×2 (10:20→12:17)
[2021-02-24] MEDS ORDERED: NS 0.9% w/ 40 Meq KCL 1000 ML 1,000 ML IV SCH (12:00)
[2021-02-24 14:05] LABS: Blood Urea Nitrogen 5 mg/dL (6-24); CO2 Carbon Dioxide 26 mmol/L (22-32); Calcium 7.6 mg/dL (8.6-10.3); Chloride 95 mmol/L (101-111); Glucose 68 mg/dL (70-100); Sodium 131 mmol/L (135-145)
[2021-02-24 14:21] LABS: Troponin I 0.04 ng/mL (<0.03)
[2021-02-24 14:23] LABS: EGFR African American 145.2 (>60)
[2021-02-24 14:57] LABS: Anion Gap 10 mmol/L (2-11)
[2021-02-24 15:21] LABS: ABS Lymphocytes 0.5 10^3/ul (1.0-4.8); ABS Monocytes 0.3 10^3/ul (0-0.8); ABS Neutrophils 3.3 10^3/ul (1.5-7.7); Eosinophil % 0.1 %; Hematocrit 35 % (35-47); Hemoglobin 11.9 g/dL (12.0-16.0); Lymphocyte % 12.3 %; Mean Corpuscular HGB Conc 34 g/dL (31-36); Mean Corpuscular Hemoglobin 32 pg (27-31); Mean Corpuscular Volume 95 fL (80-97); Mean Platelet Volume 9.8 fL (7.4-10.4); Red Blood Count 3.66 10^6 /uL (3.70-4.87); Red Cell Distribution Width 16 % (10-15)
[2021-02-24] MEDS ORDERED: Buffered Lidocaine 1% SYRIN 1 ml INTRADERM ONE (15:26)
[2021-02-24] MEDS ORDERED: Potassium Chloride LIQUID 20 MEQ/15 ML LIQUID PO SCH (15:58)
[2021-02-24 15:59] LABS: Potassium Redraw 4.4 mmol/L (3.5-5.0)
[2021-02-24 16:02] LABS: Phosphorus < 1.0 mg/dL (2.5-5.0)
[2021-02-24 16:24] LABS: Indirect Bilirubin 1.6 mg/dL (0.3-1.0)
[2021-02-24] MEDS ORDERED: Potassium Phosphate IV 15 MMOLE in NS 0.9% 250 ml 250 ML IVPB ONE (16:30)
[2021-02-24 16:52] LABS: LDH 937 U/L (140-271)
[2021-02-24 17:07] LABS: Ferritin 476.8 ng/mL (11-307)
[2021-02-24 18:19] LABS: Platelet Count 18 10^3/uL (150-450); White Blood Count 4.1 10^3/uL (3.5-10.8)
[2021-02-24 21:11] LABS: Creatine Kinase 16751 U/L (10-223)
[2021-02-24 21:19] LABS: Urine Appearance Clear; Urine Bilirubin Negative (Negative); Urine Blood Negative (Negative); Urine Color Straw; Urine Glucose Negative (Negative); Urine Ketones Negative (Negative); Urine Nitrite Negative (Negative); Urine Protein Negative (Negative); Urine Specific Gravity 1.001 (1.002-1.030); Urine Urobilinogen Negative (Negative)
[2021-02-24 21:55] LABS: Urine Benzodiazepine Screen None Detected (None Detect); Urine Cannabinoids Screen None Detected (None Detect); Urine Opiates Screen None Detected (None Detect)
[2021-02-25] MEDS: LORazepam 2 mg VIAL 1 ml IV PUSH SCH ×2 (00:45→20:11)
[2021-02-25 06:01] LABS: INR 1.17 (0.86-1.15)
[2021-02-25 06:04] LABS: Hematocrit 31 % (35-47); Hemoglobin 10.5 g/dL (12.0-16.0); Mean Corpuscular HGB Conc 35 g/dL (31-36); Mean Corpuscular Hemoglobin 33 pg (27-31); Mean Corpuscular Volume 96 fL (80-97); Mean Platelet Volume 9.4 fL (7.4-10.4); Platelet Count 17 10^3/uL (150-450); Red Blood Count 3.18 10^6 /uL (3.70-4.87); Red Cell Distribution Width 16 % (10-15); White Blood Count 3.3 10^3/uL (3.5-10.8)
[2021-02-25 06:22] LABS: Albumin 3.3 g/dL (3.2-5.2); Albumin/Globulin Ratio 1.3 (1-3); Direct Bilirubin 0.4 mg/dL (0.03-0.18); EGFR African American 139.6 (>60); EGFR Non-African American 115.3 (>60); Globulin 2.5 g/dL (2-4); Indirect Bilirubin 0.8 mg/dL (0.3-1.0); Magnesium 1.6 mg/dL (1.9-2.7); Potassium 3.3 mmol/L (3.5-5.0); Total Bilirubin 1.2 mg/dL (0.2-1.0); Total Protein 5.8 g/dL (6.4-8.9)
[2021-02-25] MEDS ORDERED: Potassium Chlor 20 meq TAB.ER PO ONE (07:10)
[2021-02-25] MEDS ORDERED: Magnesium Sulf 4 GM/100 ML IV 4,000 MG/100 ML BAG IVPB ONE (07:11)
[2021-02-25] MEDS: Multivitamins/Minerals TAB PO SCH (07:59)
[2021-02-25] MEDS ORDERED: Potassium Phosphate IV 15 MMOLE in NS 0.9% 250 ml 250 ML IVPB ONE (09:35)
[2021-02-25] MEDS: Zinc Oxide 16% PASTE (Butt Paste) 30 gm TUBE TOPICAL SCH ×2 (13:27→20:40)
[2021-02-26 06:40] LABS: Potassium 3.6 mmol/L (3.5-5.0)
[2021-02-26 06:41] LABS: Albumin 3.5 g/dL (3.2-5.2); Albumin/Globulin Ratio 1.3 (1-3); Calcium 8.5 mg/dL (8.6-10.3); EGFR African American 151.3 (>60); EGFR Non-African American 125.1 (>60); Globulin 2.8 g/dL (2-4); Magnesium 1.7 mg/dL (1.9-2.7); Phosphorus 2.5 mg/dL (2.5-5.0); Total Bilirubin 0.7 mg/dL (0.2-1.0); Total Protein 6.3 g/dL (6.4-8.9)
[2021-02-26 06:46] LABS: ABS Lymphocytes 0.9 10^3/ul (1.0-4.8); ABS Monocytes 0.4 10^3/ul (0-0.8); ABS Neutrophils 1.9 10^3/ul (1.5-7.7); Eosinophil % 1.3 %; Hematocrit 32 % (35-47); Hemoglobin 10.4 g/dL (12.0-16.0); Lymphocyte % 27.1 %; Mean Corpuscular HGB Conc 33 g/dL (31-36); Mean Corpuscular Hemoglobin 32 pg (27-31); Mean Corpuscular Volume 98 fL (80-97); Mean Platelet Volume 9.6 fL (7.4-10.4); Nucleated Red Blood Cells % 0.1; Platelet Count 42 10^3/uL (150-450); Red Blood Count 3.23 10^6 /uL (3.70-4.87); Red Cell Distribution Width 16 % (10-15); White Blood Count 3.2 10^3/uL (3.5-10.8)
[2021-02-26] MEDS ORDERED: Magnesium Sulfate IV 3 GM in NS 0.9% 100 ml BAG 100 ML IVPB ONE ×2 (06:47→08:30)
[2021-02-26] MEDS: Multivitamins/Minerals TAB PO SCH (08:07)
[2021-02-26] MEDS ORDERED: Potassium Phosphate IV 15 MMOLE in NS 0.9% 250 ml 250 ML IVPB ONE (08:30)
[2021-02-26] MEDS: Potassium Chlor 20 meq TAB.ER PO SCH (09:40)
[2021-02-26] MEDS: Zinc Oxide 16% PASTE (Butt Paste) 30 gm TUBE TOPICAL SCH ×3 (09:41→20:28)
[2021-02-26] MEDS ORDERED: Lorazepam PYXIS KEY PRN (13:58)
[2021-02-26] MEDS ORDERED: LORazepam 2 mg VIAL 1 ml IV PUSH PRN (13:58)
[2021-02-26] MEDS: Lactated Ringers 1000 ml BAG 1,000 ML IV SCH (20:38)
[2021-02-27] MEDS: Lactated Ringers 1000 ml BAG 1,000 ML IV SCH (03:09)
[2021-02-27 07:56] LABS: ABS Eosinophils 0.1 10^3/ul (0-0.6); ABS Lymphocytes 0.9 10^3/ul (1.0-4.8); ABS Monocytes 0.5 10^3/ul (0-0.8); ABS Neutrophils 1.4 10^3/ul (1.5-7.7); Eosinophil % 1.8 %; Hematocrit 29 % (35-47); Hemoglobin 9.9 g/dL (12.0-16.0); Lymphocyte % 32.8 %; Mean Corpuscular HGB Conc 34 g/dL (31-36); Mean Corpuscular Hemoglobin 33 pg (27-31); Mean Corpuscular Volume 98 fL (80-97); Mean Platelet Volume 8.8 fL (7.4-10.4); Nucleated Red Blood Cells % 0.1; Platelet Count 71 10^3/uL (150-450); Red Blood Count 3.01 10^6 /uL (3.70-4.87); Red Cell Distribution Width 17 % (10-15); White Blood Count 2.8 10^3/uL (3.5-10.8)
[2021-02-27 08:05] LABS: Albumin 3.2 g/dL (3.2-5.2); Albumin/Globulin Ratio 1.3 (1-3); Calcium 7.8 mg/dL (8.6-10.3); EGFR African American 177.1 (>60); EGFR Non-African American 146.3 (>60); Globulin 2.5 g/dL (2-4); Magnesium 1.7 mg/dL (1.9-2.7); Phosphorus 4.3 mg/dL (2.5-5.0); Potassium 3.6 mmol/L (3.5-5.0); Total Bilirubin 0.6 mg/dL (0.2-1.0); Total Protein 5.7 g/dL (6.4-8.9)
[2021-02-27] MEDS ORDERED: Magnesium Sulfate IV 3 GM in NS 0.9% 100 ml BAG 100 ML IVPB ONE (08:27)
[2021-02-27] MEDS: Potassium Chlor 20 meq TAB.ER PO SCH ×3 (08:49→22:46)
[2021-02-27] MEDS: Multivitamins/Minerals TAB PO SCH (08:50)
[2021-02-27] MEDS: Zinc Oxide 16% PASTE (Butt Paste) 30 gm TUBE TOPICAL SCH ×3 (08:53→22:53)
[2021-02-27 15:02] LABS: Urine Appearance Cloudy; Urine Bilirubin Negative (Negative); Urine Blood 2+ (Negative); Urine Color Yellow; Urine Glucose Negative (Negative); Urine Ketones Negative (Negative); Urine Nitrite Negative (Negative); Urine Protein Negative (Negative); Urine Specific Gravity 1.005 (1.002-1.030); Urine Urobilinogen Negative (Negative)
[2021-02-27 15:11] LABS: Urine Bacteria 1+ (Absent); Urine Red Blood Cell Trace(0-2/hpf) (Absent); Urine Squamous Epithelial Cell Present (Absent); Urine White Blood Cell Trace(0-5/hpf) (Absent)
[2021-02-28 07:24] LABS: Albumin 3.5 g/dL (3.2-5.2); Albumin/Globulin Ratio 1.3 (1-3); Calcium 8.5 mg/dL (8.6-10.3); EGFR African American 181.4 (>60); EGFR Non-African American 149.9 (>60); Globulin 2.7 g/dL (2-4); Magnesium 1.9 mg/dL (1.9-2.7); Phosphorus 4.8 mg/dL (2.5-5.0); Potassium 4.2 mmol/L (3.5-5.0); Total Bilirubin 0.5 mg/dL (0.2-1.0); Total Protein 6.2 g/dL (6.4-8.9)
[2021-02-28] MEDS: Multivitamins/Minerals TAB PO SCH (08:00)
[2021-02-28] MEDS: Potassium Chlor 20 meq TAB.ER PO SCH (08:01)
[2021-02-28] MEDS: Zinc Oxide 16% PASTE (Butt Paste) 30 gm TUBE TOPICAL SCH ×2 (08:06→12:58)
[2021-02-28 10:59] VITALS: BP 115/77
== END 2021-02-28 13:45 | disposition home or self-care (01) | DRG 775 ==
LOC: ED 00:44 → ICU 08:03 → SSU 02-25 15:30
PROVIDERS: ADMIT Internal Medicine; ATTEND Internal Medicine

== ENCOUNTER 2021-03-15 02:19 | Inpatient (IN) ==
[2021-03-15 04:03] LABS: Urine Appearance Clear; Urine Bilirubin Negative (Negative); Urine Blood 1+ (Negative); Urine Color Colorless; Urine Glucose Negative (Negative); Urine Ketones Negative (Negative); Urine Nitrite Negative (Negative); Urine Protein Negative (Negative); Urine Specific Gravity 1.001 (1.002-1.030); Urine Urobilinogen Negative (Negative)
[2021-03-15 04:09] LABS: Urine Bacteria Absent (Absent); Urine Red Blood Cell Absent (Absent); Urine White Blood Cell Absent (Absent)
[2021-03-15 04:25] LABS: Urine Benzodiazepine Screen None Detected (None Detect); Urine Cannabinoids Screen None Detected (None Detect); Urine Opiates Screen None Detected (None Detect)
[2021-03-15 04:31] LABS: ABS Lymphocytes 0.5 10^3/ul (1.0-4.8); ABS Monocytes 0.3 10^3/ul (0-0.8); ABS Neutrophils 2.2 10^3/ul (1.5-7.7); Eosinophil % 0.2 %; Hematocrit 40 % (35-47); Hemoglobin 13.6 g/dL (12.0-16.0); Lymphocyte % 18.1 %; Mean Corpuscular HGB Conc 34 g/dL (31-36); Mean Corpuscular Hemoglobin 32 pg (27-31); Mean Corpuscular Volume 94 fL (80-97); Nucleated Red Blood Cells % 0.1; Platelet Count 99 10^3/uL (150-450); Red Blood Count 4.26 10^6 /uL (3.70-4.87); Red Cell Distribution Width 15 % (10-15)
[2021-03-15] MEDS ORDERED: Lorazepam PYXIS KEY PRN ×2 (04:37→09:47)
[2021-03-15] MEDS ORDERED: LORazepam 2 mg VIAL 1 ml IV PUSH ONE ×2 (04:37→09:47)
[2021-03-15 04:44] LABS: Rapid COVID-19 Molecular Undetected (Undetected)
[2021-03-15 05:04] LABS: ALT 56 U/L (7-52); AST 90 U/L (13-39); Albumin 4.2 g/dL (3.2-5.2); Albumin/Globulin Ratio 1.3 (1-3); Alkaline Phosphatase 125 U/L (35-149); Anion Gap 13 mmol/L (2-11); Blood Urea Nitrogen 2 mg/dL (6-24); CO2 Carbon Dioxide 23 mmol/L (22-32); Calcium 8.5 mg/dL (8.6-10.3); Chloride 102 mmol/L (101-111); EGFR African American 172.9 (>60); EGFR Non-African American 142.9 (>60); Globulin 3.2 g/dL (2-4); Glucose 96 mg/dL (70-100); Potassium 3.2 mmol/L (3.5-5.0); Sodium 138 mmol/L (135-145); Total Protein 7.4 g/dL (6.4-8.9)
[2021-03-15 05:06] LABS: Acetaminophen < 15 mcg/mL; Alcohol, S 253 mg/dL (<13); Salicylate < 2.50 mg/dL (<30)
[2021-03-15 05:11] LABS: HCG Pregnancy < 0.60 mIU/mL
[2021-03-15 05:20] LABS: TSH Ultra Thyroid Stim Horm 2.78 mcIU/mL (0.34-5.60)
[2021-03-15] MEDS ORDERED: Potassium Chlor 20 meq TAB.ER PO ONE (07:26)
[2021-03-15] MEDS ORDERED: Lactated Ringers 1000 ml BAG 1,000 ML IV ONE (07:33)
[2021-03-15] MEDS ORDERED: Ondansetron 4 mg VIAL 2 MG/ML 2 ml VIAL IV ONE (07:34)
[2021-03-15 11:36] LABS: Magnesium 1.9 mg/dL (1.9-2.7)
[2021-03-15] MEDS ORDERED: Thiamine 100 MG/ML 2 ml VIAL (200 mg) IM ONE (12:50)
[2021-03-16] MEDS: Multivitamins/Minerals TAB PO SCH (07:38)
[2021-03-17 07:40] LABS: Hematocrit 35 % (35-47); Hemoglobin 11.8 g/dL (12.0-16.0); Mean Corpuscular HGB Conc 34 g/dL (31-36); Mean Corpuscular Hemoglobin 33 pg (27-31); Mean Corpuscular Volume 97 fL (80-97); Red Blood Count 3.62 10^6 /uL (3.70-4.87); Red Cell Distribution Width 16 % (10-15); White Blood Count 3.7 10^3/uL (3.5-10.8)
[2021-03-17 07:47] LABS: Calcium 8.7 mg/dL (8.6-10.3); Magnesium 1.7 mg/dL (1.9-2.7); Potassium 3.9 mmol/L (3.5-5.0)
[2021-03-17] MEDS: Multivitamins/Minerals TAB PO SCH (08:00)
[2021-03-17 10:04] LABS: ABS Eosinophils 0.1 10^3/ul (0-0.6); ABS Lymphocytes 1.1 10^3/ul (1.0-4.8); ABS Monocytes 0.4 10^3/ul (0-0.8); ABS Neutrophils 2.2 10^3/ul (1.5-7.7); Eosinophil % 1.4 %; Lymphocyte % 29.6 %; Mean Platelet Volume 9.6 fL (7.4-10.4); Platelet Count 59 10^3/uL (150-450)
[2021-03-18] MEDS ORDERED: Ondansetron 4 mg VIAL 2 MG/ML 2 ml VIAL IV ONE (05:42)
[2021-03-18 06:46] LABS: ABS Eosinophils 0.1 10^3/ul (0-0.6); ABS Lymphocytes 1.2 10^3/ul (1.0-4.8); ABS Monocytes 0.4 10^3/ul (0-0.8); ABS Neutrophils 3.2 10^3/ul (1.5-7.7); Eosinophil % 2.5 %; Hematocrit 37 % (35-47); Hemoglobin 12.6 g/dL (12.0-16.0); Lymphocyte % 24.7 %; Mean Corpuscular HGB Conc 34 g/dL (31-36); Mean Corpuscular Hemoglobin 33 pg (27-31); Mean Corpuscular Volume 97 fL (80-97); Mean Platelet Volume 9.6 fL (7.4-10.4); Nucleated Red Blood Cells % 0.1; Platelet Count 67 10^3/uL (150-450); Red Blood Count 3.78 10^6 /uL (3.70-4.87); Red Cell Distribution Width 16 % (10-15); White Blood Count 4.9 10^3/uL (3.5-10.8)
[2021-03-18 07:09] LABS: Calcium 9.2 mg/dL (8.6-10.3)
[2021-03-18] MEDS: Multivitamins/Minerals TAB PO SCH (09:07)
[2021-03-18] MEDS ORDERED: Al Hydrox/Mg Hydrox/Simet LIQ 30 ML UDC PO PRN (18:06)
[2021-03-19 06:39] LABS: ABS Eosinophils 0.2 10^3/ul (0-0.6); ABS Lymphocytes 1.2 10^3/ul (1.0-4.8); ABS Monocytes 0.5 10^3/ul (0-0.8); ABS Neutrophils 3.3 10^3/ul (1.5-7.7); Eosinophil % 3.1 %; Hematocrit 37 % (35-47); Hemoglobin 12.3 g/dL (12.0-16.0); Lymphocyte % 23.4 %; Mean Corpuscular HGB Conc 33 g/dL (31-36); Mean Corpuscular Hemoglobin 33 pg (27-31); Mean Corpuscular Volume 98 fL (80-97); Mean Platelet Volume 9.3 fL (7.4-10.4); Platelet Count 79 10^3/uL (150-450); Red Blood Count 3.77 10^6 /uL (3.70-4.87); Red Cell Distribution Width 16 % (10-15); White Blood Count 5.2 10^3/uL (3.5-10.8)
[2021-03-19 06:51] LABS: Albumin 3.6 g/dL (3.2-5.2); Albumin/Globulin Ratio 1.2 (1-3); Calcium 8.7 mg/dL (8.6-10.3); Magnesium 1.8 mg/dL (1.9-2.7); Potassium 4.2 mmol/L (3.5-5.0); Total Bilirubin 0.3 mg/dL (0.2-1.0); Total Protein 6.6 g/dL (6.4-8.9)
[2021-03-19] MEDS: Multivitamins/Minerals TAB PO SCH (08:42)
[2021-03-19] MEDS ORDERED: Ondansetron ODT 4 mg TAB 4 MG TAB SL PRN (09:30)
[2021-03-19 12:17] VITALS: BP 108/73
[2021-03-19 17:27] LABS: Folate 15.26 ng/mL (5.90-24.80)
== END 2021-03-19 16:26 | disposition home or self-care (01) | DRG 775 ==
LOC: ED 02:19 → MEDTELE 02:19 → EDHOLD 02:19 → SUATTDRO 11:14 → MEDTELE 22:36 → SUATTDRO 03-16 11:00
PROVIDERS: ADMIT Internal Medicine; ATTEND Internal Medicine

== ENCOUNTER 2021-04-01 09:53 | Inpatient (IN) ==
[2021-04-01] MEDS: Lactated Ringers 1000 ml BAG 1,000 ML IV SCH ×2 (10:55→14:35)
[2021-04-01 11:10] LABS: ABS Lymphocytes 0.6 10^3/ul (1.0-4.8); ABS Monocytes 0.2 10^3/ul (0-0.8); ABS Neutrophils 2.8 10^3/ul (1.5-7.7); Eosinophil % 0.2 %; Hematocrit 35 % (35-47); Hemoglobin 11.6 g/dL (12.0-16.0); Lymphocyte % 15.3 %; Mean Corpuscular HGB Conc 34 g/dL (31-36); Mean Corpuscular Hemoglobin 32 pg (27-31); Mean Corpuscular Volume 96 fL (80-97); Mean Platelet Volume 9.3 fL (7.4-10.4); Platelet Count 33 10^3/uL (150-450); Red Blood Count 3.61 10^6 /uL (3.70-4.87); Red Cell Distribution Width 15 % (10-15); White Blood Count 3.6 10^3/uL (3.5-10.8)
[2021-04-01 11:54] LABS: ALT 64 U/L (7-52); Albumin 3.8 g/dL (3.2-5.2); Albumin/Globulin Ratio 1.2 (1-3); Alkaline Phosphatase 107 U/L (35-149); Blood Urea Nitrogen 6 mg/dL (6-24); CO2 Carbon Dioxide 22 mmol/L (22-32); Chloride 98 mmol/L (101-111); Globulin 3.1 g/dL (2-4); Glucose 72 mg/dL (70-100); Sodium 131 mmol/L (135-145); Total Protein 6.9 g/dL (6.4-8.9)
[2021-04-01 11:56] LABS: Acetaminophen < 15 mcg/mL; Alcohol, S < 13 mg/dL (<13)
[2021-04-01 12:06] LABS: TSH Ultra Thyroid Stim Horm 2.49 mcIU/mL (0.34-5.60)
[2021-04-01 12:31] LABS: Anion Gap 11 mmol/L (2-11)
[2021-04-01] MEDS ORDERED: Thiamine 100 MG/ML 2 ml VIAL (200 mg) IM ONE (12:49)
[2021-04-01] MEDS ORDERED: Lorazepam PYXIS KEY PRN (12:52)
[2021-04-01] MEDS ORDERED: LORazepam 2 mg VIAL 1 ml IV PUSH ONE (12:52)
[2021-04-01] MEDS ORDERED: LORazepam 2 mg VIAL 1 ml IV PUSH SCH (13:00)
[2021-04-01 13:04] LABS: Rapid COVID-19 Molecular Undetected (Undetected)
[2021-04-01] MEDS ORDERED: Ondansetron 4 mg VIAL 2 MG/ML 2 ml VIAL IV PRN (13:23)
[2021-04-01 14:47] LABS: Potassium Redraw 3.4 mmol/L (3.5-5.0)
[2021-04-01 15:07] LABS: Urine Appearance Cloudy; Urine Bilirubin Negative (Negative); Urine Blood 2+ (Negative); Urine Color Yellow; Urine Glucose Negative (Negative); Urine Ketones 1+ (Negative); Urine Nitrite Negative (Negative); Urine Protein Negative (Negative); Urine Specific Gravity 1.009 (1.002-1.030); Urine Urobilinogen Negative (Negative)
[2021-04-01 15:23] LABS: Urine Bacteria 1+ (Absent); Urine Red Blood Cell 3+(>10/hpf) (Absent); Urine Squamous Epithelial Cell Present (Absent); Urine White Blood Cell 3+(>20/hpf) (Absent); Urine Yeast Present (Absent)
[2021-04-01 15:37] LABS: Urine Benzodiazepine Screen Presumptive Positive (None Detect); Urine Cannabinoids Screen None Detected (None Detect); Urine Opiates Screen None Detected (None Detect)
[2021-04-01] MEDS: LORazepam 2 mg VIAL 1 ml IV PUSH SCH ×2 (17:36→22:24)
[2021-04-01] MEDS: Morphine 2 MG/ML SYRINGE IV PRN ×2 (18:03→23:42)
[2021-04-02] MEDS: Morphine 2 MG/ML SYRINGE IV PRN ×2 (04:11→08:58)
[2021-04-02 06:10] LABS: Calcium 7.9 mg/dL (8.6-10.3); Potassium 3.7 mmol/L (3.5-5.0)
[2021-04-02 06:27] LABS: ABS Eosinophils 0.1 10^3/ul (0-0.6); ABS Lymphocytes 0.9 10^3/ul (1.0-4.8); ABS Monocytes 0.2 10^3/ul (0-0.8); Eosinophil % 3.4 %; Hematocrit 32 % (35-47); Hemoglobin 10.6 g/dL (12.0-16.0); Lymphocyte % 42.7 %; Mean Corpuscular HGB Conc 33 g/dL (31-36); Mean Corpuscular Hemoglobin 32 pg (27-31); Mean Corpuscular Volume 96 fL (80-97); Mean Platelet Volume 9.9 fL (7.4-10.4); Nucleated Red Blood Cells % 0.2; Platelet Count 28 10^3/uL (150-450); Red Blood Count 3.33 10^6 /uL (3.70-4.87); Red Cell Distribution Width 15 % (10-15); White Blood Count 2.2 10^3/uL (3.5-10.8)
[2021-04-02] MEDS: Multivitamins/Minerals TAB PO SCH (07:47)
[2021-04-02] MEDS: LORazepam 2 mg VIAL 1 ml IV PUSH SCH ×3 (10:42→22:43)
[2021-04-02] MEDS: oxyCODONE/Acetamin 5/325 mg TAB PO PRN ×2 (15:08→19:53)
[2021-04-03] MEDS: oxyCODONE/Acetamin 5/325 mg TAB PO PRN ×5 (00:52→21:00)
[2021-04-03 06:24] LABS: ABS Eosinophils 0.1 10^3/ul (0-0.6); ABS Lymphocytes 0.8 10^3/ul (1.0-4.8); ABS Monocytes 0.2 10^3/ul (0-0.8); Eosinophil % 4.7 %; Hematocrit 33 % (35-47); Hemoglobin 10.9 g/dL (12.0-16.0); Mean Corpuscular HGB Conc 33 g/dL (31-36); Mean Corpuscular Hemoglobin 32 pg (27-31); Mean Corpuscular Volume 96 fL (80-97); Nucleated Red Blood Cells % 0.1; Platelet Count 36 10^3/uL (150-450); Red Blood Count 3.44 10^6 /uL (3.70-4.87); Red Cell Distribution Width 14 % (10-15); White Blood Count 2.1 10^3/uL (3.5-10.8)
[2021-04-03 06:35] LABS: Albumin 3.2 g/dL (3.2-5.2); Albumin/Globulin Ratio 1.2 (1-3); Calcium 8.2 mg/dL (8.6-10.3); Globulin 2.7 g/dL (2-4); Potassium 3.7 mmol/L (3.5-5.0); Total Bilirubin 0.5 mg/dL (0.2-1.0); Total Protein 5.9 g/dL (6.4-8.9)
[2021-04-03] MEDS: Multivitamins/Minerals TAB PO SCH (09:24)
[2021-04-03] MEDS: LORazepam 2 mg VIAL 1 ml IV PUSH SCH (21:10)
[2021-04-04] MEDS: LORazepam 2 mg VIAL 1 ml IV PUSH SCH (00:26)
[2021-04-04] MEDS: oxyCODONE/Acetamin 5/325 mg TAB PO PRN ×5 (01:41→21:33)
[2021-04-04 07:12] LABS: ABS Eosinophils 0.1 10^3/ul (0-0.6); ABS Lymphocytes 0.9 10^3/ul (1.0-4.8); ABS Monocytes 0.3 10^3/ul (0-0.8); ABS Neutrophils 1.1 10^3/ul (1.5-7.7); Eosinophil % 4.5 %; Hematocrit 33 % (35-47); Hemoglobin 11.2 g/dL (12.0-16.0); Lymphocyte % 36.3 %; Mean Corpuscular HGB Conc 34 g/dL (31-36); Mean Corpuscular Hemoglobin 33 pg (27-31); Mean Corpuscular Volume 98 fL (80-97); Mean Platelet Volume 8.8 fL (7.4-10.4); Nucleated Red Blood Cells % 0.1; Platelet Count 52 10^3/uL (150-450); Red Blood Count 3.42 10^6 /uL (3.70-4.87); Red Cell Distribution Width 15 % (10-15); White Blood Count 2.4 10^3/uL (3.5-10.8)
[2021-04-04] MEDS: Multivitamins/Minerals TAB PO SCH (09:13)
[2021-04-04] MEDS ORDERED: Polyethylene Glycol 3350 17 GM PACKET PO PRN (18:04)
[2021-04-04] MEDS: Senna TAB 8.6 mg TAB PO PRN (19:34)
[2021-04-05] MEDS: oxyCODONE/Acetamin 5/325 mg TAB PO PRN ×4 (01:48→22:50)
[2021-04-05] MEDS: Senna TAB 8.6 mg TAB PO PRN (09:10)
[2021-04-05] MEDS: Multivitamins/Minerals TAB PO SCH (09:10)
[2021-04-05] MEDS: Magnesium Hydroxide LIQ 30 ML UDC PO PRN (09:20)
[2021-04-05 09:54] LABS: ABS Eosinophils 0.1 10^3/ul (0-0.6); ABS Lymphocytes 0.9 10^3/ul (1.0-4.8); ABS Monocytes 0.3 10^3/ul (0-0.8); ABS Neutrophils 1.8 10^3/ul (1.5-7.7); Eosinophil % 3.8 %; Hematocrit 35 % (35-47); Hemoglobin 11.6 g/dL (12.0-16.0); Lymphocyte % 29.3 %; Mean Corpuscular HGB Conc 34 g/dL (31-36); Mean Corpuscular Hemoglobin 32 pg (27-31); Mean Corpuscular Volume 96 fL (80-97); Platelet Count 77 10^3/uL (150-450); Red Blood Count 3.58 10^6 /uL (3.70-4.87); Red Cell Distribution Width 14 % (10-15); White Blood Count 3.2 10^3/uL (3.5-10.8)
[2021-04-05 10:05] LABS: Albumin 3.5 g/dL (3.2-5.2); Albumin/Globulin Ratio 1.1 (1-3); Calcium 8.8 mg/dL (8.6-10.3); Globulin 3.2 g/dL (2-4); Potassium 4.3 mmol/L (3.5-5.0); Total Bilirubin 0.4 mg/dL (0.2-1.0); Total Protein 6.7 g/dL (6.4-8.9)
[2021-04-05] MEDS: Nystatin TOP POWDER 15 GM BTL TOPICAL SCH (22:54)
[2021-04-06 06:19] LABS: Albumin 3.4 g/dL (3.2-5.2); Albumin/Globulin Ratio 1.1 (1-3); Calcium 8.7 mg/dL (8.6-10.3); Globulin 3.1 g/dL (2-4); Potassium 4.7 mmol/L (3.5-5.0); Total Bilirubin 0.4 mg/dL (0.2-1.0); Total Protein 6.5 g/dL (6.4-8.9)
[2021-04-06 06:35] LABS: ABS Eosinophils 0.1 10^3/ul (0-0.6); ABS Lymphocytes 1.2 10^3/ul (1.0-4.8); ABS Monocytes 0.7 10^3/ul (0-0.8); Eosinophil % 2.5 %; Hematocrit 35 % (35-47); Hemoglobin 11.6 g/dL (12.0-16.0); Lymphocyte % 30.1 %; Mean Corpuscular HGB Conc 33 g/dL (31-36); Mean Corpuscular Hemoglobin 33 pg (27-31); Mean Corpuscular Volume 98 fL (80-97); Mean Platelet Volume 8.9 fL (7.4-10.4); Nucleated Red Blood Cells % 0.2; Platelet Count 84 10^3/uL (150-450); Red Blood Count 3.57 10^6 /uL (3.70-4.87); Red Cell Distribution Width 15 % (10-15)
[2021-04-06] MEDS: Multivitamins/Minerals TAB PO SCH (08:14)
[2021-04-06] MEDS: oxyCODONE/Acetamin 5/325 mg TAB PO PRN ×3 (08:18→17:25)
[2021-04-06] MEDS: Nystatin TOP POWDER 15 GM BTL TOPICAL SCH ×3 (08:20→21:02)
[2021-04-07] MEDS: oxyCODONE/Acetamin 5/325 mg TAB PO PRN (07:35)
[2021-04-07] MEDS: Multivitamins/Minerals TAB PO SCH (07:37)
[2021-04-07] MEDS: Nystatin TOP POWDER 15 GM BTL TOPICAL SCH (07:41)
[2021-04-07] MEDS: Magnesium Hydroxide LIQ 30 ML UDC PO PRN (07:49)
[2021-04-07 11:47] VITALS: BP 100/73
== END 2021-04-07 14:00 | disposition home or self-care (01) | DRG 775 ==
LOC: ED 09:53 → SUATTDRO 13:23 → MED 13:23
PROVIDERS: ADMIT Hospitalist; ATTEND Internal Medicine

== ENCOUNTER 2021-05-22 15:08 | Inpatient (IN) ==
[2021-05-22] MEDS ORDERED: Lactated Ringers 1000 ml BAG 1,000 ML IV ONE ×2 (15:24→15:25)
[2021-05-22] MEDS ORDERED: Metoclopramide 5 MG/ML VIAL (10 mg) IV ONE (16:13)
[2021-05-22] MEDS ORDERED: diPHENhydraMINE IV 50 MG/ML 1 ml VIAL (BENADRYL) IV ONE (16:13)
[2021-05-22 17:25] LABS: ABS Lymphocytes 0.8 10^3/ul (1.0-4.8); ABS Monocytes 0.2 10^3/ul (0-0.8); ABS Neutrophils 3.2 10^3/ul (1.5-7.7); Hematocrit 44 % (35-47); Hemoglobin 14.8 g/dL (12.0-16.0); Lymphocyte % 18.7 %; Mean Corpuscular HGB Conc 34 g/dL (31-36); Mean Corpuscular Hemoglobin 31 pg (27-31); Mean Corpuscular Volume 92 fL (80-97); Mean Platelet Volume 9.5 fL (7.4-10.4); Nucleated Red Blood Cells % 0.1; Platelet Count 37 10^3/uL (150-450); Red Blood Count 4.78 10^6 /uL (3.70-4.87); Red Cell Distribution Width 14 % (10-15); White Blood Count 4.2 10^3/uL (3.5-10.8)
[2021-05-22 17:31] LABS: Urine Appearance Clear; Urine Bilirubin Negative (Negative); Urine Blood 1+ (Negative); Urine Color Straw; Urine Glucose Negative (Negative); Urine Ketones Negative (Negative); Urine Nitrite Negative (Negative); Urine Protein Negative (Negative); Urine Specific Gravity 1.002 (1.002-1.030); Urine Urobilinogen Negative (Negative)
[2021-05-22 17:38] LABS: Urine Benzodiazepine Screen None Detected (None Detect); Urine Cannabinoids Screen None Detected (None Detect); Urine Opiates Screen None Detected (None Detect)
[2021-05-22 17:42] LABS: Urine Bacteria Absent (Absent); Urine Red Blood Cell Absent (Absent); Urine Squamous Epithelial Cell Present (Absent); Urine White Blood Cell Absent (Absent)
[2021-05-22 17:44] LABS: INR 1.05 (0.86-1.15)
[2021-05-22 18:34] LABS: Albumin 4.6 g/dL (3.2-5.2); Albumin/Globulin Ratio 1.3 (1-3); Calcium 8.7 mg/dL (8.6-10.3); Globulin 3.6 g/dL (2-4); Magnesium 1.8 mg/dL (1.9-2.7); Potassium 3.8 mmol/L (3.5-5.0); Total Bilirubin 0.8 mg/dL (0.2-1.0); Total Protein 8.2 g/dL (6.4-8.9); eGFR CKD-EPI 122.8 (>60)
[2021-05-22] MEDS ORDERED: Magnesium Sulfate IV 1GM/100ML 1 GM/100 ML BAG IV ONE (18:40)
[2021-05-22] MEDS: Lactated Ringers 1000 ml BAG 1,000 ML IV SCH (21:43)
[2021-05-22] MEDS ORDERED: Thiamine 100 MG/ML 2 ml VIAL 100 MG, Folic Acid IV 1 MG, Multiple Vitamin IV ADULT 10 M... IV ONE (23:35)
[2021-05-22] MEDS ORDERED: Ondansetron 4 mg VIAL 2 MG/ML 2 ml VIAL IV PRN (23:35)
[2021-05-22] MEDS ORDERED: Magnesium Sulfate 2 gm BAG 2 GM/50 ML BAG IVPB ONE (23:50)
[2021-05-23] LABS: Rapid COVID-19 Molecular Undetected (Undetected)
[2021-05-23 06:20] LABS: ABS Lymphocytes 0.7 10^3/ul (1.0-4.8); ABS Monocytes 0.1 10^3/ul (0-0.8); ABS Neutrophils 1.1 10^3/ul (1.5-7.7); Eosinophil % 0.6 %; Hematocrit 32 % (35-47); Hemoglobin 10.8 g/dL (12.0-16.0); Lymphocyte % 34.7 %; Mean Corpuscular HGB Conc 34 g/dL (31-36); Mean Corpuscular Hemoglobin 31 pg (27-31); Mean Corpuscular Volume 92 fL (80-97); Mean Platelet Volume 8.1 fL (7.4-10.4); Nucleated Red Blood Cells % 0.1; Platelet Count 20 10^3/uL (150-450); Red Blood Count 3.45 10^6 /uL (3.70-4.87); Red Cell Distribution Width 14 % (10-15); White Blood Count 1.9 10^3/uL (3.5-10.8)
[2021-05-23 06:24] LABS: INR 1.18 (0.86-1.15)
[2021-05-23 06:33] LABS: Albumin 3.4 g/dL (3.2-5.2); Albumin/Globulin Ratio 1.4 (1-3); Calcium 7.5 mg/dL (8.6-10.3); Globulin 2.5 g/dL (2-4); Potassium 3.5 mmol/L (3.5-5.0); Total Bilirubin 1.1 mg/dL (0.2-1.0); Total Protein 5.9 g/dL (6.4-8.9); eGFR CKD-EPI 128.5 (>60)
[2021-05-23 08:32] LABS: Magnesium 1.6 mg/dL (1.9-2.7)
[2021-05-23] MEDS ORDERED: LORazepam 2 mg VIAL 1 ml IV PUSH ONE (09:15)
[2021-05-23] MEDS ORDERED: Lorazepam PYXIS KEY PRN (09:15)
[2021-05-23] MEDS: Multivitamins/Minerals TAB PO SCH (09:49)
[2021-05-23] MEDS ORDERED: Multivitamins/Minerals TAB PO SCH (13:00)
[2021-05-23] MEDS: LORazepam 2 mg VIAL 1 ml IV PUSH SCH ×2 (13:45→16:54)
[2021-05-23] MEDS ORDERED: Magnesium Sulf 4 GM/100 ML IV 4,000 MG/100 ML BAG IVPB ONE (17:44)
[2021-05-23] MEDS: Lactated Ringers 1000 ml BAG 1,000 ML IV SCH (17:56)
[2021-05-24 00:23] LABS: ABS Lymphocytes 0.9 10^3/ul (1.0-4.8); ABS Monocytes 0.2 10^3/ul (0-0.8); ABS Neutrophils 0.6 10^3/ul (1.5-7.7); Eosinophil % 1.1 %; Hematocrit 31 % (35-47); Hemoglobin 10.5 g/dL (12.0-16.0); Lymphocyte % 53.3 %; Mean Corpuscular HGB Conc 34 g/dL (31-36); Mean Corpuscular Hemoglobin 31 pg (27-31); Mean Corpuscular Volume 92 fL (80-97); Mean Platelet Volume 8.5 fL (7.4-10.4); Platelet Count 16 10^3/uL (150-450); Red Blood Count 3.35 10^6 /uL (3.70-4.87); Red Cell Distribution Width 14 % (10-15); White Blood Count 1.7 10^3/uL (3.5-10.8)
[2021-05-24] MEDS: Lactated Ringers 1000 ml BAG 1,000 ML IV SCH ×3 (04:31→17:36)
[2021-05-24 07:03] LABS: Albumin 3.3 g/dL (3.2-5.2); Albumin/Globulin Ratio 1.3 (1-3); Calcium 7.8 mg/dL (8.6-10.3); Globulin 2.5 g/dL (2-4); Phosphorus 3.1 mg/dL (2.5-5.0); Potassium 3.3 mmol/L (3.5-5.0); Total Protein 5.8 g/dL (6.4-8.9); eGFR CKD-EPI 128.5 (>60)
[2021-05-24 07:08] LABS: ABS Monocytes 0.1 10^3/ul (0-0.8); ABS Neutrophils 0.4 10^3/ul (1.5-7.7); Eosinophil % 2.3 %; Hematocrit 31 % (35-47); Hemoglobin 10.7 g/dL (12.0-16.0); Lymphocyte % 63.1 %; Mean Corpuscular HGB Conc 34 g/dL (31-36); Mean Corpuscular Hemoglobin 32 pg (27-31); Mean Corpuscular Volume 93 fL (80-97); Mean Platelet Volume 9.3 fL (7.4-10.4); Nucleated Red Blood Cells % 0.1; Platelet Count 15 10^3/uL (150-450); Red Blood Count 3.37 10^6 /uL (3.70-4.87); Red Cell Distribution Width 14 % (10-15); White Blood Count 1.6 10^3/uL (3.5-10.8)
[2021-05-24] MEDS ORDERED: LORazepam 2 mg VIAL 1 ml IV PUSH SCH (09:11)
[2021-05-24] MEDS: LORazepam 2 mg VIAL 1 ml IV PUSH SCH ×5 (09:43→21:25)
[2021-05-24] MEDS: Multivitamins/Minerals TAB PO SCH (09:44)
[2021-05-25] MEDS: LORazepam 2 mg VIAL 1 ml IV PUSH SCH ×3 (00:13→05:46)
[2021-05-25] MEDS: Lactated Ringers 1000 ml BAG 1,000 ML IV SCH (05:49)
[2021-05-25 06:01] LABS: ABS Eosinophils 0.1 10^3/ul (0-0.6); ABS Monocytes 0.2 10^3/ul (0-0.8); ABS Neutrophils 1.1 10^3/ul (1.5-7.7); Eosinophil % 2.6 %; Hematocrit 33 % (35-47); Hemoglobin 11.3 g/dL (12.0-16.0); Lymphocyte % 43.1 %; Mean Corpuscular HGB Conc 34 g/dL (31-36); Mean Corpuscular Hemoglobin 32 pg (27-31); Mean Corpuscular Volume 94 fL (80-97); Mean Platelet Volume 9.5 fL (7.4-10.4); Nucleated Red Blood Cells % 0.1; Platelet Count 18 10^3/uL (150-450); Red Blood Count 3.56 10^6 /uL (3.70-4.87); Red Cell Distribution Width 14 % (10-15); White Blood Count 2.4 10^3/uL (3.5-10.8)
[2021-05-25 06:25] LABS: Albumin 3.6 g/dL (3.2-5.2); Albumin/Globulin Ratio 1.2 (1-3); Calcium 8.5 mg/dL (8.6-10.3); Globulin 2.9 g/dL (2-4); Potassium 3.4 mmol/L (3.5-5.0); Total Bilirubin 0.6 mg/dL (0.2-1.0); Total Protein 6.5 g/dL (6.4-8.9); eGFR CKD-EPI 129.2 (>60)
[2021-05-25] MEDS ORDERED: Lactated Ringers 1000 ml BAG 1,000 ML IV SCH (08:22)
[2021-05-25] MEDS ORDERED: Al Hydrox/Mg Hydrox/Simet LIQ 30 ML UDC PO PRN (08:27)
[2021-05-25] MEDS: Multivitamins/Minerals TAB PO SCH (10:17)
[2021-05-25] MEDS ORDERED: Potassium Chlor 10 meq TAB PO ONE ×2 (11:03)
[2021-05-25 14:13] VITALS: BP 127/88
== END 2021-05-25 17:30 | disposition home or self-care (01) | DRG 775 ==
LOC: ED 15:08 → SUATTDRO 23:31 → EDHOLD 23:31 → SSU 05-23 18:05
PROVIDERS: ADMIT Internal Medicine; ATTEND Hospitalist

== ENCOUNTER 2021-06-10 17:25 | Inpatient (IN) ==
[2021-06-10] MEDS ORDERED: Lorazepam PYXIS KEY PRN ×3 (17:33→18:00)
[2021-06-10] MEDS: levETIRAcetam 1000MG IVPREMIX 1,000 MG/100 ML BAG IVPB ONE ×2 (17:45→18:55)
[2021-06-10] MEDS: LORazepam 2 mg VIAL 1 ml IV PUSH ONE ×2 (17:45→18:05)
[2021-06-10] MEDS ORDERED: LORazepam 2 mg VIAL 1 ml IV PUSH ONE (17:52)
[2021-06-10] MEDS ORDERED: LORazepam 2 mg VIAL 1 ml IM ONE (18:00)
[2021-06-10] MEDS: Lactated Ringers 1000 ml BAG 1,000 ML IV SCH ×2 (18:55→21:27)
[2021-06-10 19:02] LABS: Urine Appearance Cloudy; Urine Bilirubin Negative (Negative); Urine Blood 1+ (Negative); Urine Color Yellow; Urine Glucose Negative (Negative); Urine Ketones Negative (Negative); Urine Nitrite Negative (Negative); Urine Protein Negative (Negative); Urine Specific Gravity 1.003 (1.002-1.030); Urine Urobilinogen Negative (Negative)
[2021-06-10 19:04] LABS: Urine Bacteria Absent (Absent); Urine Red Blood Cell Trace(0-2/hpf) (Absent); Urine Squamous Epithelial Cell Present (Absent); Urine White Blood Cell Absent (Absent)
[2021-06-10 19:04] LABS: Hematocrit 43 % (35-47); Hemoglobin 14.6 g/dL (12.0-16.0); Mean Corpuscular HGB Conc 34 g/dL (31-36); Mean Corpuscular Hemoglobin 31 pg (27-31); Mean Corpuscular Volume 91 fL (80-97); Mean Platelet Volume 8.4 fL (7.4-10.4); Platelet Count 60 10^3/uL (150-450); Red Blood Count 4.66 10^6 /uL (3.70-4.87); Red Cell Distribution Width 15 % (10-15); White Blood Count 2.7 10^3/uL (3.5-10.8)
[2021-06-10 19:07] LABS: INR 1.07 (0.86-1.15)
[2021-06-10 19:16] LABS: ALT 232 U/L (7-52); Albumin 4.5 g/dL (3.2-5.2); Albumin/Globulin Ratio 1.2 (1-3); Alkaline Phosphatase 125 U/L (35-149); Blood Urea Nitrogen 3 mg/dL (6-24); CO2 Carbon Dioxide 26 mmol/L (22-32); Calcium 8.4 mg/dL (8.6-10.3); Chloride 90 mmol/L (101-111); Globulin 3.8 g/dL (2-4); Glucose 111 mg/dL (70-100); Sodium 129 mmol/L (135-145); Total Protein 8.3 g/dL (6.4-8.9); eGFR CKD-EPI 122.3 (>60)
[2021-06-10 19:31] LABS: ABS Lymphocytes 0.9 10^3/ul (1.0-4.8); ABS Monocytes 0.3 10^3/ul (0-0.8); ABS Neutrophils 1.5 10^3/ul (1.5-7.7); Eosinophil % 0.3 %; Lymphocyte % 34.2 %; Nucleated Red Blood Cells % 0.1
[2021-06-10 20:18] LABS: Alcohol, S 429 mg/dL (<13)
[2021-06-10 20:19] LABS: Anion Gap 13 mmol/L (2-11)
[2021-06-10 20:55] LABS: Magnesium 1.9 mg/dL (1.9-2.7); Potassium Redraw 3.3 mmol/L (3.5-5.0)
[2021-06-10] MEDS ORDERED: Potassium Chloride LIQUID 20 MEQ/15 ML LIQUID PO ONE (20:58)
[2021-06-10] MEDS ORDERED: Magnesium Sulfate IV 1GM/100ML 1 GM/100 ML BAG IV ONE (20:59)
[2021-06-10] MEDS ORDERED: NS 0.9% 1000 ml BAG 1,000 ML IV ONE (21:26)
[2021-06-10] MEDS: KCL 20 MEQ/100 ML IVPREMIX 20 MEQ/100 ML BAG IV SCH (22:27)
[2021-06-11] MEDS: KCL 20 MEQ/100 ML IVPREMIX 20 MEQ/100 ML BAG IV SCH (03:35)
[2021-06-11] MEDS: Thiamine 100 MG/ML 2 ml VIAL 250 MG in NS 0.9% 100 ml BAG 100 ML IV SCH ×2 (05:55→20:32)
[2021-06-11 05:57] LABS: ABS Lymphocytes 0.9 10^3/ul (1.0-4.8); ABS Monocytes 0.2 10^3/ul (0-0.8); ABS Neutrophils 1.6 10^3/ul (1.5-7.7); Eosinophil % 0.6 %; Hematocrit 36 % (35-47); Hemoglobin 12.2 g/dL (12.0-16.0); Lymphocyte % 33.7 %; Mean Corpuscular HGB Conc 34 g/dL (31-36); Mean Corpuscular Hemoglobin 31 pg (27-31); Mean Corpuscular Volume 93 fL (80-97); Mean Platelet Volume 8.5 fL (7.4-10.4); Nucleated Red Blood Cells % 0.1; Platelet Count 39 10^3/uL (150-450); Red Blood Count 3.89 10^6 /uL (3.70-4.87); Red Cell Distribution Width 15 % (10-15); White Blood Count 2.7 10^3/uL (3.5-10.8)
[2021-06-11 06:04] LABS: Magnesium 1.7 mg/dL (1.9-2.7); Potassium 4.1 mmol/L (3.5-5.0); eGFR CKD-EPI 118.3 (>60)
[2021-06-11] MEDS ORDERED: Magnesium Sulfate 2 gm BAG 2 GM/50 ML BAG IVPB ONE (06:32)
[2021-06-11] MEDS: Multivitamins/Minerals TAB PO SCH (08:07)
[2021-06-11] MEDS: Lactated Ringers 1000 ml BAG 1,000 ML IV SCH (09:57)
[2021-06-11] MEDS: LORazepam 2 mg VIAL 1 ml IV PUSH SCH (10:21)
[2021-06-11] MEDS: Ondansetron 4 mg VIAL 2 MG/ML 2 ml VIAL IV PRN (20:50)
[2021-06-12] MEDS: LORazepam 2 mg VIAL 1 ml IV PUSH SCH ×2 (00:58→06:16)
[2021-06-12] MEDS ORDERED: diPHENhydraMINE 25 mg TAB PO ONE (05:03)
[2021-06-12] MEDS: Lactated Ringers 1000 ml BAG 1,000 ML IV SCH (06:18)
[2021-06-12] MEDS: Ondansetron 4 mg VIAL 2 MG/ML 2 ml VIAL IV PRN (06:25)
[2021-06-12 08:28] LABS: Albumin 3.1 g/dL (3.2-5.2); Albumin/Globulin Ratio 1.3 (1-3); Globulin 2.4 g/dL (2-4); Magnesium 1.8 mg/dL (1.9-2.7); Potassium 3.3 mmol/L (3.5-5.0); Total Bilirubin 0.9 mg/dL (0.2-1.0); Total Protein 5.5 g/dL (6.4-8.9); eGFR CKD-EPI 121.8 (>60)
[2021-06-12 08:44] LABS: Hematocrit 31 % (35-47); Hemoglobin 10.4 g/dL (12.0-16.0); Mean Corpuscular HGB Conc 33 g/dL (31-36); Mean Corpuscular Hemoglobin 31 pg (27-31); Mean Corpuscular Volume 94 fL (80-97); Mean Platelet Volume 9.1 fL (7.4-10.4); Platelet Count 24 10^3/uL (150-450); Red Blood Count 3.34 10^6 /uL (3.70-4.87); Red Cell Distribution Width 15 % (10-15); White Blood Count 1.8 10^3/uL (3.5-10.8)
[2021-06-12 09:57] LABS: ABS Lymphocytes 0.9 10^3/ul (1.0-4.8); ABS Monocytes 0.2 10^3/ul (0-0.8); ABS Neutrophils 0.7 10^3/ul (1.5-7.7); Eosinophil % 2.2 %; Lymphocyte % 47.3 %; Nucleated Red Blood Cells % 0.1
[2021-06-12 10:59] VITALS: BP 118/72
[2021-06-12] MEDS: Multivitamins/Minerals TAB PO SCH (11:34)
== END 2021-06-12 16:45 | disposition home or self-care (01) | DRG 775 ==
LOC: ED 17:25 → SUATTDRO 23:48 → MEDTELE 23:48
PROVIDERS: ADMIT Internal Medicine; ATTEND Hospitalist

== ENCOUNTER 2021-07-11 17:41 | Inpatient (IN) ==
[2021-07-11] MEDS ORDERED: LORazepam 2 mg VIAL 1 ml IV PUSH ONE (18:04)
[2021-07-11] MEDS ORDERED: Lorazepam PYXIS KEY PRN (18:04)
[2021-07-11] MEDS ORDERED: Lactated Ringers 1000 ml BAG 1,000 ML IV ONE (18:05)
[2021-07-11 18:36] LABS: ABS Lymphocytes 0.4 10^3/ul (1.0-4.8); ABS Monocytes 0.2 10^3/ul (0-0.8); ABS Neutrophils 1.8 10^3/ul (1.5-7.7); Eosinophil % 0.1 %; Hematocrit 41 % (35-47); Hemoglobin 14.3 g/dL (12.0-16.0); Mean Corpuscular HGB Conc 35 g/dL (31-36); Mean Corpuscular Hemoglobin 32 pg (27-31); Mean Corpuscular Volume 93 fL (80-97); Nucleated Red Blood Cells % 0.1; Platelet Count 31 10^3/uL (150-450); Red Blood Count 4.46 10^6 /uL (3.70-4.87); Red Cell Distribution Width 16 % (10-15); White Blood Count 2.5 10^3/uL (3.5-10.8)
[2021-07-11 18:44] LABS: ALT 152 U/L (7-52); Albumin 4.2 g/dL (3.2-5.2); Albumin/Globulin Ratio 1.1 (1-3); Alkaline Phosphatase 145 U/L (35-149); Blood Urea Nitrogen 4 mg/dL (6-24); CO2 Carbon Dioxide 31 mmol/L (22-32); Calcium 8.2 mg/dL (8.6-10.3); Chloride 83 mmol/L (101-111); Globulin 3.7 g/dL (2-4); Glucose 108 mg/dL (70-100); Lipase 48 U/L (11.0-82.0); Sodium 130 mmol/L (135-145); Total Protein 7.9 g/dL (6.4-8.9); eGFR CKD-EPI 122.3 (>60)
[2021-07-11] MEDS ORDERED: Magnesium Sulfate IV 1GM/100ML 1 GM/100 ML BAG IV ONE (18:45)
[2021-07-11 18:47] LABS: Troponin I 0.01 ng/mL (<0.03)
[2021-07-11 18:50] LABS: HCG Pregnancy < 0.60 mIU/mL
[2021-07-11 19:12] LABS: Alcohol, S 431 mg/dL (<13)
[2021-07-11 19:23] LABS: Anion Gap 16 mmol/L (2-11)
[2021-07-11] MEDS ORDERED: Thiamine 100 MG/ML 2 ml VIAL (200 mg) IV ONE (21:36)
[2021-07-11] MEDS ORDERED: Thiamine IV 100 MG in NS 0.9% 50 ML Q24H IV ONE (22:00)
[2021-07-11] MEDS ORDERED: Thiamine 100 MG/ML 2 ml VIAL 100 MG, Folic Acid IV 1 MG, Multiple Vitamin IV ADULT 10 M... IV ONE (22:33)
[2021-07-11] MEDS ORDERED: levETIRAcetam 1000MG IVPREMIX 1,000 MG/100 ML BAG IVPB ONE (22:35)
[2021-07-11] MEDS ORDERED: Ondansetron 4 mg VIAL 2 MG/ML 2 ml VIAL IV PRN (22:51)
[2021-07-11] MEDS ORDERED: LORazepam 2 mg VIAL 1 ml IV PUSH SCH (23:00)
[2021-07-11 23:28] LABS: Rapid COVID-19 Molecular Undetected (Undetected)
[2021-07-12 00:28] LABS: Magnesium 1.7 mg/dL (1.9-2.7)
[2021-07-12 00:35] LABS: Potassium Redraw 3.1 mmol/L (3.5-5.0)
[2021-07-12] MEDS ORDERED: Potassium Chlor 20 meq TAB.ER PO ONE (01:12)
[2021-07-12] MEDS ORDERED: Magnesium Sulfate 2 gm BAG 2 GM/50 ML BAG IVPB ONE (01:12)
[2021-07-12] MEDS: Lactated Ringers 1000 ml BAG 1,000 ML IV SCH ×2 (05:08→17:39)
[2021-07-12] MEDS ORDERED: Lactated Ringers 1000 ml BAG 1,000 ML IV SCH (08:00)
[2021-07-12] MEDS: Multivitamins/Minerals TAB PO SCH ×2 (08:21→09:28)
[2021-07-12] MEDS: Potassium Chlor 20 meq TAB.ER PO SCH ×2 (08:21→20:02)
[2021-07-12 10:41] LABS: INR 1.18 (0.86-1.15)
[2021-07-12 10:53] LABS: Albumin 3.4 g/dL (3.2-5.2); Albumin/Globulin Ratio 1.2 (1-3); Calcium 7.2 mg/dL (8.6-10.3); Direct Bilirubin 0.7 mg/dL (0.03-0.18); Globulin 2.8 g/dL (2-4); Magnesium 2.5 mg/dL (1.9-2.7); Potassium 3.2 mmol/L (3.5-5.0); Total Bilirubin 1.5 mg/dL (0.2-1.0); Total Protein 6.2 g/dL (6.4-8.9); eGFR CKD-EPI 123.4 (>60)
[2021-07-12 10:54] LABS: Indirect Bilirubin 0.8 mg/dL (0.3-1.0)
[2021-07-12 10:58] LABS: ABS Lymphocytes 0.6 10^3/ul (1.0-4.8); ABS Monocytes 0.2 10^3/ul (0-0.8); ABS Neutrophils 0.9 10^3/ul (1.5-7.7); Eosinophil % 0.5 %; Hematocrit 32 % (35-47); Hemoglobin 10.9 g/dL (12.0-16.0); Lymphocyte % 33.8 %; Mean Corpuscular HGB Conc 34 g/dL (31-36); Mean Corpuscular Hemoglobin 31 pg (27-31); Mean Corpuscular Volume 91 fL (80-97); Mean Platelet Volume 8.9 fL (7.4-10.4); Nucleated Red Blood Cells % 0.2; Platelet Count 14 10^3/uL (150-450); Red Blood Count 3.51 10^6 /uL (3.70-4.87); Red Cell Distribution Width 16 % (10-15); White Blood Count 1.7 10^3/uL (3.5-10.8)
[2021-07-12 15:16] LABS: Total Bilirubin 1.3 mg/dL (0.2-1.0)
[2021-07-13] MEDS: Lactated Ringers 1000 ml BAG 1,000 ML IV SCH ×2 (02:07→12:32)
[2021-07-13 05:55] LABS: Hematocrit 33 % (35-47); Hemoglobin 11.1 g/dL (12.0-16.0); Mean Corpuscular HGB Conc 34 g/dL (31-36); Mean Corpuscular Hemoglobin 31 pg (27-31); Mean Corpuscular Volume 93 fL (80-97); Red Blood Count 3.59 10^6 /uL (3.70-4.87); Red Cell Distribution Width 16 % (10-15); White Blood Count 1.3 10^3/uL (3.5-10.8)
[2021-07-13 06:01] LABS: Albumin 3.3 g/dL (3.2-5.2); Albumin/Globulin Ratio 1.1 (1-3); Calcium 7.8 mg/dL (8.6-10.3); Globulin 2.9 g/dL (2-4); Potassium 3.3 mmol/L (3.5-5.0); Total Bilirubin 1.4 mg/dL (0.2-1.0); Total Protein 6.2 g/dL (6.4-8.9); eGFR CKD-EPI 127.8 (>60)
[2021-07-13 07:54] LABS: ABS Lymphocytes 0.7 10^3/ul (1.0-4.8); ABS Monocytes 0.2 10^3/ul (0-0.8); ABS Neutrophils 0.4 10^3/ul (1.5-7.7); Eosinophil % 0.4 %; Lymphocyte % 52.5 %; Mean Platelet Volume 9.3 fL (7.4-10.4); Nucleated Red Blood Cells % 0.2; Platelet Count 13 10^3/uL (150-450)
[2021-07-13] MEDS: Multivitamins/Minerals TAB PO SCH ×2 (08:50→09:37)
[2021-07-13] MEDS: Benzocaine/Menthol LOZ PO PRN (13:20)
[2021-07-14] MEDS: Benzocaine/Menthol LOZ PO PRN ×2 (04:51→10:37)
[2021-07-14 05:42] LABS: ABS Lymphocytes 0.7 10^3/ul (1.0-4.8); ABS Monocytes 0.2 10^3/ul (0-0.8); ABS Neutrophils 0.9 10^3/ul (1.5-7.7); Eosinophil % 1.6 %; Hematocrit 34 % (35-47); Hemoglobin 11.3 g/dL (12.0-16.0); Lymphocyte % 38.5 %; Mean Corpuscular HGB Conc 34 g/dL (31-36); Mean Corpuscular Hemoglobin 32 pg (27-31); Mean Corpuscular Volume 95 fL (80-97); Mean Platelet Volume 9.4 fL (7.4-10.4); Platelet Count 18 10^3/uL (150-450); Red Blood Count 3.59 10^6 /uL (3.70-4.87); Red Cell Distribution Width 16 % (10-15); White Blood Count 1.8 10^3/uL (3.5-10.8)
[2021-07-14 05:52] LABS: Albumin 3.4 g/dL (3.2-5.2); Albumin/Globulin Ratio 1.1 (1-3); Calcium 8.1 mg/dL (8.6-10.3); Globulin 3.1 g/dL (2-4); Potassium 3.1 mmol/L (3.5-5.0); Total Bilirubin 1.5 mg/dL (0.2-1.0); Total Protein 6.5 g/dL (6.4-8.9); eGFR CKD-EPI 125.2 (>60)
[2021-07-14] MEDS: Multivitamins/Minerals TAB PO SCH ×2 (10:27→10:37)
[2021-07-14] MEDS: Lactated Ringers 1000 ml BAG 1,000 ML IV SCH ×2 (10:38→19:36)
[2021-07-14] MEDS: KCL 20 MEQ/100 ML IVPREMIX 20 MEQ/100 ML BAG IV SCH ×3 (16:55→23:12)
[2021-07-14] MEDS: Ondansetron 4 mg VIAL 2 MG/ML 2 ml VIAL IV PRN (21:58)
[2021-07-15] MEDS ORDERED: Calcium Carb (TUMS) 500 mg CHEW TAB PO PRN (00:34)
[2021-07-15] MEDS: Lactated Ringers 1000 ml BAG 1,000 ML IV SCH ×3 (06:02→23:43)
[2021-07-15] MEDS: Multivitamins/Minerals TAB PO SCH ×2 (08:56)
[2021-07-15 12:32] LABS: ABS Eosinophils 0.1 10^3/ul (0-0.6); ABS Lymphocytes 0.6 10^3/ul (1.0-4.8); ABS Monocytes 0.2 10^3/ul (0-0.8); ABS Neutrophils 1.4 10^3/ul (1.5-7.7); Eosinophil % 2.9 %; Hematocrit 35 % (35-47); Hemoglobin 11.3 g/dL (12.0-16.0); Lymphocyte % 26.9 %; Mean Corpuscular HGB Conc 33 g/dL (31-36); Mean Corpuscular Hemoglobin 31 pg (27-31); Mean Corpuscular Volume 95 fL (80-97); Mean Platelet Volume 9.7 fL (7.4-10.4); Nucleated Red Blood Cells % 0.1; Platelet Count 43 10^3/uL (150-450); Red Blood Count 3.67 10^6 /uL (3.70-4.87); Red Cell Distribution Width 16 % (10-15); White Blood Count 2.4 10^3/uL (3.5-10.8)
[2021-07-15 12:39] LABS: Albumin 3.4 g/dL (3.2-5.2); Albumin/Globulin Ratio 1.1 (1-3); Calcium 8.5 mg/dL (8.6-10.3); Globulin 3.1 g/dL (2-4); Magnesium 1.6 mg/dL (1.9-2.7); Potassium 3.7 mmol/L (3.5-5.0); Total Bilirubin 1.6 mg/dL (0.2-1.0); Total Protein 6.5 g/dL (6.4-8.9); eGFR CKD-EPI 129.2 (>60)
[2021-07-16] MEDS: Ondansetron 4 mg VIAL 2 MG/ML 2 ml VIAL IV PRN (09:36)
[2021-07-16] MEDS: Multivitamins/Minerals TAB PO SCH ×2 (09:37)
[2021-07-16 10:36] LABS: ABS Eosinophils 0.1 10^3/ul (0-0.6); ABS Lymphocytes 0.8 10^3/ul (1.0-4.8); ABS Monocytes 0.3 10^3/ul (0-0.8); ABS Neutrophils 1.1 10^3/ul (1.5-7.7); Hematocrit 36 % (35-47); Hemoglobin 11.9 g/dL (12.0-16.0); Lymphocyte % 34.7 %; Mean Corpuscular HGB Conc 33 g/dL (31-36); Mean Corpuscular Hemoglobin 32 pg (27-31); Mean Corpuscular Volume 97 fL (80-97); Mean Platelet Volume 9.1 fL (7.4-10.4); Platelet Count 65 10^3/uL (150-450); Red Blood Count 3.76 10^6 /uL (3.70-4.87); Red Cell Distribution Width 17 % (10-15); White Blood Count 2.2 10^3/uL (3.5-10.8)
[2021-07-16 10:50] LABS: Albumin 3.4 g/dL (3.2-5.2); Albumin/Globulin Ratio 1.1 (1-3); Calcium 8.2 mg/dL (8.6-10.3); Globulin 3.2 g/dL (2-4); Potassium 3.7 mmol/L (3.5-5.0); Total Bilirubin 1.3 mg/dL (0.2-1.0); Total Protein 6.6 g/dL (6.4-8.9); eGFR CKD-EPI 127.1 (>60)
[2021-07-17] MEDS: Multivitamins/Minerals TAB PO SCH ×2 (09:07→09:25)
[2021-07-17] MEDS ORDERED: LORazepam 2 mg VIAL 1 ml ONE ×2 (12:08→12:15)
[2021-07-17] MEDS ORDERED: Lorazepam PYXIS KEY ONE (12:08)
[2021-07-17] MEDS: HYDROcodone/ACETAMIN 5/325 mg TAB PO PRN ×2 (13:35→19:46)
[2021-07-17 13:51] LABS: Hematocrit 37 % (35-47); Hemoglobin 12.1 g/dL (12.0-16.0); Mean Corpuscular HGB Conc 33 g/dL (31-36); Mean Corpuscular Hemoglobin 32 pg (27-31); Mean Corpuscular Volume 97 fL (80-97); Mean Platelet Volume 8.8 fL (7.4-10.4); Platelet Count 123 10^3/uL (150-450); Red Blood Count 3.82 10^6 /uL (3.70-4.87); Red Cell Distribution Width 17 % (10-15)
[2021-07-17 14:11] LABS: Albumin 3.8 g/dL (3.2-5.2); Albumin/Globulin Ratio 1.1 (1-3); Globulin 3.5 g/dL (2-4); Potassium 3.6 mmol/L (3.5-5.0); Total Bilirubin 1.2 mg/dL (0.2-1.0); Total Protein 7.3 g/dL (6.4-8.9); eGFR CKD-EPI 125.2 (>60)
[2021-07-17] MEDS: NS 0.9% 1000 ml BAG 1,000 ML IV SCH (15:53)
[2021-07-17 16:49] LABS: Magnesium 1.9 mg/dL (1.9-2.7); Phosphorus 2.5 mg/dL (2.5-5.0)
[2021-07-18] MEDS: HYDROcodone/ACETAMIN 5/325 mg TAB PO PRN ×2 (01:59→09:09)
[2021-07-18] MEDS: NS 0.9% 1000 ml BAG 1,000 ML IV SCH (02:01)
[2021-07-18] MEDS: Multivitamins/Minerals TAB PO SCH (09:08)
[2021-07-19] MEDS: HYDROcodone/ACETAMIN 5/325 mg TAB PO PRN ×2 (02:55→09:11)
[2021-07-19 06:40] LABS: Calcium 8.5 mg/dL (8.6-10.3); Potassium 3.7 mmol/L (3.5-5.0); eGFR CKD-EPI 126.5 (>60)
[2021-07-19] MEDS: Multivitamins/Minerals TAB PO SCH (09:13)
[2021-07-19] MEDS ORDERED: Potassium Chlor 10 meq TAB PO ONE (09:34)
[2021-07-19 15:10] VITALS: BP 106/75
== END 2021-07-19 15:35 | disposition home or self-care (01) | DRG 53 ==
LOC: ED 17:41 → SUATTDRO 22:44 → EDHOLD 22:44 → MED 07-12 00:28
PROVIDERS: ADMIT Nurse Practitioner Family; ATTEND Internal Medicine

== ENCOUNTER 2021-08-19 11:43 | Observation (INO) ==
[2021-08-19] MEDS ORDERED: ceFAZolin 2 GM in NS PREMIX 2 GM/100 ML BAG IVPB ONE (11:59)
[2021-08-19 12:55] LABS: INR 1.17 (0.86-1.15)
[2021-08-19 13:04] LABS: ALT 33 U/L (7-52); Albumin 4.1 g/dL (3.2-5.2); Albumin/Globulin Ratio 1.2 (1-3); Alkaline Phosphatase 106 U/L (35-149); Blood Urea Nitrogen 7 mg/dL (6-24); CO2 Carbon Dioxide 22 mmol/L (22-32); Calcium 9.2 mg/dL (8.6-10.3); Chloride 104 mmol/L (101-111); Globulin 3.5 g/dL (2-4); Glucose 83 mg/dL (70-100); Sodium 135 mmol/L (135-145); Total Protein 7.6 g/dL (6.4-8.9); eGFR CKD-EPI 120.5 (>60)
[2021-08-19 13:09] LABS: Anion Gap 9 mmol/L (2-11)
[2021-08-19 13:30] LABS: ABS Eosinophils 0.1 10^3/ul (0-0.6); ABS Lymphocytes 1.5 10^3/ul (1.0-4.8); ABS Monocytes 0.8 10^3/ul (0-0.8); Eosinophil % 2.2 %; Hematocrit 35 % (35-47); Hemoglobin 11.6 g/dL (12.0-16.0); Mean Corpuscular HGB Conc 33 g/dL (31-36); Mean Corpuscular Hemoglobin 33 pg (27-31); Mean Corpuscular Volume 98 fL (80-97); Mean Platelet Volume 9.7 fL (7.4-10.4); Nucleated Red Blood Cells % 0.1; Platelet Count 134 10^3/uL (150-450); Red Blood Count 3.57 10^6 /uL (3.70-4.87); Red Cell Distribution Width 16 % (10-15); White Blood Count 6.5 10^3/uL (3.5-10.8)
[2021-08-19] MEDS ORDERED: HYDROmorphone 1 MG/1 ML SYRINGE IV PRN (13:57)
[2021-08-19] MEDS ORDERED: Naloxone 0.4 mg VIAL 0.4 mg/ml 1 ml VIAL IV PRN ×2 (13:57→20:56)
[2021-08-19] MEDS ORDERED: Morphine 4 MG/ML VIAL (1 ml) IV PRN (13:57)
[2021-08-19] MEDS ORDERED: Ondansetron 4 mg VIAL 2 MG/ML 2 ml VIAL IV PRN ×2 (13:57→20:51)
[2021-08-19] MEDS ORDERED: Lidocaine 2% PF 5 ML VIAL ONE (13:59)
[2021-08-19] MEDS ORDERED: Propofol 10 MG/ML 20 ML BTL ONE ×2 (13:59→16:21)
[2021-08-19] MEDS ORDERED: Ondansetron 4 mg VIAL 2 MG/ML 2 ml VIAL ONE (13:59)
[2021-08-19] MEDS ORDERED: Dexamethasone IV 4 MG/ML VIAL 1 ml VIAL ONE (13:59)
[2021-08-19] MEDS ORDERED: HYDROmorphone 0.5 MG/0.5 ML SYRINGE ONE ×2 (14:07→15:55)
[2021-08-19] MEDS ORDERED: Rocuronium 50 mg VIAL 10 mg/ml 5 ml VIAL (50 mg) ONE ×2 (14:08→17:22)
[2021-08-19] MEDS ORDERED: fentaNYL 100 mcg/2 ml 50 MCG/ML VIAL ONE ×4 (14:08→21:17)
[2021-08-19] MEDS ORDERED: Midazolam 2 mg/2 ml VIAL 1 mg/ml 2 ml VIAL (2 mg) ONE (14:08)
[2021-08-19 14:45] LABS: Direct Bilirubin Redraw 0.4 mg/dL (0.03-0.18); Potassium Redraw 4.1 mmol/L (3.5-5.0)
[2021-08-19] MEDS ORDERED: Lidocaine 1.5% EPI 1:200,000 30 ML SDV ONE (15:00)
[2021-08-19] MEDS ORDERED: Vancomycin 1,000 MG VIAL ONE ×2 (15:00→19:38)
[2021-08-19] MEDS ORDERED: Metoprolol Tartrate 5 mg VIAL 5 ml VIAL (1 mg/ml) ONE (16:51)
[2021-08-19] MEDS ORDERED: Phenylephrine 40 mcg/mL 10mL (400mcg) SYRINGE ONE (18:02)
[2021-08-19 19:00] LABS: ABS Lymphocytes 0.3 10^3/ul (1.0-4.8); ABS Monocytes 0.1 10^3/ul (0-0.8); ABS Neutrophils 3.7 10^3/ul (1.5-7.7); Eosinophil % 0.4 %; Hematocrit 22 % (35-47); Hemoglobin 7.3 g/dL (12.0-16.0); Lymphocyte % 8.2 %; Mean Corpuscular HGB Conc 33 g/dL (31-36); Mean Corpuscular Hemoglobin 32 pg (27-31); Mean Corpuscular Volume 98 fL (80-97); Mean Platelet Volume 9.4 fL (7.4-10.4); Platelet Count 119 10^3/uL (150-450); Red Blood Count 2.29 10^6 /uL (3.70-4.87); Red Cell Distribution Width 16 % (10-15); White Blood Count 4.2 10^3/uL (3.5-10.8)
[2021-08-19] MEDS ORDERED: ceFAZolin 1 GM ADVAN 1 GM ADDV.VIAL IVPB ONE (19:31)
[2021-08-19] MEDS ORDERED: Lactulose 30 ml UDC PO PRN (20:51)
[2021-08-19] MEDS ORDERED: diPHENhydraMINE 25 mg TAB PO PRN (20:51)
[2021-08-19] MEDS ORDERED: diPHENhydraMINE IV 50 MG/ML 1 ml VIAL (BENADRYL) IV PRN (20:51)
[2021-08-19] MEDS ORDERED: Ondansetron ODT 4 mg TAB 4 MG TAB PO PRN (20:51)
[2021-08-19] MEDS ORDERED: Acetaminophen IV 1 GM/100ML 100 ML IV ONE ×2 (20:56→21:01)
[2021-08-19] MEDS ORDERED: levETIRAcetam 1000MG IVPREMIX 1,000 MG/100 ML BAG IVPB SCH (21:00)
[2021-08-19] MEDS: fentaNYL 100 mcg/2 ml 50 MCG/ML VIAL IV PRN ×2 (21:26→21:34)
[2021-08-19] MEDS: Magnesium Hydroxide LIQ 30 ML UDC PO SCH (23:06)
[2021-08-20] MEDS: ceFAZolin 1 GM ADVAN 1 GM in NS 0.9% 50 ML 50 ML IVPB SCH ×3 (00:16→15:04)
[2021-08-20 06:09] LABS: Hematocrit 26 % (35-47); Hemoglobin 8.6 g/dL (12.0-16.0); Mean Platelet Volume 9.2 fL (7.4-10.4); Platelet Count 121 10^3/uL (150-450)
[2021-08-20 06:47] LABS: Calcium 7.9 mg/dL (8.6-10.3); Potassium 3.8 mmol/L (3.5-5.0); eGFR CKD-EPI 122.1 (>60)
[2021-08-20] MEDS: Magnesium Hydroxide LIQ 30 ML UDC PO SCH (08:56)
[2021-08-20] MEDS ORDERED: Vitamin THERAPEUTIC TAB PO SCH (09:00)
[2021-08-20 11:47] VITALS: BP 127/81
== END 2021-08-20 16:00 ==
LOC: OR 11:43 → SSU 11:43
PROVIDERS: ADMIT Orthopaedic Surgery; ATTEND Orthopaedic Surgery

== ENCOUNTER 2021-09-20 14:45 | Inpatient (IN) ==
[2021-09-20] MEDS ORDERED: Thiamine 100 MG/ML 2 ml VIAL (200 mg) IM ONE (15:05)
[2021-09-20] MEDS ORDERED: Lorazepam PYXIS KEY PRN (15:23)
[2021-09-20] MEDS ORDERED: LORazepam 2 mg VIAL 1 ml IV PUSH ONE (15:23)
[2021-09-20] MEDS ORDERED: levETIRAcetam 1000MG IVPREMIX 1,000 MG/100 ML BAG IVPB ONE (15:24)
[2021-09-20 15:56] LABS: Hematocrit 32 % (35-47); Hemoglobin 10.3 g/dL (12.0-16.0); Mean Corpuscular HGB Conc 32 g/dL (31-36); Mean Corpuscular Hemoglobin 28 pg (27-31); Mean Corpuscular Volume 87 fL (80-97); Red Blood Count 3.68 10^6 /uL (3.70-4.87); Red Cell Distribution Width 16 % (10-15)
[2021-09-20] MEDS ORDERED: LORazepam 2 mg VIAL 1 ml IV PUSH SCH (16:00)
[2021-09-20 16:41] LABS: ALT 26 U/L (7-52); AST 69 U/L (13-39); Albumin 3.8 g/dL (3.2-5.2); Albumin/Globulin Ratio 1.1 (1-3); Alkaline Phosphatase 124 U/L (35-149); Blood Urea Nitrogen 8 mg/dL (6-24); CO2 Carbon Dioxide 19 mmol/L (22-32); Calcium 8.2 mg/dL (8.6-10.3); Chloride 82 mmol/L (101-111); Globulin 3.4 g/dL (2-4); Glucose 112 mg/dL (70-100); Sodium 129 mmol/L (135-145); Total Protein 7.2 g/dL (6.4-8.9); eGFR CKD-EPI 105.1 (>60)
[2021-09-20 16:52] LABS: ABS Lymphocytes 0.3 10^3/ul (1.0-4.8); ABS Monocytes 0.6 10^3/ul (0-0.8); ABS Neutrophils 2.1 10^3/ul (1.5-7.7); Eosinophil % 0.1 %; Lymphocyte % 11.1 %; Nucleated Red Blood Cells % 0.1; Platelet Count Platelets clumped. 10^3/uL (150-450)
[2021-09-20 16:56] LABS: Anion Gap 28 mmol/L (2-11); Potassium 2.3 mmol/L (3.5-5.0)
[2021-09-20] MEDS ORDERED: Potassium Chloride LIQUID 20 MEQ/15 ML LIQUID PO ONE (17:04)
[2021-09-20 17:15] LABS: Alcohol, S < 13 mg/dL (<13)
[2021-09-20] MEDS ORDERED: Ondansetron 4 mg VIAL 2 MG/ML 2 ml VIAL IV PRN (17:25)
[2021-09-20 17:31] LABS: Magnesium 2.2 mg/dL (1.9-2.7)
[2021-09-20] MEDS ORDERED: Enoxaparin 40 MG/0.4 ML SYR SUBCUT SCH (21:00)
[2021-09-20] MEDS: KCL 20 MEQ/100 ML IVPREMIX 20 MEQ/100 ML BAG IV SCH ×2 (21:06→22:00)
[2021-09-20 21:58] LABS: Ferritin 51.8 ng/mL (11-307)
[2021-09-20 22:01] LABS: HIV 4th Generation Nonreactive (Nonreactive)
[2021-09-20] MEDS: Thiamine 100 MG/ML 2 ml VIAL 250 MG in NS 0.9% 100 ml BAG 100 ML IV SCH (23:31)
[2021-09-21] MEDS: KCL 20 MEQ/100 ML IVPREMIX 20 MEQ/100 ML BAG IV SCH (00:46)
[2021-09-21] MEDS: Potassium Chloride IV 20 MEQ in Lactated Ringers 1000 ml BAG 1,000 ML IVPB SCH ×3 (00:46→18:01)
[2021-09-21 08:27] LABS: ABS Lymphocytes 0.7 10^3/ul (1.0-4.8); ABS Monocytes 0.4 10^3/ul (0-0.8); ABS Neutrophils 0.7 10^3/ul (1.5-7.7); Albumin 3.1 g/dL (3.2-5.2); Albumin/Globulin Ratio 1.2 (1-3); Calcium 7.5 mg/dL (8.6-10.3); Globulin 2.5 g/dL (2-4); Hematocrit 25 % (35-47); Hemoglobin 8.1 g/dL (12.0-16.0); Lymphocyte % 40.3 %; Mean Corpuscular HGB Conc 33 g/dL (31-36); Mean Corpuscular Hemoglobin 28 pg (27-31); Mean Corpuscular Volume 86 fL (80-97); Mean Platelet Volume 9.5 fL (7.4-10.4); Nucleated Red Blood Cells % 0.1; Platelet Count 24 10^3/uL (150-450); Potassium 2.8 mmol/L (3.5-5.0); Red Blood Count 2.92 10^6 /uL (3.70-4.87); Red Cell Distribution Width 16 % (10-15); Total Bilirubin 1.6 mg/dL (0.2-1.0); Total Protein 5.6 g/dL (6.4-8.9); White Blood Count 1.8 10^3/uL (3.5-10.8)
[2021-09-21] MEDS ORDERED: Potassium Chloride LIQUID 20 MEQ/15 ML LIQUID PO ONE (08:36)
[2021-09-21] MEDS ORDERED: KCL 20 MEQ/100 ML IVPREMIX 20 MEQ/100 ML BAG IV SCH (09:00)
[2021-09-21] MEDS: KCL premix 10 MEQ/50 ML x 4 RUNS IV SCH ×2 (09:32→18:01)
[2021-09-21] MEDS: Multivitamins/Minerals TAB PO SCH (09:34)
[2021-09-21] MEDS: Iron Sucrose 200 MG in NS 0.9% 100 ml BAG 100 ML IVPB SCH (17:51)
[2021-09-21] MEDS: Thiamine 100 MG/ML 2 ml VIAL 250 MG in NS 0.9% 100 ml BAG 100 ML IV SCH (22:12)
[2021-09-22 00:57] LABS: Urine Appearance Cloudy; Urine Bilirubin Negative (Negative); Urine Blood 1+ (Negative); Urine Color Yellow; Urine Glucose Negative (Negative); Urine Ketones Negative (Negative); Urine Nitrite Negative (Negative); Urine Protein Negative (Negative); Urine Specific Gravity 1.003 (1.002-1.030); Urine Urobilinogen Negative (Negative)
[2021-09-22 01:03] LABS: Urine Bacteria 1+ (Absent); Urine Red Blood Cell 1+(3-5/hpf) (Absent); Urine Squamous Epithelial Cell Present (Absent); Urine White Blood Cell Trace(0-5/hpf) (Absent)
[2021-09-22 05:12] LABS: ABS Lymphocytes 0.5 10^3/ul (1.0-4.8); ABS Monocytes 0.3 10^3/ul (0-0.8); Eosinophil % 1.5 %; Hematocrit 25 % (35-47); Hemoglobin 8.2 g/dL (12.0-16.0); Lymphocyte % 27.7 %; Mean Corpuscular HGB Conc 32 g/dL (31-36); Mean Corpuscular Hemoglobin 28 pg (27-31); Mean Corpuscular Volume 86 fL (80-97); Mean Platelet Volume 9.7 fL (7.4-10.4); Platelet Count 39 10^3/uL (150-450); Red Blood Count 2.94 10^6 /uL (3.70-4.87); Red Cell Distribution Width 16 % (10-15); White Blood Count 1.9 10^3/uL (3.5-10.8)
[2021-09-22 05:52] LABS: Magnesium 1.9 mg/dL (1.9-2.7); Potassium 3.1 mmol/L (3.5-5.0); eGFR CKD-EPI 123.2 (>60)
[2021-09-22] MEDS: Potassium Chloride IV 20 MEQ in Lactated Ringers 1000 ml BAG 1,000 ML IVPB SCH (07:42)
[2021-09-22] MEDS ORDERED: Potassium Chloride LIQUID 20 MEQ/15 ML LIQUID PO ONE (08:15)
[2021-09-22] MEDS: Iron Sucrose 200 MG in NS 0.9% 100 ml BAG 100 ML IVPB SCH (09:04)
[2021-09-22] MEDS: Multivitamins/Minerals TAB PO SCH (09:07)
[2021-09-22 12:29] LABS: Chlamydia trachomatis NAA Negative (Negative); Neisseria gonorrhoeae (GC) NAA Negative (Negative)
[2021-09-22 15:18] LABS: Herpes Simplex Virus I IgG AB Negative (Negative); Herpes Simplex Virus II IgG AB Positive (Negative)
[2021-09-22] MEDS: Thiamine 100 MG/ML 2 ml VIAL 250 MG in NS 0.9% 100 ml BAG 100 ML IV SCH (20:40)
[2021-09-22] MEDS: Polyethylene Glycol 3350 17 GM PACKET PO SCH (23:09)
[2021-09-23 05:45] LABS: ABS Lymphocytes 0.7 10^3/ul (1.0-4.8); ABS Monocytes 0.3 10^3/ul (0-0.8); ABS Neutrophils 1.4 10^3/ul (1.5-7.7); Eosinophil % 1.6 %; Hematocrit 28 % (35-47); Hemoglobin 8.9 g/dL (12.0-16.0); Lymphocyte % 29.9 %; Mean Corpuscular HGB Conc 32 g/dL (31-36); Mean Corpuscular Hemoglobin 28 pg (27-31); Mean Corpuscular Volume 89 fL (80-97); Nucleated Red Blood Cells % 0.3; Platelet Count 73 10^3/uL (150-450); Red Blood Count 3.16 10^6 /uL (3.70-4.87); Red Cell Distribution Width 16 % (10-15); White Blood Count 2.5 10^3/uL (3.5-10.8)
[2021-09-23 05:48] LABS: Calcium 8.2 mg/dL (8.6-10.3); Magnesium 1.9 mg/dL (1.9-2.7); Potassium 4.2 mmol/L (3.5-5.0); eGFR CKD-EPI 117.1 (>60)
[2021-09-23] MEDS ORDERED: Magnesium Sulfate IV 1GM/100ML 1 GM/100 ML BAG IV ONE (07:55)
[2021-09-23] MEDS: Polyethylene Glycol 3350 17 GM PACKET PO SCH ×2 (10:39→21:42)
[2021-09-23] MEDS: Multivitamins/Minerals TAB PO SCH (10:39)
[2021-09-23] MEDS: Iron Sucrose 200 MG in NS 0.9% 100 ml BAG 100 ML IVPB SCH (10:40)
[2021-09-23] MEDS: Triamcinolone 0.5% OINT 1 TUBE TOPICAL SCH ×2 (10:41→21:44)
[2021-09-24 01:28] LABS: HSV 1,PCR Negative (Negative); HSV 2, PCR Negative (Negative); Specimen Source Perineal Rash
[2021-09-24] MEDS: Polyethylene Glycol 3350 17 GM PACKET PO SCH ×2 (07:31→21:47)
[2021-09-24] MEDS: Iron Sucrose 200 MG in NS 0.9% 100 ml BAG 100 ML IVPB SCH (07:31)
[2021-09-24] MEDS: Multivitamins/Minerals TAB PO SCH (07:36)
[2021-09-24] MEDS: Triamcinolone 0.5% OINT 1 TUBE TOPICAL SCH ×2 (07:39→21:52)
[2021-09-24] MEDS ORDERED: Senna TAB 8.6 mg TAB PO PRN (08:13)
[2021-09-24 10:00] LABS: ABS Eosinophils 0.1 10^3/ul (0-0.6); ABS Lymphocytes 0.8 10^3/ul (1.0-4.8); ABS Monocytes 0.5 10^3/ul (0-0.8); ABS Neutrophils 1.4 10^3/ul (1.5-7.7); Eosinophil % 2.2 %; Hematocrit 26 % (35-47); Hemoglobin 8.2 g/dL (12.0-16.0); Lymphocyte % 28.3 %; Mean Corpuscular HGB Conc 31 g/dL (31-36); Mean Corpuscular Hemoglobin 28 pg (27-31); Mean Corpuscular Volume 91 fL (80-97); Mean Platelet Volume 8.5 fL (7.4-10.4); Nucleated Red Blood Cells % 0.3; Platelet Count 119 10^3/uL (150-450); Red Blood Count 2.91 10^6 /uL (3.70-4.87); Red Cell Distribution Width 16 % (10-15); White Blood Count 2.7 10^3/uL (3.5-10.8)
[2021-09-24 10:39] LABS: Calcium 7.6 mg/dL (8.6-10.3); Potassium 3.8 mmol/L (3.5-5.0)
[2021-09-24] MEDS: Magnesium Hydroxide LIQ 30 ML UDC PO PRN (21:48)
[2021-09-25] MEDS: Polyethylene Glycol 3350 17 GM PACKET PO SCH ×2 (07:38→20:12)
[2021-09-25] MEDS: Iron Sucrose 200 MG in NS 0.9% 100 ml BAG 100 ML IVPB SCH (09:05)
[2021-09-25] MEDS: Multivitamins/Minerals TAB PO SCH (09:07)
[2021-09-25 09:11] LABS: ABS Lymphocytes 0.4 10^3/ul (1.0-4.8); ABS Monocytes 0.5 10^3/ul (0-0.8); ABS Neutrophils 4.2 10^3/ul (1.5-7.7); Eosinophil % 0.2 %; Hematocrit 28 % (35-47); Hemoglobin 8.9 g/dL (12.0-16.0); Lymphocyte % 7.4 %; Mean Corpuscular HGB Conc 31 g/dL (31-36); Mean Corpuscular Hemoglobin 29 pg (27-31); Mean Corpuscular Volume 93 fL (80-97); Mean Platelet Volume 8.2 fL (7.4-10.4); Nucleated Red Blood Cells % 0.1; Platelet Count 146 10^3/uL (150-450); Red Blood Count 3.05 10^6 /uL (3.70-4.87); Red Cell Distribution Width 17 % (10-15); White Blood Count 5.1 10^3/uL (3.5-10.8)
[2021-09-25 09:48] LABS: C Reactive Protein 2.36 mg/L (<8.01); Calcium 7.8 mg/dL (8.6-10.3); Magnesium 2.3 mg/dL (1.9-2.7); Potassium 4.2 mmol/L (3.5-5.0)
[2021-09-25] MEDS ORDERED: Methylnaltrexone SQ (NF) 12 MG/0.6 ML VIAL SUBCUT ONE (11:49)
[2021-09-25] MEDS: Magnesium Hydroxide LIQ 30 ML UDC PO PRN (20:12)
[2021-09-25] MEDS: Senna TAB 8.6 mg TAB PO PRN (20:14)
[2021-09-26 08:07] LABS: ABS Lymphocytes 0.5 10^3/ul (1.0-4.8); ABS Monocytes 0.5 10^3/ul (0-0.8); ABS Neutrophils 4.6 10^3/ul (1.5-7.7); Eosinophil % 0.1 %; Hematocrit 30 % (35-47); Hemoglobin 9.2 g/dL (12.0-16.0); Lymphocyte % 9.4 %; Mean Corpuscular HGB Conc 31 g/dL (31-36); Mean Corpuscular Hemoglobin 30 pg (27-31); Mean Corpuscular Volume 95 fL (80-97); Mean Platelet Volume 8.2 fL (7.4-10.4); Platelet Count 146 10^3/uL (150-450); Red Blood Count 3.09 10^6 /uL (3.70-4.87); Red Cell Distribution Width 17 % (10-15); White Blood Count 5.6 10^3/uL (3.5-10.8)
[2021-09-26 08:51] LABS: Albumin 3.2 g/dL (3.2-5.2); Albumin/Globulin Ratio 1.1 (1-3); Calcium 7.8 mg/dL (8.6-10.3); Globulin 2.9 g/dL (2-4); Magnesium 2.4 mg/dL (1.9-2.7); Potassium 4.2 mmol/L (3.5-5.0); Total Bilirubin 0.7 mg/dL (0.2-1.0); Total Protein 6.1 g/dL (6.4-8.9)
[2021-09-26] MEDS: Multivitamins/Minerals TAB PO SCH (09:28)
[2021-09-26] MEDS: Polyethylene Glycol 3350 17 GM PACKET PO SCH ×2 (09:29→20:35)
[2021-09-26] MEDS: Magnesium Hydroxide LIQ 30 ML UDC PO PRN ×2 (09:29→20:35)
[2021-09-26] MEDS: Senna TAB 8.6 mg TAB PO PRN (20:39)
[2021-09-26] MEDS: Mupirocin 2% OINT TUBE TOPICAL SCH (21:04)
[2021-09-27] MEDS: Polyethylene Glycol 3350 17 GM PACKET PO SCH ×2 (08:15→20:09)
[2021-09-27] MEDS: Magnesium Hydroxide LIQ 30 ML UDC PO PRN (08:15)
[2021-09-27] MEDS: Multivitamins/Minerals TAB PO SCH (08:19)
[2021-09-27] MEDS: Mupirocin 2% OINT TUBE TOPICAL SCH ×3 (08:20→20:11)
[2021-09-27] MEDS ORDERED: Magnesium CITRATE LIQ 300 ML BTL PO ONE (14:56)
[2021-09-27] MEDS: Senna TAB 8.6 mg TAB PO SCH (20:11)
[2021-09-28] MEDS: Fluticasone NASAL SPRAY 50MCG 16 gm SPRAY BTL BOTH NARES SCH ×2 (03:25→08:36)
[2021-09-28] MEDS: Polyethylene Glycol 3350 17 GM PACKET PO SCH ×2 (08:26→20:15)
[2021-09-28] MEDS: Multivitamins/Minerals TAB PO SCH (08:34)
[2021-09-28] MEDS: Magnesium Hydroxide LIQ 30 ML UDC PO SCH ×2 (08:36→20:15)
[2021-09-28] MEDS: Mupirocin 2% OINT TUBE TOPICAL SCH ×3 (08:38→21:03)
[2021-09-28] MEDS: oxyCODONE/Acetamin 5/325 mg TAB PO PRN ×2 (10:00→20:17)
[2021-09-28 14:32] LABS: Tissue Transglutaminase IgA Ab <1.2 U/mL
[2021-09-28 14:43] LABS: Rapid COVID-19 Molecular Detected (Undetected)
[2021-09-28] MEDS: Senna TAB 8.6 mg TAB PO SCH (20:17)
[2021-09-28 21:59] LABS: Immunoglobulin A 483 mg/dL (61 - 356)
[2021-09-29] MEDS: oxyCODONE/Acetamin 5/325 mg TAB PO PRN ×2 (09:19→16:23)
[2021-09-29] MEDS: Multivitamins/Minerals TAB PO SCH (09:21)
[2021-09-29] MEDS: Polyethylene Glycol 3350 17 GM PACKET PO SCH ×2 (09:23→21:45)
[2021-09-29] MEDS: Magnesium Hydroxide LIQ 30 ML UDC PO SCH ×2 (09:24→21:45)
[2021-09-29] MEDS: Fluticasone NASAL SPRAY 50MCG 16 gm SPRAY BTL BOTH NARES SCH (09:28)
[2021-09-29] MEDS: Mupirocin 2% OINT TUBE TOPICAL SCH ×2 (09:29→16:24)
[2021-09-29] MEDS: Senna TAB 8.6 mg TAB PO SCH (21:45)
[2021-09-30] MEDS: Mupirocin 2% OINT TUBE TOPICAL SCH ×4 (01:56→20:54)
[2021-09-30] MEDS: oxyCODONE/Acetamin 5/325 mg TAB PO PRN ×3 (05:40→20:50)
[2021-09-30 06:53] LABS: Hematocrit 38 % (35-47); Hemoglobin 11.8 g/dL (12.0-16.0); Mean Corpuscular HGB Conc 32 g/dL (31-36); Mean Corpuscular Hemoglobin 31 pg (27-31); Mean Corpuscular Volume 97 fL (80-97); Mean Platelet Volume 9.2 fL (7.4-10.4); Platelet Count 158 10^3/uL (150-450); Red Blood Count 3.85 10^6 /uL (3.70-4.87); Red Cell Distribution Width 25 % (10-15); White Blood Count 4.8 10^3/uL (3.5-10.8)
[2021-09-30 07:38] LABS: Blood Urea Nitrogen 8 mg/dL (6-24); CO2 Carbon Dioxide 18 mmol/L (22-32); Chloride 106 mmol/L (101-111); Glucose 97 mg/dL (70-100); Sodium 133 mmol/L (135-145)
[2021-09-30 07:46] LABS: ABS Monocytes 0.6 10^3/ul (0-0.8); ABS Neutrophils 3.2 10^3/ul (1.5-7.7); Eosinophil % 0.5 %
[2021-09-30 07:47] LABS: Acanthocytes 1+; Anisocytosis 2+; Microcytosis 1+; Stomatocytes 1+
[2021-09-30 07:57] LABS: Anion Gap 9 mmol/L (2-11)
[2021-09-30] MEDS: Multivitamins/Minerals TAB PO SCH (09:48)
[2021-09-30] MEDS: Polyethylene Glycol 3350 17 GM PACKET PO SCH ×2 (09:52→20:54)
[2021-09-30] MEDS: Magnesium Hydroxide LIQ 30 ML UDC PO SCH ×2 (09:54→20:53)
[2021-09-30] MEDS: Fluticasone NASAL SPRAY 50MCG 16 gm SPRAY BTL BOTH NARES SCH (10:11)
[2021-09-30] MEDS: Senna TAB 8.6 mg TAB PO SCH (20:51)
[2021-10-01] MEDS: Multivitamins/Minerals TAB PO SCH (09:09)
[2021-10-01] MEDS: Fluticasone NASAL SPRAY 50MCG 16 gm SPRAY BTL BOTH NARES SCH (09:12)
[2021-10-01] MEDS: Magnesium Hydroxide LIQ 30 ML UDC PO SCH (09:12)
[2021-10-01] MEDS: Polyethylene Glycol 3350 17 GM PACKET PO SCH (09:12)
[2021-10-01] MEDS: Mupirocin 2% OINT TUBE TOPICAL SCH ×2 (09:13→16:15)
[2021-10-01] MEDS ORDERED: Dextran 70/Hypromellose Tears Eye Drops 15 ml BTL (for Artificials Tears) BOTH EYES PRN (11:06)
[2021-10-01 12:26] VITALS: BP 93/55
== END 2021-10-01 17:30 | disposition home or self-care (01) | DRG 775 ==
LOC: ED 14:45 → SUATTDRO 17:25 → EDHOLD 17:25 → MEDTELE 20:21
PROVIDERS: ADMIT Internal Medicine; ATTEND Hospitalist

== ENCOUNTER 2021-10-29 23:16 | Inpatient (IN) ==
[2021-10-30] MEDS ORDERED: Lorazepam PYXIS KEY PRN (00:24)
[2021-10-30] MEDS ORDERED: LORazepam 2 mg VIAL 1 ml IV PUSH ONE (00:24)
[2021-10-30 00:33] LABS: ABS Lymphocytes 0.6 10^3/ul (1.0-4.8); ABS Monocytes 0.3 10^3/ul (0-0.8); Hematocrit 43 % (35-47); Hemoglobin 14.4 g/dL (12.0-16.0); Lymphocyte % 19.2 %; Mean Corpuscular HGB Conc 33 g/dL (31-36); Mean Corpuscular Hemoglobin 30 pg (27-31); Mean Corpuscular Volume 89 fL (80-97); Nucleated Red Blood Cells % 0.1; Red Blood Count 4.88 10^6 /uL (3.70-4.87); Red Cell Distribution Width 23 % (10-15); White Blood Count 2.9 10^3/uL (3.5-10.8)
[2021-10-30 00:41] LABS: Albumin/Globulin Ratio 1.1 (1-3); Calcium 8.3 mg/dL (8.6-10.3); Globulin 3.6 g/dL (2-4); Total Bilirubin 0.8 mg/dL (0.2-1.0); Total Protein 7.6 g/dL (6.4-8.9); eGFR CKD-EPI 121.5 (>60)
[2021-10-30 00:52] LABS: Potassium 2.7 mmol/L (3.5-5.0)
[2021-10-30 00:55] LABS: TSH Ultra Thyroid Stim Horm 2.51 mcIU/mL (0.34-5.60)
[2021-10-30] MEDS ORDERED: Magnesium Sulfate 2 gm BAG 2 GM/50 ML BAG IVPB ONE (01:00)
[2021-10-30] MEDS ORDERED: Potassium EFFERVES 25 meq TAB PO ONE (01:00)
[2021-10-30 01:07] LABS: Urine Appearance Cloudy; Urine Bilirubin Negative (Negative); Urine Blood 2+ (Negative); Urine Color Yellow; Urine Glucose Negative (Negative); Urine Ketones Negative (Negative); Urine Nitrite Negative (Negative); Urine Protein Negative (Negative); Urine Specific Gravity 1.003 (1.002-1.030); Urine Urobilinogen Negative (Negative)
[2021-10-30 01:18] LABS: Urine Benzodiazepine Screen None Detected (None Detect); Urine Cannabinoids Screen None Detected (None Detect); Urine Opiates Screen None Detected (None Detect)
[2021-10-30 01:24] LABS: Urine Bacteria 1+ (Absent); Urine Red Blood Cell Trace(0-2/hpf) (Absent); Urine Squamous Epithelial Cell Present (Absent); Urine White Blood Cell 1+(6-10/hpf) (Absent)
[2021-10-30 02:34] LABS: Mean Platelet Volume 9.1 fL (7.4-10.4)
[2021-10-30] MEDS ORDERED: cefTRIAXone 1 gm/50 mL D5W 1 GM/50 ML BAG IV ONE (03:28)
[2021-10-30 03:53] LABS: High Sensitivity Troponin 1 Hr 6 pg/mL (<15)
[2021-10-30] MEDS ORDERED: NS 0.9% 1000 ml BAG 1,000 ML IV SCH (04:45)
[2021-10-30 05:35] LABS: ABS Lymphocytes 0.7 10^3/ul (1.0-4.8); ABS Monocytes 0.4 10^3/ul (0-0.8); ABS Neutrophils 1.4 10^3/ul (1.5-7.7); Eosinophil % 0.2 %; Hematocrit 39 % (35-47); Hemoglobin 12.8 g/dL (12.0-16.0); Lymphocyte % 28.6 %; Mean Corpuscular HGB Conc 33 g/dL (31-36); Mean Corpuscular Hemoglobin 29 pg (27-31); Mean Corpuscular Volume 90 fL (80-97); Red Blood Count 4.37 10^6 /uL (3.70-4.87); Red Cell Distribution Width 23 % (10-15); White Blood Count 2.5 10^3/uL (3.5-10.8)
[2021-10-30 06:00] LABS: Mean Platelet Volume 9.1 fL (7.4-10.4); Platelet Count 14 10^3/uL (150-450)
[2021-10-30] MEDS ORDERED: Heparin 5000 UNITS/ML 1 mL VIAL SUBCUT SCH (06:00)
[2021-10-30 06:06] LABS: Magnesium 2.5 mg/dL (1.9-2.7); Potassium 3.1 mmol/L (3.5-5.0)
[2021-10-30] MEDS: LORazepam 2 mg VIAL 1 ml IV PUSH SCH ×7 (08:18→22:57)
[2021-10-30] MEDS: Multivitamins/Minerals TAB PO SCH (08:20)
[2021-10-30] MEDS: Ondansetron 4 mg VIAL 2 MG/ML 2 ml VIAL IV PRN ×2 (08:29→13:09)
[2021-10-30] MEDS: KCL 20 MEQ/100 ML IVPREMIX 20 MEQ/100 ML BAG IV SCH ×2 (15:45→22:56)
[2021-10-30] MEDS: Senna TAB 8.6 mg TAB PO SCH (20:15)
[2021-10-30] MEDS ORDERED: KCL 20 MEQ/100 ML IVPREMIX 20 MEQ/100 ML BAG ONE (22:52)
[2021-10-30] MEDS: Clotrimazole 1% CREAM 30 gm TOPICAL SCH (23:03)
[2021-10-31] MEDS: LORazepam 2 mg VIAL 1 ml IV PUSH SCH ×4 (00:48→20:58)
[2021-10-31 06:47] LABS: Hematocrit 33 % (35-47); Hemoglobin 11.1 g/dL (12.0-16.0); Mean Corpuscular HGB Conc 34 g/dL (31-36); Mean Corpuscular Hemoglobin 30 pg (27-31); Mean Corpuscular Volume 90 fL (80-97); Mean Platelet Volume 10.1 fL (7.4-10.4); Platelet Count 13 10^3/uL (150-450); Red Blood Count 3.67 10^6 /uL (3.70-4.87); Red Cell Distribution Width 23 % (10-15); White Blood Count 1.6 10^3/uL (3.5-10.8)
[2021-10-31 07:04] LABS: Calcium 7.7 mg/dL (8.6-10.3); Potassium 2.8 mmol/L (3.5-5.0)
[2021-10-31 07:13] LABS: ABS Lymphocytes 0.7 10^3/ul (1.0-4.8); ABS Monocytes 0.3 10^3/ul (0-0.8); ABS Neutrophils 0.6 10^3/ul (1.5-7.7); Eosinophil % 0.7 %; Lymphocyte % 40.5 %; Nucleated Red Blood Cells % 0.1
[2021-10-31] MEDS: Clotrimazole 1% CREAM 30 gm TOPICAL SCH ×3 (08:04→20:58)
[2021-10-31] MEDS: Ondansetron 4 mg VIAL 2 MG/ML 2 ml VIAL IV PRN (08:04)
[2021-10-31] MEDS: Multivitamins/Minerals TAB PO SCH (08:07)
[2021-10-31] MEDS: Nystatin TOP POWDER 15 GM BTL TOPICAL SCH ×2 (13:46→20:57)
[2021-10-31] MEDS: Potassium Chlor 20 meq TAB.ER PO SCH ×2 (17:04→20:55)
[2021-10-31] MEDS: Senna TAB 8.6 mg TAB PO SCH (20:54)
[2021-11-01] MEDS: LORazepam 2 mg VIAL 1 ml IV PUSH SCH ×2 (02:30→05:28)
[2021-11-01] MEDS: Ondansetron 4 mg VIAL 2 MG/ML 2 ml VIAL IV PRN ×2 (05:33→08:41)
[2021-11-01 07:04] LABS: Hematocrit 31 % (35-47); Hemoglobin 10.3 g/dL (12.0-16.0); Mean Corpuscular HGB Conc 33 g/dL (31-36); Mean Corpuscular Hemoglobin 31 pg (27-31); Mean Corpuscular Volume 92 fL (80-97); Mean Platelet Volume 9.9 fL (7.4-10.4); Platelet Count 17 10^3/uL (150-450); Red Blood Count 3.35 10^6 /uL (3.70-4.87); Red Cell Distribution Width 23 % (10-15); White Blood Count 1.5 10^3/uL (3.5-10.8)
[2021-11-01 07:24] LABS: Albumin 2.9 g/dL (3.2-5.2); Albumin/Globulin Ratio 1.1 (1-3); Globulin 2.6 g/dL (2-4); Magnesium 1.7 mg/dL (1.9-2.7); Potassium 3.5 mmol/L (3.5-5.0); Total Protein 5.5 g/dL (6.4-8.9); eGFR CKD-EPI 122.1 (>60)
[2021-11-01] MEDS ORDERED: Potassium Chlor 20 meq TAB.ER PO ONE (07:43)
[2021-11-01 07:53] LABS: ABS Lymphocytes 0.5 10^3/ul (1.0-4.8); ABS Monocytes 0.3 10^3/ul (0-0.8); ABS Neutrophils 0.6 10^3/ul (1.5-7.7); Eosinophil % 1.7 %; Nucleated Red Blood Cells % 0.1
[2021-11-01] MEDS: Clotrimazole 1% CREAM 30 gm TOPICAL SCH ×3 (08:44→20:55)
[2021-11-01] MEDS: Multivitamins/Minerals TAB PO SCH (08:46)
[2021-11-01] MEDS: Nystatin TOP POWDER 15 GM BTL TOPICAL SCH ×3 (08:47→20:56)
[2021-11-01] MEDS ORDERED: Magnesium Sulfate 2 gm BAG 2 GM/50 ML BAG IV ONE (09:00)
[2021-11-01 09:54] LABS: Calcium 7.7 mg/dL (8.6-10.3)
[2021-11-01] MEDS ORDERED: Magnesium Sulfate 1 GM IV 1 GM/100 ML BAG IV ONE (10:00)
[2021-11-01] MEDS: Senna TAB 8.6 mg TAB PO SCH (20:48)
[2021-11-02] MEDS ORDERED: Lorazepam PYXIS KEY PRN (01:24)
[2021-11-02] MEDS ORDERED: LORazepam 2 mg VIAL 1 ml IM ONE (01:24)
[2021-11-02] MEDS ORDERED: LORazepam 2 mg VIAL 1 ml ONE (01:27)
[2021-11-02] MEDS: Multivitamins/Minerals TAB PO SCH (08:55)
[2021-11-02] MEDS: Clotrimazole 1% CREAM 30 gm TOPICAL SCH ×2 (09:05→13:41)
[2021-11-02] MEDS: Nystatin TOP POWDER 15 GM BTL TOPICAL SCH ×2 (09:06→13:42)
[2021-11-02 12:07] VITALS: BP 157/91
[2021-11-02] MEDS ORDERED: Nystatin SUSPENSION 100,000 UNITS/ML UDC PO SCH (13:00)
== END 2021-11-02 14:10 | disposition home or self-care (01) | DRG 775 ==
LOC: ED 23:16 → EDHOLD 23:16 → SUATTDRO 10-30 04:38 → EDHOLD 10-30 07:59 → MED 10-30 09:55 → SUATTDRO 10-31 20:15
PROVIDERS: ADMIT Internal Medicine; ATTEND Student in an Organized Health Care Education/Training Program

== ENCOUNTER 2021-11-10 08:50 | Inpatient (IN) ==
[2021-11-10] MEDS ORDERED: Thiamine 100 MG/ML 2 ml VIAL (200 mg) IM ONE (09:08)
[2021-11-10 09:49] LABS: Hematocrit 39 % (35-47); Hemoglobin 12.8 g/dL (12.0-16.0); Mean Corpuscular HGB Conc 33 g/dL (31-36); Mean Corpuscular Hemoglobin 30 pg (27-31); Mean Corpuscular Volume 91 fL (80-97); Red Blood Count 4.25 10^6 /uL (3.70-4.87); Red Cell Distribution Width 23 % (10-15); White Blood Count 4.4 10^3/uL (3.5-10.8)
[2021-11-10] MEDS ORDERED: LORazepam 2 mg VIAL 1 ml IV PUSH SCH ×2 (10:00→12:03)
[2021-11-10 10:01] LABS: ALT 36 U/L (7-52); AST 67 U/L (13-39); Albumin 3.5 g/dL (3.2-5.2); Albumin/Globulin Ratio 1.1 (1-3); Alcohol, S < 13 mg/dL (<13); Alkaline Phosphatase 147 U/L (35-149); Anion Gap 11 mmol/L (2-11); Blood Urea Nitrogen 4 mg/dL (6-24); CO2 Carbon Dioxide 23 mmol/L (22-32); Calcium 7.9 mg/dL (8.6-10.3); Chloride 99 mmol/L (101-111); Globulin 3.2 g/dL (2-4); Glucose 121 mg/dL (70-100); Potassium 3.9 mmol/L (3.5-5.0); Sodium 133 mmol/L (135-145); Total Protein 6.7 g/dL (6.4-8.9); eGFR CKD-EPI 122.1 (>60)
[2021-11-10 10:41] LABS: ABS Lymphocytes 0.3 10^3/ul (1.0-4.8); ABS Monocytes 0.5 10^3/ul (0-0.8); ABS Neutrophils 3.5 10^3/ul (1.5-7.7); Lymphocyte % 7.8 %; Mean Platelet Volume 8.6 fL (7.4-10.4); Platelet Count 89 10^3/uL (150-450)
[2021-11-10 11:01] LABS: Magnesium 1.7 mg/dL (1.9-2.7)
[2021-11-10] MEDS ORDERED: Magnesium Sulfate IV 3 GM in NS 0.9% 100 ml BAG 100 ML IVPB ONE (11:53)
[2021-11-10] MEDS ORDERED: Metoclopramide 5 MG/ML VIAL (10 mg) IV ONE (11:56)
[2021-11-10] MEDS ORDERED: Enoxaparin 40 MG/0.4 ML SYR SUBCUT SCH (12:00)
[2021-11-10] MEDS ORDERED: Magnesium Sulfate 2 GM IV (Premix) IVPB ONE (12:30)
[2021-11-10 12:40] LABS: INR 1.3 (0.86-1.15)
[2021-11-10] MEDS ORDERED: [UNRECOGNIZED DRUG - OTHER] PO SCH (13:00)
[2021-11-10] MEDS ORDERED: NYSTATIN PO SCH (13:00)
[2021-11-10] MEDS ORDERED: Magnesium Sulfate 1 GM IV 1 GM/100 ML BAG IV ONE (13:30)
[2021-11-10 13:51] LABS: Phosphorus 2.4 mg/dL (2.5-5.0)
[2021-11-10] MEDS ORDERED: Clotrimazole 1% CREAM 45 GM TOPICAL SCH (14:00)
[2021-11-10] MEDS: Enoxaparin 40 MG/0.4 ML SYR SUBCUT SCH (18:01)
[2021-11-10] MEDS: Nystatin SUSPENSION 100,000 UNITS/ML UDC PO SCH ×2 (18:01→20:41)
[2021-11-10] MEDS: Senna TAB 8.6 mg TAB PO SCH (20:40)
[2021-11-10] MEDS ORDERED: Lorazepam PYXIS KEY ONE (20:56)
[2021-11-10] MEDS ORDERED: Calcium Gluconate 2 GM in NS 0.9% 100 ml BAG 100 ML IV ONE (22:00)
[2021-11-10] MEDS: Clotrimazole 1% CREAM 30 gm TOPICAL SCH (22:40)
[2021-11-11 06:00] LABS: Hematocrit 33 % (35-47); Hemoglobin 10.8 g/dL (12.0-16.0); Mean Corpuscular HGB Conc 33 g/dL (31-36); Mean Corpuscular Hemoglobin 31 pg (27-31); Mean Corpuscular Volume 94 fL (80-97); Red Blood Count 3.52 10^6 /uL (3.70-4.87); Red Cell Distribution Width 23 % (10-15); White Blood Count 2.1 10^3/uL (3.5-10.8)
[2021-11-11 06:06] LABS: ALT 27 U/L (7-52); Albumin/Globulin Ratio 1.1 (1-3); Alkaline Phosphatase 121 U/L (35-149); Blood Urea Nitrogen 4 mg/dL (6-24); CO2 Carbon Dioxide 25 mmol/L (22-32); Chloride 105 mmol/L (101-111); Globulin 2.8 g/dL (2-4); Glucose 72 mg/dL (70-100); Magnesium 1.9 mg/dL (1.9-2.7); Sodium 137 mmol/L (135-145); Total Protein 5.8 g/dL (6.4-8.9); eGFR CKD-EPI 127.7 (>60)
[2021-11-11 06:36] LABS: Anion Gap 7 mmol/L (2-11)
[2021-11-11 06:41] LABS: ABS Neutrophils 0.9 10^3/ul (1.5-7.7)
[2021-11-11 07:29] LABS: ABS Lymphocytes 0.8 10^3/ul (1.0-4.8); ABS Monocytes 0.3 10^3/ul (0-0.8); Eosinophil % 1.2 %; Lymphocyte % 36.9 %; Mean Platelet Volume 9.7 fL (7.4-10.4); Nucleated Red Blood Cells % 0.1; Platelet Count 55 10^3/uL (150-450)
[2021-11-11] MEDS: NS 0.9% 1000 ml BAG 1,000 ML IV SCH ×2 (08:00→20:13)
[2021-11-11] MEDS: Nystatin SUSPENSION 100,000 UNITS/ML UDC PO SCH ×4 (08:31→20:20)
[2021-11-11] MEDS: Multivitamins/Minerals TAB PO SCH (08:32)
[2021-11-11] MEDS: Clotrimazole 1% CREAM 30 gm TOPICAL SCH ×2 (08:34→14:13)
[2021-11-11] MEDS ORDERED: Multivitamins/Minerals TAB PO SCH (09:00)
[2021-11-11 09:51] LABS: Direct Bilirubin Redraw 0.3 mg/dL (0.03-0.18); Potassium Redraw 3.4 mmol/L (3.5-5.0)
[2021-11-11] MEDS: Enoxaparin 40 MG/0.4 ML SYR SUBCUT SCH (16:27)
[2021-11-11] MEDS ORDERED: BEBTELOVIMAB 175 MG/2 ML VIAL IV ONE (16:53)
[2021-11-11] MEDS ORDERED: Cefepime 2 GM in Dextrose 2 GM/50 ML BAG IV SCH (17:00)
[2021-11-11] MEDS: Senna TAB 8.6 mg TAB PO SCH (20:27)
[2021-11-11] MEDS: Triamcinolone 0.5% OINT 1 TUBE TOPICAL SCH (20:27)
[2021-11-12] MEDS ORDERED: Cefepime 2 GM in Dextrose 2 GM/50 ML BAG IV SCH (06:00)
[2021-11-12 07:38] LABS: ABS Lymphocytes 0.6 10^3/ul (1.0-4.8); ABS Monocytes 0.2 10^3/ul (0-0.8); ABS Neutrophils 1.1 10^3/ul (1.5-7.7); Hematocrit 34 % (35-47); Hemoglobin 10.8 g/dL (12.0-16.0); Mean Corpuscular HGB Conc 32 g/dL (31-36); Mean Corpuscular Hemoglobin 31 pg (27-31); Mean Corpuscular Volume 96 fL (80-97); Mean Platelet Volume 10.9 fL (7.4-10.4); Platelet Count 46 10^3/uL (150-450); Red Blood Count 3.52 10^6 /uL (3.70-4.87); Red Cell Distribution Width 23 % (10-15)
[2021-11-12 08:00] LABS: Albumin/Globulin Ratio 1.2 (1-3); C Reactive Protein 3.62 mg/L (<8.01); Calcium 7.8 mg/dL (8.6-10.3); Globulin 2.6 g/dL (2-4); Magnesium 1.6 mg/dL (1.9-2.7); Potassium 4.2 mmol/L (3.5-5.0); Total Bilirubin 0.6 mg/dL (0.2-1.0); Total Protein 5.6 g/dL (6.4-8.9); eGFR CKD-EPI 123.8 (>60)
[2021-11-12] MEDS: Nystatin SUSPENSION 100,000 UNITS/ML UDC PO SCH ×4 (08:23→19:30)
[2021-11-12] MEDS: Multivitamins/Minerals TAB PO SCH (08:23)
[2021-11-12] MEDS: Triamcinolone 0.5% OINT 1 TUBE TOPICAL SCH ×3 (08:30→19:31)
[2021-11-12] MEDS ORDERED: Magnesium Sulfate 2 gm BAG 2 GM/50 ML BAG IVPB ONE (08:32)
[2021-11-12] MEDS ORDERED: Morphine 2 MG/ML SYRINGE IV ONE (14:46)
[2021-11-12] MEDS ORDERED: Acetaminophen IV 1 GM/100ML 100 ML IV PRN (15:51)
[2021-11-12] MEDS: Enoxaparin 40 MG/0.4 ML SYR SUBCUT SCH (16:27)
[2021-11-12] MEDS: Senna TAB 8.6 mg TAB PO SCH (19:30)
[2021-11-13] MEDS: Multivitamins/Minerals TAB PO SCH (08:52)
[2021-11-13] MEDS: Nystatin SUSPENSION 100,000 UNITS/ML UDC PO SCH ×4 (08:54→21:23)
[2021-11-13] MEDS: Triamcinolone 0.5% OINT 1 TUBE TOPICAL SCH (08:57)
[2021-11-13 11:06] LABS: ABS Lymphocytes 0.5 10^3/ul (1.0-4.8); ABS Monocytes 0.3 10^3/ul (0-0.8); ABS Neutrophils 2.4 10^3/ul (1.5-7.7); Eosinophil % 0.5 %; Hematocrit 33 % (35-47); Hemoglobin 10.5 g/dL (12.0-16.0); Lymphocyte % 15.9 %; Mean Corpuscular HGB Conc 32 g/dL (31-36); Mean Corpuscular Hemoglobin 30 pg (27-31); Mean Corpuscular Volume 95 fL (80-97); Mean Platelet Volume 9.7 fL (7.4-10.4); Nucleated Red Blood Cells % 0.1; Platelet Count 44 10^3/uL (150-450); Red Blood Count 3.46 10^6 /uL (3.70-4.87); Red Cell Distribution Width 23 % (10-15); White Blood Count 3.3 10^3/uL (3.5-10.8)
[2021-11-13 11:31] LABS: ALT 25 U/L (7-52); AST 43 U/L (13-39); Albumin 3.2 g/dL (3.2-5.2); Albumin/Globulin Ratio 1.1 (1-3); Alkaline Phosphatase 125 U/L (35-149); Anion Gap 6 mmol/L (2-11); Blood Urea Nitrogen 6 mg/dL (6-24); CO2 Carbon Dioxide 27 mmol/L (22-32); Calcium 8.3 mg/dL (8.6-10.3); Chloride 106 mmol/L (101-111); Globulin 2.8 g/dL (2-4); Glucose 89 mg/dL (70-100); Sodium 139 mmol/L (135-145); eGFR CKD-EPI 127.7 (>60)
[2021-11-13] MEDS: Enoxaparin 40 MG/0.4 ML SYR SUBCUT SCH (17:15)
[2021-11-13] MEDS ORDERED: Iodixanol (CONTRAST) 320 MG/ML 100 ML SDV IV ONE (18:30)
[2021-11-13 18:39] LABS: HCG Pregnancy < 0.60 mIU/mL
[2021-11-13] MEDS: Senna TAB 8.6 mg TAB PO SCH (21:06)
[2021-11-14] MEDS: Nystatin SUSPENSION 100,000 UNITS/ML UDC PO SCH ×4 (08:14→20:47)
[2021-11-14] MEDS: Multivitamins/Minerals TAB PO SCH (08:15)
[2021-11-14] MEDS: Enoxaparin 40 MG/0.4 ML SYR SUBCUT SCH (17:26)
[2021-11-14] MEDS: Senna TAB 8.6 mg TAB PO SCH (20:45)
[2021-11-15] MEDS: Multivitamins/Minerals TAB PO SCH (08:13)
[2021-11-15] MEDS: Nystatin SUSPENSION 100,000 UNITS/ML UDC PO SCH ×4 (08:15→20:53)
[2021-11-15] MEDS: Enoxaparin 40 MG/0.4 ML SYR SUBCUT SCH (17:53)
[2021-11-15] MEDS: Senna TAB 8.6 mg TAB PO SCH (20:23)
[2021-11-16] MEDS: Multivitamins/Minerals TAB PO SCH (08:58)
[2021-11-16] MEDS: Nystatin SUSPENSION 100,000 UNITS/ML UDC PO SCH ×2 (08:59→15:04)
[2021-11-16 09:02] LABS: ABS Lymphocytes 0.9 10^3/ul (1.0-4.8); ABS Monocytes 0.6 10^3/ul (0-0.8); ABS Neutrophils 5.7 10^3/ul (1.5-7.7); Eosinophil % 0.2 %; Hematocrit 37 % (35-47); Hemoglobin 12.2 g/dL (12.0-16.0); Lymphocyte % 12.1 %; Mean Corpuscular HGB Conc 33 g/dL (31-36); Mean Corpuscular Hemoglobin 32 pg (27-31); Mean Corpuscular Volume 96 fL (80-97); Mean Platelet Volume 9.6 fL (7.4-10.4); Platelet Count 102 10^3/uL (150-450); Red Blood Count 3.85 10^6 /uL (3.70-4.87); Red Cell Distribution Width 24 % (10-15); White Blood Count 7.2 10^3/uL (3.5-10.8)
[2021-11-16 11:03] VITALS: BP 133/85
[2021-11-16 16:45] LABS: HLA B27 Negative
[2021-11-18 16:03] LABS: Tissue Transglutaminase IgA Ab 1.4 U/mL
[2021-11-18 23:19] LABS: Immunoglobulin A 484 mg/dL (61 - 356)
== END 2021-11-16 16:45 | disposition home or self-care (01) | DRG 775 ==
LOC: ED 08:50 → EDHOLD 11:35 → SUATTDRO 11:35 → MED 14:57
PROVIDERS: ADMIT Internal Medicine; ATTEND Internal Medicine

== ENCOUNTER 2021-11-25 11:58 | Observation (INO) ==
[2021-11-25] MEDS ORDERED: Thiamine 100 MG/ML 2 ml VIAL 100 MG, Folic Acid IV 1 MG, Multiple Vitamin IV ADULT 10 M... IV ONE (12:26)
[2021-11-25] MEDS ORDERED: Lorazepam PYXIS KEY PRN (15:27)
[2021-11-25] MEDS ORDERED: LORazepam 2 mg VIAL 1 ml IV PUSH ONE (15:27)
[2021-11-25 15:39] LABS: Hematocrit 37 % (35-47); Hemoglobin 11.9 g/dL (12.0-16.0); Mean Corpuscular HGB Conc 32 g/dL (31-36); Mean Corpuscular Hemoglobin 31 pg (27-31); Mean Corpuscular Volume 97 fL (80-97); Red Cell Distribution Width 21 % (10-15); White Blood Count 7.6 10^3/uL (3.5-10.8)
[2021-11-25 16:25] LABS: Albumin 2.5 g/dL (3.2-5.2); CO2 Carbon Dioxide 16 mmol/L (22-32); Sodium 139 mmol/L (135-145)
[2021-11-25 16:29] LABS: Anion Gap 8 mmol/L (2-11); Calcium 5.7 mg/dL (8.6-10.3); Chloride 115 mmol/L (101-111)
[2021-11-25 16:31] LABS: ALT 27 U/L (7-52); Albumin/Globulin Ratio 1.3 (1-3); Alcohol, S < 13 mg/dL (<13); Alkaline Phosphatase 48 U/L (35-149); Blood Urea Nitrogen 4 mg/dL (6-24); Globulin 1.9 g/dL (2-4); Glucose 54 mg/dL (70-100); Lipase 15 U/L (11.0-82.0); Total Protein 4.4 g/dL (6.4-8.9)
[2021-11-25 16:51] LABS: ABS Basophils 0.1 10^3/ul (0-0.2); ABS Lymphocytes 0.7 10^3/ul (1.0-4.8); ABS Monocytes 0.3 10^3/ul (0-0.8); ABS Neutrophils 6.5 10^3/ul (1.5-7.7); Eosinophil % 0.2 %; Lymphocyte % 9.2 %; Mean Platelet Volume 9.8 fL (7.4-10.4); Platelet Count 80 10^3/uL (150-450)
[2021-11-25 17:34] LABS: HCG Pregnancy < 0.60 mIU/mL
[2021-11-25 17:43] LABS: TSH Ultra Thyroid Stim Horm 0.91 mcIU/mL (0.34-5.60)
[2021-11-25 19:05] LABS: Calcium 7.9 mg/dL (8.6-10.3); Magnesium 1.6 mg/dL (1.9-2.7); Potassium 3.6 mmol/L (3.5-5.0); eGFR CKD-EPI 122.1 (>60)
[2021-11-25] MEDS ORDERED: Magnesium Sulfate 2 gm BAG 2 GM/50 ML BAG IVPB ONE (19:22)
[2021-11-26 06:45] LABS: Calcium 7.8 mg/dL (8.6-10.3); Potassium 3.4 mmol/L (3.5-5.0)
[2021-11-26 07:03] LABS: Hematocrit 34 % (35-47); Mean Corpuscular HGB Conc 33 g/dL (31-36); Mean Corpuscular Hemoglobin 32 pg (27-31); Mean Corpuscular Volume 98 fL (80-97); Mean Platelet Volume 9.9 fL (7.4-10.4); Platelet Count 58 10^3/uL (150-450); Red Blood Count 3.43 10^6 /uL (3.70-4.87); Red Cell Distribution Width 20 % (10-15); White Blood Count 2.4 10^3/uL (3.5-10.8)
[2021-11-26 08:28] LABS: ABS Eosinophils 0.1 10^3/ul (0-0.6); ABS Lymphocytes 0.7 10^3/ul (1.0-4.8); ABS Monocytes 0.3 10^3/ul (0-0.8); ABS Neutrophils 1.3 10^3/ul (1.5-7.7); Eosinophil % 3.8 %; Lymphocyte % 27.5 %; Nucleated Red Blood Cells % 0.1
[2021-11-26 08:32] LABS: Magnesium 1.8 mg/dL (1.9-2.7)
[2021-11-26] MEDS: Potassium Chloride LIQUID 20 MEQ/15 ML LIQUID PO ONE ×2 (08:53→09:00)
[2021-11-26] MEDS: Multivitamins/Minerals TAB PO SCH (08:54)
[2021-11-26] MEDS ORDERED: Potassium Chlor 20 meq TAB.ER PO ONE ×2 (09:15)
[2021-11-26] MEDS: Lidocaine PATCH 5% PATCH TRANSDERM SCH (11:14)
[2021-11-27 06:32] LABS: ABS Eosinophils 0.1 10^3/ul (0-0.6); ABS Lymphocytes 0.9 10^3/ul (1.0-4.8); ABS Monocytes 0.3 10^3/ul (0-0.8); ABS Neutrophils 1.2 10^3/ul (1.5-7.7); Eosinophil % 4.5 %; Hematocrit 34 % (35-47); Hemoglobin 11.1 g/dL (12.0-16.0); Lymphocyte % 35.8 %; Mean Corpuscular HGB Conc 33 g/dL (31-36); Mean Corpuscular Hemoglobin 32 pg (27-31); Mean Corpuscular Volume 99 fL (80-97); Mean Platelet Volume 9.6 fL (7.4-10.4); Nucleated Red Blood Cells % 0.1; Platelet Count 62 10^3/uL (150-450); Red Blood Count 3.47 10^6 /uL (3.70-4.87); Red Cell Distribution Width 20 % (10-15); White Blood Count 2.5 10^3/uL (3.5-10.8)
[2021-11-27 07:12] LABS: Albumin 3.2 g/dL (3.2-5.2); Albumin/Globulin Ratio 1.2 (1-3); Globulin 2.6 g/dL (2-4); Potassium 3.8 mmol/L (3.5-5.0); Total Bilirubin 0.5 mg/dL (0.2-1.0); Total Protein 5.8 g/dL (6.4-8.9); eGFR CKD-EPI 123.2 (>60)
[2021-11-27] MEDS: Multivitamins/Minerals TAB PO SCH (08:41)
[2021-11-27] MEDS: Lidocaine PATCH 5% PATCH TRANSDERM SCH (09:28)
[2021-11-27 11:25] VITALS: BP 118/85
[2021-11-27] MEDS ORDERED: Tacrolimus 0.1% OINT (NF) 1 TUBE TOPICAL SCH (12:00)
== END 2021-11-27 12:45 | disposition home or self-care (01) ==
LOC: EDHOLD 11:58 → ED 11:58 → SUATTDRO 17:36 → EDHOLD 21:43 → MED 22:04
PROVIDERS: ADMIT Hospitalist; ATTEND Student in an Organized Health Care Education/Training Program

== ENCOUNTER 2022-06-17 21:58 | Inpatient (IN) ==
[2022-06-17] MEDS ORDERED: LORazepam 2 mg VIAL 1 ml IV PUSH ONE (22:16)
[2022-06-17] MEDS ORDERED: Lorazepam PYXIS KEY PRN (22:16)
[2022-06-17] MEDS ORDERED: Thiamine 100 MG/ML 2 ml VIAL 100 MG, Folic Acid IV 1 MG, Multiple Vitamin IV ADULT 10 M... IV ONE (22:16)
[2022-06-17] MEDS ORDERED: levETIRAcetam 1000MG IVPREMIX 1,000 MG/100 ML BAG IVPB ONE (22:17)
[2022-06-17] MEDS ORDERED: Multivitamins/Minerals TAB PO SCH (23:00)
[2022-06-17] MEDS ORDERED: Thiamine 100 MG/ML 2 ml VIAL (200 mg) IM ONE (23:00)
[2022-06-17] MEDS ORDERED: LORazepam 2 mg VIAL 1 ml IV PUSH SCH (23:00)
[2022-06-17 23:12] LABS: INR 1.23 (0.88-1.18)
[2022-06-17 23:13] LABS: Hematocrit 42 % (35-47); Mean Corpuscular HGB Conc 33 g/dL (31-36); Mean Corpuscular Hemoglobin 31 pg (27-31); Mean Corpuscular Volume 95 fL (80-97); Red Blood Count 4.44 10^6 /uL (3.70-4.87); Red Cell Distribution Width 14 % (10-15)
[2022-06-17 23:34] LABS: ALT 108 U/L (7-52); Acetaminophen < 15 mcg/mL; Albumin 3.8 g/dL (3.2-5.2); Albumin/Globulin Ratio 1.2 (1-3); Alcohol, S 297 mg/dL (<13); Alkaline Phosphatase 94 U/L (35-149); Blood Urea Nitrogen 10 mg/dL (6-24); C Reactive Protein 5.77 mg/L (<8.01); CO2 Carbon Dioxide 19 mmol/L (22-32); Calcium 7.8 mg/dL (8.6-10.3); Chloride 92 mmol/L (101-111); Globulin 3.1 g/dL (2-4); Glucose 88 mg/dL (70-100); Magnesium 1.9 mg/dL (1.9-2.7); Salicylate < 2.50 mg/dL (<30); Sodium 129 mmol/L (135-145); Total Protein 6.9 g/dL (6.4-8.9); eGFR CKD-EPI 130.6 (>60)
[2022-06-17] MEDS ORDERED: LORazepam 2 mg VIAL 1 ml ONE (23:34)
[2022-06-17] MEDS ORDERED: Lactated Ringers 1000 ml BAG 1,000 ML IV ONE ×2 (23:39)
[2022-06-17 23:40] LABS: HCG Pregnancy < 0.60 mIU/mL
[2022-06-17 23:43] LABS: Anion Gap 18 mmol/L (2-11)
[2022-06-18 00:12] LABS: Mean Platelet Volume 8.9 fL (7.4-10.4); Platelet Count 44 10^3/uL (150-450)
[2022-06-18 00:16] LABS: RBC Morphology Normal (Normal)
[2022-06-18 00:17] LABS: Nucleated Red Blood Cells % 0.2
[2022-06-18 00:45] LABS: ABS Lymphocytes 0.9 10^3/ul (1.0-4.8); ABS Monocytes 0.5 10^3/ul (0-0.8); ABS Neutrophils 5.1 10^3/ul (1.5-7.7); White Blood Count 6.5 10^3/uL (3.5-10.8)
[2022-06-18 00:47] LABS: Creatine Kinase 2876 U/L (10-223)
[2022-06-18] MEDS ORDERED: Ondansetron 4 mg VIAL 2 MG/ML 2 ml VIAL IV PRN (00:54)
[2022-06-18 02:24] LABS: Prolactin 13.3 ng/mL (1.0-25.0)
[2022-06-18] MEDS: NS 0.9% 1000 ml BAG 1,000 ML IV SCH ×3 (03:53→18:46)
[2022-06-18 04:03] LABS: ABS Monocytes 0.5 10^3/ul (0-0.8); ABS Neutrophils 3.2 10^3/ul (1.5-7.7); Eosinophil % 0.5 %; Hematocrit 36 % (35-47); Hemoglobin 12.1 g/dL (12.0-16.0); Lymphocyte % 20.9 %; Mean Corpuscular HGB Conc 33 g/dL (31-36); Mean Corpuscular Hemoglobin 31 pg (27-31); Mean Corpuscular Volume 94 fL (80-97); Mean Platelet Volume 8.7 fL (7.4-10.4); Nucleated Red Blood Cells % 0.2; Platelet Count 30 10^3/uL (150-450); Red Blood Count 3.88 10^6 /uL (3.70-4.87); Red Cell Distribution Width 14 % (10-15); White Blood Count 4.7 10^3/uL (3.5-10.8)
[2022-06-18 04:27] LABS: Albumin 3.3 g/dL (3.2-5.2); Calcium 7.3 mg/dL (8.6-10.3); Potassium 4.4 mmol/L (3.5-5.0); Total Bilirubin 1.3 mg/dL (0.2-1.0)
[2022-06-18 04:33] LABS: Albumin/Globulin Ratio 1.3 (1-3); Globulin 2.6 g/dL (2-4); Total Protein 5.9 g/dL (6.4-8.9); eGFR CKD-EPI 129.9 (>60)
[2022-06-18] MEDS ORDERED: Enoxaparin 40 MG/0.4 ML SYR SUBCUT SCH (07:00)
[2022-06-18] MEDS: Multivitamins/Minerals TAB PO SCH (08:34)
[2022-06-18] MEDS ORDERED: Lorazepam PYXIS KEY PRN (12:33)
[2022-06-18] MEDS ORDERED: LORazepam 2 mg VIAL 1 ml IV PUSH SCH (13:00)
[2022-06-19] MEDS: NS 0.9% 1000 ml BAG 1,000 ML IV SCH (01:27)
[2022-06-19 06:19] LABS: ABS Lymphocytes 0.6 10^3/ul (1.0-4.8); ABS Monocytes 0.3 10^3/ul (0-0.8); ABS Neutrophils 1.5 10^3/ul (1.5-7.7); Eosinophil % 0.7 %; Hematocrit 31 % (35-47); Hemoglobin 10.5 g/dL (12.0-16.0); Lymphocyte % 24.9 %; Mean Corpuscular HGB Conc 35 g/dL (31-36); Mean Corpuscular Hemoglobin 33 pg (27-31); Mean Corpuscular Volume 96 fL (80-97); Mean Platelet Volume 8.5 fL (7.4-10.4); Nucleated Red Blood Cells % 0.3; Platelet Count 14 10^3/uL (150-450); Red Blood Count 3.18 10^6 /uL (3.70-4.87); Red Cell Distribution Width 14 % (10-15); White Blood Count 2.5 10^3/uL (3.5-10.8)
[2022-06-19 06:54] LABS: Calcium 7.1 mg/dL (8.6-10.3); Magnesium 1.8 mg/dL (1.9-2.7); Potassium 3.7 mmol/L (3.5-5.0); eGFR CKD-EPI 130.6 (>60)
[2022-06-19] MEDS: Multivitamins/Minerals TAB PO SCH (08:25)
[2022-06-19] MEDS ORDERED: Magnesium Sulfate IV 1GM/100ML 1 GM/100 ML BAG IV ONE (09:33)
[2022-06-19 09:51] LABS: Activated Partial Thrombo Time 31.4 seconds (26.0-38.0); INR 1.54 (0.88-1.18)
[2022-06-20 07:36] LABS: Hematocrit 31 % (35-47); Hemoglobin 10.3 g/dL (12.0-16.0); Mean Corpuscular HGB Conc 33 g/dL (31-36); Mean Corpuscular Hemoglobin 32 pg (27-31); Mean Corpuscular Volume 96 fL (80-97); Mean Platelet Volume 8.5 fL (7.4-10.4); Platelet Count 19 10^3/uL (150-450); Red Blood Count 3.21 10^6 /uL (3.70-4.87); Red Cell Distribution Width 14 % (10-15); White Blood Count 3.3 10^3/uL (3.5-10.8)
[2022-06-20 07:50] LABS: ABS Eosinophils 0.1 10^3/ul (0-0.6); ABS Lymphocytes 0.9 10^3/ul (1.0-4.8); ABS Monocytes 0.5 10^3/ul (0-0.8); ABS Neutrophils 1.8 10^3/ul (1.5-7.7); Eosinophil % 2.8 %; Lymphocyte % 28.2 %; Nucleated Red Blood Cells % 0.2
[2022-06-20 07:56] LABS: Calcium 7.4 mg/dL (8.6-10.3); Magnesium 1.7 mg/dL (1.9-2.7); Potassium 3.2 mmol/L (3.5-5.0); eGFR CKD-EPI 130.6 (>60)
[2022-06-20] MEDS: Multivitamins/Minerals TAB PO SCH (08:01)
[2022-06-20] MEDS ORDERED: Potassium Chlor 20 meq TAB.ER PO ONE (08:43)
[2022-06-20] MEDS ORDERED: Metoclopramide 5 MG/ML VIAL (10 mg) IV SLOW PU ONE (08:43)
[2022-06-20] MEDS: Magnesium Sulfate 2 gm BAG 2 GM/50 ML BAG IVPB ONE ×2 (09:41→10:18)
[2022-06-20 12:23] VITALS: BP 124/64
== END 2022-06-20 15:30 | disposition home or self-care (01) | DRG 53 ==
LOC: EDHOLD 21:58 → ED 21:58 → SUATTDRO 06-18 00:55 → EDHOLD 06-18 05:55 → MED 06-18 06:28
PROVIDERS: ADMIT Internal Medicine; ATTEND Student in an Organized Health Care Education/Training Program

== ENCOUNTER 2022-06-25 01:21 | Inpatient (IN) ==
[2022-06-25] MEDS ORDERED: Lorazepam PYXIS KEY PRN (01:23)
[2022-06-25] MEDS ORDERED: LORazepam 2 mg VIAL 1 ml IM ONE (01:23)
[2022-06-25] MEDS ORDERED: Al Hydrox/Mg Hydrox/Simet LIQ 30 ML UDC PO ONE (02:43)
[2022-06-25 07:58] LABS: ABS Lymphocytes 0.7 10^3/ul (1.0-4.8); ABS Monocytes 0.8 10^3/ul (0-0.8); ABS Neutrophils 1.1 10^3/ul (1.5-7.7); Eosinophil % 1.5 %; Hematocrit 34 % (35-47); Hemoglobin 11.4 g/dL (12.0-16.0); Lymphocyte % 25.5 %; Mean Corpuscular HGB Conc 34 g/dL (31-36); Mean Corpuscular Hemoglobin 32 pg (27-31); Mean Corpuscular Volume 96 fL (80-97); Mean Platelet Volume 7.3 fL (7.4-10.4); Platelet Count 89 10^3/uL (150-450); Red Blood Count 3.52 10^6 /uL (3.70-4.87); Red Cell Distribution Width 15 % (10-15); White Blood Count 2.6 10^3/uL (3.5-10.8)
[2022-06-25] MEDS: Multivitamins/Minerals TAB PO SCH (08:10)
[2022-06-25 08:36] LABS: Albumin 3.1 g/dL (3.2-5.2); Albumin/Globulin Ratio 1.1 (1-3); Calcium 7.5 mg/dL (8.6-10.3); Globulin 2.7 g/dL (2-4); Potassium 3.5 mmol/L (3.5-5.0); Total Bilirubin 0.9 mg/dL (0.2-1.0); Total Protein 5.8 g/dL (6.4-8.9); eGFR CKD-EPI 123.8 (>60)
[2022-06-25] MEDS ORDERED: Thiamine 100 MG/ML 2 ml VIAL (200 mg) IM ONE (09:00)
[2022-06-25] MEDS: Ondansetron 4 mg VIAL 2 MG/ML 2 ml VIAL IV PRN (17:12)
[2022-06-25] MEDS: Al Hydrox/Mg Hydrox/Simet LIQ 30 ML UDC PO PRN (17:12)
[2022-06-25] MEDS: Sucralfate 1 gm SUSP 1 GM/10 ML UDC PO SCH (21:04)
[2022-06-26] MEDS: Sucralfate 1 gm SUSP 1 GM/10 ML UDC PO SCH ×4 (06:24→20:23)
[2022-06-26 06:35] LABS: ABS Neutrophils 0.6 10^3/ul (1.5-7.7)
[2022-06-26 06:36] LABS: Hematocrit 35 % (35-47); Hemoglobin 11.5 g/dL (12.0-16.0); Mean Corpuscular HGB Conc 33 g/dL (31-36); Mean Corpuscular Hemoglobin 32 pg (27-31); Mean Corpuscular Volume 97 fL (80-97); Platelet Count 92 10^3/uL (150-450); Red Blood Count 3.61 10^6 /uL (3.70-4.87); Red Cell Distribution Width 15 % (10-15); White Blood Count 2.2 10^3/uL (3.5-10.8)
[2022-06-26 06:53] LABS: Calcium 7.8 mg/dL (8.6-10.3); Magnesium 1.8 mg/dL (1.9-2.7); Potassium 3.9 mmol/L (3.5-5.0); eGFR CKD-EPI 126.3 (>60)
[2022-06-26] MEDS: Multivitamins/Minerals TAB PO SCH (09:59)
[2022-06-26 10:03] LABS: ABS Lymphocytes 0.8 10^3/ul (1.0-4.8); ABS Monocytes 0.7 10^3/ul (0-0.8); Eosinophil % 2.1 %; Lymphocyte % 37.9 %
[2022-06-26 13:20] LABS: Urine Appearance Clear; Urine Bilirubin Negative (Negative); Urine Blood Negative (Negative); Urine Color Yellow; Urine Glucose Negative (Negative); Urine Ketones Negative (Negative); Urine Nitrite Negative (Negative); Urine Protein Negative (Negative); Urine Specific Gravity 1.008 (1.002-1.030); Urine Urobilinogen Negative (Negative)
[2022-06-26] MEDS: Lidocaine PATCH 5% PATCH TRANSDERM SCH (15:51)
[2022-06-27] MEDS: Ondansetron 4 mg VIAL 2 MG/ML 2 ml VIAL IV PRN ×2 (00:39→22:47)
[2022-06-27 06:30] LABS: ABS Eosinophils 0.1 10^3/ul (0-0.6); ABS Lymphocytes 1.1 10^3/ul (1.0-4.8); ABS Monocytes 0.7 10^3/ul (0-0.8); ABS Neutrophils 1.3 10^3/ul (1.5-7.7); Hematocrit 35 % (35-47); Hemoglobin 11.8 g/dL (12.0-16.0); Lymphocyte % 33.2 %; Mean Corpuscular HGB Conc 34 g/dL (31-36); Mean Corpuscular Hemoglobin 32 pg (27-31); Mean Corpuscular Volume 97 fL (80-97); Mean Platelet Volume 9.3 fL (7.4-10.4); Nucleated Red Blood Cells % 0.2; Platelet Count 113 10^3/uL (150-450); Red Blood Count 3.64 10^6 /uL (3.70-4.87); Red Cell Distribution Width 15 % (10-15); White Blood Count 3.2 10^3/uL (3.5-10.8)
[2022-06-27 06:48] LABS: Albumin 3.2 g/dL (3.2-5.2); Albumin/Globulin Ratio 1.1 (1-3); Globulin 2.8 g/dL (2-4); Magnesium 1.7 mg/dL (1.9-2.7); Potassium 3.9 mmol/L (3.5-5.0); Total Bilirubin 0.8 mg/dL (0.2-1.0); eGFR CKD-EPI 119.5 (>60)
[2022-06-27] MEDS: Lidocaine PATCH 5% PATCH TRANSDERM SCH (08:33)
[2022-06-27] MEDS: Sucralfate 1 gm SUSP 1 GM/10 ML UDC PO SCH ×4 (08:33→20:39)
[2022-06-27] MEDS: Multivitamins/Minerals TAB PO SCH (08:35)
[2022-06-27] MEDS ORDERED: Magnesium Sulfate 2 gm BAG 2 GM/50 ML BAG IVPB ONE (08:51)
[2022-06-27] MEDS ORDERED: NS 0.9% 1000 ml BAG 1,000 ML IV ONE (09:33)
[2022-06-28] MEDS ORDERED: NS 0.9% 1000 ml BAG 1,000 ML IV SCH (09:00)
[2022-06-28] MEDS: Lidocaine PATCH 5% PATCH TRANSDERM SCH (09:30)
[2022-06-28] MEDS: Multivitamins/Minerals TAB PO SCH (09:30)
[2022-06-28] MEDS: Sucralfate 1 gm SUSP 1 GM/10 ML UDC PO SCH ×4 (10:36→21:09)
[2022-06-29 05:54] LABS: ABS Eosinophils 0.1 10^3/ul (0-0.6); ABS Lymphocytes 1.3 10^3/ul (1.0-4.8); ABS Monocytes 0.8 10^3/ul (0-0.8); Eosinophil % 1.4 %; Hematocrit 38 % (35-47); Hemoglobin 12.7 g/dL (12.0-16.0); Lymphocyte % 21.1 %; Mean Corpuscular HGB Conc 33 g/dL (31-36); Mean Corpuscular Hemoglobin 32 pg (27-31); Mean Corpuscular Volume 96 fL (80-97); Mean Platelet Volume 9.2 fL (7.4-10.4); Nucleated Red Blood Cells % 0.1; Platelet Count 188 10^3/uL (150-450); Red Blood Count 3.97 10^6 /uL (3.70-4.87); Red Cell Distribution Width 15 % (10-15); White Blood Count 6.1 10^3/uL (3.5-10.8)
[2022-06-29 06:08] LABS: Calcium 8.8 mg/dL (8.6-10.3)
[2022-06-29] MEDS: Sucralfate 1 gm SUSP 1 GM/10 ML UDC PO SCH ×4 (09:18→20:13)
[2022-06-29] MEDS: Lidocaine PATCH 5% PATCH TRANSDERM SCH (09:18)
[2022-06-29] MEDS: Multivitamins/Minerals TAB PO SCH (09:22)
[2022-06-29] MEDS: Al Hydrox/Mg Hydrox/Simet LIQ 30 ML UDC PO PRN (12:43)
[2022-06-30] MEDS: Sucralfate 1 gm SUSP 1 GM/10 ML UDC PO SCH ×2 (08:15→14:30)
[2022-06-30] MEDS: Multivitamins/Minerals TAB PO SCH (08:21)
[2022-06-30] MEDS: Lidocaine PATCH 5% PATCH TRANSDERM SCH (08:22)
[2022-06-30 11:48] VITALS: BP 144/90
== END 2022-06-30 14:50 | disposition home or self-care (01) | DRG 775 ==
LOC: ED 01:21 → EDHOLD 02:04 → SUATTDRO 02:04 → MED 09:52
PROVIDERS: ADMIT Internal Medicine; ATTEND Student in an Organized Health Care Education/Training Program

== ENCOUNTER 2022-10-27 23:27 | Inpatient (IN) ==
[2022-10-28 00:33] LABS: ABS Lymphocytes 0.7 10^3/uL (1.0-4.8); ABS Monocytes 0.4 10^3/uL (0.0-0.9); ABS Neutrophils 2.7 10^3/uL (1.5-7.6); Eosinophil % 0.3 %; Hemoglobin 13.3 g/dL (11.5-14.3); Lymphocyte % 18.3 %; Mean Corpuscular Hemoglobin 31.4 pg (27-33); Mean Corpuscular Hgb Conc 34.9 g/dL (31-36); Mean Corpuscular Volume 89.9 fL (80-97); Nucleated Red Blood Cells % 0.1 /100 WBC (0.0-0.4); Red Blood Count 4.23 10^6/uL (3.63-4.92); Red Cell Distribution Width 19.4 % (12-17); White Blood Count 3.8 10^3/uL (3.8-11.8)
[2022-10-28 00:41] LABS: INR 1.49 (0.88-1.18)
[2022-10-28 00:51] LABS: ALT 88 U/L (7-52); Albumin 3.1 g/dL (3.2-5.2); Albumin/Globulin Ratio 0.7 (1-3); Alkaline Phosphatase 272 U/L (35-149); Blood Urea Nitrogen 4 mg/dL (6-24); CO2 Carbon Dioxide 27 mmol/L (22-32); Calcium 7.3 mg/dL (8.6-10.3); Chloride 97 mmol/L (101-111); Creatinine, Serum 0.47 mg/dL (0.51-0.95); Globulin 4.2 g/dL (2-4); Glucose 81 mg/dL (70-100); Sodium 139 mmol/L (135-145); Total Protein 7.3 g/dL (6.4-8.9); eGFR CKD-EPI 124.9 (>60)
[2022-10-28 00:54] LABS: Microcytosis 1+; Polychromasia 1+; Target Cells 2+
[2022-10-28 00:55] LABS: Mean Platelet Volume 8.2 fL (7.5-11.2); Platelet Count 56 10^3/uL (150-450)
[2022-10-28 00:57] LABS: Alcohol, S 519 mg/dL (<13); Anion Gap 15 mmol/L (2-16); Magnesium 1.9 mg/dL (1.9-2.7)
[2022-10-28] MEDS ORDERED: Iohexol 350 (CONTRAST) 500 ML MDV IV ONE (02:14)
[2022-10-28] MEDS: Multivitamins/Minerals TAB PO SCH (09:50)
[2022-10-28] MEDS: NS 0.9% 1000 ml BAG 1,000 ML IV SCH (13:47)
[2022-10-28] MEDS: Calcium Carb (TUMS) 500 mg CHEW TAB PO PRN ×2 (14:16→19:36)
[2022-10-28] MEDS: Buprenorp/Nalox 8-2 MG FILM SL SCH ×2 (14:19→21:12)
[2022-10-28 15:27] LABS: Total Bilirubin 11.5 mg/dL (0.2-1.0)
[2022-10-28 15:29] LABS: Protime (Maddrey) 17.7 seconds (9.5-12.8)
[2022-10-29] MEDS: NS 0.9% 1000 ml BAG 1,000 ML IV SCH ×2 (03:09→18:41)
[2022-10-29 06:43] LABS: Hemoglobin 10.6 g/dL (11.5-14.3); Mean Corpuscular Hemoglobin 32.3 pg (27-33); Mean Corpuscular Hgb Conc 35.4 g/dL (31-36); Mean Corpuscular Volume 91.2 fL (80-97); Mean Platelet Volume 9.2 fL (7.5-11.2); Platelet Count 32 10^3/uL (150-450); Red Blood Count 3.29 10^6/uL (3.63-4.92); Red Cell Distribution Width 19.1 % (12-17); White Blood Count 2.3 10^3/uL (3.8-11.8)
[2022-10-29 06:46] LABS: INR 1.75 (0.88-1.18)
[2022-10-29 06:59] LABS: Albumin 2.6 g/dL (3.2-5.2); Calcium 7.1 mg/dL (8.6-10.3); Creatinine, Serum 0.41 mg/dL (0.51-0.95); eGFR CKD-EPI 129.1 (>60)
[2022-10-29 07:00] LABS: Albumin/Globulin Ratio 0.8 (1-3); Globulin 3.4 g/dL (2-4)
[2022-10-29 07:02] LABS: Total Bilirubin 12.6 mg/dL (0.2-1.0)
[2022-10-29 08:19] LABS: ABS Basophils 0.1 10^3/uL (0.0-0.1); ABS Lymphocytes 0.6 10^3/uL (1.0-4.8); ABS Monocytes 0.3 10^3/uL (0.0-0.9); ABS Neutrophils 1.3 10^3/uL (1.5-7.6); ABS Nucleated RBC 0.01 10^3/ul; Eosinophil % 0.8 %; Lymphocyte % 25.7 %; Nucleated Red Blood Cells % 0.2 /100 WBC (0.0-0.4)
[2022-10-29] MEDS: cefTRIAXone 2 gm/50 mL D5W 2 GM/50 ML BAG IV SCH (09:07)
[2022-10-29 09:12] LABS: Urine Appearance Clear; Urine Bilirubin 1+ (Negative); Urine Blood Negative (Negative); Urine Color Amber; Urine Glucose Negative (Negative); Urine Ketones Negative (Negative); Urine Nitrite Negative (Negative); Urine Protein Negative (Negative); Urine Specific Gravity 1.003 (1.002-1.030); Urine Urobilinogen Positive (Negative)
[2022-10-29] MEDS ORDERED: Potassium Chlor 10 meq TAB PO SCH (10:00)
[2022-10-29] MEDS: Buprenorp/Nalox 8-2 MG FILM SL SCH ×3 (10:06→22:05)
[2022-10-29] MEDS: Multivitamins/Minerals TAB PO SCH (10:06)
[2022-10-29 10:20] LABS: Magnesium 1.5 mg/dL (1.9-2.7)
[2022-10-29] MEDS: Calcium Carb (TUMS) 500 mg CHEW TAB PO PRN ×2 (10:24→20:00)
[2022-10-29] MEDS: Potassium Chlor 10 meq TAB PO SCH ×2 (13:20→16:43)
[2022-10-29] MEDS ORDERED: Magnesium Sulf 4 GM/100 ML IV 4,000 MG/100 ML BAG IVPB ONE (15:02)
[2022-10-29] MEDS: Lactulose 30 ml UDC PO SCH ×2 (16:42→22:05)
[2022-10-29 18:04] LABS: Hepatitis B Surface Antigen Nonreactive (Nonreactive)
[2022-10-29 18:09] LABS: Hepatitis A Ab IgM Negative (Negative); Hepatitis B Core IgM Nonreactive (Nonreactive)
[2022-10-29 18:21] LABS: Hepatitis C Antibody Negative (Negative)
[2022-10-30 06:34] LABS: INR 2.15 (0.88-1.18)
[2022-10-30 06:42] LABS: ABS Lymphocytes 0.4 10^3/uL (1.0-4.8); ABS Monocytes 0.2 10^3/uL (0.0-0.9); ABS Neutrophils 2.4 10^3/uL (1.5-7.6); Hematocrit 31.7 % (35-45); Lymphocyte % 11.9 %; Mean Corpuscular Hemoglobin 32.2 pg (27-33); Mean Corpuscular Hgb Conc 34.6 g/dL (31-36); Mean Corpuscular Volume 93.1 fL (80-97); Mean Platelet Volume 10.1 fL (7.5-11.2); Nucleated Red Blood Cells % 0.1 /100 WBC (0.0-0.4); Platelet Count 31 10^3/uL (150-450); Red Blood Count 3.41 10^6/uL (3.63-4.92); Red Cell Distribution Width 20.2 % (12-17)
[2022-10-30 06:49] LABS: Albumin 2.7 g/dL (3.2-5.2); Albumin/Globulin Ratio 0.8 (1-3); Calcium 7.4 mg/dL (8.6-10.3); Creatinine, Serum 0.41 mg/dL (0.51-0.95); Globulin 3.6 g/dL (2-4); Potassium 3.7 mmol/L (3.5-5.0); Total Protein 6.3 g/dL (6.4-8.9); eGFR CKD-EPI 129.1 (>60)
[2022-10-30 06:51] LABS: Total Bilirubin 17.1 mg/dL (0.2-1.0)
[2022-10-30] MEDS: NS 0.9% 1000 ml BAG 1,000 ML IV SCH ×2 (09:00→22:32)
[2022-10-30] MEDS: Lactulose 30 ml UDC PO SCH ×3 (09:02→20:44)
[2022-10-30] MEDS: Multivitamins/Minerals TAB PO SCH (09:08)
[2022-10-30] MEDS: Buprenorp/Nalox 8-2 MG FILM SL SCH ×2 (09:09→13:55)
[2022-10-30] MEDS: cefTRIAXone 2 gm/50 mL D5W 2 GM/50 ML BAG IV SCH (09:10)
[2022-10-30] MEDS: Calcium Carb (TUMS) 500 mg CHEW TAB PO PRN ×2 (11:32→20:43)
[2022-10-31 06:17] LABS: ABS Lymphocytes 0.9 10^3/uL (1.0-4.8); ABS Monocytes 0.4 10^3/uL (0.0-0.9); ABS Nucleated RBC 0.01 10^3/ul; Eosinophil % 0.7 %; Hematocrit 31.6 % (35-45); Hemoglobin 10.9 g/dL (11.5-14.3); Lymphocyte % 20.1 %; Mean Corpuscular Hemoglobin 32.9 pg (27-33); Mean Corpuscular Hgb Conc 34.6 g/dL (31-36); Mean Corpuscular Volume 95.1 fL (80-97); Mean Platelet Volume 10.5 fL (7.5-11.2); Nucleated Red Blood Cells % 0.1 /100 WBC (0.0-0.4); Platelet Count 40 10^3/uL (150-450); Red Blood Count 3.32 10^6/uL (3.63-4.92); Red Cell Distribution Width 20.2 % (12-17); White Blood Count 4.3 10^3/uL (3.8-11.8)
[2022-10-31 07:08] LABS: Albumin 2.8 g/dL (3.2-5.2); Albumin/Globulin Ratio 0.8 (1-3); Calcium 7.4 mg/dL (8.6-10.3); Creatinine, Serum 0.34 mg/dL (0.51-0.95); Globulin 3.4 g/dL (2-4); Potassium 3.2 mmol/L (3.5-5.0); Total Protein 6.2 g/dL (6.4-8.9)
[2022-10-31 07:10] LABS: Total Bilirubin 18.5 mg/dL (0.2-1.0)
[2022-10-31 07:11] LABS: Magnesium 1.6 mg/dL (1.9-2.7)
[2022-10-31] MEDS: cefTRIAXone 2 gm/50 mL D5W 2 GM/50 ML BAG IV SCH (08:31)
[2022-10-31] MEDS: Multivitamins/Minerals TAB PO SCH (08:32)
[2022-10-31] MEDS: Lactulose 30 ml UDC PO SCH ×3 (08:32→20:36)
[2022-10-31] MEDS: Potassium Chlor 20 meq TAB.ER PO SCH ×3 (08:39→18:25)
[2022-10-31] MEDS ORDERED: Magnesium Sulf 4 GM/100 ML IV 4,000 MG/100 ML BAG IVPB ONE (09:00)
[2022-10-31 09:05] LABS: C Reactive Protein 14.58 mg/L (<8.01)
[2022-10-31] MEDS ORDERED: Lactulose 30 ml UDC ONE (18:22)
[2022-11-01] MEDS ORDERED: Lidocaine 1% MPF 5 ML VIAL INJ ONE (04:28)
[2022-11-01 06:41] LABS: Hematocrit 32.5 % (35-45); Hemoglobin 11.2 g/dL (11.5-14.3); Mean Corpuscular Hgb Conc 34.7 g/dL (31-36); Mean Corpuscular Volume 95.3 fL (80-97); Mean Platelet Volume 10.3 fL (7.5-11.2); Platelet Count 63 10^3/uL (150-450); Red Cell Distribution Width 20.9 % (12-17); White Blood Count 5.6 10^3/uL (3.8-11.8)
[2022-11-01 06:48] LABS: ALT 82 U/L (7-52); Albumin 2.9 g/dL (3.2-5.2); Albumin/Globulin Ratio 0.8 (1-3); Alkaline Phosphatase 230 U/L (35-149); Blood Urea Nitrogen 5 mg/dL (6-24); CO2 Carbon Dioxide 22 mmol/L (22-32); Calcium 7.3 mg/dL (8.6-10.3); Chloride 105 mmol/L (101-111); Creatinine, Serum 0.63 mg/dL (0.51-0.95); Globulin 3.6 g/dL (2-4); Glucose 86 mg/dL (70-100); Sodium 132 mmol/L (135-145); Total Protein 6.5 g/dL (6.4-8.9); eGFR CKD-EPI 116.4 (>60)
[2022-11-01 06:53] LABS: Anion Gap 5 mmol/L (2-16)
[2022-11-01 07:14] LABS: ABS Eosinophils 0.1 10^3/ul (0.0-0.5); ABS Lymphocytes 1.2 10^3/ul (1.0-4.8); ABS Monocytes 0.6 10^3/ul (0.0-0.9); ABS Neutrophils 3.7 10^3/ul (1.5-7.6)
[2022-11-01 07:15] LABS: RBC Morphology Normal (Normal)
[2022-11-01 08:02] LABS: Potassium Redraw 3.4 mmol/L (3.5-5.0)
[2022-11-01] MEDS: Lactulose 30 ml UDC PO SCH ×3 (08:10→20:39)
[2022-11-01] MEDS: Multivitamins/Minerals TAB PO SCH (08:10)
[2022-11-01] MEDS: cefTRIAXone 2 gm/50 mL D5W 2 GM/50 ML BAG IV SCH ×2 (08:17→15:38)
[2022-11-01] MEDS: Buprenorp/Nalox 8-2 MG FILM SL SCH ×3 (10:31→20:50)
[2022-11-01] MEDS: Calcium Carb (TUMS) 500 mg CHEW TAB PO PRN (20:48)
[2022-11-02 06:11] LABS: Hematocrit 30.5 % (35-45); Hemoglobin 10.8 g/dL (11.5-14.3); Mean Corpuscular Hemoglobin 34.1 pg (27-33); Mean Corpuscular Hgb Conc 35.2 g/dL (31-36); Mean Corpuscular Volume 96.7 fL (80-97); Mean Platelet Volume 9.5 fL (7.5-11.2); Platelet Count 60 10^3/uL (150-450); Red Blood Count 3.16 10^6/uL (3.63-4.92); Red Cell Distribution Width 21.3 % (12-17); White Blood Count 4.4 10^3/uL (3.8-11.8)
[2022-11-02 06:12] LABS: INR 2.3 (0.88-1.18)
[2022-11-02 06:40] LABS: Anisocytosis 2+
[2022-11-02 06:41] LABS: Polychromasia 1+
[2022-11-02 06:43] LABS: ABS Lymphocytes 1.2 10^3/ul (1.0-4.8); ABS Monocytes 0.4 10^3/ul (0.0-0.9); ABS Neutrophils 2.6 10^3/ul (1.5-7.6)
[2022-11-02 06:51] LABS: ALT 80 U/L (7-52); Albumin 2.5 g/dL (3.2-5.2); Albumin/Globulin Ratio 0.8 (1-3); Alkaline Phosphatase 195 U/L (35-149); Blood Urea Nitrogen 4 mg/dL (6-24); CO2 Carbon Dioxide 23 mmol/L (22-32); Calcium 7.5 mg/dL (8.6-10.3); Chloride 109 mmol/L (101-111); Creatinine, Serum 0.56 mg/dL (0.51-0.95); Globulin 3.2 g/dL (2-4); Glucose 83 mg/dL (70-100); Sodium 137 mmol/L (135-145); Total Protein 5.7 g/dL (6.4-8.9); eGFR CKD-EPI 119.7 (>60)
[2022-11-02 07:08] LABS: Anion Gap 5 mmol/L (2-16)
[2022-11-02] MEDS: cefTRIAXone 2 gm/50 mL D5W 2 GM/50 ML BAG IV SCH (08:37)
[2022-11-02] MEDS: Multivitamins/Minerals TAB PO SCH (09:48)
[2022-11-02] MEDS: Lactulose 30 ml UDC PO SCH ×3 (09:51→20:07)
[2022-11-02] MEDS: Buprenorp/Nalox 8-2 MG FILM SL SCH ×3 (09:54→20:12)
[2022-11-02 14:39] LABS: Anaplasma phagocytophilum Negative (Negative); B. miyamotoi PCR, B Negative (Negative); Babesia divergens/MO-1 Negative (Negative); Babesia ducani Negative (Negative); Ehrlichia chaffeensis Negative (Negative); Ehrlichia ewingii/canis Negative (Negative); Ehrlichia muris eauclairensis Negative (Negative)
[2022-11-02] MEDS: Calcium Carb (TUMS) 500 mg CHEW TAB PO PRN (15:14)
[2022-11-03] MEDS: Multivitamins/Minerals TAB PO SCH (09:40)
[2022-11-03] MEDS: Lactulose 30 ml UDC PO SCH ×2 (09:40→14:56)
[2022-11-03 09:42] LABS: INR 2.26 (0.88-1.18)
[2022-11-03 09:44] LABS: Hematocrit 30.4 % (35-45); Hemoglobin 10.4 g/dL (11.5-14.3); Mean Corpuscular Hemoglobin 33.3 pg (27-33); Mean Corpuscular Hgb Conc 34.3 g/dL (31-36); Red Blood Count 3.14 10^6/uL (3.63-4.92); Red Cell Distribution Width 22.8 % (12-17); White Blood Count 4.2 10^3/uL (3.8-11.8)
[2022-11-03] MEDS: Buprenorp/Nalox 8-2 MG FILM SL SCH ×3 (09:47→22:01)
[2022-11-03 09:49] LABS: Albumin 2.4 g/dL (3.2-5.2); Calcium 7.6 mg/dL (8.6-10.3)
[2022-11-03 09:55] LABS: Albumin/Globulin Ratio 0.8 (1-3); Creatinine, Serum 0.47 mg/dL (0.51-0.95); Globulin 3.2 g/dL (2-4); Total Protein 5.6 g/dL (6.4-8.9); eGFR CKD-EPI 124.9 (>60)
[2022-11-03 10:43] LABS: Anisocytosis 2+; Polychromasia 1+
[2022-11-03 10:44] LABS: ABS Monocytes 0.5 10^3/ul (0.0-0.9); ABS Neutrophils 2.7 10^3/ul (1.5-7.6)
[2022-11-03 10:46] LABS: ABS Lymphocytes 2.7 10^3/uL (1.0-4.8); ABS Monocytes 0.3 10^3/uL (0.0-0.9); ABS Neutrophils 1.2 10^3/uL (1.5-7.6); Eosinophil % 0.6 %; Mean Platelet Volume 9.8 fL (7.5-11.2); Platelet Count 68 10^3/uL (150-450)
[2022-11-03] MEDS ORDERED: Potassium Chlor 20 meq TAB.ER PO ONE ×2 (17:56→23:00)
[2022-11-03 18:30] LABS: Magnesium 1.5 mg/dL (1.9-2.7)
[2022-11-03] MEDS ORDERED: Magnesium Sulf 4 GM/100 ML IV 4,000 MG/100 ML BAG IVPB ONE (19:38)
[2022-11-04 08:04] LABS: Albumin 2.4 g/dL (3.2-5.2); Albumin/Globulin Ratio 0.8 (1-3); Calcium 7.3 mg/dL (8.6-10.3); Creatinine, Serum 0.42 mg/dL (0.51-0.95); Potassium 3.9 mmol/L (3.5-5.0); Total Protein 5.4 g/dL (6.4-8.9); eGFR CKD-EPI 128.3 (>60)
[2022-11-04 08:10] LABS: Magnesium 2.1 mg/dL (1.9-2.7); Total Bilirubin 15.2 mg/dL (0.2-1.0)
[2022-11-04] MEDS: Buprenorp/Nalox 8-2 MG FILM SL SCH ×3 (09:04→21:16)
[2022-11-04] MEDS: Multivitamins/Minerals TAB PO SCH (09:05)
[2022-11-04] MEDS: Lactulose 30 ml UDC PO SCH ×2 (09:06→21:17)
[2022-11-05 06:27] LABS: Hematocrit 32.6 % (35-45); Hemoglobin 11.3 g/dL (11.5-14.3); Mean Corpuscular Hemoglobin 34.7 pg (27-33); Mean Corpuscular Hgb Conc 34.8 g/dL (31-36); Mean Corpuscular Volume 99.9 fL (80-97); Mean Platelet Volume 10.1 fL (7.5-11.2); Platelet Count 111 10^3/uL (150-450); Red Blood Count 3.27 10^6/uL (3.63-4.92); Red Cell Distribution Width 23.2 % (12-17)
[2022-11-05 06:32] LABS: Albumin 2.4 g/dL (3.2-5.2); Calcium 7.6 mg/dL (8.6-10.3); Potassium 3.5 mmol/L (3.5-5.0)
[2022-11-05 06:38] LABS: Albumin/Globulin Ratio 0.8 (1-3); Creatinine, Serum 0.43 mg/dL (0.51-0.95); Globulin 3.2 g/dL (2-4); Total Protein 5.6 g/dL (6.4-8.9); eGFR CKD-EPI 127.6 (>60)
[2022-11-05 06:50] LABS: Magnesium 1.8 mg/dL (1.9-2.7); Total Bilirubin 13.5 mg/dL (0.2-1.0)
[2022-11-05] MEDS ORDERED: Potassium Chlor 20 meq TAB.ER PO ONE (07:19)
[2022-11-05] MEDS: Multivitamins/Minerals TAB PO SCH (08:07)
[2022-11-05] MEDS: Buprenorp/Nalox 8-2 MG FILM SL SCH (08:08)
[2022-11-05] MEDS: Lactulose 30 ml UDC PO SCH (08:09)
[2022-11-05 08:50] LABS: Anisocytosis 2+
[2022-11-05 08:52] LABS: ABS Eosinophils 0.1 10^3/ul (0.0-0.5); ABS Lymphocytes 0.7 10^3/ul (1.0-4.8); ABS Monocytes 0.8 10^3/ul (0.0-0.9); ABS Neutrophils 4.3 10^3/ul (1.5-7.6)
[2022-11-05 10:31] VITALS: BP 98/58
[2022-11-06] MEDS ORDERED: Potassium Chlor 20 meq TAB.ER PO SCH (09:00)
== END 2022-11-05 13:55 | disposition home or self-care (01) | DRG 775 ==
LOC: ED 23:27 → SUATTDRO 10-28 09:17 → EDHOLD 10-28 09:17 → MEDTELE 10-28 13:50
PROVIDERS: ADMIT Internal Medicine; ATTEND Internal Medicine

== ENCOUNTER 2023-02-01 16:47 | Inpatient (IN) ==
[2023-02-01] MEDS ORDERED: Ondansetron 4 mg VIAL 2 MG/ML 2 ml VIAL IV ONE (17:30)
[2023-02-01] MEDS ORDERED: Thiamine 100 MG/ML 2 ml VIAL 100 MG, Folic Acid IV 1 MG, Multiple Vitamin IV ADULT 10 M... IV ONE (17:30)
[2023-02-01 20:18] LABS: INR 3.17 (0.83-1.13)
[2023-02-01 20:19] LABS: ABS Lymphocytes 0.4 10^3/uL (1.0-4.8); ABS Monocytes 0.3 10^3/uL (0.0-0.9); ABS Neutrophils 4.7 10^3/uL (1.5-7.6); Eosinophil % 0.2 %; Hematocrit 32.7 % (35-45); Lymphocyte % 6.7 %; Mean Corpuscular Hemoglobin 33.7 pg (27-33); Mean Corpuscular Hgb Conc 33.5 g/dL (31-36); Mean Corpuscular Volume 100.6 fL (80-97); Mean Platelet Volume 9.4 fL (7.5-11.2); Platelet Count 26 10^3/uL (150-450); Red Blood Count 3.25 10^6/uL (3.63-4.92); Red Cell Distribution Width 17.6 % (12-17); White Blood Count 5.3 10^3/uL (3.8-11.8)
[2023-02-01 20:29] LABS: ALT 20 U/L (7-52); AST 101 U/L (13-39); Albumin 1.9 g/dL (3.2-5.2); Albumin/Globulin Ratio 0.4 (1-3); Alkaline Phosphatase 174 U/L (35-149); Anion Gap 10 mmol/L (2-16); Blood Urea Nitrogen 3 mg/dL (6-24); CO2 Carbon Dioxide 24 mmol/L (22-32); Calcium 6.8 mg/dL (8.6-10.3); Chloride 99 mmol/L (101-111); Creatine Kinase 633 U/L (10-223); Creatinine, Serum 0.35 mg/dL (0.51-0.95); Globulin 4.9 g/dL (2-4); Glucose 72 mg/dL (70-100); Magnesium 1.2 mg/dL (1.9-2.7); Potassium 3.1 mmol/L (3.5-5.0); Sodium 133 mmol/L (135-145); Total Protein 6.8 g/dL (6.4-8.9); eGFR CKD-EPI 134.1 (>60)
[2023-02-01 20:41] LABS: Acetaminophen < 15 mcg/mL; Alcohol, S < 13 mg/dL (<13); Salicylate < 2.50 mg/dL (<30)
[2023-02-01] MEDS ORDERED: Lactulose 300 ML for PR 200 GM/300 ML BTL PR STA (20:51)
[2023-02-01 20:55] LABS: TSH Ultra Thyroid Stim Horm 3.07 mcIU/mL (0.34-5.60)
[2023-02-01] MEDS ORDERED: NS 0.9% 1000 ml BAG 1,000 ML IV ONE (20:56)
[2023-02-02] MEDS ORDERED: NS 0.9% 500 ml BAG 500 ML IV ONE (02:06)
[2023-02-02] MEDS ORDERED: Lactated Ringers 1000 ml BAG 1,000 ML IV ONE (02:19)
[2023-02-02] MEDS ORDERED: KCL 10 MEQ/50 ML IVPREMIX 10 MEQ/50 ML BAG IV SCH (03:00)
[2023-02-02] MEDS ORDERED: Magnesium Sulf 4 GM/100 ML IV 4,000 MG/100 ML BAG IVPB ONE (03:10)
[2023-02-02] MEDS: levETIRAcetam 1000MG IVPREMIX 1,000 MG/100 ML BAG IVPB SCH ×2 (04:19→16:07)
[2023-02-02] MEDS ORDERED: Albumin Human 25% 25 GM/100 ML BTL IV ONE (06:25)
[2023-02-02] MEDS: KCL 20 MEQ/100 ML IVPREMIX 20 MEQ/100 ML BAG IV SCH ×4 (06:25→15:12)
[2023-02-02] MEDS ORDERED: Vancomycin 1,250 MG in NS 0.9% 250 ml 250 ML IVPB ONE (06:38)
[2023-02-02] MEDS ORDERED: Piperacillin/Tazobac 3.375 BAG 3.375 GM/100 ML BAG IV ONE ×2 (06:39→13:46)
[2023-02-02] MEDS ORDERED: Vancomycin per Pharmacy 1 EA NOTE FOLLOW UP PRN (06:47)
[2023-02-02] MEDS ORDERED: Zosyn per Pharmacy NOTE FOLLOW UP SCH ×2 (07:00→14:00)
[2023-02-02 08:25] LABS: Urine Appearance Clear; Urine Bilirubin 2+ (Negative); Urine Blood Negative (Negative); Urine Color Amber; Urine Glucose Negative (Negative); Urine Ketones 1+ (Negative); Urine Nitrite Negative (Negative); Urine Protein 1+(30 mg/dL) (Negative); Urine Specific Gravity 1.017 (1.002-1.030); Urine Urobilinogen Positive (Negative)
[2023-02-02] MEDS ORDERED: cefTRIAXone 1 gm/50 mL D5W 1 GM/50 ML BAG IV SCH (08:30)
[2023-02-02 08:45] LABS: Urine Benzodiazepine Screen None Detected (None Detect); Urine Cannabinoids Screen None Detected (None Detect); Urine Opiates Screen None Detected (None Detect)
[2023-02-02 08:46] LABS: Urine Bacteria Absent (Absent); Urine Red Blood Cell 2+(6-10/hpf) (Absent); Urine Squamous Epithelial Cell Present (Absent); Urine White Blood Cell Trace(0-5/hpf) (Absent)
[2023-02-02] MEDS ORDERED: Lactulose 300 ML for PR 200 GM/300 ML BTL PR SCH (09:00)
[2023-02-02] MEDS ORDERED: Rocuronium 50 mg VIAL 10 mg/ml 5 ml VIAL (50 mg) ONE (11:41)
[2023-02-02] MEDS ORDERED: Succinylcholine 200 mg VIAL 20 mg/ml 10 ml VIAL (200 mg) ONE (11:41)
[2023-02-02] MEDS ORDERED: Propofol 10 mg/ml 100 ML BTL 1,000 MG/100 ML BTL ONE (11:55)
[2023-02-02] MEDS ORDERED: PEG 3000 GI LAVAGE 1 GALLON PO ONE (11:58)
[2023-02-02] MEDS ORDERED: Rocuronium 50 mg VIAL 10 mg/ml 5 ml VIAL (50 mg) IV ONE (11:58)
[2023-02-02] MEDS ORDERED: Midazolam 10 mg/10 ml VIAL 1 mg/ml 10 ml VIAL (10 mg) IV SLOW PU ONE (11:58)
[2023-02-02] MEDS ORDERED: Propofol 10 mg/ml 100 ML BTL 1,000 MG/100 ML BTL IV SCH (12:00)
[2023-02-02] MEDS ORDERED: Enoxaparin 40 MG/0.4 ML SYR SUBCUT SCH (12:00)
[2023-02-02] MEDS: Propofol 10 mg/ml 100 ML BTL 1,000 MG/100 ML BTL IV SCH ×3 (12:00→22:43)
[2023-02-02] MEDS ORDERED: Thiamine 100 MG/ML 2 ml VIAL 500 MG in NS 0.9% 250 ml 250 ML IV ONE (12:00)
[2023-02-02] MEDS: Pantoprazole VIAL 40 MG VIAL IV SCH (12:32)
[2023-02-02] MEDS: Chlorhexidine MOUTHWASH 0.12% 15 ML UDC SWISH SPIT SCH ×4 (12:32→21:43)
[2023-02-02 16:27] LABS: Hematocrit 27.7 % (35-45); Hemoglobin 9.5 g/dL (11.5-14.3); Mean Corpuscular Hemoglobin 34.3 pg (27-33); Mean Corpuscular Hgb Conc 34.4 g/dL (31-36); Mean Corpuscular Volume 99.7 fL (80-97); Red Blood Count 2.77 10^6/uL (3.63-4.92); Red Cell Distribution Width 18.1 % (12-17); White Blood Count 9.2 10^3/uL (3.8-11.8)
[2023-02-02 16:52] LABS: Albumin 2.1 g/dL (3.2-5.2); Albumin/Globulin Ratio 0.5 (1-3); Calcium 6.9 mg/dL (8.6-10.3); Creatinine, Serum 0.48 mg/dL (0.51-0.95); Globulin 4.3 g/dL (2-4); Magnesium 1.8 mg/dL (1.9-2.7); Phosphorus 2.1 mg/dL (2.5-5.0); Total Bilirubin 5.9 mg/dL (0.2-1.0); Total Protein 6.4 g/dL (6.4-8.9); eGFR CKD-EPI 124.3 (>60)
[2023-02-02 17:03] LABS: ABS Lymphocytes 0.4 10^3/uL (1.0-4.8); ABS Monocytes 0.6 10^3/uL (0.0-0.9); ABS Neutrophils 8.2 10^3/uL (1.5-7.6); ABS Nucleated RBC 0.01 10^3/ul; Eosinophil % 0.3 %; Lymphocyte % 4.8 %; Mean Platelet Volume 8.4 fL (7.5-11.2); Nucleated Red Blood Cells % 0.1 /100 WBC (0.0-0.4); Platelet Count 27 10^3/uL (150-450); RBC Morphology Normal (Normal)
[2023-02-02] MEDS ORDERED: KCL 20 MEQ/100 ML IVPREMIX 20 MEQ/100 ML BAG IV ONE (17:39)
[2023-02-02] MEDS ORDERED: Magnesium Sulfate 2 gm BAG 2 GM/50 ML BAG IVPB ONE (17:41)
[2023-02-02] MEDS ORDERED: Iohexol 350 (CONTRAST) 500 ML MDV IV ONE (21:22)
[2023-02-02] MEDS: ZOSYN 3.375 GM Q8H per EXTENDED INFUSION IV SCH (21:43)
[2023-02-03] MEDS: Chlorhexidine MOUTHWASH 0.12% 15 ML UDC SWISH SPIT SCH ×6 (02:00→23:15)
[2023-02-03] MEDS: ZOSYN 3.375 GM Q8H per EXTENDED INFUSION IV SCH (02:00)
[2023-02-03] MEDS: fentaNYL 100 mcg/2 ml 50 MCG/ML VIAL IV SLOW PU PRN (02:28)
[2023-02-03] MEDS: Propofol 10 mg/ml 100 ML BTL 1,000 MG/100 ML BTL IV SCH ×3 (03:02→15:34)
[2023-02-03] MEDS: levETIRAcetam 1000MG IVPREMIX 1,000 MG/100 ML BAG IVPB SCH ×2 (04:31→16:17)
[2023-02-03 04:38] LABS: Hematocrit 27.6 % (35-45); Hemoglobin 9.4 g/dL (11.5-14.3); Mean Corpuscular Hemoglobin 34.2 pg (27-33); Mean Corpuscular Hgb Conc 34.1 g/dL (31-36); Mean Corpuscular Volume 100.3 fL (80-97); Mean Platelet Volume 9.2 fL (7.5-11.2); Platelet Count 30 10^3/uL (150-450); Red Blood Count 2.76 10^6/uL (3.63-4.92); Red Cell Distribution Width 18.1 % (12-17)
[2023-02-03 04:50] LABS: Albumin/Globulin Ratio 0.5 (1-3); Calcium 6.8 mg/dL (8.6-10.3); Creatinine, Serum 0.44 mg/dL (0.51-0.95); Globulin 4.1 g/dL (2-4); Magnesium 2.1 mg/dL (1.9-2.7); Total Bilirubin 5.6 mg/dL (0.2-1.0); Total Protein 6.1 g/dL (6.4-8.9); eGFR CKD-EPI 126.9 (>60)
[2023-02-03] MEDS: Vancomycin SOL ORALSYR 50 MG/ML ML PO SCH ×4 (05:12→23:15)
[2023-02-03 05:18] LABS: Phosphorus 1.6 mg/dL (2.5-5.0); Potassium 3.9 mmol/L (3.5-5.0)
[2023-02-03 05:31] LABS: Hypochromasia 1+; Macrocytosis 1+; Polychromasia 1+
[2023-02-03 05:32] LABS: ABS Eosinophils 0.2 10^3/uL (0.0-0.5); ABS Lymphocytes 0.7 10^3/uL (1.0-4.8); ABS Monocytes 0.8 10^3/uL (0.0-0.9); ABS Neutrophils 6.4 10^3/uL (1.5-7.6); ABS Nucleated RBC 0.01 10^3/ul; Anisocytosis 3+; Lymphocyte % 8.7 %; Nucleated Red Blood Cells % 0.2 /100 WBC (0.0-0.4)
[2023-02-03] MEDS: metroNIDAZOLE IV 500 MG/100ML 500 MG/100 ML BAG IVPB SCH ×3 (09:11→23:15)
[2023-02-03] MEDS: Pantoprazole VIAL 40 MG VIAL IV SCH (09:12)
[2023-02-03] MEDS: Vancomycin- *ENEMA* PR 500MG PR SCH ×4 (13:00→23:15)
[2023-02-03] MEDS: Thiamine 100 MG/ML 2 ml VIAL 250 MG in NS 0.9% 100 ml BAG 100 ML IV SCH (13:31)
[2023-02-04] MEDS: Propofol 10 mg/ml 100 ML BTL 1,000 MG/100 ML BTL IV SCH (00:30)
[2023-02-04] MEDS: Chlorhexidine MOUTHWASH 0.12% 15 ML UDC SWISH SPIT SCH ×7 (00:35→22:14)
[2023-02-04] MEDS: levETIRAcetam 1000MG IVPREMIX 1,000 MG/100 ML BAG IVPB SCH ×2 (04:34→17:15)
[2023-02-04] MEDS: Vancomycin- *ENEMA* PR 500MG PR SCH ×4 (04:34→22:14)
[2023-02-04] MEDS: Vancomycin SOL ORALSYR 50 MG/ML ML PO SCH ×4 (04:34→22:14)
[2023-02-04 04:53] LABS: Hematocrit 30.7 % (35-45); Hemoglobin 10.1 g/dL (11.5-14.3); Mean Corpuscular Hemoglobin 34.1 pg (27-33); Mean Corpuscular Volume 103.2 fL (80-97); Mean Platelet Volume 7.8 fL (7.5-11.2); Platelet Count 34 10^3/uL (150-450); Red Blood Count 2.97 10^6/uL (3.63-4.92); Red Cell Distribution Width 18.2 % (12-17); White Blood Count 4.5 10^3/uL (3.8-11.8)
[2023-02-04 04:57] LABS: ALT 21 U/L (7-52); Albumin 1.8 g/dL (3.2-5.2); Albumin/Globulin Ratio 0.4 (1-3); Alkaline Phosphatase 114 U/L (35-149); Blood Urea Nitrogen 8 mg/dL (6-24); CO2 Carbon Dioxide 25 mmol/L (22-32); Calcium 6.6 mg/dL (8.6-10.3); Chloride 106 mmol/L (101-111); Creatinine, Serum 0.35 mg/dL (0.51-0.95); Globulin 4.3 g/dL (2-4); Glucose 81 mg/dL (70-100); Sodium 139 mmol/L (135-145); Total Protein 6.1 g/dL (6.4-8.9); eGFR CKD-EPI 134.1 (>60)
[2023-02-04] MEDS: Acetaminophen IV 1 GM/100ML 1,000 MG/100 ML BAG IV PRN ×2 (05:09→22:14)
[2023-02-04 05:28] LABS: Anion Gap 8 mmol/L (2-16)
[2023-02-04 05:30] LABS: Anisocytosis 1+
[2023-02-04 05:32] LABS: ABS Lymphocytes 0.3 10^3/uL (1.0-4.8); ABS Monocytes 0.6 10^3/uL (0.0-0.9); ABS Neutrophils 3.5 10^3/uL (1.5-7.6); ABS Nucleated RBC 0.01 10^3/ul; Lymphocyte % 7.4 %; Nucleated Red Blood Cells % 0.1 /100 WBC (0.0-0.4)
[2023-02-04 06:11] LABS: Magnesium 1.5 mg/dL (1.9-2.7); Potassium Redraw 2.8 mmol/L (3.5-5.0)
[2023-02-04] MEDS ORDERED: Magnesium Sulf 4 GM/100 ML IV 4,000 MG/100 ML BAG IVPB ONE (06:26)
[2023-02-04] MEDS: KCL 20 MEQ/100 ML IVPREMIX 20 MEQ/100 ML BAG IV SCH ×3 (06:46→12:44)
[2023-02-04] MEDS: Pantoprazole VIAL 40 MG VIAL IV SCH (08:26)
[2023-02-04] MEDS: metroNIDAZOLE IV 500 MG/100ML 500 MG/100 ML BAG IVPB SCH ×2 (08:28→15:54)
[2023-02-04] MEDS ORDERED: cefTRIAXone 1 gm/50 mL D5W 1 GM/50 ML BAG IV SCH (09:45)
[2023-02-04] MEDS: cefTRIAXone 2 gm/50 mL D5W 2 GM/50 ML BAG IV SCH (10:19)
[2023-02-04] MEDS ORDERED: Potassium Phosphate IV 15 MMOL in NS 0.9% 250 ml 250 ML IVPB ONE (10:30)
[2023-02-04] MEDS ORDERED: Midazolam 10 mg/10 ml VIAL 1 mg/ml 10 ml VIAL (10 mg) ONE (11:46)
[2023-02-04] MEDS ORDERED: Rocuronium 50 mg VIAL 10 mg/ml 5 ml VIAL (50 mg) ONE (11:46)
[2023-02-04] MEDS: Thiamine 100 MG/ML 2 ml VIAL 250 MG in NS 0.9% 100 ml BAG 100 ML IV SCH (12:13)
[2023-02-05] MEDS: metroNIDAZOLE IV 500 MG/100ML 500 MG/100 ML BAG IVPB SCH ×3 (00:04→15:03)
[2023-02-05] MEDS: Chlorhexidine MOUTHWASH 0.12% 15 ML UDC SWISH SPIT SCH ×6 (00:04→22:26)
[2023-02-05] MEDS: fentaNYL 100 mcg/2 ml 50 MCG/ML VIAL IV SLOW PU PRN ×8 (00:16→22:26)
[2023-02-05] MEDS ORDERED: fentaNYL 100 mcg/2 ml 50 MCG/ML VIAL IV SLOW PU PRN (00:24)
[2023-02-05] MEDS: LORazepam 2 mg VIAL 1 ml IV PUSH SCH ×2 (04:05→07:04)
[2023-02-05] MEDS: levETIRAcetam 1000MG IVPREMIX 1,000 MG/100 ML BAG IVPB SCH ×2 (04:05→16:46)
[2023-02-05] MEDS: Vancomycin- *ENEMA* PR 500MG PR SCH ×3 (04:05→16:47)
[2023-02-05 04:20] LABS: Hematocrit 28.3 % (35-45); Hemoglobin 9.6 g/dL (11.5-14.3); Mean Corpuscular Hemoglobin 34.3 pg (27-33); Mean Corpuscular Volume 100.9 fL (80-97); Mean Platelet Volume 8.6 fL (7.5-11.2); Platelet Count 40 10^3/uL (150-450); Red Blood Count 2.81 10^6/uL (3.63-4.92); Red Cell Distribution Width 18.1 % (12-17); White Blood Count 3.7 10^3/uL (3.8-11.8)
[2023-02-05 04:35] LABS: Albumin 1.7 g/dL (3.2-5.2); Albumin/Globulin Ratio 0.4 (1-3); Calcium 6.8 mg/dL (8.6-10.3); Creatinine, Serum 0.33 mg/dL (0.51-0.95); Globulin 3.9 g/dL (2-4); Magnesium 1.9 mg/dL (1.9-2.7); Phosphorus 1.3 mg/dL (2.5-5.0); Potassium 3.2 mmol/L (3.5-5.0); Total Bilirubin 6.3 mg/dL (0.2-1.0); Total Protein 5.6 g/dL (6.4-8.9)
[2023-02-05] MEDS: Vancomycin SOL ORALSYR 50 MG/ML ML PO SCH ×3 (04:46→16:47)
[2023-02-05 05:09] LABS: ABS Eosinophils 0.1 10^3/uL (0.0-0.5); ABS Lymphocytes 0.3 10^3/uL (1.0-4.8); ABS Monocytes 0.9 10^3/uL (0.0-0.9); ABS Neutrophils 2.5 10^3/uL (1.5-7.6); ABS Nucleated RBC 0.01 10^3/ul; Eosinophil % 1.7 %; Lymphocyte % 6.9 %; Nucleated Red Blood Cells % 0.2 /100 WBC (0.0-0.4)
[2023-02-05] MEDS: Pantoprazole VIAL 40 MG VIAL IV SCH (07:27)
[2023-02-05] MEDS: cefTRIAXone 2 gm/50 mL D5W 2 GM/50 ML BAG IV SCH (08:08)
[2023-02-05] MEDS ORDERED: Potassium Phosphate IV 10 MMOL in NS 0.9% 250 ml 250 ML IVPB ONE (08:12)
[2023-02-05] MEDS: Thiamine 100 MG/ML 2 ml VIAL 250 MG in NS 0.9% 100 ml BAG 100 ML IV SCH (09:47)
[2023-02-05] MEDS: Acetaminophen IV 1 GM/100ML 1,000 MG/100 ML BAG IV PRN (12:47)
[2023-02-06] MEDS: metroNIDAZOLE IV 500 MG/100ML 500 MG/100 ML BAG IVPB SCH ×3 (00:33→16:04)
[2023-02-06] MEDS: Vancomycin SOL ORALSYR 50 MG/ML ML PO SCH ×4 (00:34→17:08)
[2023-02-06] MEDS: fentaNYL 100 mcg/2 ml 50 MCG/ML VIAL IV SLOW PU PRN ×3 (00:53→08:11)
[2023-02-06] MEDS: Chlorhexidine MOUTHWASH 0.12% 15 ML UDC SWISH SPIT SCH ×5 (02:25→17:09)
[2023-02-06 04:47] LABS: Hematocrit 28.2 % (35-45); Hemoglobin 9.4 g/dL (11.5-14.3); Mean Corpuscular Hemoglobin 34.1 pg (27-33); Mean Corpuscular Hgb Conc 33.4 g/dL (31-36); Mean Platelet Volume 7.9 fL (7.5-11.2); Platelet Count 52 10^3/uL (150-450); Red Blood Count 2.76 10^6/uL (3.63-4.92); White Blood Count 5.7 10^3/uL (3.8-11.8)
[2023-02-06 05:03] LABS: Calcium 6.5 mg/dL (8.6-10.3); Creatinine, Serum 0.33 mg/dL (0.51-0.95); Potassium 3.1 mmol/L (3.5-5.0); Total Bilirubin 5.7 mg/dL (0.2-1.0); Total Protein 5.5 g/dL (6.4-8.9)
[2023-02-06 05:04] LABS: Albumin 1.6 g/dL (3.2-5.2); Albumin/Globulin Ratio 0.4 (1-3); Globulin 3.9 g/dL (2-4)
[2023-02-06] MEDS: levETIRAcetam 1000MG IVPREMIX 1,000 MG/100 ML BAG IVPB SCH ×2 (05:21→17:08)
[2023-02-06] MEDS ORDERED: Potassium Chloride LIQUID 20 MEQ/15 ML LIQUID PO ONE (05:33)
[2023-02-06 05:50] LABS: Magnesium 1.8 mg/dL (1.9-2.7)
[2023-02-06] MEDS: Pantoprazole VIAL 40 MG VIAL IV SCH (08:01)
[2023-02-06] MEDS ORDERED: KCL 20 MEQ/100 ML IVPREMIX 20 MEQ/100 ML BAG IV ONE (08:13)
[2023-02-06] MEDS: cefTRIAXone 2 gm/50 mL D5W 2 GM/50 ML BAG IV SCH (09:45)
[2023-02-06] MEDS ORDERED: fentaNYL 100 mcg/2 ml 50 MCG/ML VIAL IV SLOW PU PRN (10:51)
[2023-02-06] MEDS: Thiamine 100 MG/ML 2 ml VIAL 250 MG in NS 0.9% 100 ml BAG 100 ML IV SCH (11:32)
[2023-02-06] MEDS ORDERED: fentaNYL 100 mcg/2 ml 50 MCG/ML VIAL IV SLOW PU SCH (12:00)
[2023-02-06] MEDS ORDERED: LORazepam 2 mg VIAL 1 ml IV PUSH PRN (15:35)
[2023-02-06] MEDS ORDERED: Lorazepam PYXIS KEY PRN (15:39)
[2023-02-06] MEDS ORDERED: LORazepam 2 mg VIAL 1 ml IV PUSH SCH (22:00)
[2023-02-07] MEDS: metroNIDAZOLE IV 500 MG/100ML 500 MG/100 ML BAG IVPB SCH ×3 (01:08→16:41)
[2023-02-07] MEDS: Vancomycin SOL ORALSYR 50 MG/ML ML PO SCH ×4 (01:08→16:59)
[2023-02-07] MEDS: Chlorhexidine MOUTHWASH 0.12% 15 ML UDC SWISH SPIT SCH ×4 (01:08→09:15)
[2023-02-07 04:58] LABS: Hematocrit 28.7 % (35-45); Hemoglobin 9.6 g/dL (11.5-14.3); Mean Corpuscular Hemoglobin 34.2 pg (27-33); Mean Corpuscular Hgb Conc 33.5 g/dL (31-36); Mean Corpuscular Volume 102.1 fL (80-97); Platelet Count 73 10^3/uL (150-450); Red Blood Count 2.81 10^6/uL (3.63-4.92); Red Cell Distribution Width 18.6 % (12-17); White Blood Count 7.3 10^3/uL (3.8-11.8)
[2023-02-07 05:08] LABS: ALT 17 U/L (7-52); AST 44 U/L (13-39); Alkaline Phosphatase 129 U/L (35-149); Anion Gap 3 mmol/L (2-16); Blood Urea Nitrogen 8 mg/dL (6-24); CO2 Carbon Dioxide 25 mmol/L (22-32); Calcium 6.8 mg/dL (8.6-10.3); Chloride 112 mmol/L (101-111); Glucose 71 mg/dL (70-100); Magnesium 1.6 mg/dL (1.9-2.7); Potassium 3.3 mmol/L (3.5-5.0); Sodium 140 mmol/L (135-145); Total Protein 5.7 g/dL (6.4-8.9)
[2023-02-07] MEDS: levETIRAcetam 1000MG IVPREMIX 1,000 MG/100 ML BAG IVPB SCH ×2 (05:16→16:26)
[2023-02-07 05:39] LABS: Albumin/Globulin Ratio 0.4 (1-3); Creatinine, Serum < 0.30 mg/dL (0.51-0.95); Globulin 4.2 g/dL (2-4); eGFR CKD-EPI 139.2 (>60)
[2023-02-07 05:40] LABS: Albumin 1.5 g/dL (3.2-5.2)
[2023-02-07] MEDS: Pantoprazole VIAL 40 MG VIAL IV SCH (08:28)
[2023-02-07] MEDS: cefTRIAXone 2 gm/50 mL D5W 2 GM/50 ML BAG IV SCH (08:29)
[2023-02-07] MEDS ORDERED: KCL 20 MEQ/100 ML IVPREMIX 20 MEQ/100 ML BAG IV ONE (11:30)
[2023-02-07] MEDS: Lactulose 30 ml UDC PO SCH ×3 (11:30→22:16)
[2023-02-07] MEDS: Thiamine 100 MG/ML 2 ml VIAL 250 MG in NS 0.9% 100 ml BAG 100 ML IV SCH (11:31)
[2023-02-07] MEDS ORDERED: Magnesium Sulfate 2 gm BAG 2 GM/50 ML BAG IVPB ONE (11:42)
[2023-02-07 13:44] LABS: Phosphorus 2.1 mg/dL (2.5-5.0)
[2023-02-07] MEDS ORDERED: Potassium Acid Phos 500 mg TAB PO SCH (15:00)
[2023-02-07] MEDS: Potassium & Sodium Phos 250 mg = 1 PACKET PO SCH ×2 (16:52→22:31)
[2023-02-08] MEDS: metroNIDAZOLE IV 500 MG/100ML 500 MG/100 ML BAG IVPB SCH ×4 (00:36→23:07)
[2023-02-08] MEDS: Vancomycin SOL ORALSYR 50 MG/ML ML PO SCH ×5 (00:37→23:17)
[2023-02-08 04:25] LABS: ABS Eosinophils 0.1 10^3/uL (0.0-0.5); ABS Monocytes 1.4 10^3/uL (0.0-0.9); Eosinophil % 1.6 %; Hematocrit 29.1 % (35-45); Hemoglobin 9.5 g/dL (11.5-14.3); Lymphocyte % 14.8 %; Mean Corpuscular Hemoglobin 33.7 pg (27-33); Mean Corpuscular Hgb Conc 32.8 g/dL (31-36); Mean Corpuscular Volume 102.5 fL (80-97); Mean Platelet Volume 8.2 fL (7.5-11.2); Nucleated Red Blood Cells % 0.1 /100 WBC (0.0-0.4); Platelet Count 81 10^3/uL (150-450); Red Blood Count 2.83 10^6/uL (3.63-4.92); Red Cell Distribution Width 19.1 % (12-17); White Blood Count 6.4 10^3/uL (3.8-11.8)
[2023-02-08 04:35] LABS: Calcium 6.8 mg/dL (8.6-10.3); Magnesium 1.5 mg/dL (1.9-2.7); Phosphorus 1.9 mg/dL (2.5-5.0); Potassium 3.2 mmol/L (3.5-5.0); Total Bilirubin 4.4 mg/dL (0.2-1.0); Total Protein 5.3 g/dL (6.4-8.9)
[2023-02-08 04:37] LABS: Albumin 1.5 g/dL (3.2-5.2); Albumin/Globulin Ratio 0.4 (1-3); Creatinine, Serum 0.29 mg/dL (0.51-0.95); Globulin 3.8 g/dL (2-4); eGFR CKD-EPI 140.3 (>60)
[2023-02-08] MEDS: levETIRAcetam 1000MG IVPREMIX 1,000 MG/100 ML BAG IVPB SCH ×2 (04:53→17:57)
[2023-02-08] MEDS ORDERED: Potassium Phosphate IV 15 MMOL in NS 0.9% 250 ml 250 ML IVPB ONE (05:19)
[2023-02-08] MEDS ORDERED: Magnesium Sulfate 2 gm BAG 2 GM/50 ML BAG IVPB ONE (05:19)
[2023-02-08] MEDS ORDERED: KCL 20 MEQ/100 ML IVPREMIX 20 MEQ/100 ML BAG IV ONE (05:20)
[2023-02-08] MEDS: Acetaminophen IV 1 GM/100ML 1,000 MG/100 ML BAG IV PRN ×2 (05:46→21:00)
[2023-02-08] MEDS: Lactulose 30 ml UDC PO SCH ×3 (09:11→20:20)
[2023-02-08] MEDS: Potassium & Sodium Phos 250 mg = 1 PACKET PO SCH ×4 (09:22→20:20)
[2023-02-08] MEDS ORDERED: Enoxaparin 40 MG/0.4 ML SYR SUBCUT SCH (10:00)
[2023-02-08] MEDS ORDERED: cefTRIAXone 2 gm/50 mL D5W 2 GM/50 ML BAG IV ONE (10:30)
[2023-02-08] MEDS: Enoxaparin 40 MG/0.4 ML SYR SUBCUT SCH (11:28)
[2023-02-08] MEDS: Thiamine 100 MG/ML 2 ml VIAL 250 MG in NS 0.9% 100 ml BAG 100 ML IV SCH (11:35)
[2023-02-09 04:45] LABS: Hematocrit 28.2 % (35-45); Hemoglobin 9.5 g/dL (11.5-14.3); Mean Corpuscular Hemoglobin 33.8 pg (27-33); Mean Corpuscular Hgb Conc 33.8 g/dL (31-36); Mean Platelet Volume 8.3 fL (7.5-11.2); Platelet Count 101 10^3/uL (150-450); Red Blood Count 2.82 10^6/uL (3.63-4.92); White Blood Count 6.6 10^3/uL (3.8-11.8)
[2023-02-09] MEDS: levETIRAcetam 1000MG IVPREMIX 1,000 MG/100 ML BAG IVPB SCH ×2 (04:48→16:18)
[2023-02-09 05:04] LABS: Calcium 6.5 mg/dL (8.6-10.3); Creatinine, Serum 0.33 mg/dL (0.51-0.95); Magnesium 1.4 mg/dL (1.9-2.7); Phosphorus 2.8 mg/dL (2.5-5.0); Potassium 3.6 mmol/L (3.5-5.0)
[2023-02-09] MEDS: Vancomycin SOL ORALSYR 50 MG/ML ML PO SCH ×4 (05:04→23:55)
[2023-02-09 05:30] LABS: ABS Eosinophils 0.1 10^3/uL (0.0-0.5); ABS Lymphocytes 0.9 10^3/uL (1.0-4.8); ABS Monocytes 1.2 10^3/uL (0.0-0.9); ABS Neutrophils 4.3 10^3/uL (1.5-7.6); Eosinophil % 1.4 %; Lymphocyte % 14.1 %
[2023-02-09] MEDS: metroNIDAZOLE IV 500 MG/100ML 500 MG/100 ML BAG IVPB SCH ×3 (07:25→23:55)
[2023-02-09] MEDS ORDERED: Magnesium Sulfate IV 3 GM in NS 0.9% 100 ml BAG 100 ML IVPB ONE (08:27)
[2023-02-09] MEDS: Lactulose 30 ml UDC PO SCH ×2 (08:58→21:20)
[2023-02-09] MEDS: Potassium & Sodium Phos 250 mg = 1 PACKET PO SCH ×4 (08:58→21:22)
[2023-02-09] MEDS: Enoxaparin 40 MG/0.4 ML SYR SUBCUT SCH (08:59)
[2023-02-09] MEDS ORDERED: Furosemide 20 mg/2 ml IV VIAL IV SLOW PU ONE (09:37)
[2023-02-09] MEDS: Acetaminophen IV 1 GM/100ML 1,000 MG/100 ML BAG IV PRN ×2 (10:26→21:21)
[2023-02-09] MEDS: Thiamine 100 MG/ML 2 ml VIAL 250 MG in NS 0.9% 100 ml BAG 100 ML IV SCH (10:54)
[2023-02-10] MEDS: levETIRAcetam 1000MG IVPREMIX 1,000 MG/100 ML BAG IVPB SCH ×2 (04:37→17:08)
[2023-02-10] MEDS: Vancomycin SOL ORALSYR 50 MG/ML ML PO SCH ×4 (04:37→18:20)
[2023-02-10 05:43] LABS: ABS Eosinophils 0.1 10^3/uL (0.0-0.5); ABS Monocytes 1.1 10^3/uL (0.0-0.9); ABS Neutrophils 6.4 10^3/uL (1.5-7.6); ABS Nucleated RBC 0.02 10^3/ul; Hemoglobin 9.6 g/dL (11.5-14.3); Lymphocyte % 11.4 %; Mean Corpuscular Hemoglobin 34.3 pg (27-33); Mean Corpuscular Hgb Conc 34.2 g/dL (31-36); Mean Corpuscular Volume 100.3 fL (80-97); Mean Platelet Volume 8.4 fL (7.5-11.2); Nucleated Red Blood Cells % 0.2 /100 WBC (0.0-0.4); Platelet Count 145 10^3/uL (150-450); Red Cell Distribution Width 17.7 % (12-17); White Blood Count 8.7 10^3/uL (3.8-11.8)
[2023-02-10 05:52] LABS: Blood Urea Nitrogen 5 mg/dL (6-24); CO2 Carbon Dioxide 24 mmol/L (22-32); Calcium 6.8 mg/dL (8.6-10.3); Chloride 105 mmol/L (101-111); Creatinine, Serum < 0.30 mg/dL (0.51-0.95); Glucose 95 mg/dL (70-100); Magnesium 1.4 mg/dL (1.9-2.7); Phosphorus 2.7 mg/dL (2.5-5.0); Potassium 3.8 mmol/L (3.5-5.0); Sodium 129 mmol/L (135-145); eGFR CKD-EPI 139.2 (>60)
[2023-02-10] MEDS ORDERED: Magnesium Sulfate IV 3 GM in NS 0.9% 100 ml BAG 100 ML IVPB ONE (06:21)
[2023-02-10] MEDS: metroNIDAZOLE IV 500 MG/100ML 500 MG/100 ML BAG IVPB SCH ×3 (07:45→23:58)
[2023-02-10] MEDS: Enoxaparin 40 MG/0.4 ML SYR SUBCUT SCH (08:38)
[2023-02-10] MEDS: Potassium & Sodium Phos 250 mg = 1 PACKET PO SCH ×4 (08:39→20:05)
[2023-02-10] MEDS: Acetaminophen IV 1 GM/100ML 1,000 MG/100 ML BAG IV PRN ×2 (09:14→18:20)
[2023-02-10] MEDS: Lactulose 30 ml UDC PO SCH ×2 (09:21→19:10)
[2023-02-10] MEDS: Thiamine 100 MG/ML 2 ml VIAL 250 MG in NS 0.9% 100 ml BAG 100 ML IV SCH (11:16)
[2023-02-10] MEDS ORDERED: Furosemide 20 mg/2 ml IV VIAL IV ONE (21:37)
[2023-02-10 22:43] LABS: Calcium 6.8 mg/dL (8.6-10.3); Creatinine, Serum 0.33 mg/dL (0.51-0.95); Magnesium 1.4 mg/dL (1.9-2.7); Potassium 4.1 mmol/L (3.5-5.0)
[2023-02-10] MEDS ORDERED: Magnesium Sulfate IV 1GM/100ML 1 GM/100 ML BAG IV ONE (23:56)
[2023-02-11] MEDS: Vancomycin SOL ORALSYR 50 MG/ML ML PO SCH ×4 (00:02→17:02)
[2023-02-11] MEDS: Acetaminophen IV 1 GM/100ML 1,000 MG/100 ML BAG IV PRN ×2 (03:01→16:53)
[2023-02-11] MEDS: levETIRAcetam 1000MG IVPREMIX 1,000 MG/100 ML BAG IVPB SCH (05:26)
[2023-02-11 06:46] LABS: ABS Eosinophils 0.1 10^3/uL (0.0-0.5); ABS Monocytes 1.1 10^3/uL (0.0-0.9); ABS Neutrophils 5.9 10^3/uL (1.5-7.6); Eosinophil % 0.9 %; Hemoglobin 9.2 g/dL (11.5-14.3); Lymphocyte % 12.6 %; Mean Corpuscular Hemoglobin 34.5 pg (27-33); Mean Corpuscular Hgb Conc 34.3 g/dL (31-36); Mean Corpuscular Volume 100.6 fL (80-97); Platelet Count 157 10^3/uL (150-450); Red Blood Count 2.68 10^6/uL (3.63-4.92); Red Cell Distribution Width 18.2 % (12-17); White Blood Count 8.1 10^3/uL (3.8-11.8)
[2023-02-11 06:58] LABS: Anion Gap 4 mmol/L (2-16); Blood Urea Nitrogen 4 mg/dL (6-24); CO2 Carbon Dioxide 23 mmol/L (22-32); Calcium 6.5 mg/dL (8.6-10.3); Chloride 103 mmol/L (101-111); Glucose 90 mg/dL (70-100); Magnesium 1.6 mg/dL (1.9-2.7); Potassium 4.2 mmol/L (3.5-5.0); Sodium 130 mmol/L (135-145)
[2023-02-11 06:59] LABS: eGFR CKD-EPI 139.2 (>60)
[2023-02-11 07:00] LABS: Creatinine, Serum < 0.30 mg/dL (0.51-0.95)
[2023-02-11] MEDS: Potassium & Sodium Phos 250 mg = 1 PACKET PO SCH ×4 (08:00→21:50)
[2023-02-11] MEDS: Lactulose 30 ml UDC PO SCH ×2 (08:00→21:50)
[2023-02-11] MEDS: Enoxaparin 40 MG/0.4 ML SYR SUBCUT SCH (08:02)
[2023-02-11] MEDS: metroNIDAZOLE IV 500 MG/100ML 500 MG/100 ML BAG IVPB SCH ×2 (08:04→16:59)
[2023-02-11] MEDS: Thiamine 100 MG/ML 2 ml VIAL 250 MG in NS 0.9% 100 ml BAG 100 ML IV SCH (11:15)
[2023-02-12] MEDS: metroNIDAZOLE IV 500 MG/100ML 500 MG/100 ML BAG IVPB SCH ×4 (00:25→23:51)
[2023-02-12] MEDS: Vancomycin SOL ORALSYR 50 MG/ML ML PO SCH ×5 (00:29→23:51)
[2023-02-12] MEDS: Acetaminophen IV 1 GM/100ML 1,000 MG/100 ML BAG IV PRN (02:22)
[2023-02-12 06:44] LABS: Calcium 6.7 mg/dL (8.6-10.3); Creatinine, Serum 0.3 mg/dL (0.51-0.95); Magnesium 1.3 mg/dL (1.9-2.7); Potassium 3.9 mmol/L (3.5-5.0); eGFR CKD-EPI 139.2 (>60)
[2023-02-12 06:45] LABS: ABS Eosinophils 0.1 10^3/uL (0.0-0.5); ABS Lymphocytes 0.8 10^3/uL (1.0-4.8); ABS Monocytes 1.1 10^3/uL (0.0-0.9); ABS Neutrophils 6.1 10^3/uL (1.5-7.6); ABS Nucleated RBC 0.01 10^3/ul; Eosinophil % 0.7 %; Hematocrit 25.9 % (35-45); Hemoglobin 8.9 g/dL (11.5-14.3); Lymphocyte % 10.4 %; Mean Corpuscular Hemoglobin 34.4 pg (27-33); Mean Corpuscular Hgb Conc 34.4 g/dL (31-36); Mean Corpuscular Volume 100.2 fL (80-97); Mean Platelet Volume 8.2 fL (7.5-11.2); Nucleated Red Blood Cells % 0.1 /100 WBC (0.0-0.4); Platelet Count 168 10^3/uL (150-450); Red Blood Count 2.59 10^6/uL (3.63-4.92); Red Cell Distribution Width 18.1 % (12-17); White Blood Count 8.1 10^3/uL (3.8-11.8)
[2023-02-12] MEDS: Potassium & Sodium Phos 250 mg = 1 PACKET PO SCH ×4 (08:54→20:42)
[2023-02-12] MEDS: Enoxaparin 40 MG/0.4 ML SYR SUBCUT SCH (08:57)
[2023-02-12] MEDS: Lactulose 30 ml UDC PO SCH ×2 (08:59→13:27)
[2023-02-12] MEDS ORDERED: Magnesium Sulfate IV 3 GM in NS 0.9% 100 ml BAG 100 ML IVPB ONE ×2 (09:31→17:23)
[2023-02-12 09:41] LABS: Total Bilirubin 4.2 mg/dL (0.2-1.0); Total Protein 5.9 g/dL (6.4-8.9)
[2023-02-12 10:16] LABS: Albumin 1.5 g/dL (3.2-5.2)
[2023-02-12] MEDS: cefTRIAXone 2 gm/50 mL D5W 2 GM/50 ML BAG IV SCH (11:13)
[2023-02-12] MEDS: Thiamine 100 MG/ML 2 ml VIAL 250 MG in NS 0.9% 100 ml BAG 100 ML IV SCH (13:28)
[2023-02-12] MEDS ORDERED: fentaNYL 100 mcg/2 ml 50 MCG/ML VIAL IV SLOW PU PRN (14:50)
[2023-02-12] MEDS: Buprenorp/Nalox 8-2 MG FILM SL SCH (20:42)
[2023-02-12 21:01] LABS: Body Fluid WBC 56 /mcL
[2023-02-12 21:03] LABS: Body Fluid Appearance Clear; Body Fluid Color Yellow; Body Fluid Source Peritonial Fluid
[2023-02-12 21:27] LABS: Body Fluid Band 1 %; Body Fluid Mono 18 %; Body Fluid Total Cells Counted 200
[2023-02-13] MEDS ORDERED: Dextran 70/Hypromellose Tears Eye Drops 15 ml BTL (for Artificials Tears) BOTH EYES PRN (01:56)
[2023-02-13 06:18] LABS: ABS Eosinophils 0.1 10^3/uL (0.0-0.5); ABS Lymphocytes 1.1 10^3/uL (1.0-4.8); ABS Neutrophils 5.9 10^3/uL (1.5-7.6); ABS Nucleated RBC 0.01 10^3/ul; Eosinophil % 0.7 %; Hematocrit 22.1 % (35-45); Hemoglobin 7.6 g/dL (11.5-14.3); Lymphocyte % 13.1 %; Mean Corpuscular Hemoglobin 34.8 pg (27-33); Mean Corpuscular Hgb Conc 34.5 g/dL (31-36); Mean Corpuscular Volume 101.1 fL (80-97); Mean Platelet Volume 8.3 fL (7.5-11.2); Nucleated Red Blood Cells % 0.1 /100 WBC (0.0-0.4); Platelet Count 152 10^3/uL (150-450); Red Blood Count 2.19 10^6/uL (3.63-4.92); White Blood Count 8.1 10^3/uL (3.8-11.8)
[2023-02-13 06:39] LABS: Anion Gap 2 mmol/L (2-16); Blood Urea Nitrogen 3 mg/dL (6-24); CO2 Carbon Dioxide 24 mmol/L (22-32); Calcium 6.8 mg/dL (8.6-10.3); Chloride 104 mmol/L (101-111); Glucose 71 mg/dL (70-100); Magnesium 1.7 mg/dL (1.9-2.7); Potassium 3.8 mmol/L (3.5-5.0); Sodium 130 mmol/L (135-145)
[2023-02-13 06:53] LABS: Creatinine, Serum < 0.30 mg/dL (0.51-0.95); eGFR CKD-EPI 139.2 (>60)
[2023-02-13] MEDS ORDERED: Magnesium Sulfate IV 3 GM in NS 0.9% 100 ml BAG 100 ML IVPB ONE (08:02)
[2023-02-13] MEDS: cefTRIAXone 2 gm/50 mL D5W 2 GM/50 ML BAG IV SCH (09:09)
[2023-02-13] MEDS: Enoxaparin 40 MG/0.4 ML SYR SUBCUT SCH (09:17)
[2023-02-13] MEDS: Buprenorp/Nalox 8-2 MG FILM SL SCH ×3 (09:18→20:39)
[2023-02-13] MEDS: Potassium & Sodium Phos 250 mg = 1 PACKET PO SCH ×4 (09:20→20:39)
[2023-02-13] MEDS: Thiamine 100 MG/ML 2 ml VIAL 250 MG in NS 0.9% 100 ml BAG 100 ML IV SCH (12:57)
[2023-02-13] MEDS ORDERED: Furosemide 40 mg/4 ml IV VIAL IV SLOW PU ONE (15:00)
[2023-02-14 06:50] LABS: ABS Eosinophils 0.1 10^3/uL (0.0-0.5); ABS Lymphocytes 0.9 10^3/uL (1.0-4.8); ABS Nucleated RBC 0.01 10^3/ul; Eosinophil % 1.1 %; Hematocrit 22.1 % (35-45); Hemoglobin 7.6 g/dL (11.5-14.3); Lymphocyte % 11.6 %; Mean Corpuscular Hemoglobin 34.9 pg (27-33); Mean Corpuscular Hgb Conc 34.4 g/dL (31-36); Mean Corpuscular Volume 101.3 fL (80-97); Mean Platelet Volume 9.1 fL (7.5-11.2); Nucleated Red Blood Cells % 0.1 /100 WBC (0.0-0.4); Platelet Count 112 10^3/uL (150-450); Red Blood Count 2.18 10^6/uL (3.63-4.92); Red Cell Distribution Width 17.8 % (12-17)
[2023-02-14 07:16] LABS: Calcium 6.9 mg/dL (8.6-10.3); Creatinine, Serum 0.31 mg/dL (0.51-0.95); Magnesium 1.4 mg/dL (1.9-2.7); Potassium 3.9 mmol/L (3.5-5.0); eGFR CKD-EPI 138.1 (>60)
[2023-02-14] MEDS ORDERED: Magnesium Sulfate IV 3 GM in NS 0.9% 100 ml BAG 100 ML IVPB ONE (09:00)
[2023-02-14] MEDS: Buprenorp/Nalox 8-2 MG FILM SL SCH ×3 (09:00→20:27)
[2023-02-14] MEDS: cefTRIAXone 2 gm/50 mL D5W 2 GM/50 ML BAG IV SCH (09:02)
[2023-02-14] MEDS: Potassium & Sodium Phos 250 mg = 1 PACKET PO SCH ×4 (09:02→20:27)
[2023-02-14] MEDS: Enoxaparin 40 MG/0.4 ML SYR SUBCUT SCH (09:03)
[2023-02-14] MEDS: Thiamine 100 MG/ML 2 ml VIAL 250 MG in NS 0.9% 100 ml BAG 100 ML IV SCH (12:12)
[2023-02-14] MEDS ORDERED: Lactulose 30 ml UDC PO SCH (21:00)
[2023-02-15] MEDS ORDERED: CLOBETASOL 0.05% TOPICAL SCH (03:00)
[2023-02-15] MEDS: CLOBETASOL 0.05% TOPICAL SCH ×4 (04:05→20:23)
[2023-02-15 06:26] LABS: ABS Eosinophils 0.1 10^3/uL (0.0-0.5); ABS Monocytes 1.1 10^3/uL (0.0-0.9); ABS Neutrophils 6.6 10^3/uL (1.5-7.6); Eosinophil % 0.9 %; Hematocrit 23.9 % (35-45); Hemoglobin 8.2 g/dL (11.5-14.3); Lymphocyte % 11.3 %; Mean Corpuscular Hemoglobin 35.1 pg (27-33); Mean Corpuscular Hgb Conc 34.3 g/dL (31-36); Mean Corpuscular Volume 102.2 fL (80-97); Mean Platelet Volume 8.8 fL (7.5-11.2); Platelet Count 138 10^3/uL (150-450); Red Blood Count 2.34 10^6/uL (3.63-4.92); Red Cell Distribution Width 19.1 % (12-17); White Blood Count 8.8 10^3/uL (3.8-11.8)
[2023-02-15 06:30] LABS: Creatinine, Serum 0.3 mg/dL (0.51-0.95); Magnesium 1.5 mg/dL (1.9-2.7); Potassium 4.1 mmol/L (3.5-5.0); eGFR CKD-EPI 139.2 (>60)
[2023-02-15] MEDS: Lactulose 30 ml UDC PO SCH (09:22)
[2023-02-15] MEDS: Potassium & Sodium Phos 250 mg = 1 PACKET PO SCH ×4 (09:24→20:24)
[2023-02-15] MEDS: Buprenorp/Nalox 8-2 MG FILM SL SCH ×3 (09:25→20:24)
[2023-02-15] MEDS: Enoxaparin 40 MG/0.4 ML SYR SUBCUT SCH (09:27)
[2023-02-15] MEDS: cefTRIAXone 2 gm/50 mL D5W 2 GM/50 ML BAG IV SCH (09:28)
[2023-02-15] MEDS: Thiamine 100 MG/ML 2 ml VIAL 250 MG in NS 0.9% 100 ml BAG 100 ML IV SCH (10:26)
[2023-02-15] MEDS ORDERED: Magnesium Sulfate IV 3 GM in NS 0.9% 100 ml BAG 100 ML IVPB ONE (10:47)
[2023-02-16] MEDS: Acetaminophen IV 1 GM/100ML 1,000 MG/100 ML BAG IV PRN (05:48)
[2023-02-16 06:53] LABS: ABS Eosinophils 0.1 10^3/uL (0.0-0.5); ABS Lymphocytes 0.7 10^3/uL (1.0-4.8); ABS Monocytes 0.8 10^3/uL (0.0-0.9); ABS Neutrophils 6.8 10^3/uL (1.5-7.6); ABS Nucleated RBC 0.01 10^3/ul; Eosinophil % 0.6 %; Hematocrit 23.9 % (35-45); Hemoglobin 8.2 g/dL (11.5-14.3); Lymphocyte % 8.7 %; Mean Corpuscular Hemoglobin 35.2 pg (27-33); Mean Corpuscular Hgb Conc 34.3 g/dL (31-36); Mean Corpuscular Volume 102.6 fL (80-97); Mean Platelet Volume 8.6 fL (7.5-11.2); Nucleated Red Blood Cells % 0.1 /100 WBC (0.0-0.4); Platelet Count 169 10^3/uL (150-450); Red Blood Count 2.33 10^6/uL (3.63-4.92); Red Cell Distribution Width 18.9 % (12-17); White Blood Count 8.3 10^3/uL (3.8-11.8)
[2023-02-16 07:12] LABS: Anion Gap 4 mmol/L (2-16); Blood Urea Nitrogen 4 mg/dL (6-24); CO2 Carbon Dioxide 25 mmol/L (22-32); Chloride 105 mmol/L (101-111); Glucose 84 mg/dL (70-100); Magnesium 1.6 mg/dL (1.9-2.7); Potassium 3.7 mmol/L (3.5-5.0); Sodium 134 mmol/L (135-145)
[2023-02-16 07:15] LABS: Creatinine, Serum < 0.30 mg/dL (0.51-0.95); eGFR CKD-EPI 139.2 (>60)
[2023-02-16] MEDS ORDERED: Magnesium Sulfate IV 3 GM in NS 0.9% 100 ml BAG 100 ML IVPB ONE (09:00)
[2023-02-16 09:14] LABS: ALT 16 U/L (7-52); AST 47 U/L (13-39); Alkaline Phosphatase 120 U/L (35-149); Indirect Bilirubin 1.7 mg/dL (0.3-1.0)
[2023-02-16 09:22] LABS: % Iron Saturation 36 % (15-55); .Transferrin < 75 mg/dL (203-362); Iron 38 ug/dL (50-212); Total Iron Binding Capacity 105 mcg/dL (250-450); Unsaturated Iron Binding 67 ug/dL
[2023-02-16 09:36] LABS: Ferritin 221.9 ng/mL (11-307)
[2023-02-16] MEDS: Potassium & Sodium Phos 250 mg = 1 PACKET PO SCH ×3 (09:50→15:39)
[2023-02-16] MEDS: Lactulose 30 ml UDC PO SCH (09:53)
[2023-02-16] MEDS: Buprenorp/Nalox 8-2 MG FILM SL SCH ×2 (09:55→15:39)
[2023-02-16] MEDS: Enoxaparin 40 MG/0.4 ML SYR SUBCUT SCH (09:55)
[2023-02-16] MEDS: CLOBETASOL 0.05% TOPICAL SCH (09:56)
[2023-02-16 14:32] VITALS: BP 96/61
[2023-02-16 15:10] LABS: Albumin, BF 0.3 g/dL
[2023-02-16] MEDS: Thiamine 100 MG/ML 2 ml VIAL 250 MG in NS 0.9% 100 ml BAG 100 ML IV SCH (15:45)
== END 2023-02-16 18:15 | disposition home or self-care (01) | DRG 280 ==
LOC: ED 16:47 → SUATTDRO 02-02 01:21 → EDHOLD 02-02 01:21 → ICU 02-02 11:51 → MED 02-11 19:09
PROVIDERS: ADMIT Internal Medicine; ATTEND Internal Medicine

== ENCOUNTER 2023-07-12 02:41 | Inpatient (IN) ==
[2023-07-12] MEDS ORDERED: Lorazepam PYXIS KEY PRN (03:15)
[2023-07-12] MEDS ORDERED: LORazepam 2 mg VIAL 1 ml IV PUSH ONE (03:15)
[2023-07-12] MEDS ORDERED: Thiamine 100 MG/ML 2 ml VIAL 100 MG, Folic Acid IV 1 MG, Multiple Vitamin IV ADULT 10 M... IV ONE (03:18)
[2023-07-12] MEDS ORDERED: NS 0.9% 500 ml BAG 500 ML IV ONE (03:25)
[2023-07-12 04:47] LABS: Venous Bicarbonate HCO3 27.1 mmol/L (24-28)
[2023-07-12 05:07] LABS: Magnesium 1.6 mg/dL (1.9-2.7)
[2023-07-12] MEDS ORDERED: Magnesium Sulfate 2 gm BAG 2 GM/50 ML BAG IVPB ONE (05:11)
[2023-07-12 05:16] LABS: ABS Lymphocytes 0.9 10^3/uL (1.0-4.8); ABS Monocytes 0.2 10^3/uL (0.0-0.9); ABS Neutrophils 2.7 10^3/uL (1.5-7.6); ABS Nucleated RBC 0.01 10^3/ul; Eosinophil % 0.1 %; Hematocrit 36.9 % (35-45); Hemoglobin 12.5 g/dL (11.5-14.3); Lymphocyte % 23.2 %; Mean Corpuscular Hemoglobin 30.1 pg (27-33); Mean Corpuscular Hgb Conc 33.8 g/dL (31-36); Mean Platelet Volume 9.4 fL (7.5-11.2); Nucleated Red Blood Cells % 0.3 %/100WBC (0.0-0.8); Platelet Count 16 10^3/uL (150-450); Red Blood Count 4.15 10^6/uL (3.63-4.92); White Blood Count 3.9 10^3/uL (3.8-11.8)
[2023-07-12 06:24] LABS: ALT 73 U/L (7-52); AST 292 U/L (13-39); Albumin/Globulin Ratio 0.7 (1-3); Alkaline Phosphatase 202 U/L (35-149); Anion Gap 12 mmol/L (2-16); Blood Urea Nitrogen 3 mg/dL (6-24); CO2 Carbon Dioxide 23 mmol/L (22-32); Calcium 7.5 mg/dL (8.6-10.3); Chloride 103 mmol/L (101-111); Creatinine, Serum 0.33 mg/dL (0.51-0.95); Globulin 4.1 g/dL (2-4); Glucose 94 mg/dL (70-100); Potassium 3.3 mmol/L (3.5-5.0); Sodium 138 mmol/L (135-145); Total Bilirubin 5.8 mg/dL (0.2-1.0); Total Protein 7.1 g/dL (6.4-8.9)
[2023-07-12] MEDS ORDERED: Ondansetron 4 mg VIAL 2 MG/ML 2 ml VIAL IV PRN (07:59)
[2023-07-12] MEDS: Multivitamins/Minerals TAB PO SCH (09:43)
[2023-07-12 10:42] LABS: HCG Pregnancy < 0.60 mIU/mL
[2023-07-12] MEDS: Lactated Ringers 1000 ml BAG 1,000 ML IV SCH (22:16)
[2023-07-12] MEDS ORDERED: Calcium Carb (TUMS) 500 mg CHEW TAB PO ONE (22:26)
[2023-07-13 07:10] LABS: Hematocrit 27.6 % (35-45); Hemoglobin 9.3 g/dL (11.5-14.3); Mean Corpuscular Hemoglobin 29.9 pg (27-33); Mean Corpuscular Hgb Conc 33.8 g/dL (31-36); Mean Corpuscular Volume 88.5 fL (80-97); Red Blood Count 3.11 10^6/uL (3.63-4.92); White Blood Count 1.4 10^3/uL (3.8-11.8)
[2023-07-13 07:19] LABS: Albumin 2.6 g/dL (3.2-5.2); Albumin/Globulin Ratio 0.8 (1-3); Calcium 7.6 mg/dL (8.6-10.3); Creatinine, Serum 0.5 mg/dL (0.51-0.95); Globulin 3.3 g/dL (2-4); Potassium 3.1 mmol/L (3.5-5.0); Total Bilirubin 6.2 mg/dL (0.2-1.0); Total Protein 5.9 g/dL (6.4-8.9)
[2023-07-13] MEDS: Multivitamins/Minerals TAB PO SCH (08:19)
[2023-07-13] MEDS: Lactated Ringers 1000 ml BAG 1,000 ML IV SCH ×2 (08:19→19:39)
[2023-07-13 08:44] LABS: ABS Lymphocytes 0.4 10^3/uL (1.0-4.8); ABS Monocytes 0.2 10^3/uL (0.0-0.9); ABS Neutrophils 0.8 10^3/uL (1.5-7.6); ABS Nucleated RBC 0.01 10^3/ul; Eosinophil % 0.2 %; Lymphocyte % 28.9 %; Mean Platelet Volume 12.2 fL (7.5-11.2); Nucleated Red Blood Cells % 0.7 %/100WBC (0.0-0.8); Platelet Count 5 10^3/uL (150-450)
[2023-07-13 09:37] LABS: C Reactive Protein 3.97 mg/L (<8.01)
[2023-07-13 10:53] LABS: Albumin 2.8 g/dL (3.2-5.2); Albumin/Globulin Ratio 0.8 (1-3); Calcium 7.9 mg/dL (8.6-10.3); Creatinine, Serum 0.45 mg/dL (0.51-0.95); Globulin 3.4 g/dL (2-4); Total Protein 6.2 g/dL (6.4-8.9); eGFR CKD-EPI 126.2 (>60)
[2023-07-13 11:25] LABS: Ferritin 102.2 ng/mL (11-307)
[2023-07-13 11:29] LABS: Folate 8.58 ng/mL (5.90-24.80)
[2023-07-13 13:20] LABS: Magnesium 1.2 mg/dL (1.9-2.7)
[2023-07-13] MEDS: Al Hydrox/Mg Hydrox/Simet LIQ 30 ML UDC PO PRN (14:04)
[2023-07-13] MEDS: Magnesium Sulfate IV 1GM/100ML 1 GM/100 ML BAG IV SCH ×4 (16:13→18:38)
[2023-07-13 16:29] LABS: Mean Platelet Volume 8.4 fL (7.5-11.2); Platelet Count 14 10^3/uL (150-450)
[2023-07-13] MEDS ORDERED: cefTRIAXone VIAL 1,000 MG VIAL IM SCH (17:00)
[2023-07-13] MEDS ORDERED: Piperacillin/Tazobac 3.375 BAG 3.375 GM/100 ML BAG IV ONE (17:15)
[2023-07-13 17:19] LABS: Urine Benzodiazepine Screen None Detected (None Detect); Urine Cannabinoids Screen None Detected (None Detect); Urine Opiates Screen None Detected (None Detect)
[2023-07-13 17:59] LABS: Urine Appearance Cloudy; Urine Bilirubin Negative (Negative); Urine Blood 3+ (Negative); Urine Color Amber; Urine Glucose Negative (Negative); Urine Ketones Negative (Negative); Urine Nitrite Positive (Negative); Urine Protein Negative (Negative); Urine Specific Gravity 1.004 (1.002-1.030); Urine Urobilinogen Negative (Negative)
[2023-07-13] MEDS ORDERED: cefTRIAXone 1 gm/50 mL D5W 1 GM/50 ML BAG IV SCH ×2 (18:00→21:00)
[2023-07-13] MEDS ORDERED: Zosyn per Pharmacy NOTE FOLLOW UP SCH (18:00)
[2023-07-13 18:30] LABS: Urine Bacteria 1+ (Absent); Urine Red Blood Cell Trace(0-2/hpf) (Absent); Urine Squamous Epithelial Cell Present (Absent); Urine White Blood Cell Trace(0-5/hpf) (Absent)
[2023-07-14 01:24] LABS: Activated Partial Thrombo Time 44.6 seconds (26.0-38.0); INR 2.59 (0.83-1.13)
[2023-07-14] MEDS: ZOSYN 3.375 GM Q8H per EXTENDED INFUSION IV SCH ×3 (01:24→16:01)
[2023-07-14 01:31] LABS: Platelet Count 20 10^3/ul (150-450)
[2023-07-14 02:24] LABS: Schistocytes ABSENT
[2023-07-14 04:15] LABS: Hepatitis B Surface Antigen Nonreactive (Nonreactive)
[2023-07-14 04:21] LABS: Hepatitis A Ab IgM Negative (Negative); Hepatitis B Core IgM Nonreactive (Nonreactive)
[2023-07-14 04:29] LABS: HIV 4th Generation Nonreactive (Nonreactive)
[2023-07-14 04:33] LABS: Hepatitis C Antibody Negative (Negative)
[2023-07-14 06:34] LABS: ABS Lymphocytes 0.5 10^3/uL (1.0-4.8); ABS Monocytes 0.5 10^3/uL (0.0-0.9); ABS Neutrophils 5.8 10^3/uL (1.5-7.6); ABS Nucleated RBC 0.01 10^3/ul; Eosinophil % 0.2 %; Hematocrit 29.8 % (35-45); Hemoglobin 9.8 g/dL (11.5-14.3); Lymphocyte % 7.5 %; Mean Corpuscular Hemoglobin 30.1 pg (27-33); Mean Corpuscular Hgb Conc 32.9 g/dL (31-36); Mean Corpuscular Volume 91.4 fL (80-97); Mean Platelet Volume 9.3 fL (7.5-11.2); Nucleated Red Blood Cells % 0.1 %/100WBC (0.0-0.8); Platelet Count 15 10^3/uL (150-450); Red Blood Count 3.26 10^6/uL (3.63-4.92); Red Cell Distribution Width 17.4 % (12-17); White Blood Count 6.9 10^3/uL (3.8-11.8)
[2023-07-14 06:50] LABS: Albumin 2.8 g/dL (3.2-5.2); Albumin/Globulin Ratio 0.8 (1-3); Calcium 7.7 mg/dL (8.6-10.3); Creatinine, Serum 0.52 mg/dL (0.51-0.95); Globulin 3.3 g/dL (2-4); Magnesium 1.8 mg/dL (1.9-2.7); Total Bilirubin 9.9 mg/dL (0.2-1.0); Total Protein 6.1 g/dL (6.4-8.9); eGFR CKD-EPI 121.9 (>60)
[2023-07-14] MEDS ORDERED: Magnesium Sulfate 2 gm BAG 2 GM/50 ML BAG IVPB ONE (08:12)
[2023-07-14] MEDS: Multivitamins/Minerals TAB PO SCH (08:38)
[2023-07-14] MEDS: Al Hydrox/Mg Hydrox/Simet LIQ 30 ML UDC PO PRN (08:43)
[2023-07-14 13:39] LABS: Chlamydia trachomatis NAA Negative (Negative); Neisseria gonorrhoeae (GC) NAA Negative (Negative)
[2023-07-14] MEDS: Potassium Chlor 20 meq TAB.ER PO SCH ×2 (14:13→21:22)
[2023-07-14 14:29] LABS: Copper, S 62 mcg/dL (77-206)
[2023-07-14 18:32] LABS: Albumin 2.6 g/dL (3.2-5.2); Albumin/Globulin Ratio 0.8 (1-3); Calcium 7.8 mg/dL (8.6-10.3); Creatinine, Serum 0.52 mg/dL (0.51-0.95); Globulin 3.2 g/dL (2-4); Magnesium 2.1 mg/dL (1.9-2.7); Total Bilirubin 10.6 mg/dL (0.2-1.0); Total Protein 5.8 g/dL (6.4-8.9); eGFR CKD-EPI 121.9 (>60)
[2023-07-14 18:50] LABS: Hematocrit 27.9 % (35-45); Hemoglobin 9.3 g/dL (11.5-14.3); Mean Corpuscular Hemoglobin 30.5 pg (27-33); Mean Corpuscular Hgb Conc 33.5 g/dL (31-36); Mean Corpuscular Volume 91.1 fL (80-97); Mean Platelet Volume 9.7 fL (7.5-11.2); Platelet Count 13 10^3/uL (150-450); Red Blood Count 3.06 10^6/uL (3.63-4.92); White Blood Count 8.3 10^3/uL (3.8-11.8)
[2023-07-15] MEDS: ZOSYN 3.375 GM Q8H per EXTENDED INFUSION IV SCH ×2 (00:36→10:25)
[2023-07-15] MEDS ORDERED: LORazepam 2 mg VIAL 1 ml IV PUSH ONE (05:03)
[2023-07-15] MEDS ORDERED: Lorazepam PYXIS KEY PRN (05:03)
[2023-07-15] MEDS ORDERED: NS 0.9% 500 ml BAG 500 ML IV ONE (08:05)
[2023-07-15] MEDS: LORazepam 2 mg VIAL 1 ml IV PUSH SCH ×3 (08:51→16:30)
[2023-07-15 09:35] LABS: ABS Lymphocytes 0.7 10^3/uL (1.0-4.8); ABS Monocytes 0.7 10^3/uL (0.0-0.9); ABS Neutrophils 5.6 10^3/uL (1.5-7.6); ABS Nucleated RBC 0.02 10^3/ul; Eosinophil % 0.5 %; Lymphocyte % 10.4 %; Mean Corpuscular Hemoglobin 30.8 pg (27-33); Mean Corpuscular Hgb Conc 33.3 g/dL (31-36); Mean Corpuscular Volume 92.7 fL (80-97); Mean Platelet Volume 10.5 fL (7.5-11.2); Nucleated Red Blood Cells % 0.3 %/100WBC (0.0-0.8); Platelet Count 27 10^3/uL (150-450); Red Blood Count 3.24 10^6/uL (3.63-4.92)
[2023-07-15 09:50] LABS: Calcium 7.8 mg/dL (8.6-10.3); Creatinine, Serum 0.5 mg/dL (0.51-0.95)
[2023-07-15 09:57] LABS: Albumin 2.8 g/dL (3.2-5.2); Albumin/Globulin Ratio 0.9 (1-3); Globulin 3.2 g/dL (2-4); Magnesium 1.6 mg/dL (1.9-2.7); Total Bilirubin 12.1 mg/dL (0.2-1.0)
[2023-07-15] MEDS: Multivitamins/Minerals TAB PO SCH (10:40)
[2023-07-15] MEDS: Potassium Chlor 20 meq TAB.ER PO SCH ×2 (10:40→22:29)
[2023-07-15] MEDS: cefTRIAXone 1 gm/50 mL D5W 1 GM/50 ML BAG IV SCH (12:09)
[2023-07-15 14:04] LABS: INR 3.32 (0.83-1.13)
[2023-07-15] MEDS: Magnesium Sulfate IV 1GM/100ML 1 GM/100 ML BAG IV SCH ×3 (16:14→17:58)
[2023-07-15] MEDS ORDERED: Lactulose 30 ml UDC PO SCH (17:00)
[2023-07-15] MEDS: levETIRAcetam 1000MG IVPREMIX 1,000 MG/100 ML BAG IVPB SCH (19:40)
[2023-07-15] MEDS: Lactulose 300 ML for PR 200 GM/300 ML BTL PR SCH (23:20)
[2023-07-16] MEDS: levETIRAcetam 1000MG IVPREMIX 1,000 MG/100 ML BAG IVPB SCH ×2 (05:58→17:36)
[2023-07-16 06:08] LABS: Mean Corpuscular Hemoglobin 30.9 pg (27-33); Mean Corpuscular Hgb Conc 33.2 g/dL (31-36); Red Blood Count 3.22 10^6/uL (3.63-4.92); Red Cell Distribution Width 18.1 % (12-17); White Blood Count 10.5 10^3/uL (3.8-11.8)
[2023-07-16 06:30] LABS: Calcium 7.6 mg/dL (8.6-10.3); Creatinine, Serum 0.47 mg/dL (0.51-0.95); Potassium 4.4 mmol/L (3.5-5.0); eGFR CKD-EPI 124.9 (>60)
[2023-07-16 06:59] LABS: Albumin 2.5 g/dL (3.2-5.2); Albumin/Globulin Ratio 0.8 (1-3); Globulin 3.1 g/dL (2-4); Magnesium 1.9 mg/dL (1.9-2.7); Total Bilirubin 12.8 mg/dL (0.2-1.0); Total Protein 5.6 g/dL (6.4-8.9)
[2023-07-16 08:29] LABS: Mean Platelet Volume 9.2 fL (7.5-11.2); Platelet Count 37 10^3/uL (150-450)
[2023-07-16] MEDS: Potassium Chlor 20 meq TAB.ER PO SCH ×2 (09:45→22:46)
[2023-07-16] MEDS: Multivitamins/Minerals TAB PO SCH (09:48)
[2023-07-16 10:06] LABS: INR 3.33 (0.83-1.13)
[2023-07-16] MEDS: Lactulose 300 ML for PR 200 GM/300 ML BTL PR SCH ×3 (12:21→18:42)
[2023-07-16] MEDS: cefTRIAXone 1 gm/50 mL D5W 1 GM/50 ML BAG IV SCH (12:21)
[2023-07-16] MEDS: Thiamine 100 MG/ML 2 ml VIAL 500 MG in NS 0.9% 250 ml 250 ML IV SCH ×2 (13:27→18:07)
[2023-07-16] MEDS: Lactulose 30 ml UDC PO SCH (22:46)
[2023-07-17] MEDS ORDERED: Acetaminophen IV 1 GM/100ML 1,000 MG/100 ML BAG IV ONE (00:34)
[2023-07-17] MEDS: Thiamine 100 MG/ML 2 ml VIAL 500 MG in NS 0.9% 250 ml 250 ML IV SCH ×3 (03:12→17:55)
[2023-07-17] MEDS: levETIRAcetam 1000MG IVPREMIX 1,000 MG/100 ML BAG IVPB SCH (06:03)
[2023-07-17 06:23] LABS: INR 3.16 (0.83-1.13)
[2023-07-17 06:25] LABS: Albumin 2.4 g/dL (3.2-5.2); Albumin/Globulin Ratio 0.8 (1-3); Calcium 7.4 mg/dL (8.6-10.3); Creatinine, Serum 0.45 mg/dL (0.51-0.95); Magnesium 1.6 mg/dL (1.9-2.7); Potassium 4.2 mmol/L (3.5-5.0); Total Bilirubin 11.7 mg/dL (0.2-1.0); Total Protein 5.4 g/dL (6.4-8.9); eGFR CKD-EPI 126.2 (>60)
[2023-07-17 06:37] LABS: Hematocrit 30.8 % (35-45); Hemoglobin 10.2 g/dL (11.5-14.3); Mean Corpuscular Hemoglobin 31.1 pg (27-33); Mean Corpuscular Hgb Conc 33.2 g/dL (31-36); Mean Corpuscular Volume 93.5 fL (80-97)
[2023-07-17 07:37] LABS: Platelet Count 50 10^3/uL (150-450)
[2023-07-17] MEDS: Lactulose 30 ml UDC PO SCH ×4 (09:59→22:47)
[2023-07-17] MEDS: Potassium Chlor 20 meq TAB.ER PO SCH ×2 (10:00→22:47)
[2023-07-17] MEDS: Multivitamins/Minerals TAB PO SCH (10:00)
[2023-07-17] MEDS: cefTRIAXone 1 gm/50 mL D5W 1 GM/50 ML BAG IV SCH (11:46)
[2023-07-17] MEDS: Fluocinonide 0.05% CM(NF) 60 GM TUBE TOPICAL SCH (22:48)
[2023-07-18] MEDS: Thiamine 100 MG/ML 2 ml VIAL 500 MG in NS 0.9% 250 ml 250 ML IV SCH ×2 (03:40→12:31)
[2023-07-18 06:55] LABS: INR 2.9 (0.83-1.13)
[2023-07-18 07:18] LABS: Calcium 7.6 mg/dL (8.6-10.3); Creatinine, Serum 0.57 mg/dL (0.51-0.95); Potassium 4.7 mmol/L (3.5-5.0); eGFR CKD-EPI 119.2 (>60)
[2023-07-18 07:21] LABS: Albumin 2.6 g/dL (3.2-5.2); Albumin/Globulin Ratio 0.8 (1-3); Globulin 3.4 g/dL (2-4); Magnesium 1.7 mg/dL (1.9-2.7); Total Bilirubin 13.7 mg/dL (0.2-1.0)
[2023-07-18 07:38] LABS: Hematocrit 32.2 % (35-45); Hemoglobin 10.5 g/dL (11.5-14.3); Mean Corpuscular Hemoglobin 30.7 pg (27-33); Mean Corpuscular Hgb Conc 32.6 g/dL (31-36); Mean Corpuscular Volume 94.3 fL (80-97); Red Blood Count 3.41 10^6/uL (3.63-4.92); White Blood Count 5.7 10^3/uL (3.8-11.8)
[2023-07-18 08:04] LABS: Mean Platelet Volume 8.7 fL (7.5-11.2); Platelet Count 71 10^3/uL (150-450)
[2023-07-18] MEDS: Lactulose 30 ml UDC PO SCH ×2 (10:03→12:31)
[2023-07-18] MEDS: Multivitamins/Minerals TAB PO SCH (10:03)
[2023-07-18] MEDS: Fluocinonide 0.05% CM(NF) 60 GM TUBE TOPICAL SCH (10:03)
[2023-07-18] MEDS: Potassium Chlor 20 meq TAB.ER PO SCH (10:04)
[2023-07-18 10:15] VITALS: BP 123/84
[2023-07-22] MEDS ORDERED: Thiamine 100 MG/ML 2 ml VIAL 250 MG in NS 0.9% 100 ml BAG 100 ML IV SCH (09:00)
== END 2023-07-18 15:55 | disposition home or self-care (01) | DRG 720 ==
LOC: EDHOLD 02:41 → ED 02:41 → MED 09:07 → SUATTDRO 07-13 09:56
PROVIDERS: ADMIT Internal Medicine; ATTEND Internal Medicine

== ENCOUNTER 2023-07-21 13:27 | Inpatient (IN) ==
[2023-07-21] MEDS: levETIRAcetam 1000MG IVPREMIX 1,000 MG/100 ML BAG IVPB ONE (14:49)
[2023-07-21] MEDS: NS 0.9% 500 ml BAG 500 ML IV ONE (14:49)
[2023-07-21 15:09] LABS: Venous Bicarbonate HCO3 25.1 mmol/L (24-28)
[2023-07-21 15:13] LABS: Albumin 3.2 g/dL (3.2-5.2); Albumin/Globulin Ratio 0.8 (1-3); Calcium 7.4 mg/dL (8.6-10.3); Creatinine, Serum 0.36 mg/dL (0.51-0.95); Globulin 3.8 g/dL (2-4); Magnesium 1.9 mg/dL (1.9-2.7); Potassium 3.5 mmol/L (3.5-5.0); Total Bilirubin 9.1 mg/dL (0.2-1.0); eGFR CKD-EPI 133.2 (>60)
[2023-07-21 15:42] LABS: ABS Monocytes 1.7 10^3/uL (0.0-0.9); ABS Neutrophils 5.6 10^3/uL (1.5-7.6); Eosinophil % 0.5 %; Hematocrit 31.9 % (35-45); Hemoglobin 10.6 g/dL (11.5-14.3); Lymphocyte % 11.5 %; Mean Corpuscular Hemoglobin 31.1 pg (27-33); Mean Corpuscular Hgb Conc 33.2 g/dL (31-36); Mean Corpuscular Volume 93.8 fL (80-97); Mean Platelet Volume 8.2 fL (7.5-11.2); Platelet Count 124 10^3/uL (150-450); Red Blood Count 3.41 10^6/uL (3.63-4.92); Red Cell Distribution Width 23.6 % (12-17); White Blood Count 8.4 10^3/uL (3.8-11.8)
[2023-07-21] MEDS: Thiamine 100 MG/ML 2 ml VIAL 250 MG in NS 0.9% 100 ml BAG 100 ML IV SCH (16:18)
[2023-07-21] MEDS ORDERED: Lorazepam PYXIS KEY PRN (21:24)
[2023-07-21] MEDS ORDERED: Multivitamins/Minerals TAB PO SCH (22:00)
[2023-07-21] MEDS: Acetaminophen IV 1 GM/100ML 1,000 MG/100 ML BAG IV ONE (22:45)
[2023-07-22] MEDS: LORazepam 2 mg VIAL 1 ml IV PUSH SCH (00:13)
[2023-07-22] MEDS: Enoxaparin 40 MG/0.4 ML SYR SUBCUT SCH (00:14)
[2023-07-22 00:44] LABS: Urine Appearance Turbid; Urine Bilirubin 2+ (Negative); Urine Blood Negative (Negative); Urine Color Dark-Yellow; Urine Glucose Negative (Negative); Urine Ketones Negative (Negative); Urine Nitrite Negative (Negative); Urine Protein Negative (Negative); Urine Specific Gravity 1.014 (1.002-1.030); Urine Urobilinogen Negative (Negative); Urine pH 6.5 (5.0-8.0)
[2023-07-22 00:52] LABS: Urine Benzodiazepine Screen None Detected (None Detect); Urine Cannabinoids Screen None Detected (None Detect); Urine Opiates Screen None Detected (None Detect)
[2023-07-22] MEDS: Pantoprazole VIAL 40 MG VIAL IV ONE (01:15)
[2023-07-22] MEDS: Calcium Carb (TUMS) 500 mg CHEW TAB PO ONE (01:15)
[2023-07-22 01:55] LABS: Urine Bacteria 1+ /HPF (Absent); Urine Red Blood Cell 1+(3-5/hpf) /HPF (0-Trace); Urine Squamous Epithelial Cell Present /HPF (Absent); Urine White Blood Cell 3+(>20/hpf) /HPF (0-Trace)
[2023-07-22] MEDS: levETIRAcetam 1000MG IVPREMIX 1,000 MG/100 ML BAG IVPB SCH (03:20)
[2023-07-22 05:40] LABS: Hemoglobin 10.1 g/dL (11.5-14.3); Mean Corpuscular Hemoglobin 31.5 pg (27-33); Mean Corpuscular Hgb Conc 33.6 g/dL (31-36); Mean Corpuscular Volume 93.6 fL (80-97); Red Cell Distribution Width 23.4 % (12-17); White Blood Count 4.5 10^3/uL (3.8-11.8)
[2023-07-22 05:54] LABS: Albumin 2.6 g/dL (3.2-5.2); Albumin/Globulin Ratio 0.7 (1-3); C Reactive Protein 12.92 mg/L (<8.01); Calcium 7.4 mg/dL (8.6-10.3); Creatinine, Serum 0.39 mg/dL (0.51-0.95); Globulin 3.6 g/dL (2-4); Magnesium 1.7 mg/dL (1.9-2.7); Potassium 3.8 mmol/L (3.5-5.0); Total Bilirubin 8.5 mg/dL (0.2-1.0); Total Protein 6.2 g/dL (6.4-8.9); eGFR CKD-EPI 130.6 (>60)
[2023-07-22 06:21] LABS: ABS Lymphocytes 0.5 10^3/uL (1.0-4.8); ABS Monocytes 0.9 10^3/uL (0.0-0.9); ABS Neutrophils 3.1 10^3/uL (1.5-7.6); ABS Nucleated RBC 0.01 10^3/ul; Eosinophil % 0.3 %; Lymphocyte % 11.4 %; Mean Platelet Volume 8.6 fL (7.5-11.2); Nucleated Red Blood Cells % 0.1 %/100WBC (0.0-0.8); Platelet Count 81 10^3/uL (150-450)
[2023-07-22] MEDS: Multivitamins/Minerals TAB PO SCH (08:06)
[2023-07-22] MEDS: Magnesium Sulfate 2 gm BAG 2 GM/50 ML BAG IVPB ONE (08:06)
[2023-07-22] MEDS: Lactulose 30 ml UDC PO SCH (08:07)
[2023-07-22] MEDS: Magnesium Sulfate 2 gm BAG 2 GM/50 ML BAG ONE (08:15)
[2023-07-22] MEDS: CLOBETASOL 0.05% TOPICAL SCH (08:23)
[2023-07-22] MEDS ORDERED: Pantoprazole Packet (NF) 40 MG GRANPKT.DR PO SCH (09:00)
[2023-07-22] MEDS: Potassium Chloride LIQUID 20 MEQ/15 ML LIQUID PO ONE (14:11)
[2023-07-23 06:10] LABS: ABS Lymphocytes 0.7 10^3/uL (1.0-4.8); ABS Monocytes 0.5 10^3/uL (0.0-0.9); ABS Neutrophils 1.8 10^3/uL (1.5-7.6); Eosinophil % 1.3 %; Hematocrit 26.9 % (35-45); Hemoglobin 9.1 g/dL (11.5-14.3); Lymphocyte % 24.2 %; Mean Corpuscular Hemoglobin 32.2 pg (27-33); Mean Corpuscular Hgb Conc 33.9 g/dL (31-36); Mean Corpuscular Volume 94.9 fL (80-97); Mean Platelet Volume 8.8 fL (7.5-11.2); Nucleated Red Blood Cells % 0.1 %/100WBC (0.0-0.8); Platelet Count 65 10^3/uL (150-450); Red Blood Count 2.84 10^6/uL (3.63-4.92); Red Cell Distribution Width 23.7 % (12-17); White Blood Count 3.1 10^3/uL (3.8-11.8)
[2023-07-23 06:20] LABS: Albumin 2.5 g/dL (3.2-5.2); Albumin/Globulin Ratio 0.7 (1-3); Calcium 7.4 mg/dL (8.6-10.3); Creatinine, Serum 0.38 mg/dL (0.51-0.95); Globulin 3.4 g/dL (2-4); Magnesium 1.8 mg/dL (1.9-2.7); Potassium 3.9 mmol/L (3.5-5.0); Total Bilirubin 8.3 mg/dL (0.2-1.0); Total Protein 5.9 g/dL (6.4-8.9); eGFR CKD-EPI 131.5 (>60)
[2023-07-23] MEDS: Magnesium Sulfate IV 1GM/100ML 1 GM/100 ML BAG IV ONE (08:54)
[2023-07-23 14:07] VITALS: BP 127/80
== END 2023-07-23 15:30 | disposition home or self-care (01) | DRG 52 ==
LOC: ED 13:27 → EDHOLD 19:44 → SUATTDRO 19:44 → EDHOLD 22:26 → MEDTELE 22:46
PROVIDERS: ADMIT Internal Medicine; ATTEND Hospitalist